=== PATIENT | female | born 1970 | race Hispanic/Latino ===

== ENCOUNTER 2019-05-11 11:48 | Outpatient (CLI) | payer MEDICAID, SELFPAY ==
--- NOTE | ~2019-05-11 | MMUS_ITS ---
EXAMINATION: MM diagnostic maria del carmen BI w shaheed, US breast LT limited HISTORY: Six-month follow-up for probably benign dilated subareolar ducts of the left breast TECHNIQUE: Craniocaudal, mediolateral, and mediolateral oblique 3-D tomosynthesis images of the breas ts were performed and synthetic 2-D images were generated. CAD analysis was submitted and interpreted . High resolution limited left breast ultrasound was performed. COMPARISON: 12/22/2018 BREAST PARENCHYMAL COMPOSITION: The breasts are heterogeneously dense, which may obscure small masses . FINDINGS: MAMMOGRAPHIC FINDINGS: There is no evidence of suspicious mass, calcification, or architectural distortion in either breast to suggest malignancy. There has been no suspicious interval change. ULTRASOUND: Again seen are multiple mildly dilated subareolar ducts of the left breast which contain a small amou nt of debris. No intraductal mass is identified. IMPRESSION: 1. Dilated subareolar ducts of the left breast without discrete mass identified. 2. Recommend 6 month follow-up left diagnostic mammogram and ultrasound. BI-RADS category 3, probably benign findings. Reviewed, dictated and finalized at location A. IMPRESSION: 1. Dilated subareolar ducts of the left breast without discrete mass identified . 2. Recommend 6 month follow-up left diagnostic mammogram and ultrasound. BI-RADS category 3, probably benign findings.
== END 2019-05-11 11:49 | disposition home or self-care (01) ==
LOC: ANHIMG 11:50
PROVIDERS: PCP Registered Nurse; Visit Provider Registered Nurse
DX: R92.8 Other abnormal and inconclusive findings on diagnostic imaging of breast (principal)
CPT/HCPCS: 76642; 77062; 77066; G0279

== ENCOUNTER 2020-07-27 17:32 | Emergency (ER) | payer OTHER, SELFPAY ==
[2020-07-27 17:41] VITALS: BP 128/81; PULSE 88; RESP 16; TEMP 36.7; O2SAT 99
--- NOTE | 2020-07-27 17:46 | ED.GENADULT ---
HPI - General Adult General Chief complaint: Urogenital-Female Stated complaint: side pain Source: patient Mode of arrival: ambulatory Limitations: no limitations History of Present Illness HPI narrative: 50 y/o female. PMH Includes: Seasonal allergies. Presents to [facility] today with acute complaints of RT flank pain, intermittently radiating to RLQ for the past 72 hours respectively. She also notes to have been experiencing dysuria and nausea, without emesis. No known fevers. No chest pain, dyspnea. No vaginal discharge, pelvic pain, hematuria. She reports no pre-existing history of renal compromise or nephrolithiasis. She is without additional acute complaints of illness upon exam. Related Data Allergies Allergy/AdvReac Type Severity Reaction Status Date / Time No Known Allergies Allergy Verified 02/05/20 08:30 Review of Systems Review of Systems: Narrative: CONSTITUTIONAL: Denies fever, chills, sweats. EYES: Denies visual changes, redness, discharge. ENT: Denies rhinorrhea, congestion, sore throat, otalgia. CARDIOVASCULAR: Denies chest pain, palpitations, edema. RESPIRATORY: Denies dyspnea, wheezing, cough GASTROINTESTINAL: RLQ abdominal pain & nausea. No vomiting, diarrhea. GENITOURINARY: Positive dysuria, hesitancy. SKIN: Denies rash or itching. MUSCULOSKELETAL: Denies acute back pain, joint pain, or myalgia. NEUROLOGIC: Denies numbness, or focal weakness. PSYCHIATRIC: Denies anxiety or depression. All systems reviewed & are unremarkable except as noted in HPI and below PMFSH Past Medical History Medical History Back pain Family History Family History Father Hypertension Mother Hypertension Family history of kidney disease Social History Social History Smoking status: Never smoker Alcohol intake: never Exam Narrative: Exam Narrative: GENERAL: This is a well-nourished, well-developed patient, in no apparent distress. HEAD: normocephalic, atraumatic. EYES: PERRL. EARS: External ears normal. NOSE: External nose normal. THROAT: Mucous membranes moist, posterior pharynx clear. NECK: Neck supple, non-tender without lymphadenopathy, masses or thyromegaly. CARDIOVASCULAR: Regular rate and rhythm without murmurs, gallops, or rubs. RESPIRATORY: Clear to auscultation. Breath sounds equal bilaterally. No wheezes, rales, or rhonchi. GASTROINTESTINAL: Abdomen soft, nondistended. There is tenderness and guarding to RLQ. Positive RT CVA tenderness. Bowel sounds are active. No palpable masses. SKIN: warm, intact. NEURO: There were no obvious focal neurologic abnormalities. Course Vital Signs Vital signs: Vital Signs Temperature 36.7 C 07/27/20 17:41 Pulse Rate 88 07/27/20 17:41 Respiratory Rate 16 07/27/20 17:41 Blood Pressure 128/81 07/27/20 17:41 Pulse Oximetry 99 07/27/20 17:41 Temperature 36.7 C 07/27/20 17:41 Pulse Rate 88 07/27/20 17:41 Respiratory Rate 16 07/27/20 17:41 Blood Pressure 128/81 07/27/20 17:41 Pulse Oximetry 99 07/27/20 17:41 Transfer Transfered to: [facility] (ER ) Transfer rationale: Flank pain, RLQ abdominal pain, Hematuria, Urinary hesitancy, Nausea. Accepting physician: Abhi. Transfer comments: I appreciate the above providers assistance in this case. Medical Decision Making MDM Narrative Medical decision making narrative: -Urine Dipstick concentrated and malodorous in [facility]. Positive 1+ Blood. -Reported urinary decrease & nausea, without emesis. -Physical exam sensitive for RT CVA tenderness and RLQ guarding. -Client has been re-directed to [facility] for higher level workup and resources, including but not limited to CBC, CHEM 12, & CT imaging. Medical Records Medical records reviewed: Yes I reviewed the external patient's medical
== END 2020-07-27 18:06 | disposition short-term general hospital (02) ==
PROVIDERS: Emergency Provider Nurse Practitioner Adult Health; PCP Registered Nurse
DX: R10.9 Unspecified abdominal pain (principal); R39.11 Hesitancy of micturition; R11.0 Nausea; R31.9 Hematuria, unspecified; R10.31 Right lower quadrant pain
CPT/HCPCS: 81003; 99212; G0463

== ENCOUNTER 2020-07-27 19:10 | Inpatient (IN) | payer OTHER, SELFPAY ==
[2020-07-27] VITALS (8 sets, daily range): BP systolic 118–137; BP diastolic 74–84; PULSE 75–88; RESP 18; TEMP 36.7; O2SAT 97–100; BMI 32.3
--- NOTE | ~2020-07-27 | XR_ITS ---
EXAMINATION: XR abdomen NG/feed tube insert DATE: 08/04/2020 03:09 INDICATION: Nasogastric tube placement TECHNIQUE: A supine view of the abdomen and lower chest was obtained for evaluation of feeding tube placement. COMPARISON: CT abdomen and pelvis dated 08/03/2020 FINDINGS: Nasogastric tube tip in proximal side port in the body of the stomach. Multiple gas-filled but not fr ankly dilated loops of small bowel throughout the abdomen. Opacities in the bilateral lower lung zone s with appearance on CT favoring atelectasis over pneumonia. Heart size is normal. IMPRESSION: 1. Is a gastric tube in the stomach. 2. Multiple gas-filled loops of small bowel and based on CT appearance favor postoperative ileus over obstruction. Reviewed, dictated and finalized at location A. IMPRESSION: 1. Is a gastric tube in the stomach. 2. Multiple gas-filled loops of small bowel and based on CT appearance favor po stoperative ileus over obstruction.
--- NOTE | ~2020-07-27 | CT_ITS ---
EXAMINATION: CT abdomen pelvis wo con DATE: 07/27/2020 19:57 INDICATION: Right flank pain for 3 days TECHNIQUE: Computed tomography (CT) of the abdomen and pelvis was performed without intravenous contr ast. The dose-length product was 267.15 mGy-cm. Automated exposure control and iterative reconstructi on technique were employed. COMPARISON: CT dated 04/28/2017. FINDINGS: Lung bases are unremarkable. Heart size normal. No significant pleural or pericardial effus ion. No significant vascular abnormality. No lymphadenopathy. The spleen, adrenal glands and kidneys are unremarkable. No renal/ureteral stones or hydronephrosis. IUD present. There is a dilated appendix measuring up to 3.1 cm with possible mass at the cecal junct ion. Small hypodensity of the left hepatic lobe, not well characterized without contrast. No free air or free fluid. No acute osseous abnormality. There is a fat-containing umbilical hernia. No lytic or blastic lesions are identified. IMPRESSION: 1. Possible cecal mass, suspicious for adenocarcinoma. 2: Severely dilated appendix measuring up to 3.1 cm transversely. Consider appendicitis and mucocele . Reviewed, dictated and finalized at location A. IMPRESSION: 1. Possible cecal mass, suspicious for adenocarcinoma. 2: Severely dilated appendix measuring up to 3.1 cm transversely. Consider jeffery endicitis and mucocele.
--- NOTE | ~2020-07-27 | XR_ITS ---
EXAMINATION: XR abdomen obstructive series DATE: 08/05/2020 08:46 INDICATION: Adynamic ileus. TECHNIQUE: Upright and supine views of the abdomen on 3 radiographs were obtained. COMPARISON: CT abdomen and pelvis 08/03/2020 FINDINGS: There are multiple dilated loops of small bowel. The colon is normal in caliber. The nasoga stric tube tip is in the stomach. No free intraperitoneal gas. There is an intrauterine device in exp ected position. There is mild atelectasis in the lower lung zones. IMPRESSION: 1. Dilated small bowel, consistent with adynamic ileus. Reviewed, dictated and finalized at location A.
--- NOTE | ~2020-07-27 | CT_ITS ---
EXAMINATION: CT abdomen pelvis w con DATE: 08/03/2020 11:05 INDICATION: Abdominal pain. TECHNIQUE: Computed tomography (CT) of the abdomen and pelvis was performed with 100 mL Omnipaque 350 intravenous contrast. Automated exposure control and iterative reconstruction technique were employe d. The dose-length product was 902.14 mGy-cm. COMPARISON: CT abdomen and pelvis 07/27/2020 FINDINGS: The visualized portions of the lung bases demonstrate small pleural effusions and mild atel ectasis. The heart size is normal. No pericardial effusion. There is a 1.6 cm cyst in the liver. The gallbladder is distended. The spleen, pancreas, adrenal glands, and kidneys are normal. There is an i ntrauterine device in expected position. There are changes of right hemicolectomy. There are multiple dilated loops of small bowel. There is wall thickening of some small bowel loops, consistent with in flammation. There is a small volume of ascites. There are no pathologically enlarged lymph nodes. The re is thrombus in superior mesenteric vein. Body wall edema is noted. The bones are unremarkable. IMPRESSION: 1. Multiple dilated loops of small bowel without focal transition point with wall thickening of some small bowel loops, consistent with inflammation and adynamic ileus. 2. 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 3. Small volume of ascites. 4. Small pleural effusions. 5. Gallbladder distention, which may secondary to fasting. Acute cholecystitis cannot be excluded. Reviewed, dictated and finalized at location A. IMPRESSION: 1. Multiple dilated loops of small bowel without focal transition point with wa ll thickening of some small bowel loops, consistent with inflammation and adyna radha ileus. 2. 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 3. Small volume of ascites. 4. Small pleural effusions. 5. Gallbladder distention, which may secondary to fasting. Acute cholecystitis cannot be excluded.
--- NOTE | 2020-07-27 19:31 | PC.NURSE ---
Addendum entered by Steff Renteria RN 07/27/20 19:33: urgent care and was told there was blood in her urine and signs of infection, so told to come to ER. pt also reports villavicencio and tiredness x 3 days. currently in gown, resting on stretcher c even, regular resps. no s/s of distress. Original Note: Pt here c daughter who is translating for her. 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 c/o right flank pain radiating to back x 3 days. denies burning with urination but c/o frequency and dribbling c urination. reports that she went urgejt
--- NOTE | 2020-07-27 19:45 | ED.ABDPAIN ---
HPI - Abdominal Pain General Chief Complaint: Urogenital-Female Stated Complaint: flank pain Time Seen by Provider: 07/27/20 19:35 Source: patient Mode of arrival: ambulatory Limitations: no limitations History of Present Illness HPI narrative: Patient is a 50-year-old female complaining of right flank pain and right lower quadrant pain, mild, aching, non radiating, that started 3 days ago. Patient denies any chest pain, shortness of breath, abdominal pain, nausea, vomiting, diarrhea, fever or chills. Related Data Allergies Allergy/AdvReac Type Severity Reaction Status Date / Time No Known Allergies Allergy Verified 02/05/20 08:30 Review of Systems Review of Systems: All systems reviewed & are unremarkable except as noted in HPI and below Constitutional: Constitutional: Denies body ache(s), Denies chills, Denies excessive sweating, Denies fatigue, Denies fever(s), Denies headache(s), Denies lethargy, Denies malaise, Denies weakness and Denies weight loss Eyes: Eyes: Denies blurry vision, Denies change in vision and Denies loss of vision ENT: Denies dizziness, Denies ear discharge, Denies headache(s), Denies lip swelling, Denies epistaxis, Denies nasal congestion, Denies neck pain, Denies throat swelling and Denies tongue swelling Cardiovascular: Cardiovascular: Denies chest pain, Denies chest pain at rest, Denies chest pain with activity, Denies diaphoresis, Denies rapid heart rate, Denies edema, Denies irregular heart rhythm, Denies lightheadedness, Denies palpitations, Denies dyspnea and Denies dyspnea on exertion Respiratory: Respiratory: Denies chest congestion, Denies cough, Denies hemoptysis, Denies dyspnea and Denies dyspnea on exertion Gastrointestinal: Gastrointestinal: Denies abdominal pain, Denies melena, Denies hematochezia, Denies diarrhea, Denies nausea, Denies vomiting and Denies hematemesis Musculoskeletal: Musculoskeletal: Denies abnormal gait, Denies deformity, Denies joint swelling, Denies limited range of motion, Denies neck pain and Denies numbness Neurologic: Denies Abnormal speech present, Denies abnormal gait, Denies confusion, Denies dizziness, Denies headache(s), Denies focal weakness, Denies loss of vision, Denies numbness, Denies Other visual disturbances, Denies Sensory deficit (Neuro) and Denies weakness Psychiatric: Psychiatric: Denies confusion, Denies depression, Denies auditory hallucinations, Denies homicidal ideation and Denies suicidal ideation Endocrine: Endocrine: Denies cold intolerance, Denies excessive sweating, Denies fatigue, Denies heat intolerance and Denies palpitations Hematologic/Lymphatic: Hematologic/Lymphatic: Denies easy bleeding and Denies easy bruising Allergic/Immunologic: Allergic/Immunologic: Denies lip swelling, Denies throat swelling and Denies tongue swelling PMFSH Past Medical History Medical History Back pain Family History Family History Father Hypertension Mother Hypertension Family history of kidney disease Social History Social History Smoking status: Never smoker Alcohol intake: never Comments Past medical history: None Exam Const: General: cooperative, healthy appearing, comfortable, no acute distress, well developed, alert and awake; No confusion Orientation/consciousness: oriented to person, oriented to place, oriented to time, patient oriented x3 and No confusion Limitations: no limitations HENMT: Head: normal to inspection, normocephalic and atraumatic Ears: hearing grossly normal bilaterally, TM normal on the right and TM normal on the left General nose exam: Normal external nose present, Normal nares present and No nasal discharge present Face and sinus: normal facial exam Mouth: Yes Normal oral and palatal mucosa present, Yes lip normal, Yes tongue normal and Yes
[2020-07-27 20:07] LABS: Add Urine Microscopic? YES; Appearance Urine Clear (Clear); Bacteria Urine Trace /hpf; Bilirubin Urine Negative (Negative); Blood Urine 1+ (Negative); Color Urine Yellow (Yellow); Glucose Urine UA Negative (Negative); Ketones Urine Negative (Negative); Leukocyte Esterase Ur Negative LEU/UL (Negative); Mucus Urine Rare /lpf; Nitrate Urine Negative (Negative); Protein Urine Negative (Negative); Squamous Epithelial Cell Urine Moderate /hpf (Few); Urobilinogen Urine Negative mg/dL (<2.0); WBC Urine 0-3 /hpf
[2020-07-27 20:20] LABS: Basophils Absolute Auto 0.1 K/mm3 (0.0-0.1); Basophils Percent Auto 0.6 % (0.2-1.2); Eosinophils Absolute Auto 0.3 K/mm3 (0-0.3); Eosinophils Percent Auto 2.8 % (0-4.4); Hematocrit 36.9 % (37.0-47.0); Hemoglobin 12.6 g/dL (12.0-15.0); Immature Granulocyte Absolute 0.03 K/mm3 (0.00-0.031); Immature Granulocyte Percent A 0.3 % (0-0.5); Lymphocytes Percent Auto 23.4 % (18.3-44.2); Mean Corpuscular HGB Conc 34.1 g/dl (32-36); Mean Corpuscular Hemoglobin 31.1 pg (26-34); Mean Corpuscular Volume 91.1 fl (80-100); Mean Platelet Volume 9.4 fl (7.4-10.4); Monocytes Absolute Auto 0.8 K/mm3 (0.1-0.6); Monocytes Percent Auto 9.3 % (2.6-8.5); Neutrophils Absolute Auto 5.7 K/mm3 (1.3-6.7); Neutrophils Percent Auto 63.6 % (45.5-73.1); Platelet Count Result 243 k/mm3 (150-375); Red Blood Count 4.05 M/mm3 (4.2-5.4); Red Cell Distribution Width 12.5 % (11.5-14.5)
[2020-07-27 21:19] LABS: Alanine Aminotransferase 17 U/L (4-35); Alkaline Phosphatase 47 U/L (38-126); Aspartate Amino Transferase 23 U/L (14-36); Bilirubin,Total 0.3 mg/dL (0.2-1.3); Lipase 83 U/L (23-300)
[2020-07-27 21:20] LABS: Anion Gap 6 mmol/L (8-16); Blood Urea Nitrogen 13 mg/dL (7-17); Calcium 8.9 mg/dL (8.4-10.2); Carbon Dioxide 26 mmol/L (22-30); Chloride 106 mmol/L (98-107); Estimated CRCL calculation 103 ml/min; Estimated Glomerular Filt Rate > 60; Glucose 113 mg/dL (65-105); Potassium 3.9 mmol/L (3.4-5.0); Sodium 138 mmol/L (137-145)
[2020-07-27] MEDS: LACTATED RINGERS 1,000 ML 125 ML IV CONT (22:30)
[2020-07-27] MEDS: ONDANSETRON INJ 4 MG/2 ML VIAL IV PUSH (22:31)
[2020-07-27] MEDS: HYDROmorphone HCL INJ (*CRX) 1 MG/ML SYR 0.5 MG IV PUSH (22:31)
--- NOTE | 2020-07-27 23:25 | PC.NURSE ---
This patient, Sylvia Pinto, was admitted to [facility] Surg Room 301-01. Patient/family oriented to hospital policies and general routines including ID bracelet, bed and alarms, visiting hours, pain management, procedures, bathroom and other care routines, personal items, smoking policy, room service/diet, and visiting hours. Information on how to activate the Rapid Response Team has been discussed. Patient/Family are encouraged to report perceived risks to care and to ask questions if they do not understand what they are told or what they should do.
[2020-07-28] VITALS (16 sets, daily range): BP systolic 94–127; BP diastolic 59–74; PULSE 69–105; RESP 10–19; TEMP 36.6–37.6; O2SAT 92–100
[2020-07-28] MEDS: LACTATED RINGERS 1,000 ML 125 ML IV CONT (04:52)
--- NOTE | 2020-07-28 09:57 | PM.IMHP ---
H&P: HPI History of Present Illness Date/Time: 07/28/20 09:57 Chief Complaint: Right flank and right lower quadrant abdominal pain Narrative: This is a 50-year-old Lao-speaking female who was referred to the emergency department from [facility]. For my entire conversation with the patient in obtaining history and discussing the plan, I used a virtual senior architect/design manager on the [employer] device with the patient's consent. She reports having mild, but constant pain for about 3 days. She states the pain is in her right flank and radiates to the right lower quadrant of her abdomen. Reports associated fatigue and nausea, but no vomiting. Denies any fever chills. There have been no alleviating or aggravating factors, therefore she presented to the [facility] for further evaluation. From there she was instructed to go to the [place] [facility] for further work-up. Labs were unremarkable. CT scan of the abdomen pelvis showed a dilated appendix up to 3.1 cm, possible mucocele, and possible cecal mass. No evidence of perforation or inflammatory stranding around the appendix. The patient was admitted to our service in the setting for surgical evaluation. She was made NPO. She has not had anything to eat or drink since yesterday around 6:00 p.m.. The patient is now seen on the medical floor. She reports having some pain medication, and since then has had no pain at all. Reports she is just tender with palpation. Denies nausea at this time. Denies any fever or chills. She has never had a colonoscopy. Denies any recent weight loss, significant fatigue, or other complaints. No family history of colorectal or appendiceal cancer. Review of Systems Review of Systems: All systems reviewed & are unremarkable except as noted in HPI and below Constitutional: Constitutional: Reports as per HPI, Denies anorexia, Denies body ache(s), Denies chills, Reports fatigue (x 3 days), Denies fever(s), Denies malaise, Denies poor appetite, Denies weight gain and Denies weight loss Eyes: Eyes: Reports no additional eye complaints and Denies change in vision ENT: Reports system reviewed and no additional complaints, except as documented, Reports Normal hearing present and Denies dizziness Cardiovascular: Cardiovascular: Reports no additional cardiovascular complaints, Denies chest pain and Denies leg edema Respiratory: Respiratory: Reports no additional respiratory complaints, Denies cough and Denies dyspnea Gastrointestinal: Gastrointestinal: Reports as per HPI, Reports no additional gastrointestinal complaints, Reports abdominal pain (right flank extending to RLQ), Denies melena, Denies bloating, Denies hematochezia, Denies change in bowel habits, Denies change in stool character, Denies constipation, Denies diarrhea, Denies loose stools, Reports nausea and Denies vomiting Genitourinary: Genitourinary: Denies hematuria and Denies dysuria Musculoskeletal: Musculoskeletal: Denies abnormal gait, Denies deformity, Denies joint swelling, Denies numbness and Denies tingling Integumentary/Breasts: Skin/Breast: Denies wounds and Denies jaundice Neurologic: Reports system reviewed and no additional complaints, except as documented, Reports Normal hearing present, Denies abnormal gait, Denies dizziness, Denies focal weakness, Denies numbness and Denies tingling Psychiatric: Psychiatric: Denies anxiety and Denies depression [facility] Past Medical History Medical History Back pain Cough variant asthma Surgical History Surgical History No history of previous surgery Family History Family History Father Hypertension Mother Hypertension Family history of kidney disease Social History Social History 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
--- NOTE | 2020-07-28 10:47 | PC.NURSE ---
To OR per bed, IV #18 RT FA. Report given to Tracey. Andrews (daughter) at bedside.
--- NOTE | 2020-07-28 10:51 | WPDHPUPDATE1 ---
History and Physical Update Update Date/Time: 07/28/20 10:51 History and Physical has been reviewed, including an updated exam of the patient. There are NO changes in the patient's condition. Risks, benefits, and alternatives have been discussed and questions answered. Patient agrees to proceed with procedure.
--- NOTE | 2020-07-28 10:55 | WPDANESEPPF ---
Anes - Initial Pre Proc Eval Procedure: Operation Date: 07/28/20 14:30 Proposed Procedures p Laparoscopic Appendectomy - Malcom Pryor MD Date/Time: 07/28/20 10:55 Surgeon: Malcom Pryor MD Pre Op Diagnosis: Acute Appendicitis Patient Data Age: 50 Gender: F Height: 1.65 m Weight: 88.1 kg Last Vital Signs Temp 36.7 C 07/28/20 05:57 Pulse 71 07/28/20 05:57 Resp 18 07/28/20 05:57 BP 114/68 07/28/20 05:57 Pulse Ox 99 07/28/20 05:57 Allergies Allergy/AdvReac Type Severity Reaction Status Date / Time No Known Allergies Allergy Verified 07/27/20 23:32 Home Medications Medication Instructions Recorded Confirmed Type albuterol sulfate 90 mcg/actuation 2 inhalation INHALATION Q6H PRN 01/27/19 07/27/20 Rx aerosol inhaler #8.5 gm fluticasone 250 mcg-salmeterol 50 1 inh INHALATION BID #60 each 02/05/20 07/27/20 Rx mcg/dose blistr powdr for inhalation Laboratory Tests 07/27/20 07/27/20 07/27/20 19:59 20:12 20:13 WBC 9.0 K/mm3 K/mm3 (4.5-10.0) RBC 4.05 M/mm3 L M/mm3 (4.2-5.4) Hgb 12.6 g/dL g/dL (12.0-15.0) Hct 36.9 % L % (37.0-47.0) MCV 91.1 fl fl (80-100) MCH 31.1 pg pg (26-34) MCHC 34.1 g/dl g/dl (32-36) RDW 12.5 % % (11.5-14.5) Plt Count 243 k/mm3 k/mm3 (150-375) MPV 9.4 fl fl (7.4-10.4) Immature Gran % (Auto) 0.3 % % (0-0.5) Neut % (Auto) 63.6 % % (45.5-73.1) Lymph % (Auto) 23.4 % % (18.3-44.2) [place] % (Auto) 9.3 % H % (2.6-8.5) Eos % (Auto) 2.8 % % (0-4.4) Baso % (Auto) 0.6 % % (0.2-1.2) Lymph # (Auto) 2.10 K/mm3 K/mm3 (0.9-3.2) [place] # (Auto) 0.8 K/mm3 H K/mm3 (0.1-0.6) Eos # (Auto) 0.3 K/mm3 K/mm3 (0-0.3) Baso # (Auto) 0.1 K/mm3 K/mm3 (0.0-0.1) Abs Immat Gran (auto) 0.03 K/mm3 K/mm3 (0.00-0.031) Absolute Neuts (auto) 5.7 K/mm3 K/mm3 (1.3-6.7) Absolute Nucleated RBC 0.0 K/mm3 K/mm3 (0.0-0.012) Nucleated RBC % 0.0 % % (0.0-0.2) Sodium Potassium Chloride Carbon Dioxide Anion Gap BUN Creatinine Estim Creat Clear Calc Estimated GFR Glucose Calcium Total Bilirubin 0.3 mg/dL mg/dL (0.2-1.3) Direct Bilirubin 0.0 mg/dL mg/dL (0-0.3) AST 23 U/L U/L (14-36) ALT 17 U/L U/L (4-35) Alkaline Phosphatase 47 U/L U/L (38-126) Total Protein 7.0 g/dL g/dL (6.3-8.2) Albumin 4.0 g/dL g/dL (3.5-5.1) Lipase 83 U/L U/L (23-300) Urine Color Yellow (Yellow) Urine Appearance Clear (Clear) Urine pH 6.0 (5.0-9.0) Ur Specific Stella 1.020 (1.001-1.035) Urine Protein Negative mg/dL mg/dL (Negative) Urine Glucose (UA) Negative mg/dL mg/dL (Negative) Urine Ketones Negative mg/dL mg/dL (Negative) Ur Blood (Man) 1+ H (Negative) Urine Nitrate Negative (Negative) Urine Bilirubin Negative (Negative) Urine Urobilinogen Negative mg/dL mg/dL (<2.0) Leukocyte Esterase Rfl Negative STEFFANIE/UL STEFFANIE/UL (Negative) Urine RBC 3-5 /hpf H /hpf (0-2) Urine WBC 0-3 /hpf /hpf Ur Squamous Epith Cells Moderate /hpf H /hpf (Few) Urine Bacteria Trace /hpf /hpf Urine Mucus Rare /lpf /lpf 07/27/20 20:13 WBC RBC Hgb Hct MCV MCH MCHC RDW Plt Count MPV Immature Gran % (Auto) Neut % (Auto) Lymph % (Auto) [place] % (Auto) Eos % (Auto) Baso % (Auto) Lymph # (Auto) [place] # (Auto) Eos # (Auto) B
[2020-07-28] MEDS: LACTATED RINGERS 1,000 ML 30 ML IV CONT ×2 (11:13→14:08)
--- NOTE | 2020-07-28 11:24 | SUR.PREOP ---
PT STATES SHE IS NOT POST MENOPAUSAL, SHE HAS NOT HAD A PERIOD SINCE 2011 DUE TO HAVING THE MIRENA. NOTIFIED DR RICKETTS. NO UPREG NEEDED.
[2020-07-28] MEDS: ceFAZolin 2 GM/D5W 50 ML 2 GM/50 ML BAG IVPB (12:01)
[2020-07-28] MEDS: BUPIVACAINE/EPINEPHRINE 0.5% 10 ML VIAL 50 ML INFILTRATE (13:16)
--- NOTE | 2020-07-28 13:46 | PM.PROC ---
Procedure Note - Detailed Date of procedure: 07/28/20 Pre-op diagnosis: Acute Appendicitis Post-op diagnosis: other ( appendiceal mass involving base of the appendix) Procedure performed: diagnostic laparoscopy, hand assisted laparoscopic ileocecectomy, mobilization of hepatic flexure Description of procedure: The patient was taken to the operating room placed in the supine position. After adequate induction of general anesthesia, the patient prepped and draped normal sterile fashion. A time-out was then done to verify the patient's identity, as well as the procedure being performed. I began by making a 5 mm incision in the infraumbilical region. I then placed a Veress needle into the peritoneal cavity and CO2 gas was insufflated. After adequate pneumoperitoneum was achieved, I placed a 5 mm Optiview trocar under direct visualization. The introducer was then removed and the endoscope was placed through this trocar. Under direct visualization, I placed a further 5 mm suprapubic port and an additional 12 mm port in the left lower abdomen. At this point the cecum was identified and was noted to be largely unremarkable. Upon identifying the appendix, it was noted to be very dilated and hard. The hardness and dilation was throughout the appendix including the base of the appendix with the cecum. Given the suspicious findings on CT scan as well as the involvement of the base, the decision was made to convert to ileo cecectomy. I enlarged the incision around the umbilicus to allow for hand port placement. Once done, I began by taking down the medial attachments of the ileocecal area. This was done by 1st identifying the ileocolic vessels which were ligated near the root of the mesentery. I then proceeded to continue this dissection towards the hepatic flexure identifying the duodenum posteriorly. I then took down the lateral attachments, including the ileocolic attachments, and the white line of Toldt laterally. I then went ahead and mobilized the hepatic flexure as well. Once the right colon was completely freely mobile, and extracorporealized the specimen through the hand port. At this point, I used a 55 LORENA stapler to transect the distal ileum approximately 10 cm from the ileocecal junction. I then transected the distal cecum, ascending colon with a reload on the 55 LORENA stapler. The specimen was then sent to pathology for further review. I then noted at this time that the distal ileum was somewhat compromised due to extensive mesenteric dissection. Given this, I went ahead and resected distal ileum back to healthy, viable ileum. I then performed a [id number] functional end-to-end ileocolic anastomosis using the 55 LORENA stapler followed by a TX 60 stapler. I then over sewed the staple line with interrupted 3 0 Vicryl sutures. The mesenteric defect was also closed with a running 3 0 Vicryl suture. I was very happy with our tension-free anastomosis that was noted to be widely patent as well. I then placed the anastomosis back into the abdominal cavity where it was noted to sit tension-free. I then copiously irrigated the abdomen, no other pathology was noted. I then removed all port sites. The fascia of the 12 mm port site was closed with an 0 Vicryl suture. Hand port site was closed with a 1 PDS. All incisions were closed with 4.0 Monocryl subcuticular suture. Dermabond was placed on all wounds. The patient tolerated the procedure well and was extubated in the operating room postoperatively. She will be transferred to the recovery room in stable condition. Anesthesia: GETA Surgeon: Lili Rivas MD Estimated blood loss (mL): 50 Drains: No Packing: No Pathology: yes Complications: No immediate complications Condition: stable Disposition: PACU Findings: Extremely dilated hard appendix involving the entirety of the appendix including the base
[2020-07-28] MEDS: KETOROLAC 30 MG/ML VIAL (*BKC) IV PUSH (13:50)
[2020-07-28] MEDS: fentaNYL CITRATE INJ (*CRX) 100 MCG/2 ML VIAL 25 MCG IV PUSH ×5 (14:33→15:18)
--- NOTE | 2020-07-28 16:16 | PC.NURSE ---
Patient return from OR per bed. Daughter at bedside.
[2020-07-28] MEDS: HYDROcodone/acetaminophen (*CRX) 5-325 MG TABLET 1 TAB PO (18:10)
[2020-07-28] MEDS: LACTATED RINGERS 1,000 ML 100 ML IV CONT (18:20)
[2020-07-28] MEDS: HYDROmorphone HCL INJ (*CRX) 1 MG/ML SYR 0.5 MG IV PUSH (21:17)
[2020-07-29] MEDS: HYDROmorphone HCL INJ (*CRX) 1 MG/ML SYR 0.5 MG IV PUSH ×5 (03:45→22:46)
[2020-07-29] MEDS: LACTATED RINGERS 1,000 ML 100 ML IV CONT ×2 (03:50→16:07)
[2020-07-29 03:57] VITALS: BP 120/69; PULSE 98; RESP 20; TEMP 37.6; O2SAT 95
[2020-07-29 05:57] LABS: Basophils Percent Auto 0.2 % (0.2-1.2); Hematocrit 33.4 % (37.0-47.0); Hemoglobin 11.4 g/dL (12.0-15.0); Immature Granulocyte Absolute 0.14 K/mm3 (0.00-0.031); Immature Granulocyte Percent A 0.7 % (0-0.5); Lymphocytes Percent Auto 7.9 % (18.3-44.2); Mean Corpuscular HGB Conc 34.1 g/dl (32-36); Mean Corpuscular Hemoglobin 30.9 pg (26-34); Mean Corpuscular Volume 90.5 fl (80-100); Mean Platelet Volume 9.7 fl (7.4-10.4); Monocytes Absolute Auto 1.9 K/mm3 (0.1-0.6); Monocytes Percent Auto 9.9 % (2.6-8.5); Neutrophils Absolute Auto 15.4 K/mm3 (1.3-6.7); Neutrophils Percent Auto 81.3 % (45.5-73.1); Platelet Count Result 226 k/mm3 (150-375); Red Blood Count 3.69 M/mm3 (4.2-5.4); Red Cell Distribution Width 12.5 % (11.5-14.5); White Blood Count 18.9 K/mm3 (4.5-10.0)
[2020-07-29 06:06] LABS: Anion Gap 7 mmol/L (8-16); Blood Urea Nitrogen 10 mg/dL (7-17); Calcium 8.4 mg/dL (8.4-10.2); Carbon Dioxide 23 mmol/L (22-30); Chloride 104 mmol/L (98-107); Estimated CRCL calculation 107 ml/min; Estimated Glomerular Filt Rate > 60; Glucose 144 mg/dL (65-105); Potassium 3.6 mmol/L (3.4-5.0); Sodium 134 mmol/L (137-145)
--- NOTE | 2020-07-29 07:24 | P.PNAN_ITS ---
Anes - Prog Note Post-Op Date/Time: 07/29/20 07:24 Cardiovascular status: normal Respiratory status: normal Airway patency: baseline Mental status: baseline Post-Op hydration status: normal Vital Signs: Last Vital Signs Temp 37.6 C 07/29/20 03:57 Pulse 98 07/29/20 03:57 Resp 20 07/29/20 03:57 BP 120/69 07/29/20 03:57 Pulse Ox 95 07/29/20 03:57 Pain Score (VAS): 2 I/O: Intake & Output 07/28/20 07/28/20 07/29/20 15:59 23:59 07:59 Intake Total 9709 868 5869 Output Total 900 400 Balance 1050 -540 700 Laboratory Tests 07/29/20 05:30 07/29/20 05:30 07/29/20 07/29/20 05:30 05:30 WBC 18.9 H RBC 3.69 L Hgb 11.4 L Hct 33.4 L MCV 90.5 MCH 30.9 MCHC 34.1 RDW 12.5 Plt Count 226 MPV 9.7 Immature Gran % (Auto) 0.7 H Neut % (Auto) 81.3 H Lymph % (Auto) 7.9 L [place] % (Auto) 9.9 H Eos % (Auto) 0.0 Baso % (Auto) 0.2 Lymph # (Auto) 1.50 [place] # (Auto) 1.9 H Eos # (Auto) 0.0 Baso # (Auto) 0.0 Abs Immat Gran (auto) 0.14 H Absolute Neuts (auto) 15.4 H Absolute Nucleated RBC 0.0 Nucleated RBC % 0.0 Sodium 134 L Potassium 3.6 Chloride 104 Carbon Dioxide 23 Anion Gap 7 L BUN 10 Creatinine 0.60 L Estim Creat Clear Calc 107 Estimated GFR > 60 Glucose 144 H Calcium 8.4 Post-procedural complaints: none Patient Feedback: Patient satisfied with anesthetic care.
[2020-07-29] MEDS: ENOXAPARIN 40 MG/0.4 ML SYRINGE SUB-Q (08:34)
[2020-07-29] MEDS: PANTOPRAZOLE 40 MG TABLET PO (08:34)
[2020-07-29 09:45] VITALS: O2SAT 95
--- NOTE | 2020-07-29 10:41 | PM.PNGS ---
Progress Note: A&P Assessment and Plan (1) Mass of appendix: Code(s): K38.8 - Other specified diseases of appendix Status: Acute Assessment and Plan: doing well, await bowel fxn, OOB/IS, cont clears, await path Subjective Subjective Date/Time Seen: 07/29/20 10:41 feels ok, some incisional soreness, herb clears, no bowel fxn Review of Systems Review of Systems: All systems reviewed & are unremarkable except as noted in HPI and below Exam Const: General: cooperative and no acute distress Resp: Effort & Inspection: normal respiratory effort Auscultation: clear to auscultation bilaterally Cardio: Rate: regular rate Rhythm: regular rhythm GI: Inspection: normal to inspection, distended and incision GI Palp: Yes Soft to palpation, Yes Tenderness to palpation present (GI), No Guarding due to palpation present (GI) and No Rigid due to palpation Other: soft, mod dist, jeffery TTP, incisions C/D/I Objective Data Vital Signs Vital Signs: Vital Signs - 24 hr 07/28/20 11:09 07/28/20 14:08 07/28/20 14:20 Temperature 37.3 C Pulse Rate 75 74 69 Respiratory Rate 16 12 14 Blood Pressure 122/74 97/59 L 94/70 L Pulse Oximetry 98 100 100 07/28/20 14:35 07/28/20 14:50 07/28/20 15:05 Temperature Pulse Rate 72 70 79 Respiratory Rate 17 19 16 Blood Pressure 103/66 109/67 110/69 Pulse Oximetry 100 100 95 07/28/20 15:20 07/28/20 15:35 07/28/20 15:50 Temperature Pulse Rate 82 84 83 Respiratory Rate 10 L 13 14 Blood Pressure 104/68 104/66 103/70 Pulse Oximetry 92 94 94 07/28/20 16:00 07/28/20 16:15 07/28/20 16:45 Temperature 37.4 C 36.6 C 37.0 C Pulse Rate 90 87 96 Respiratory Rate 14 14 16 Blood Pressure 125/66 115/66 118/69 Pulse Oximetry 96 96 97 07/28/20 17:45 07/28/20 19:45 07/28/20 23:40 Temperature 37.6 C H 36.8 C 36.8 C Pulse Rate 103 H 105 H 105 H Respiratory Rate 16 18 18 Blood Pressure 127/74 112/67 119/72 Pulse Oximetry 97 95 93 07/29/20 03:57 07/29/20 09:45 Temperature 37.6 C Pulse Rate 98 Respiratory Rate 20 Blood Pressure 120/69 Pulse Oximetry 95 95 Intake/Output Intake/Output: Intake & Output 07/26/20 07/27/20 07/28/20 07/29/20 23:59 23:59 23:59 23:59 Intake Total 2410 1300 Output Total 900 400 Balance 1510 900 Meds/Results Medications: Active Medications Generic Name Dose Route Start Last Admin Trade Name Freq PRN Reason Stop Dose Admin Acetaminophen 500 mg 07/28/20 13:42 Acetaminophen 500 Mg Tablet PO Q6H PRN Mild Pain (1-3) or Fever Hydrocodone Bitart/Acetaminophen 1 tab 07/28/20 13:42 07/28/20 18:10 Hydrocodone/Acetaminophen (*Crx) 5-325 Mg Tablet PO 1 tab Q4H PRN Administration Pain Rated 4-6 Alvimopan 12 mg 07/29/20 21:00 Alvimopan 12 Mg Capsule PO 08/05/20 21:01 Q12HR JADYN Enoxaparin Sodium 40 mg 07/29/20 09:00 07/29/20 08:34 Enoxaparin 40 Mg/0.4 Ml Syringe SUB-Q 40 mg DAILY JADYN Administration Hydromorphone HCl 0.5 mg 07/27/20 21:53 07/29/20 08:33 Hydromorphone Hcl Inj (*Crx) 1 Mg/Ml Syr IV PUSH 0.5 mg Q4H PRN Administration Pain Rated 7-10 Lactated Ringer's 1,000 mls @ 100 mls/hr 07/28/20 13:45 07/29/20 03:50 Lr - Lactated Ringers Iv IV CONT 100 mls/hr .Q10H JADYN Administration Ketorolac Tromethamine 30 mg 07/28/20 13:42 07/28/20 13:50 Ketorolac 30 Mg/Ml Vial (*Bkc) IV PUSH 08/02/20 13:43 30 mg Q6H PRN Administration Pain Rated 4-6 Morphine Sulfate 4 mg 07/28/20 13:37 Morphine Sulfate (*Crx) 4 Mg/Ml Inj IV PUSH Q2H PRN Pain Rated 7-10 Naloxone HCl 0.1 mg 07/28/20 13:42 Naloxone Hcl 0.4 Mg/Ml Vial IV PUSH Q2M PRN Opiate Reversal Ondansetron HCl 4 mg 07/28/20 13:42 Ondansetron Inj 4 Mg/2 Ml Vial IV PUSH Q4H PRN Nausea And Vomiting Pantoprazole Sodium 40 mg 07/29/20 09:00 07/29/20 08:34 Pantoprazole 40 Mg Tablet PO 40 mg QAM JADYN Administration Radiology Res
[2020-07-29] MEDS: MORPHINE SULFATE (*CRX) 4 MG/ML INJ IV PUSH ×2 (11:43→16:10)
[2020-07-29] MEDS: ONDANSETRON INJ 4 MG/2 ML VIAL IV PUSH (11:49)
[2020-07-29 14:00] VITALS: BP 135/77; PULSE 97; RESP 16; TEMP 37.8; O2SAT 94
[2020-07-29] MEDS: ALVIMOPAN 12 MG CAPSULE PO (20:52)
[2020-07-29] MEDS: HYDROcodone/acetaminophen (*CRX) 5-325 MG TABLET 1 TAB PO (20:58)
[2020-07-29 21:53] VITALS: BP 146/78; PULSE 114; RESP 20; TEMP 36.8; O2SAT 92
[2020-07-29] MEDS: KETOROLAC 30 MG/ML VIAL (*BKC) IV PUSH (22:46)
[2020-07-30] MEDS: LACTATED RINGERS 1,000 ML 100 ML IV CONT ×3 (01:36→20:07)
[2020-07-30] MEDS: HYDROcodone/acetaminophen (*CRX) 5-325 MG TABLET 1 TAB PO ×3 (02:34→20:08)
[2020-07-30 06:00] VITALS: BP 129/77; PULSE 99; RESP 20; TEMP 36.3; O2SAT 97
[2020-07-30 06:22] LABS: Hematocrit 35.2 % (37.0-47.0); Hemoglobin 11.9 g/dL (12.0-15.0); Mean Corpuscular HGB Conc 33.8 g/dl (32-36); Mean Corpuscular Hemoglobin 30.8 pg (26-34); Mean Corpuscular Volume 91.2 fl (80-100); Mean Platelet Volume 10.3 fl (7.4-10.4); Platelet Count Result 224 k/mm3 (150-375); Red Blood Count 3.86 M/mm3 (4.2-5.4); Red Cell Distribution Width 12.9 % (11.5-14.5); White Blood Count 5.4 K/mm3 (4.5-10.0)
[2020-07-30 06:24] LABS: Anion Gap 6 mmol/L (8-16); Blood Urea Nitrogen 12 mg/dL (7-17); Calcium 8.2 mg/dL (8.4-10.2); Carbon Dioxide 26 mmol/L (22-30); Chloride 103 mmol/L (98-107); Estimated CRCL calculation 107 ml/min; Estimated Glomerular Filt Rate > 60; Glucose 130 mg/dL (65-105); Potassium 3.6 mmol/L (3.4-5.0); Sodium 135 mmol/L (137-145)
[2020-07-30] MEDS: HYDROmorphone HCL INJ (*CRX) 1 MG/ML SYR 0.5 MG IV PUSH ×2 (09:09→19:40)
[2020-07-30] MEDS: ENOXAPARIN 40 MG/0.4 ML SYRINGE SUB-Q (09:12)
[2020-07-30] MEDS: ALVIMOPAN 12 MG CAPSULE PO ×2 (09:12→20:08)
[2020-07-30] MEDS: PANTOPRAZOLE 40 MG TABLET PO (09:12)
--- NOTE | 2020-07-30 12:08 | PM.PNGS ---
Progress Note: A&P Assessment and Plan (1) Mass of appendix: Code(s): K38.8 - Other specified diseases of appendix Status: Acute Assessment and Plan: better, ADAT, encourage OOB/IS, anticipate dc tomorrow Subjective Subjective Date/Time Seen: 07/30/20 12:08 feels better today, had small BM this am, pain better Review of Systems Review of Systems: All systems reviewed & are unremarkable except as noted in HPI and below Exam Const: General: cooperative and no acute distress Nutritional Appearance: overweight Orientation/consciousness: patient oriented x3 Resp: Auscultation: clear to auscultation bilaterally Cardio: Rate: regular rate Rhythm: regular rhythm GI: Inspection: normal to inspection, distended and incision GI Palp: Yes Soft to palpation and Yes Tenderness to palpation present (GI) Other: soft, sl dist, jeffery TTP, incisions C/D/I Objective Data Vital Signs Vital Signs: Vital Signs - 24 hr 07/29/20 14:00 07/29/20 21:53 07/30/20 06:00 Temperature 37.8 C H 36.8 C 36.3 C L Pulse Rate 97 114 H 99 Respiratory Rate 16 20 20 Blood Pressure 135/77 146/78 H 129/77 Pulse Oximetry 94 92 97 Intake/Output Intake/Output: Intake & Output 07/27/20 07/28/20 07/29/20 07/30/20 23:59 23:59 23:59 23:59 Intake Total 2410 2630 2440 Output Total 900 1950 700 Balance 9474 747 5226 Meds/Results Medications: Active Medications Generic Name Dose Route Start Last Admin Trade Name Nicoq PRN Reason Stop Dose Admin Acetaminophen 500 mg 07/28/20 13:42 Acetaminophen 500 Mg Tablet PO Q6H PRN Mild Pain (1-3) or Fever Hydrocodone Bitart/Acetaminophen 1 tab 07/28/20 13:42 07/30/20 11:03 Hydrocodone/Acetaminophen (*Crx) 5-325 Mg Tablet PO 1 tab Q4H PRN Administration Pain Rated 4-6 Alvimopan 12 mg 07/29/20 21:00 07/30/20 09:12 Alvimopan 12 Mg Capsule PO 08/05/20 21:01 12 mg Q12HR JADYN Administration Enoxaparin Sodium 40 mg 07/29/20 09:00 07/30/20 09:12 Enoxaparin 40 Mg/0.4 Ml Syringe SUB-Q 40 mg DAILY JADYN Administration Hydromorphone HCl 0.5 mg 07/27/20 21:53 07/30/20 09:09 Hydromorphone Hcl Inj (*Crx) 1 Mg/Ml Syr IV PUSH 0.5 mg Q4H PRN Administration Pain Rated 7-10 Lactated Ringer's 1,000 mls @ 100 mls/hr 07/28/20 13:45 07/30/20 10:59 Lr - Lactated Ringers Iv IV CONT 100 mls/hr .Q10H JADYN Administration Ketorolac Tromethamine 30 mg 07/28/20 13:42 07/29/20 22:46 Ketorolac 30 Mg/Ml Vial (*Bkc) IV PUSH 08/02/20 13:43 30 mg Q6H PRN Administration Pain Rated 4-6 Morphine Sulfate 4 mg 07/28/20 13:37 07/29/20 16:10 Morphine Sulfate (*Crx) 4 Mg/Ml Inj IV PUSH 4 mg Q2H PRN Administration Pain Rated 7-10 Naloxone HCl 0.1 mg 07/28/20 13:42 Naloxone Hcl 0.4 Mg/Ml Vial IV PUSH Q2M PRN Opiate Reversal Ondansetron HCl 4 mg 07/28/20 13:42 07/29/20 11:49 Ondansetron Inj 4 Mg/2 Ml Vial IV PUSH 4 mg Q4H PRN Administration Nausea And Vomiting Pantoprazole Sodium 40 mg 07/29/20 09:00 07/30/20 09:12 Pantoprazole 40 Mg Tablet PO 40 mg QAM JADYN Administration Radiology Results: ITS Impressions Abdomen/Pelvis CT 07/27/20 20:11 IMPRESSION: 1. Possible cecal mass, suspicious for adenocarcinoma. 2: Severely dilated appendix measuring up to 3.1 cm transversely. Consider appendicitis and mucocele. Labs Labs: Laboratory Results - last 24 hr 07/30/20 07/30/20 05:16 05:16 WBC 5.4 RBC 3.86 L Hgb 11.9 L Hct 35.2 L MCV 91.2 MCH 30.8 MCHC 33.8 RDW 12.9 Plt Count 224 MPV 10.3 Sodium 135 L Potassium 3.6 Chloride 103 Carbon Dioxide 26 Anion Gap 6 L BUN 12 Creatinine 0.60 L Estim Creat Clear Calc 107 Estimated GFR > 60 Glucose 130 H Calcium 8.2 L Quality VTE Prophylaxis VTE prophylaxis: mechanical ordered
[2020-07-30 12:26] VITALS: BMI 35.1
[2020-07-30] MEDS: KETOROLAC 30 MG/ML VIAL (*BKC) IV PUSH ×2 (12:59→19:39)
[2020-07-30 14:00] VITALS: BP 131/77; PULSE 54; RESP 20; TEMP 36.6; O2SAT 95
[2020-07-30] MEDS: MORPHINE SULFATE (*CRX) 4 MG/ML INJ IV PUSH ×2 (17:24→22:38)
[2020-07-30] MEDS: ONDANSETRON INJ 4 MG/2 ML VIAL IV PUSH ×2 (17:27→22:38)
[2020-07-30 22:00] VITALS: BP 124/68; PULSE 102; RESP 18; TEMP 36.2; O2SAT 96
[2020-07-31] MEDS: HYDROmorphone HCL INJ (*CRX) 1 MG/ML SYR 0.5 MG IV PUSH ×5 (00:33→19:45)
[2020-07-31] MEDS: KETOROLAC 30 MG/ML VIAL (*BKC) IV PUSH (01:09)
[2020-07-31] MEDS: HYDROcodone/acetaminophen (*CRX) 5-325 MG TABLET 1 TAB PO ×4 (01:22→21:52)
[2020-07-31] MEDS: ONDANSETRON INJ 4 MG/2 ML VIAL IV PUSH ×3 (02:48→17:07)
[2020-07-31] MEDS: MORPHINE SULFATE (*CRX) 4 MG/ML INJ IV PUSH ×2 (02:48→12:09)
[2020-07-31] MEDS: LACTATED RINGERS 1,000 ML 100 ML IV CONT (04:47)
[2020-07-31 06:00] VITALS: BP 139/76; PULSE 103; RESP 16; TEMP 36.2; O2SAT 95
--- NOTE | 2020-07-31 07:14 | PM.PNGS ---
Progress Note: A&P Assessment and Plan (1) Mass of appendix: Code(s): K38.8 - Other specified diseases of appendix Status: Acute Assessment and Plan: worsening pain, likely muscle spasms, will try Flexiril Subjective Subjective Date/Time Seen: 07/31/20 07:14 c/o muscle spasms in abd, crampy pain, herb diet, +bowel fxn Review of Systems Review of Systems: All systems reviewed & are unremarkable except as noted in HPI and below Exam Const: General: cooperative and acute distress moderate Nutritional Appearance: obese Orientation/consciousness: patient oriented x3 Resp: Effort & Inspection: normal respiratory effort Auscultation: clear to auscultation bilaterally Cardio: Rate: regular rate Rhythm: regular rhythm GI: Inspection: normal to inspection, distended and incision GI Palp: Yes Soft to palpation and Yes Tenderness to palpation present (GI) Other: soft, mod dist, diffuse TTP, no peritoneal signs Objective Data Vital Signs Vital Signs: Vital Signs - 24 hr 07/30/20 14:00 07/30/20 22:00 Temperature 36.6 C 36.2 C L Pulse Rate 54 L 102 H Respiratory Rate 20 18 Blood Pressure 131/77 124/68 Pulse Oximetry 95 96 Intake/Output Intake/Output: Intake & Output 07/28/20 07/29/20 07/30/20 07/31/20 23:59 23:59 23:59 23:59 Intake Total 2410 2630 4700 1250 Output Total 900 1950 1390 Balance 3927 248 5846 1250 Meds/Results Medications: Active Medications Generic Name Dose Route Start Last Admin Trade Name Freq PRN Reason Stop Dose Admin Acetaminophen 500 mg 07/28/20 13:42 Acetaminophen 500 Mg Tablet PO Q6H PRN Mild Pain (1-3) or Fever Hydrocodone Bitart/Acetaminophen 1 tab 07/28/20 13:42 07/31/20 01:22 Hydrocodone/Acetaminophen (*Crx) 5-325 Mg Tablet PO 1 tab Q4H PRN Administration Pain Rated 4-6 Alvimopan 12 mg 07/29/20 21:00 07/30/20 20:08 Alvimopan 12 Mg Capsule PO 08/05/20 21:01 12 mg Q12HR JADYN Administration Enoxaparin Sodium 40 mg 07/29/20 09:00 07/30/20 09:12 Enoxaparin 40 Mg/0.4 Ml Syringe SUB-Q 40 mg DAILY JADYN Administration Hydromorphone HCl 0.5 mg 07/27/20 21:53 07/31/20 04:46 Hydromorphone Hcl Inj (*Crx) 1 Mg/Ml Syr IV PUSH 0.5 mg Q4H PRN Administration Pain Rated 7-10 Lactated Ringer's 1,000 mls @ 100 mls/hr 07/28/20 13:45 07/31/20 04:47 Lr - Lactated Ringers Iv IV CONT 100 mls/hr .Q10H JADYN Administration Ketorolac Tromethamine 30 mg 07/28/20 13:42 07/31/20 01:09 Ketorolac 30 Mg/Ml Vial (*Bkc) IV PUSH 08/02/20 13:43 30 mg Q6H PRN Administration Pain Rated 4-6 Morphine Sulfate 4 mg 07/28/20 13:37 07/31/20 02:48 Morphine Sulfate (*Crx) 4 Mg/Ml Inj IV PUSH 4 mg Q2H PRN Administration Pain Rated 7-10 Naloxone HCl 0.1 mg 07/28/20 13:42 Naloxone Hcl 0.4 Mg/Ml Vial IV PUSH Q2M PRN Opiate Reversal Ondansetron HCl 4 mg 07/28/20 13:42 07/31/20 02:48 Ondansetron Inj 4 Mg/2 Ml Vial IV PUSH 4 mg Q4H PRN Administration Nausea And Vomiting Pantoprazole Sodium 40 mg 07/29/20 09:00 07/30/20 09:12 Pantoprazole 40 Mg Tablet PO 40 mg QAM JADYN Administration Radiology Results: ITS Impressions Abdomen/Pelvis CT 07/27/20 20:11 IMPRESSION: 1. Possible cecal mass, suspicious for adenocarcinoma. 2: Severely dilated appendix measuring up to 3.1 cm transversely. Consider appendicitis and mucocele. Quality VTE Prophylaxis VTE prophylaxis: mechanical ordered
[2020-07-31] MEDS: CYCLOBENZAPRINE HCL 5 MG TABLET PO ×2 (08:09→17:07)
[2020-07-31] MEDS: PANTOPRAZOLE 40 MG TABLET PO (08:10)
[2020-07-31] MEDS: ALVIMOPAN 12 MG CAPSULE PO ×2 (08:10→20:15)
[2020-07-31] MEDS: ENOXAPARIN 40 MG/0.4 ML SYRINGE SUB-Q (08:10)
[2020-07-31 14:00] VITALS: BP 145/78; PULSE 95; RESP 22; TEMP 36; O2SAT 95
[2020-07-31 21:31] VITALS: BP 140/82; PULSE 88; RESP 16; TEMP 36.2; O2SAT 97
[2020-08-01] MEDS: KETOROLAC 30 MG/ML VIAL (*BKC) IV PUSH (00:43)
[2020-08-01] MEDS: LACTATED RINGERS 1,000 ML 100 ML IV CONT (00:44)
[2020-08-01] MEDS: CYCLOBENZAPRINE HCL 5 MG TABLET PO ×3 (01:42→16:56)
[2020-08-01] MEDS: HYDROcodone/acetaminophen (*CRX) 5-325 MG TABLET 1 TAB PO ×5 (01:42→21:02)
[2020-08-01 06:00] VITALS: BP 125/78; PULSE 92; RESP 18; TEMP 36.3; O2SAT 95
[2020-08-01] MEDS: ENOXAPARIN 40 MG/0.4 ML SYRINGE SUB-Q (08:41)
[2020-08-01] MEDS: PANTOPRAZOLE 40 MG TABLET PO (08:41)
[2020-08-01] MEDS: ALVIMOPAN 12 MG CAPSULE PO ×2 (08:41→20:09)
--- NOTE | 2020-08-01 10:27 | PM.PNGS ---
Progress Note: A&P Assessment and Plan (1) Mass of appendix: Code(s): K38.8 - Other specified diseases of appendix Status: Acute Assessment and Plan: better, cont po analgesics, encourage OOB/IS, home soon Subjective Subjective Date/Time Seen: 08/01/20 10:27 feels ok, incisional pain and spasms improved, herb diet, +bowel fxn Review of Systems Review of Systems: All systems reviewed & are unremarkable except as noted in HPI and below Exam Const: General: cooperative and comfortable Orientation/consciousness: patient oriented x3 Resp: Effort & Inspection: normal respiratory effort Auscultation: clear to auscultation bilaterally Cardio: Rate: regular rate Rhythm: regular rhythm GI: Inspection: normal to inspection, distended and incision GI Palp: Yes Soft to palpation and Yes Tenderness to palpation present (GI) Other: soft, sl dist, jeffery TTP, incisions C/D/I Objective Data Vital Signs Vital Signs: Vital Signs - 24 hr 07/31/20 14:00 07/31/20 21:31 08/01/20 06:00 Temperature 36.0 C L 36.2 C L 36.3 C L Pulse Rate 95 88 92 Respiratory Rate 22 H 16 18 Blood Pressure 145/78 H 140/82 125/78 Pulse Oximetry 95 97 95 Intake/Output Intake/Output: Intake & Output 07/29/20 07/30/20 07/31/20 08/01/20 23:59 23:59 23:59 23:59 Intake Total 2630 4700 4470 760 Output Total 1950 1390 1250 Balance 680 3310 3220 760 Meds/Results Medications: Active Medications Generic Name Dose Route Start Last Admin Trade Name Freq PRN Reason Stop Dose Admin Acetaminophen 500 mg 07/28/20 13:42 Acetaminophen 500 Mg Tablet PO Q6H PRN Mild Pain (1-3) or Fever Hydrocodone Bitart/Acetaminophen 1 tab 07/28/20 13:42 08/01/20 06:38 Hydrocodone/Acetaminophen (*Crx) 5-325 Mg Tablet PO 1 tab Q4H PRN Administration Pain Rated 4-6 Alvimopan 12 mg 07/29/20 21:00 08/01/20 08:41 Alvimopan 12 Mg Capsule PO 08/05/20 21:01 12 mg Q12HR JADYN Administration Cyclobenzaprine HCl 5 mg 07/31/20 07:17 08/01/20 08:42 Cyclobenzaprine Hcl 5 Mg Tablet PO 5 mg Q8H PRN Administration Muscle Spasm Enoxaparin Sodium 40 mg 07/29/20 09:00 08/01/20 08:41 Enoxaparin 40 Mg/0.4 Ml Syringe SUB-Q 40 mg DAILY JADYN Administration Hydromorphone HCl 0.5 mg 07/27/20 21:53 07/31/20 19:45 Hydromorphone Hcl Inj (*Crx) 1 Mg/Ml Syr IV PUSH 0.5 mg Q4H PRN Administration Pain Rated 7-10 Lactated Ringer's 1,000 mls @ 100 mls/hr 07/28/20 13:45 08/01/20 08:38 Lr - Lactated Ringers Iv IV CONT Not Given .Q10H JADYN Ketorolac Tromethamine 30 mg 07/28/20 13:42 08/01/20 00:43 Ketorolac 30 Mg/Ml Vial (*Bkc) IV PUSH 08/02/20 13:43 30 mg Q6H PRN Administration Pain Rated 4-6 Morphine Sulfate 4 mg 07/28/20 13:37 07/31/20 12:09 Morphine Sulfate (*Crx) 4 Mg/Ml Inj IV PUSH 4 mg Q2H PRN Administration Pain Rated 7-10 Naloxone HCl 0.1 mg 07/28/20 13:42 Naloxone Hcl 0.4 Mg/Ml Vial IV PUSH Q2M PRN Opiate Reversal Ondansetron HCl 4 mg 07/28/20 13:42 07/31/20 17:07 Ondansetron Inj 4 Mg/2 Ml Vial IV PUSH 4 mg Q4H PRN Administration Nausea And Vomiting Pantoprazole Sodium 40 mg 07/29/20 09:00 08/01/20 08:41 Pantoprazole 40 Mg Tablet PO 40 mg QAM JADYN Administration Radiology Results: ITS Impressions Abdomen/Pelvis CT 07/27/20 20:11 IMPRESSION: 1. Possible cecal mass, suspicious for adenocarcinoma. 2: Severely dilated appendix measuring up to 3.1 cm transversely. Consider appendicitis and mucocele. Quality VTE Prophylaxis VTE prophylaxis: mechanical ordered
[2020-08-01] MEDS: MORPHINE SULFATE (*CRX) 4 MG/ML INJ IV PUSH ×2 (10:42→15:04)
[2020-08-01] MEDS: ONDANSETRON INJ 4 MG/2 ML VIAL IV PUSH ×2 (10:42→15:04)
[2020-08-01 14:00] VITALS: BP 132/77; PULSE 82; RESP 18; TEMP 36.6; O2SAT 97
[2020-08-01 21:49] VITALS: BP 146/79; PULSE 91; RESP 18; TEMP 36.4; O2SAT 97
[2020-08-02] MEDS: CYCLOBENZAPRINE HCL 5 MG TABLET PO ×2 (01:43→09:47)
[2020-08-02] MEDS: HYDROcodone/acetaminophen (*CRX) 5-325 MG TABLET 1 TAB PO ×6 (01:43→21:40)
[2020-08-02 05:45] VITALS: BP 119/73; PULSE 84; RESP 18; TEMP 36.7; O2SAT 97
[2020-08-02] MEDS: ALVIMOPAN 12 MG CAPSULE PO ×2 (09:15→20:49)
[2020-08-02] MEDS: ENOXAPARIN 40 MG/0.4 ML SYRINGE SUB-Q (09:15)
[2020-08-02] MEDS: PANTOPRAZOLE 40 MG TABLET PO (09:15)
--- NOTE | 2020-08-02 11:02 | PCNFU ---
Nutrition Follow-Up Complete: Inadequate oral intake related to appendicitis as evidenced by NPO/clear liquid diet x 3-4 days. Goal: Patient to meet estimated nutritional needs. Progressing towards goal. We will continue current goal. Pt current nutrition is Full liquids with Ensure Surgery. Last recorded weight is 97.1 kg,down from 95.7 kg on admit. Bowel Motility:+BM reported 08/02 Labs Reviewed: BUN 6,Glu 130,Hct 35.2,Hgb 11.9,Na 135 Meds Noted:Hydro,Lovenox,Dilaudid,Toradol, Morphine Sulfate,Zofran. Additional Notes: Patient seen today for nutrition follow up. Nursing states she is eating 5-40% of liquids. She is tolerating Ensure Surgery well. Agree with diet orders. Monitoring: Follow up in 3 days.
[2020-08-02 13:56] VITALS: BP 136/73; PULSE 90; RESP 20; TEMP 36.6; O2SAT 97
--- NOTE | 2020-08-02 14:08 | PC.NURSE ---
Patient is having pain in abdomen. Patient walks a little in the room and sits in the chair at times. Patient abdomen is distended. Patient is getting pain med every 4-5 hours.
[2020-08-02 22:00] VITALS: BP 132/81; PULSE 88; RESP 20; TEMP 36.4; O2SAT 99
[2020-08-03] MEDS: HYDROcodone/acetaminophen (*CRX) 5-325 MG TABLET 1 TAB PO ×2 (01:20→05:12)
[2020-08-03] MEDS: HYDROmorphone HCL INJ (*CRX) 1 MG/ML SYR 0.5 MG IV PUSH ×3 (02:46→13:56)
[2020-08-03 05:42] VITALS: BP 148/79; PULSE 104; RESP 20; TEMP 36.7; O2SAT 94
[2020-08-03] MEDS: MORPHINE SULFATE (*CRX) 4 MG/ML INJ IV PUSH ×3 (08:22→12:52)
[2020-08-03] MEDS: PANTOPRAZOLE 40 MG TABLET PO (08:23)
[2020-08-03] MEDS: ENOXAPARIN 40 MG/0.4 ML SYRINGE SUB-Q (08:23)
[2020-08-03] MEDS: ALVIMOPAN 12 MG CAPSULE PO ×2 (08:23→20:57)
[2020-08-03] MEDS: CYCLOBENZAPRINE HCL 5 MG TABLET PO ×3 (08:28→22:03)
--- NOTE | 2020-08-03 08:52 | PM.PNGS ---
Progress Note: A&P Assessment and Plan (1) Mass of appendix: Code(s): K38.8 - Other specified diseases of appendix Status: Acute Assessment and Plan: Slight improvement with adding Flexeril. Will advance to regular diet. Increase activity, walk the halls, OOB, encouraged IS use. Hopefully home tomorrow if she continues to improve. Pathology pending. Additional Plan I have discussed the patient's case and plan of care with Dr. Rivas. Subjective Subjective Date/Time Seen: 08/02/20 08:52 Backdated note for 08/02/20, when patient was seen. Post Op day: 5 ([facility] right colectomy) Patient reports: still having pain (improved some overnight), tolerating liquids well (full liquids), flatus, bowel movement (BM yesterday, liquid) and afebrile Interval history: Patient reports abdominal pain has improved just slightly since 08/01/20, but she still feels very bloated and tender. No nausea or vomiting. Has only had up to full liquids. No other complaints at this time. Review of Systems Constitutional: Constitutional: Reports no additional constitutional complaints, Denies chills and Denies fever(s) Cardiovascular: Cardiovascular: Reports no additional cardiovascular complaints, Denies chest pain, Denies rapid heart rate and Denies leg edema Respiratory: Respiratory: Reports no additional respiratory complaints, Denies cough, Denies dyspnea and Denies dyspnea on exertion Gastrointestinal: Gastrointestinal: Reports as per HPI and Reports no additional gastrointestinal complaints Genitourinary: Comments: Voiding well Exam Const: General: comfortable, no acute distress, alert and awake Orientation/consciousness: patient oriented x3 Resp: Effort & Inspection: normal respiratory effort Auscultation: clear to auscultation bilaterally Cardio: Rate: regular rate Rhythm: regular rhythm GI: Inspection: distended and incision (Abdominal incisions clean and dry, glue intact) GI Palp: Yes Soft to palpation, Yes Tenderness to palpation present (GI) (diffusely tender, worse near incisions), No Guarding due to palpation present (GI) and No Rebound tenderness present Auscultation: normal bowel sounds Skin: General skin exam: normal color Neuro: General: moves all extremities and no focal motor deficits Speech: No Abnormal speech present Extrem: General: no clubbing, cyanosis or edema and no calf tenderness Psych: Mental Status: mental status grossly normal Insight: Good insight present (Psych) Judgement: Good judgement present (Psych) Objective Data Vital Signs Vital Signs: Vital Signs - 24 hr 08/02/20 13:56 08/02/20 22:00 08/03/20 05:42 Temperature 97.9 F 97.6 F 98.0 F Pulse Rate 90 88 104 H Respiratory Rate 20 20 20 Blood Pressure 136/73 132/81 148/79 H Pulse Oximetry 97 99 94 Intake/Output Intake/Output: Intake & Output 07/31/20 08/01/20 08/02/20 08/03/20 23:59 23:59 23:59 23:59 Intake Total 4470 2910 1999 400 Output Total 1250 Balance 3220 2910 1999 400 Meds/Results Medications: Active Medications Generic Name Dose Route Start Last Admin Trade Name Freq PRN Reason Stop Dose Admin Acetaminophen 500 mg 07/28/20 13:42 Acetaminophen 500 Mg Tablet PO Q6H PRN Mild Pain (1-3) or Fever Hydrocodone Bitart/Acetaminophen 1 tab 07/28/20 13:42 08/03/20 05:12 Hydrocodone/Acetaminophen (*Crx) 5-325 Mg Tablet PO 1 tab Q4H PRN Administration Pain Rated 4-6 Alvimopan 12 mg 07/29/20 21:00 08/03/20 08:23 Alvimopan 12 Mg Capsule PO 08/05/20 21:01 12 mg Q12HR JADYN Administration Cyclobenzaprine HCl 5 mg 07/31/20 07:17 08/03/20 08:28 Cyclobenzaprine Hcl 5 Mg Tablet PO 5 mg Q8H PRN Administration Muscle Spasm Enoxaparin Sodium 40 mg 07/29/20 09:00 08/03/20 08:23 Enoxaparin 40 Mg/0.4 Ml Syringe SUB-Q 40 mg DAILY JADYN Administration Hydromorphone HCl 0.5 mg 07/27/20 21:53 08/03/20 02:46 Hydromorphone Hcl Inj (*Crx) 1 Mg/Ml Syr IV PUSH 0.
--- NOTE | 2020-08-03 09:01 | PM.PNGS ---
Progress Note: A&P Assessment and Plan (1) Mass of appendix: Code(s): K38.8 - Other specified diseases of appendix Status: Acute Assessment and Plan: Abdominal pain worse today. She is not progressing as expected and now slightly tachycardic this morning. I will get labs and a CT scan of the abd/pelvis today to further evaluate Additional Plan I have discussed the patient's case and plan of care with Dr. Rivas. Subjective Subjective Date/Time Seen: 08/03/20 09:01 Post Op day: 6 (K[facility]MA right colectomy) Patient reports: still having pain, voiding w/o difficulty, bowel movement (small liquid BM) and afebrile Interval history: Patient seen this morning and is having worsening abdominal pain. She has not been able to tolerate her diet due to the pain. Appears very uncomfortable when walking in the room this morning. No other complaints at this time. Per the nurse, the patient required both IV and oral pain medication overnight. She has received Morphine IV this morning for abd pain. I utilized the [employer] video foundation director for communication and discussion with the patient. Review of Systems Review of Systems: All systems reviewed & are unremarkable except as noted in HPI and below Cardiovascular: Cardiovascular: Reports no additional cardiovascular complaints, Denies chest pain and Denies leg edema Respiratory: Respiratory: Reports no additional respiratory complaints, Denies cough and Denies dyspnea Gastrointestinal: Gastrointestinal: Reports as per HPI and Reports no additional gastrointestinal complaints Exam Const: General: alert, acute distress mild (d/t pain) and uncomfortable Orientation/consciousness: patient oriented x3 Limitations: language barrier (Kiswahili speaking) Resp: Effort & Inspection: normal respiratory effort Auscultation: clear to auscultation bilaterally Cardio: Rate: tachycardic Rhythm: regular rhythm GI: Inspection: distended, incision (Abdominal incisions clean and dry, glue intact.) and no visible herniation GI Palp: Yes Soft to palpation, Yes Tenderness to palpation present (GI) (tender throughout entire abd) and Yes Guarding due to palpation present (GI) Auscultation: absent bowel sounds Skin: General skin exam: normal color Neuro: General: moves all extremities and no focal motor deficits Speech: No Abnormal speech present Extrem: General: no clubbing, cyanosis or edema and no calf tenderness Psych: Mental Status: mental status grossly normal Insight: Good insight present (Psych) Judgement: Good judgement present (Psych) Objective Data Vital Signs Vital Signs: Vital Signs - 24 hr 08/02/20 13:56 08/02/20 22:00 08/03/20 05:42 Temperature 97.9 F 97.6 F 98.0 F Pulse Rate 90 88 104 H Respiratory Rate 20 20 20 Blood Pressure 136/73 132/81 148/79 H Pulse Oximetry 97 99 94 Intake/Output Intake/Output: Intake & Output 07/31/20 08/01/20 08/02/20 08/03/20 23:59 23:59 23:59 23:59 Intake Total 4470 2910 1999 400 Output Total 1250 Balance 3220 2910 1999 400 Meds/Results Medications: Active Medications Generic Name Dose Route Start Last Admin Trade Name Freq PRN Reason Stop Dose Admin Acetaminophen 500 mg 07/28/20 13:42 Acetaminophen 500 Mg Tablet PO Q6H PRN Mild Pain (1-3) or Fever Hydrocodone Bitart/Acetaminophen 1 tab 07/28/20 13:42 08/03/20 05:12 Hydrocodone/Acetaminophen (*Crx) 5-325 Mg Tablet PO 1 tab Q4H PRN Administration Pain Rated 4-6 Alvimopan 12 mg 07/29/20 21:00 08/03/20 08:23 Alvimopan 12 Mg Capsule PO 08/05/20 21:01 12 mg Q12HR JADYN Administration Cyclobenzaprine HCl 5 mg 07/31/20 07:17 08/03/20 08:28 Cyclobenzaprine Hcl 5 Mg Tablet PO 5 mg Q8H PRN Administration Muscle Spasm Enoxaparin Sodium 40 mg 07/29/20 09:00 08/03/20 08:23 Enoxaparin 40 Mg/0.4 Ml Syringe SUB-Q 40 mg DAILY JADYN Administration Hydromorphone HCl 0.5 mg 07/27/20 21:53 08/03/20 02:46 Hydromorph
[2020-08-03 09:07] LABS: Hematocrit 34.9 % (37.0-47.0); Hemoglobin 12.1 g/dL (12.0-15.0); Mean Corpuscular HGB Conc 34.7 g/dl (32-36); Mean Corpuscular Hemoglobin 30.9 pg (26-34); Mean Corpuscular Volume 89.3 fl (80-100); Mean Platelet Volume 8.8 fl (7.4-10.4); Platelet Count Result 295 k/mm3 (150-375); Red Blood Count 3.91 M/mm3 (4.2-5.4); Red Cell Distribution Width 13.1 % (11.5-14.5); White Blood Count 14.6 K/mm3 (4.5-10.0)
[2020-08-03 10:31] LABS: Anion Gap 7 mmol/L (8-16); Blood Urea Nitrogen 4 mg/dL (7-17); Calcium 8.1 mg/dL (8.4-10.2); Carbon Dioxide 27 mmol/L (22-30); Chloride 97 mmol/L (98-107); Estimated CRCL calculation 127 ml/min; Estimated Glomerular Filt Rate > 60; Glucose 108 mg/dL (65-105); Potassium 2.7 mmol/L (3.4-5.0); Sodium 131 mmol/L (137-145)
[2020-08-03] MEDS: ONDANSETRON INJ 4 MG/2 ML VIAL IV PUSH (10:52)
[2020-08-03 11:29] LABS: Magnesium 1.8 mg/dL (1.6-2.3)
[2020-08-03 14:00] VITALS: BP 130/81; PULSE 112; RESP 20; TEMP 36.3; O2SAT 94
[2020-08-03] MEDS: HYDROmorphone HCL INJ (*CRX) 1 MG/ML SYR IV PUSH ×2 (16:07→20:56)
[2020-08-03] MEDS: HYDROcodone/acetaminophen (*CRX) 10-325 MG TABLET 1 TAB PO ×2 (17:32→22:02)
[2020-08-03 18:23] LABS: Anion Gap 8 mmol/L (8-16); Blood Urea Nitrogen 6 mg/dL (7-17); Calcium 8.4 mg/dL (8.4-10.2); Carbon Dioxide 28 mmol/L (22-30); Chloride 96 mmol/L (98-107); Estimated CRCL calculation 94 ml/min; Estimated Glomerular Filt Rate > 60; Glucose 142 mg/dL (65-105); Potassium 2.9 mmol/L (3.4-5.0); Sodium 132 mmol/L (137-145)
[2020-08-03 20:25] VITALS: PULSE 93; RESP 20; O2SAT 96
[2020-08-03 21:47] VITALS: BP 127/68; PULSE 93; RESP 20; TEMP 36.9; O2SAT 96
[2020-08-03] MEDS: POTASSIUM CHLORIDE 20 MEQ TABLET 40 MEQ PO (23:48)
[2020-08-04] MEDS: HYDROmorphone HCL INJ (*CRX) 1 MG/ML SYR IV PUSH ×5 (02:02→20:22)
[2020-08-04 05:40] VITALS: BP 122/70; PULSE 102; RESP 17; TEMP 37; O2SAT 94
[2020-08-04 06:00] LABS: Basophils Absolute Auto 0.1 K/mm3 (0.0-0.1); Basophils Percent Auto 0.4 % (0.2-1.2); Eosinophils Absolute Auto 0.1 K/mm3 (0-0.3); Eosinophils Percent Auto 0.6 % (0-4.4); Hematocrit 34.5 % (37.0-47.0); Hemoglobin 11.8 g/dL (12.0-15.0); Immature Granulocyte Absolute 0.53 K/mm3 (0.00-0.031); Immature Granulocyte Percent A 3.1 % (0-0.5); Lymphocytes Absolute Auto 1.41 K/mm3 (0.9-3.2); Lymphocytes Percent Auto 8.1 % (18.3-44.2); Mean Corpuscular HGB Conc 34.2 g/dl (32-36); Mean Corpuscular Hemoglobin 30.6 pg (26-34); Mean Corpuscular Volume 89.4 fl (80-100); Mean Platelet Volume 9.1 fl (7.4-10.4); Monocytes Percent Auto 11.5 % (2.6-8.5); Neutrophils Absolute Auto 13.2 K/mm3 (1.3-6.7); Neutrophils Percent Auto 76.3 % (45.5-73.1); Platelet Count Result 350 k/mm3 (150-375); Red Blood Count 3.86 M/mm3 (4.2-5.4); Red Cell Distribution Width 13.1 % (11.5-14.5); White Blood Count 17.3 K/mm3 (4.5-10.0)
[2020-08-04 06:18] LABS: Anion Gap 8 mmol/L (8-16); Blood Urea Nitrogen 9 mg/dL (7-17); Calcium 8.3 mg/dL (8.4-10.2); Carbon Dioxide 27 mmol/L (22-30); Chloride 98 mmol/L (98-107); Estimated CRCL calculation 107 ml/min; Estimated Glomerular Filt Rate > 60; Glucose 112 mg/dL (65-105); Sodium 133 mmol/L (137-145)
[2020-08-04] MEDS: POTASSIUM CHLORIDE 20 MEQ TABLET 40 MEQ PO (09:49)
[2020-08-04] MEDS: ENOXAPARIN 40 MG/0.4 ML SYRINGE SUB-Q (09:49)
[2020-08-04] MEDS: PANTOPRAZOLE 40 MG TABLET PO (09:49)
[2020-08-04] MEDS: ALVIMOPAN 12 MG CAPSULE PO ×2 (09:49→21:30)
[2020-08-04] MEDS: HYDROmorphone HCL INJ (*CRX) 1 MG/ML SYR 0.5 MG IV PUSH (10:04)
[2020-08-04] MEDS: SODIUM CHLORIDE 0.9% IV 1,000 ML 100 ML IV CONT ×2 (11:40→22:22)
[2020-08-04 14:00] VITALS: BP 124/76; PULSE 91; RESP 16; TEMP 36.4; O2SAT 98
--- NOTE | 2020-08-04 15:40 | PM.PNGS ---
Progress Note: A&P Assessment and Plan (1) Mass of appendix: Code(s): K38.8 - Other specified diseases of appendix Status: Acute Assessment and Plan: CT scan abd/pelvis reviewed by Dr. Rivas with the Radiologist yesterday, suggests ileus and post-operative changes. 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 Unclear why WBC increased today - she is afebrile and is showing clinical improvement. Will repeat labs again tomorrow. Continue NG tube decompression, bowel rest, started IV fluids. Encouraged increasing activity and walking the halls. Will give dulcolax supp. Additional Plan I have discussed the patient's case and plan of care with Dr. Rivas. All questions and discussions were done using the [employer] retail management trainee again today. Subjective Subjective Date/Time Seen: 08/04/20 09:40 Post Op day: 7 Patient reports: feels better, pain is less, voiding w/o difficulty, no flatus and no bowel movement Interval history: Patient seen this morning and feeling much better. Overnight, the on-call surgeon ordered an NG tube, which she has in place today. She has been NPO. Patient reports her abdominal pain has improved this morning. Denies nausea. Still feels bloated. No flatus or BM (last BM 2 days ago). No other complaints. Review of Systems Review of Systems: All systems reviewed & are unremarkable except as noted in HPI and below Constitutional: Constitutional: Reports as per HPI, Reports no additional constitutional complaints, Denies chills and Denies fever(s) Cardiovascular: Cardiovascular: Reports no additional cardiovascular complaints, Denies chest pain, Denies leg edema and Denies dyspnea Respiratory: Respiratory: Reports no additional respiratory complaints, Denies cough and Denies dyspnea Gastrointestinal: Gastrointestinal: Reports as per HPI and Reports no additional gastrointestinal complaints Neurologic: Reports system reviewed and no additional complaints, except as documented, Denies Abnormal speech present and Denies focal weakness Exam Const: General: comfortable, no acute distress, alert and awake Orientation/consciousness: patient oriented x3 Resp: Effort & Inspection: normal respiratory effort Auscultation: clear to auscultation bilaterally Cardio: Rate: regular rate Rhythm: regular rhythm GI: Inspection: distended and incision (Abdominal incisions clean and dry) GI Palp: Yes Soft to palpation, Yes Tenderness to palpation present (GI) (tender throughout), Yes Guarding due to palpation present (GI) and No Rebound tenderness present Auscultation: Hypoactive bowel sounds present (very) Other: NG tube with bilious appearing drainage Skin: General skin exam: normal color Neuro: General: moves all extremities and no focal motor deficits Extrem: General: no clubbing, cyanosis or edema and no calf tenderness Psych: Mental Status: mental status grossly normal Insight: Good insight present (Psych) Judgement: Good judgement present (Psych) Objective Data Vital Signs Vital Signs: Vital Signs - 24 hr 08/03/20 20:25 08/03/20 21:47 08/04/20 05:40 Temperature 98.4 F 98.6 F Pulse Rate 93 93 102 H Respiratory Rate 20 20 17 Blood Pressure 127/68 122/70 Pulse Oximetry 96 96 94 08/04/20 14:00 Temperature 97.5 F L Pulse Rate 91 Respiratory Rate 16 Blood Pressure 124/76 Pulse Oximetry 98 Intake/Output Intake/Output: Intake & Output 08/01/20 08/02/20 08/03/20 08/04/20 23:59 23:59 23:59 23:59 Intake Total 2910 1999 1060 700 Output Total 500 Balance 2910 1999 1060 200 Meds/Results Medications: Active Medications Generic Name Dose Route Start Last Admin Trade Name Freq PRN Reason Stop Dose Admin Hydrocodone Bitart/Acetaminophen 1 tab 07/28/20 13:42 08/03/20 05:12 Hydrocodone/Acetaminophen (*Crx) 5-325 Mg Tablet PO 1 tab Q4H PRN Administration Pain Rated 4-6 Hydrocodone Bitart/Acetaminophen 1 tab 08/03/20
[2020-08-04] MEDS: BISACODYL 10 MG SUPPOSITORY RECTAL (16:09)
[2020-08-04 20:15] VITALS: O2SAT 97
[2020-08-04 22:00] VITALS: BP 134/75; PULSE 97; RESP 18; TEMP 36.4; O2SAT 96
[2020-08-04 22:11] LABS: Glucose Point of Care 88 mg/dl (65-105)
[2020-08-05] MEDS: HYDROmorphone HCL INJ (*CRX) 1 MG/ML SYR IV PUSH ×8 (00:30→23:58)
[2020-08-05] MEDS: HYDROcodone/acetaminophen (*CRX) 10-325 MG TABLET 1 TAB PO (04:33)
--- NOTE | 2020-08-05 04:44 | PC.NURSE ---
Notified pharmacy of patient antibiotic not finishing until 0300. Pharmacy will change times so patient can receive her antibiotic at appropriate time.
[2020-08-05 06:00] VITALS: BP 142/76; PULSE 100; RESP 16; TEMP 36.4; O2SAT 97
[2020-08-05 06:33] LABS: Basophils Absolute Auto 0.1 K/mm3 (0.0-0.1); Basophils Percent Auto 0.5 % (0.2-1.2); Eosinophils Absolute Auto 0.2 K/mm3 (0-0.3); Eosinophils Percent Auto 1.5 % (0-4.4); Hematocrit 34.3 % (37.0-47.0); Hemoglobin 11.8 g/dL (12.0-15.0); Immature Granulocyte Absolute 0.51 K/mm3 (0.00-0.031); Immature Granulocyte Percent A 3.8 % (0-0.5); Lymphocytes Absolute Auto 1.31 K/mm3 (0.9-3.2); Lymphocytes Percent Auto 9.7 % (18.3-44.2); Mean Corpuscular HGB Conc 34.4 g/dl (32-36); Mean Corpuscular Hemoglobin 30.6 pg (26-34); Mean Corpuscular Volume 89.1 fl (80-100); Monocytes Absolute Auto 1.3 K/mm3 (0.1-0.6); Monocytes Percent Auto 9.3 % (2.6-8.5); Neutrophils Absolute Auto 10.2 K/mm3 (1.3-6.7); Neutrophils Percent Auto 75.2 % (45.5-73.1); Platelet Count Result 369 k/mm3 (150-375); Red Blood Count 3.85 M/mm3 (4.2-5.4); Red Cell Distribution Width 13.1 % (11.5-14.5); White Blood Count 13.6 K/mm3 (4.5-10.0)
[2020-08-05 06:46] LABS: Anion Gap 11 mmol/L (8-16); Blood Urea Nitrogen 8 mg/dL (7-17); Calcium 7.9 mg/dL (8.4-10.2); Carbon Dioxide 23 mmol/L (22-30); Chloride 100 mmol/L (98-107); Estimated CRCL calculation 126 ml/min; Estimated Glomerular Filt Rate > 60; Glucose 91 mg/dL (65-105); Potassium 3.1 mmol/L (3.4-5.0); Sodium 134 mmol/L (137-145)
[2020-08-05] MEDS: ENOXAPARIN 40 MG/0.4 ML SYRINGE SUB-Q (09:52)
[2020-08-05] MEDS: PANTOPRAZOLE SODIUM IV 40 MG VIAL IV PUSH (09:52)
[2020-08-05] MEDS: ALVIMOPAN 12 MG CAPSULE PO ×2 (09:52→19:45)
[2020-08-05] MEDS: SODIUM CHLORIDE 0.9% IV 1,000 ML 100 ML IV CONT (10:08)
--- NOTE | 2020-08-05 11:16 | PCNFU ---
Nutrition Follow-Up Complete: Inadequate oral intake related to appendicitis as evidenced by NPO/clear liquid diet x 3-4 days. Goal: Patient to meet estimated nutritional needs. Limited progress towards goal. We will continue current goal. Pt current nutrition is NPO. Last recorded weight is 93.7 kg,down from 95.7 kg. Bowel Motility:Last reported BM 08/02 Labs Reviewed:Cr 0.5,Na 134,K 3.1 Meds Noted:[place],Dilaudid,Zosyn,Protonix,NS,Zofran, Clinimix 4.25/5 at 80 ml/hr, 250 ml of 20% Lipid Emulsion. Additional Notes:Nutrition follow up. Patient currently has NGT. Abdominal X-ray today. Nursing spoke with MD, starting PPN today at 80 ml/hr providing 1153 kcals and 82 gms protein. Current PPN is providing 69% of caloric needs. Agree with diet orders at this time. Monitoring: Follow up in 3 days.
[2020-08-05] MEDS: AMINO ACIDS 4.25%/D5W/LYTES/CA 2,000 ML 80 ML IV CONT (11:20)
[2020-08-05] MEDS: FAT EMULSIONS IV 20% 250 ML 20.83 ML IVPB (11:26)
[2020-08-05] MEDS: PHENOL/SOD PHENO SPRAY CHERRY (*BKC) 1 SPRAY MUCOUS MEM (11:33)
[2020-08-05 11:52] LABS: Partial Thromboplastin Time 35.7 SECONDS (22.3-36.8)
[2020-08-05 12:00] LABS: Transferrin 147 mg/dL (206-381)
[2020-08-05 14:00] VITALS: BP 127/72; PULSE 90; RESP 16; TEMP 36.8; O2SAT 97
[2020-08-05 18:15] LABS: Glucose Point of Care 116 mg/dl (65-105)
[2020-08-05 20:00] VITALS: PULSE 91; RESP 16; O2SAT 97
[2020-08-05 21:16] VITALS: BP 129/70; PULSE 91; RESP 16; TEMP 36.4; O2SAT 97
--- NOTE | 2020-08-05 21:55 | PM.PNGS ---
Progress Note: A&P Assessment and Plan (1) Mass of appendix: Code(s): K38.8 - Other specified diseases of appendix Status: Acute Assessment and Plan: path reviewed, doing better, clamp NG and possibly dc later, clears in am if NG out, cont PPN for now (2) Ileus: Code(s): K56.7 - Ileus, unspecified Status: Acute Assessment and Plan: improving, +bowel fxn this evening, encourage OOB, hopefully NG out soon Subjective Subjective Date/Time Seen: 08/05/20 21:55 feels better, +bowel fxn, decreased abd pain Review of Systems Review of Systems: All systems reviewed & are unremarkable except as noted in HPI and below Exam Const: General: cooperative, comfortable and no acute distress Resp: Auscultation: clear to auscultation bilaterally Cardio: Rate: regular rate Rhythm: regular rhythm GI: Inspection: normal to inspection, distended and incision GI Palp: Yes Soft to palpation, No Tenderness to palpation present (GI) and No Guarding due to palpation present (GI) Other: soft, sl dist, jeffery TTP, incision C/D/I Objective Data Vital Signs Vital Signs: Vital Signs - 24 hr 08/04/20 22:00 08/05/20 06:00 08/05/20 14:00 Temperature 36.4 C 36.4 C 36.8 C Pulse Rate 97 100 90 Respiratory Rate 18 16 16 Blood Pressure 134/75 142/76 H 127/72 Pulse Oximetry 96 97 97 08/05/20 21:16 Temperature 36.4 C L Pulse Rate 91 Respiratory Rate 16 Blood Pressure 129/70 Pulse Oximetry 97 Intake/Output Intake/Output: Intake & Output 08/02/20 08/03/20 08/04/20 08/05/20 23:59 23:59 23:59 23:59 Intake Total 1999 1060 1750 1100 Output Total 700 150 Balance 1999 1060 1050 950 Meds/Results Medications: Active Medications Generic Name Dose Route Start Last Admin Trade Name Freq PRN Reason Stop Dose Admin Hydrocodone Bitart/Acetaminophen 1 tab 07/28/20 13:42 08/03/20 05:12 Hydrocodone/Acetaminophen (*Crx) 5-325 Mg Tablet PO 1 tab Q4H PRN Administration Pain Rated 4-6 Hydrocodone Bitart/Acetaminophen 1 tab 08/03/20 16:00 08/05/20 04:33 Hydrocodone/Acetaminophen (*Crx) 10-325 Mg Tablet PO 1 tab Q4H PRN Administration Pain Rated 7-10 Cyclobenzaprine HCl 5 mg 07/31/20 07:17 08/03/20 22:03 Cyclobenzaprine Hcl 5 Mg Tablet PO 5 mg Q8H PRN Administration Muscle Spasm Enoxaparin Sodium 40 mg 07/29/20 09:00 08/05/20 09:52 Enoxaparin 40 Mg/0.4 Ml Syringe SUB-Q 40 mg DAILY JADYN Administration Hydromorphone HCl 1 mg 08/03/20 16:00 08/05/20 19:44 Hydromorphone Hcl Inj (*Crx) 1 Mg/Ml Syr IV PUSH 1 mg Q2H PRN Administration Pain Rated 7-10 Hydromorphone HCl 0.5 mg 08/03/20 16:02 08/04/20 10:04 Hydromorphone Hcl Inj (*Crx) 1 Mg/Ml Syr IV PUSH 0.5 mg Q2H PRN Administration Pain Rated 4-6 Piperacillin/Tazobactam/Dextrose 3.375 gm in 50 mls @ 100 mls/hr 08/05/20 09:00 08/05/20 19:46 Zosyn 3.375 Gm/D5w 50ml Pm IVPB 100 mls/hr Q6H JADYN Administration Dextrose 1,000 mls @ 50 mls/hr 08/05/20 10:55 Dextrose 10% IV CONT .Q20H PRN if PN is interrupted Amino Acids/Electrolytes/Dextrose 2,000 mls @ 80 mls/hr 08/05/20 10:55 08/05/20 11:20 Clinimix E 4.25%/5% Solution IV CONT 80 mls/hr .Q24H JADYN Administration Protocol Fat Emulsion Intravenous 250 mls @ 20.833 mls/hr 08/05/20 12:00 08/05/20 11:26 Lipids 20% IVPB 20.83 mls/hr Q24H JADYN Administration Naloxone HCl 0.1 mg 07/28/20 13:42 Naloxone Hcl 0.4 Mg/Ml Vial IV PUSH Q2M PRN Opiate Reversal Ondansetron HCl 4 mg 07/28/20 13:42 08/03/20 10:52 Ondansetron Inj 4 Mg/2 Ml Vial IV PUSH 4 mg Q4H PRN Administration Nausea And Vomiting Pantoprazole Sodium 40 mg 08/05/20 09:00 08/05/20 09:52 Pantoprazole Sodium Iv 40 Mg Vial IV PUSH 40 mg QAM JADYN Administration Phenol 1 spray 08/05/20 11:19 08/05/20 11:33 Phenol/Sod Pheno [place] Childers (*Bkc) MUCOUS MEM 1 spray PRN PRN Administ
[2020-08-06] MEDS: HYDROmorphone HCL INJ (*CRX) 1 MG/ML SYR IV PUSH ×2 (02:55→07:53)
[2020-08-06 05:10] LABS: Glucose Point of Care 120 mg/dl (65-105)
[2020-08-06 06:00] VITALS: BP 142/81; PULSE 85; RESP 18; TEMP 36.4; O2SAT 98
[2020-08-06 06:50] LABS: Triglycerides 143 mg/dL (<150)
[2020-08-06 06:51] LABS: Anion Gap 8 mmol/L (8-16); Blood Urea Nitrogen 7 mg/dL (7-17); Carbon Dioxide 26 mmol/L (22-30); Chloride 102 mmol/L (98-107); Estimated CRCL calculation 126 ml/min; Estimated Glomerular Filt Rate > 60; Glucose 125 mg/dL (65-105); Potassium 2.9 mmol/L (3.4-5.0); Sodium 136 mmol/L (137-145)
[2020-08-06] MEDS: PANTOPRAZOLE SODIUM IV 40 MG VIAL IV PUSH (08:52)
[2020-08-06] MEDS: ENOXAPARIN 40 MG/0.4 ML SYRINGE SUB-Q (08:52)
--- NOTE | 2020-08-06 10:14 | PM.PNGS ---
Progress Note: A&P Assessment and Plan (1) Mass of appendix: Code(s): K38.8 - Other specified diseases of appendix Status: Acute Assessment and Plan: Ileus improving. Continue clear liquids today. Possibly advance diet tomorrow if continuing to improve. (2) Ileus: Code(s): K56.7 - Ileus, unspecified Status: Acute (3) BMI 32.0-32.9,adult: Code(s): Z68.32 - Body mass index [BMI] 32.0-32.9, adult Status: Acute (4) Hypokalemia: Code(s): E87.6 - Hypokalemia Status: Acute Assessment and Plan: Replace in IV until tolerating PO better. Subjective Subjective Date/Time Seen: 08/06/20 10:14 Interval history: Bowels moved this AM. Starting to feel better. No nausea or vomiting. Pain improving. Passing flatus. Exam GI: GI Palp: Yes abdominal tenderness (RUQ) and Yes Other GI palpation findings present (Distention improving) Auscultation: normal bowel sounds Objective Data Vital Signs Vital Signs: Vital Signs - 24 hr 08/05/20 14:00 08/05/20 20:00 08/05/20 21:16 Temperature 36.8 C 36.4 C L Pulse Rate 90 91 91 Respiratory Rate 16 16 16 Blood Pressure 127/72 129/70 Pulse Oximetry 97 97 97 08/06/20 06:00 Temperature 36.4 C L Pulse Rate 85 Respiratory Rate 18 Blood Pressure 142/81 H Pulse Oximetry 98 Intake/Output Intake/Output: Intake & Output 08/03/20 08/04/20 08/05/20 08/06/20 23:59 23:59 23:59 23:59 Intake Total 1060 1750 1400 50 Output Total 700 150 Balance 1060 1050 1250 50 Meds/Results Medications: Active Medications Generic Name Dose Route Start Last Admin Trade Name Freq PRN Reason Stop Dose Admin Hydrocodone Bitart/Acetaminophen 1 tab 07/28/20 13:42 08/03/20 05:12 Hydrocodone/Acetaminophen (*Crx) 5-325 Mg Tablet PO 1 tab Q4H PRN Administration Pain Rated 4-6 Hydrocodone Bitart/Acetaminophen 1 tab 08/03/20 16:00 08/05/20 04:33 Hydrocodone/Acetaminophen (*Crx) 10-325 Mg Tablet PO 1 tab Q4H PRN Administration Pain Rated 7-10 Cyclobenzaprine HCl 5 mg 07/31/20 07:17 08/03/20 22:03 Cyclobenzaprine Hcl 5 Mg Tablet PO 5 mg Q8H PRN Administration Muscle Spasm Enoxaparin Sodium 40 mg 07/29/20 09:00 08/06/20 08:52 Enoxaparin 40 Mg/0.4 Ml Syringe SUB-Q 40 mg DAILY JADYN Administration Hydromorphone HCl 1 mg 08/03/20 16:00 08/06/20 07:53 Hydromorphone Hcl Inj (*Crx) 1 Mg/Ml Syr IV PUSH 1 mg Q2H PRN Administration Pain Rated 7-10 Hydromorphone HCl 0.5 mg 08/03/20 16:02 08/04/20 10:04 Hydromorphone Hcl Inj (*Crx) 1 Mg/Ml Syr IV PUSH 0.5 mg Q2H PRN Administration Pain Rated 4-6 Piperacillin/Tazobactam/Dextrose 3.375 gm in 50 mls @ 100 mls/hr 08/05/20 09:00 08/06/20 08:52 Zosyn 3.375 Gm/D5w 50ml Pm IVPB 100 mls/hr Q6H JADYN Administration Dextrose 1,000 mls @ 50 mls/hr 08/05/20 10:55 Dextrose 10% IV CONT .Q20H PRN if PN is interrupted Amino Acids/Electrolytes/Dextrose 2,000 mls @ 80 mls/hr 08/05/20 10:55 08/05/20 11:20 Clinimix E 4.25%/5% Solution IV CONT 80 mls/hr .Q24H JADYN Administration Protocol Fat Emulsion Intravenous 250 mls @ 20.833 mls/hr 08/05/20 12:00 08/05/20 23:30 Lipids 20% IVPB Infused Q24H JADYN Infusion Potassium Chloride 500 mls @ 125 mls/hr 08/06/20 09:15 Kcl 40 Meq/D5w 500 Ml Peripheral IVPB 08/06/20 13:14 ONCE ONE Naloxone HCl 0.1 mg 07/28/20 13:42 Naloxone Hcl 0.4 Mg/Ml Vial IV PUSH Q2M PRN Opiate Reversal Ondansetron HCl 4 mg 07/28/20 13:42 08/03/20 10:52 Ondansetron Inj 4 Mg/2 Ml Vial IV PUSH 4 mg Q4H PRN Administration Nausea And Vomiting Pantoprazole Sodium 40 mg 08/05/20 09:00 08/06/20 08:52 Pantoprazole Sodium Iv 40 Mg Vial IV PUSH 40 mg QAM JADYN Administration Phenol 1 spray 08/05/20 11:19 08/05/20 11:33 Phenol/Sod Pheno [place] Childers (*Bkc) MUCOUS MEM 1 spray PRN PRN Administration Sore Th
[2020-08-06] MEDS: AMINO ACIDS 4.25%/D5W/LYTES/CA 2,000 ML 80 ML IV CONT (11:17)
[2020-08-06 12:12] LABS: Glucose Point of Care 146 mg/dl (65-105)
[2020-08-06] MEDS: HYDROcodone/acetaminophen (*CRX) 10-325 MG TABLET 1 TAB PO ×2 (12:52→20:40)
[2020-08-06 14:00] VITALS: BP 121/78; PULSE 81; RESP 16; TEMP 36.9; O2SAT 98
[2020-08-06] MEDS: CYCLOBENZAPRINE HCL 5 MG TABLET PO (15:38)
[2020-08-06] MEDS: FAT EMULSIONS IV 20% 250 ML 20.83 ML IVPB (16:27)
[2020-08-06 22:00] VITALS: BP 119/68; PULSE 87; RESP 18; TEMP 36.2; O2SAT 97
[2020-08-06 23:48] LABS: Glucose Point of Care 133 mg/dl (65-105)
[2020-08-07] MEDS: HYDROcodone/acetaminophen (*CRX) 5-325 MG TABLET 1 TAB PO ×3 (02:56→15:26)
[2020-08-07 05:56] LABS: Glucose Point of Care 115 mg/dl (65-105)
[2020-08-07 06:00] VITALS: BP 117/74; PULSE 75; RESP 16; TEMP 36.1; O2SAT 98
[2020-08-07 06:34] LABS: Anion Gap 9 mmol/L (8-16); Blood Urea Nitrogen 7 mg/dL (7-17); Calcium 8.4 mg/dL (8.4-10.2); Carbon Dioxide 23 mmol/L (22-30); Chloride 104 mmol/L (98-107); Estimated CRCL calculation 123 ml/min; Estimated Glomerular Filt Rate > 60; Glucose 117 mg/dL (65-105); Magnesium 2.2 mg/dL (1.6-2.3); Phosphorus 3.9 mg/dL (2.5-4.5); Potassium 3.1 mmol/L (3.4-5.0); Sodium 136 mmol/L (137-145)
[2020-08-07] MEDS: CYCLOBENZAPRINE HCL 5 MG TABLET PO ×2 (08:19→17:57)
[2020-08-07] MEDS: ENOXAPARIN 40 MG/0.4 ML SYRINGE SUB-Q (08:37)
[2020-08-07] MEDS: PANTOPRAZOLE SODIUM IV 40 MG VIAL IV PUSH (08:37)
[2020-08-07] MEDS: AMINO ACIDS 4.25%/D5W/LYTES/CA 2,000 ML 80 ML IV CONT (11:36)
[2020-08-07] MEDS: FAT EMULSIONS IV 20% 250 ML 20.83 ML IVPB (11:48)
[2020-08-07 12:47] LABS: Glucose Point of Care 131 mg/dl (65-105)
--- NOTE | 2020-08-07 13:26 | PM.PNGS ---
Progress Note: A&P Assessment and Plan (1) Mass of appendix: Code(s): K38.8 - Other specified diseases of appendix Status: Acute Assessment and Plan: Advanced to full liquids today Discontinue PPN after current bag Increase activity (2) Ileus: Code(s): K56.7 - Ileus, unspecified Status: Acute (3) BMI 32.0-32.9,adult: Code(s): Z68.32 - Body mass index [BMI] 32.0-32.9, adult Status: Acute (4) Hypokalemia: Code(s): E87.6 - Hypokalemia Status: Acute Assessment and Plan: Replace p.o. Subjective Subjective Date/Time Seen: 08/07/20 13:26 Interval history: Patient has had 3 bowel movements. Tolerating clear liquids without any bloating or nausea. Having some colicky pain, but otherwise pain control. Exam GI: Inspection: non-distended GI Palp: Yes abdominal tenderness (RUQ) Auscultation: normal bowel sounds Objective Data Vital Signs Vital Signs: Vital Signs - 24 hr 08/06/20 14:00 08/06/20 22:00 08/07/20 06:00 Temperature 36.9 C 36.2 C L 36.1 C L Pulse Rate 81 87 75 Respiratory Rate 16 18 16 Blood Pressure 121/78 119/68 117/74 Pulse Oximetry 98 97 98 Intake/Output Intake/Output: Intake & Output 08/04/20 08/05/20 08/06/20 08/07/20 23:59 23:59 23:59 23:59 Intake Total 1750 1400 4712 2370 Output Total 700 150 Balance 1050 1250 4712 2370 Meds/Results Medications: Active Medications Generic Name Dose Route Start Last Admin Trade Name Freq PRN Reason Stop Dose Admin Hydrocodone Bitart/Acetaminophen 1 tab 07/28/20 13:42 08/07/20 08:25 Hydrocodone/Acetaminophen (*Crx) 5-325 Mg Tablet PO 1 tab Q4H PRN Administration Pain Rated 4-6 Hydrocodone Bitart/Acetaminophen 1 tab 08/03/20 16:00 08/06/20 20:40 Hydrocodone/Acetaminophen (*Crx) 10-325 Mg Tablet PO 1 tab Q4H PRN Administration Pain Rated 7-10 Cyclobenzaprine HCl 5 mg 07/31/20 07:17 08/07/20 08:19 Cyclobenzaprine Hcl 5 Mg Tablet PO 5 mg Q8H PRN Administration Muscle Spasm Enoxaparin Sodium 40 mg 07/29/20 09:00 08/07/20 08:37 Enoxaparin 40 Mg/0.4 Ml Syringe SUB-Q 40 mg DAILY JADYN Administration Hydromorphone HCl 1 mg 08/03/20 16:00 08/06/20 07:53 Hydromorphone Hcl Inj (*Crx) 1 Mg/Ml Syr IV PUSH 1 mg Q2H PRN Administration Pain Rated 7-10 Hydromorphone HCl 0.5 mg 08/03/20 16:02 08/04/20 10:04 Hydromorphone Hcl Inj (*Crx) 1 Mg/Ml Syr IV PUSH 0.5 mg Q2H PRN Administration Pain Rated 4-6 Piperacillin/Tazobactam/Dextrose 3.375 gm in 50 mls @ 100 mls/hr 08/05/20 09:00 08/07/20 09:06 Zosyn 3.375 Gm/D5w 50ml Pm IVPB Infused Q6H JADYN Infusion Dextrose 1,000 mls @ 50 mls/hr 08/05/20 10:55 Dextrose 10% IV CONT .Q20H PRN if PN is interrupted Amino Acids/Electrolytes/Dextrose 2,000 mls @ 80 mls/hr 08/05/20 10:55 08/07/20 11:36 Clinimix E 4.25%/5% Solution IV CONT 80 mls/hr .Q24H JADYN Administration Protocol Fat Emulsion Intravenous 250 mls @ 20.833 mls/hr 08/05/20 12:00 08/07/20 11:48 Lipids 20% IVPB 20.83 mls/hr Q24H JADYN Administration Naloxone HCl 0.1 mg 07/28/20 13:42 Naloxone Hcl 0.4 Mg/Ml Vial IV PUSH Q2M PRN Opiate Reversal Ondansetron HCl 4 mg 07/28/20 13:42 08/03/20 10:52 Ondansetron Inj 4 Mg/2 Ml Vial IV PUSH 4 mg Q4H PRN Administration Nausea And Vomiting Pantoprazole Sodium 40 mg 08/05/20 09:00 08/07/20 08:37 Pantoprazole Sodium Iv 40 Mg Vial IV PUSH 40 mg QAM JADYN Administration Phenol 1 spray 08/05/20 11:19 08/05/20 11:33 Phenol/Sod Pheno [place] Childers (*Bkc) MUCOUS MEM 1 spray PRN PRN Administration Sore Throat Potassium Chloride 40 meq 08/07/20 13:25 Potassium Chloride 20 Meq Tablet PO 08/07/20 13:26 ONCE ONE Radiology Results: ITS Impressions Abdomen/Pelvis CT 08/03/20 11:05 IMPRESSION: 1. Multiple dilated loops of small bowel without focal transition poi
[2020-08-07 14:00] VITALS: BP 136/72; PULSE 82; RESP 18; TEMP 36.5; O2SAT 98
[2020-08-07] MEDS: POTASSIUM CHLORIDE 20 MEQ TABLET 40 MEQ PO (14:14)
[2020-08-07 21:02] LABS: Glucose Point of Care 114 mg/dl (65-105)
[2020-08-07] MEDS: HYDROcodone/acetaminophen (*CRX) 10-325 MG TABLET 1 TAB PO (21:24)
[2020-08-07 22:00] VITALS: BP 131/78; PULSE 83; RESP 20; TEMP 36.5; O2SAT 97
[2020-08-08 00:50] LABS: Glucose Point of Care 117 mg/dl (65-105)
[2020-08-08] MEDS: HYDROcodone/acetaminophen (*CRX) 5-325 MG TABLET 1 TAB PO ×3 (02:30→22:23)
[2020-08-08 05:30] VITALS: BP 125/74; PULSE 80; RESP 20; TEMP 36.2; O2SAT 97
[2020-08-08 06:06] LABS: Basophils Absolute Auto 0.1 K/mm3 (0.0-0.1); Basophils Percent Auto 0.4 % (0.2-1.2); Eosinophils Absolute Auto 0.3 K/mm3 (0-0.3); Eosinophils Percent Auto 2.1 % (0-4.4); Hematocrit 33.4 % (37.0-47.0); Immature Granulocyte Absolute 0.23 K/mm3 (0.00-0.031); Immature Granulocyte Percent A 1.8 % (0-0.5); Lymphocytes Absolute Auto 1.67 K/mm3 (0.9-3.2); Mean Corpuscular HGB Conc 32.9 g/dl (32-36); Mean Corpuscular Hemoglobin 30.6 pg (26-34); Mean Platelet Volume 8.7 fl (7.4-10.4); Monocytes Absolute Auto 0.8 K/mm3 (0.1-0.6); Monocytes Percent Auto 6.3 % (2.6-8.5); Neutrophils Absolute Auto 9.8 K/mm3 (1.3-6.7); Neutrophils Percent Auto 76.4 % (45.5-73.1); Platelet Count Result 364 k/mm3 (150-375); Red Blood Count 3.59 M/mm3 (4.2-5.4); Red Cell Distribution Width 13.3 % (11.5-14.5); White Blood Count 12.9 K/mm3 (4.5-10.0)
[2020-08-08 06:15] LABS: Prothrombin Time 13.7 Seconds (11.1-14.7)
[2020-08-08 06:16] LABS: Partial Thromboplastin Time 26.5 SECONDS (22.3-36.8)
[2020-08-08 06:17] LABS: Alanine Aminotransferase 28 U/L (4-35); Albumin Level 3.3 g/dL (3.5-5.1); Alkaline Phosphatase 92 U/L (38-126); Anion Gap 8 mmol/L (8-16); Aspartate Amino Transferase 36 U/L (14-36); Bilirubin,Total 0.2 mg/dL (0.2-1.3); Blood Urea Nitrogen 8 mg/dL (7-17); Calcium 8.4 mg/dL (8.4-10.2); Carbon Dioxide 24 mmol/L (22-30); Chloride 103 mmol/L (98-107); Estimated CRCL calculation 122 ml/min; Estimated Glomerular Filt Rate > 60; Glucose 109 mg/dL (65-105); Magnesium 2.2 mg/dL (1.6-2.3); Phosphorus 4.3 mg/dL (2.5-4.5); Potassium 3.8 mmol/L (3.4-5.0); Sodium 135 mmol/L (137-145)
[2020-08-08 06:26] LABS: Triglycerides 199 mg/dL (<150)
[2020-08-08 06:47] LABS: Transferrin 211 mg/dL (206-381)
[2020-08-08] MEDS: PANTOPRAZOLE SODIUM IV 40 MG VIAL IV PUSH (08:58)
[2020-08-08] MEDS: ENOXAPARIN 40 MG/0.4 ML SYRINGE SUB-Q (08:58)
--- NOTE | 2020-08-08 11:19 | PCNFU ---
Nutrition Follow-Up Complete: Inadequate oral intake related to appendicitis as evidenced by NPO/clear liquid diet x 3-4 days. Goal: Patient to meet estimated nutritional needs. Progressing towards goal. We will continue current goal. Pt current nutrition is full liquids. Last recorded weight is 89.2 kg, down from 95.7 kg on admit. Bowel Motility:+BM reported 08/07 Labs Reviewed: Hgb 11.0,Hct 33.4,Na 135,Cr 0.5, TG 199 Meds Noted:Zosyn, Zofran, Dilaudid, [place], Lovenox,Protonix. Additional Notes: Nutrition follow up. PPN has been discontinued from the weekend. Patient is having BM and tolerating full liquids. Less Pain. Agree with diet orders at this time. Monitoring: Follow up in 3 days.
[2020-08-08 11:48] LABS: Glucose Point of Care 107 mg/dl (65-105)
[2020-08-08 13:23] VITALS: BP 124/80; PULSE 85; RESP 16; TEMP 36.4; O2SAT 99
--- NOTE | 2020-08-08 13:55 | PM.PNGS ---
Progress Note: A&P Assessment and Plan (1) Mass of appendix: Code(s): K38.8 - Other specified diseases of appendix Status: Acute Assessment and Plan: Advance to regular diet today. PPN/lipids have been stopped. Pain is improving and now being controlled with oral analgesics. Continue to increase activity. Hopefully discharge home tomorrow if she continues to improve. (2) Ileus: Code(s): K56.7 - Ileus, unspecified Status: Acute Assessment and Plan: Resolved (3) BMI 32.0-32.9,adult: Code(s): Z68.32 - Body mass index [BMI] 32.0-32.9, adult Status: Acute (4) Hypokalemia: Code(s): E87.6 - Hypokalemia Status: Acute Assessment and Plan: K3.8 today. Will repeat labs again tomorrow. Additional Plan I have discussed the patient's case and plan of care with Dr. Rivas. Subjective Subjective Date/Time Seen: 08/08/20 13:55 Post Op day: 11 (KARMA right colectomy) Patient reports: feels better, pain is less, tolerating liquids well, voiding w/o difficulty, flatus, bowel movement and afebrile Interval history: Patient seen today and reports feeling well. She states overall she is feeling better than the past few days. She reports her RLQ abd pain is improving. No nausea, vomiting, or bloating. Tolerating full liquids. Reports flatus and has had 2 BMs this morning. I used the [employer] video certified court interpreter for my questions and entire discussion with the patient. Review of Systems Review of Systems: All systems reviewed & are unremarkable except as noted in HPI and below Cardiovascular: Cardiovascular: Reports no additional cardiovascular complaints, Denies chest pain and Denies leg edema Respiratory: Respiratory: Denies cough and Denies dyspnea Exam Const: General: comfortable, no acute distress, alert and awake Orientation/consciousness: patient oriented x3 Limitations: language barrier (Kenyan speaking) Resp: Effort & Inspection: normal respiratory effort Auscultation: clear to auscultation bilaterally Cardio: Rate: regular rate Rhythm: regular rhythm GI: Inspection: non-distended and incision (Abdominal incisions clean and dry) GI Palp: Yes Soft to palpation, Yes Tenderness to palpation present (GI) (mostly RLQ, mild/improved), No Guarding due to palpation present (GI) and No Rebound tenderness present Auscultation: normal bowel sounds Skin: General skin exam: normal color Neuro: General: moves all extremities and no focal motor deficits Extrem: General: no clubbing, cyanosis or edema and no calf tenderness Psych: Mental Status: mental status grossly normal Insight: Good insight present (Psych) Judgement: Good judgement present (Psych) Objective Data Vital Signs Vital Signs: Vital Signs - 24 hr 08/07/20 14:00 08/07/20 22:00 08/08/20 05:30 Temperature 97.7 F 97.7 F 97.2 F L Pulse Rate 82 83 80 Respiratory Rate 18 20 20 Blood Pressure 136/72 131/78 125/74 Pulse Oximetry 98 97 97 08/08/20 13:23 Temperature 97.6 F Pulse Rate 85 Respiratory Rate 16 Blood Pressure 124/80 Pulse Oximetry 99 Intake/Output Intake/Output: Intake & Output 08/05/20 08/06/20 08/07/20 08/08/20 23:59 23:59 23:59 23:59 Intake Total 1400 4712 4000 1310 Output Total 150 Balance 1250 4712 4000 1310 Meds/Results Medications: Active Medications Generic Name Dose Route Start Last Admin Trade Name Freq PRN Reason Stop Dose Admin Hydrocodone Bitart/Acetaminophen 1 tab 07/28/20 13:42 08/08/20 02:30 Hydrocodone/Acetaminophen (*Crx) 5-325 Mg Tablet PO 1 tab Q4H PRN Administration Pain Rated 4-6 Hydrocodone Bitart/Acetaminophen 1 tab 08/03/20 16:00 08/07/20 21:24 Hydrocodone/Acetaminophen (*Crx) 10-325 Mg Tablet PO 1 tab Q4H PRN Administration Pain Rated 7-10 Cyclobenzaprine HCl 5 mg 07/31/20 07:17 08/07/20 17:57 Cyclobenzaprine Hcl 5 Mg Tablet PO 5 mg Q8H PRN Administration Muscle Spasm Enoxaparin
[2020-08-08] MEDS: CIPROFLOXACIN 500 MG TAB PO (20:56)
[2020-08-08 21:35] VITALS: BP 124/71; PULSE 86; RESP 18; TEMP 36.9; O2SAT 99
[2020-08-09] MEDS: HYDROcodone/acetaminophen (*CRX) 10-325 MG TABLET 1 TAB PO (05:23)
[2020-08-09 05:33] VITALS: BP 121/74; PULSE 83; RESP 20; TEMP 37.3; O2SAT 100
[2020-08-09 06:20] LABS: Hemoglobin 11.6 g/dL (12.0-15.0); Mean Corpuscular HGB Conc 33.1 g/dl (32-36); Mean Corpuscular Hemoglobin 30.4 pg (26-34); Mean Corpuscular Volume 91.6 fl (80-100); Mean Platelet Volume 8.9 fl (7.4-10.4); Platelet Count Result 408 k/mm3 (150-375); Red Blood Count 3.82 M/mm3 (4.2-5.4); Red Cell Distribution Width 13.2 % (11.5-14.5)
[2020-08-09 06:32] LABS: Anion Gap 9 mmol/L (8-16); Blood Urea Nitrogen 9 mg/dL (7-17); Calcium 8.8 mg/dL (8.4-10.2); Carbon Dioxide 25 mmol/L (22-30); Chloride 102 mmol/L (98-107); Estimated CRCL calculation 104 ml/min; Estimated Glomerular Filt Rate > 60; Glucose 94 mg/dL (65-105); Potassium 4.3 mmol/L (3.4-5.0); Sodium 136 mmol/L (137-145)
[2020-08-09] MEDS: PANTOPRAZOLE 40 MG TABLET PO (08:59)
[2020-08-09] MEDS: CIPROFLOXACIN 500 MG TAB PO (08:59)
[2020-08-09] MEDS: ENOXAPARIN 40 MG/0.4 ML SYRINGE SUB-Q (08:59)
--- NOTE | 2020-08-09 11:53 | PM.DS ---
DS: Admitting Diagnosis Admitting Diagnosis Admitting Diagnosis: Mass of appendix Obesity BMI 32 Cough variant asthma DS: Discharge Diagnosis Discharge Diagnosis (1) Low grade mucinous neoplasm of appendix: Code(s): D37.3 - Neoplasm of uncertain behavior of appendix Status: Acute Assessment and Plan: SURGICAL PATHOLOGY: APPENDIX, TERMINAL ILEUM, RIGHT COLON, AND SEPARATE SEGMENT OF DISTAL ILEUM; ILEOCECECTOMY AND SEGMENTAL RESECTION: - LOW-GRADE APPENDICEAL MUCINOUS NEOPLASM, 10.5 CM IN LENGTH x 3.2 CM IN DIAMETER, INVOLVING MIDPORTION AND PROXIMAL APPENDIX, WITH FOCAL EXTENSION OF ACELLULAR NEOPLASTIC MUCIN INTO MUSCULARIS PROPRIA OF APPENDIX, NOT INVOLVING MESOAPPENDIX, CECUM, ILEUM, OR RESECTION MARGINS. - NINE BENIGN PERICOLONIC LYMPH NODES (0/9) (SEE COMMENT). - FIBROUS OBLITERATION OF LUMEN OF DISTAL TIP. (2) Ileus: Code(s): K56.7 - Ileus, unspecified Status: Acute (3) BMI 32.0-32.9,adult: Code(s): Z68.32 - Body mass index [BMI] 32.0-32.9, adult Status: Acute (4) Cough variant asthma: Code(s): J45.991 - Cough variant asthma Status: Acute DS: Summary Hospital Course Reason for hospitalization: This is a 50-year-old Danish-speaking female who was referred to the emergency department from [facility] for evaluation of abdominal pain x 3 days. She complained of right flank pain that radiates to her RLQ of the abdomen. In the ER, her labs were unremarkable. CT scan of the abdomen pelvis showed a dilated appendix up to 3.1 cm, possible mucocele, and possible cecal mass. No evidence of perforation or inflammatory stranding around the appendix. The patient was admitted to our service in the setting for surgical evaluation. She has never had a colonoscopy. Denies any recent weight loss, significant fatigue, or other complaints. No family history of colorectal or appendiceal cancer. Hospital Course: Patient was admitted to the hospital, started on broad-spectrum IV antibiotics, made NPO, started on IV fluids and analgesics. She was taken urgently to the OR and underwent a hand-assisted laparoscopic ileocecectomy by Dr. Rivas on 07/28/20. Following surgery, antibiotics were stopped and we initially attempted to slowly advance her diet. Her hospitalization was complicated by a post-operative ileus and difficulty with controlling her post-operative abdominal pain. Her ileus was treated with bowel rest, NG tube decompression, and analgesics. She also dealt with prolonged post-op leukocytosis. Repeat CT scan of the abdomen and pelvis was performed, which showed multiple dilated loops of small bowel without focal transition point and wall thickening of some small bowel loops, nonocclusive thrombus in SMV, small volume of ascites, small pleural effusions, and gallbladder distention. Dr. Rivas felt the SMV nonocclusive thrombus was an incidental finding and no further treatment was needed. With the leukocytosis, she was put on broad-spectrum IV antibiotics, which were eventually discontinued as she improved. She eventually started to improve and the NG tube was ultimately removed when showing signs of bowel function, and her diet was slowly advanced. Her abdominal pain improved and became well controlled. Her white blood cell count trended down to normal. She also dealt with hypokalemia, which was treated with potassium supplementation, and mild hyponatremia, which resolved prior to discharge. She was able to walk the halls and tolerate activity. She was not having any issues with voiding. Pathology from surgery came back showing low-grade appendiceal mucinous neoplasm, 0/9 benign pericolonic lymph nodes, and fibrous obliteration of lumen of distal tip. The pathology was discussed with the patient in detail with the ediphone operator. Bowel function returned and she continued to be moving her bowel until discharge. She was eventually stable for discharge on post-op day [address] Riley
== END 2020-08-09 13:13 | disposition home or self-care (01) | DRG 231 ==
LOC: ANHED 21:53 → ANH3MEDSUR 07-28 08:54
PROVIDERS: Nurse Practitioner Family; Physician Assistant; Admitting Provider Surgery; Emergency Provider Emergency Medicine; PCP Registered Nurse; Visit Provider Surgery
PROC: 0DTJ4ZZ Resection of Appendix, Percutaneous Endoscopic Approach (ICD-10-PCS; CPT 44970; principal; 2020-07-28 14:30)
DX: D37.3 Neoplasm of uncertain behavior of appendix (principal); K56.7 Ileus, unspecified; E87.6 Hypokalemia; E87.1 Hypo-osmolality and hyponatremia; J45.991 Cough variant asthma; E66.9 Obesity, unspecified; Z68.32 Body mass index [BMI] 32.0-32.9, adult; Z79.899 Other long term (current) drug therapy
CPT/HCPCS: 36415; 74019; 74176; 74177; 80048; 80053; 80076; 81001; 82948; 83690; 83735; 84100; 84466; 84478; 85025; 85027; 85610; 85730; 88304; 88309; 96361; 96374; 96375; 99285; A9270; C9113; J0131; J0690; J1170; J1650; J1885; J2250; J2270; J2405; J2543; J3010; J3480; J7030; J7120; Q9967

== ENCOUNTER 2020-10-19 15:04 | Outpatient (CLI) | payer OTHER, SELFPAY ==
--- NOTE | ~2020-10-19 | MR_ITS ---
EXAMINATION: MR lumbar spine wo/w con DATE: 10/19/2020 17:19 INDICATION: Hemangioma of vertebral column. Low back pain radiating to the right thigh. TECHNIQUE: Magnetic resonance imaging (MRI) of the lumbar spine was performed without and with 15 mL MultiHance intravenous contrast. Sequences included sagittal T2-weighted FSE, sagittal T2-weighted FS FSE, sagittal T1-weighted FSE, and axial T2-weighted FSE. COMPARISON: CT abdomen and pelvis 08/03/2020 FINDINGS: There is 8 degrees levocurvature of thoracolumbar spine. There is mild kyphosis of lumbar s pine. Vertebral body heights are normal. There is a 1.8 cm hemangioma in L1 vertebral body. Intervert ebral disc heights are normal. The distal spinal cord signal intensity is normal. The conus medullari s is at L1. The following disc levels are specifically discussed: L1-L2: The disc does not extend beyond the endplate margin. There is mild bilateral facet joint osteo arthritis. There is no neural foraminal stenosis. There is no central canal stenosis. L2-L3: The disc does not extend beyond the endplate margin. There is mild bilateral facet joint osteo arthritis. There is no neural foraminal stenosis. There is no central canal stenosis. L3-L4: The disc does not extend beyond the endplate margin. There is mild bilateral facet joint osteo arthritis. There is no neural foraminal stenosis. There is no central canal stenosis. L4-L5: The disc is bulging and has an annular fissure. There is mild bilateral facet joint osteoarthr itis. There is mild bilateral neural foraminal stenosis. There is mild central canal stenosis. L5-S1: There is a central protrusion. There is moderate right and mild left facet joint osteoarthriti s. There is mild bilateral neural foraminal stenosis. There is mild central canal stenosis. IMPRESSION: 1. Hemangioma in L1 vertebral body, likely not clinically significant. 2. Mild lumbar spondylosis. Reviewed, dictated and finalized at location B.
[2020-10-19 17:32] LABS: Estimated Glomerular Filt Rate > 60
== END 2020-10-19 15:05 | disposition home or self-care (01) ==
LOC: ANHIMG 15:32
PROVIDERS: PCP Registered Nurse; Visit Provider Registered Nurse
DX: D18.09 Hemangioma of other sites (principal); M47.816 Spondylosis without myelopathy or radiculopathy, lumbar region
CPT/HCPCS: 72158; A9577

== ENCOUNTER 2021-01-28 10:45 | Outpatient (CLI) | payer OTHER, SELFPAY ==
--- NOTE | ~2021-01-28 | XR_ITS ---
XR thoracic spine 3V 01/28/2021 11:26 Indication: Back pain Procedure: 4 views thoracic spine Comparison: 12/22/2013 Findings: Vertebral body heights are maintained. There is normal thoracic alignment. Mild dextrocurva ture of the midthoracic spine. No paraspinal soft tissue abnormality. Pedicles intact. Surrounding os seous structures within normal limits. Impression: 1: No significant abnormality of the thoracic spine. Reviewed, dictated and finalized at location A. RONMENTAL SOLUTIONS ENGINEER Impression: 1: No significant abnormality of the thoracic spine.
--- NOTE | ~2021-01-28 | XR_ITS ---
XR_[id number]_CR INDICATION: Radiculopathy TECHNIQUE: 4 view cervical spine views of the cervical spine. FINDINGS: No prior studies for comparison. The cervical spine is visualized to the cervicothoracic junction. There is no prevertebral soft tiss ue swelling, listhesis, or loss of vertebral body height. Intervertebral disc spaces are normal. Th e osseous central canal is patent. No displaced cervical spine fractures are identified. IMPRESSION: 1. No significant osseous abnormality of the cervical spine. Reviewed, dictated and finalized at location A. LATORY COMPLIANCE COORDINATOR
== END 2021-01-28 10:46 | disposition home or self-care (01) ==
LOC: ANHIMG 10:51
PROVIDERS: PCP Registered Nurse; Visit Provider Registered Nurse
DX: M54.13 Radiculopathy, cervicothoracic region (principal)
CPT/HCPCS: 72040; 72072

== ENCOUNTER 2021-02-03 11:10 | Outpatient (CLI) | payer OTHER, SELFPAY ==
[2021-02-03 11:37] LABS: Basophils Absolute Auto 0.1 K/mm3 (0.0-0.1); Eosinophils Absolute Auto 0.2 K/mm3 (0-0.3); Eosinophils Percent Auto 1.9 % (0-4.4); Hematocrit 39.4 % (37.0-47.0); Hemoglobin 13.6 g/dL (12.0-15.0); Immature Granulocyte Absolute 0.02 K/mm3 (0.00-0.031); Immature Granulocyte Percent A 0.2 % (0-0.5); Lymphocytes Percent Auto 22.8 % (18.3-44.2); Mean Corpuscular HGB Conc 34.5 g/dl (32-36); Mean Corpuscular Hemoglobin 31.1 pg (26-34); Mean Corpuscular Volume 90.2 fl (80-100); Mean Platelet Volume 9.4 fl (7.4-10.4); Monocytes Absolute Auto 0.7 K/mm3 (0.1-0.6); Monocytes Percent Auto 7.4 % (2.6-8.5); Neutrophils Absolute Auto 5.9 K/mm3 (1.3-6.7); Neutrophils Percent Auto 66.7 % (45.5-73.1); Platelet Count Result 289 k/mm3 (150-375); Red Blood Count 4.37 M/mm3 (4.2-5.4); Red Cell Distribution Width 12.7 % (11.5-14.5); White Blood Count 8.8 K/mm3 (4.5-10.0)
[2021-02-03 14:04] LABS: Alanine Aminotransferase 20 U/L (4-35); Albumin Level 4.3 g/dL (3.5-5.1); Alkaline Phosphatase 54 U/L (38-126); Anion Gap 7 mmol/L (8-16); Aspartate Amino Transferase 22 U/L (14-36); Bilirubin,Total 0.5 mg/dL (0.2-1.3); Blood Urea Nitrogen 13 mg/dL (7-17); Calcium 8.8 mg/dL (8.4-10.2); Carbon Dioxide 25 mmol/L (22-30); Chloride 100 mmol/L (98-107); Estimated Glomerular Filt Rate > 60; Glucose 91 mg/dL (65-110); Potassium 4.2 mmol/L (3.4-5.0); Sodium 132 mmol/L (137-145)
== END 2021-02-03 11:11 | disposition home or self-care (01) ==
PROVIDERS: PCP Registered Nurse; Visit Provider Internal Medicine Hematology & Oncology
DX: D12.1 Benign neoplasm of appendix (principal)
CPT/HCPCS: 36415; 80053; 85025

== ENCOUNTER 2021-04-09 10:18 | Emergency (ER) | payer OTHER, SELFPAY ==
[2021-04-09 10:30] VITALS: BP 111/74; PULSE 87; RESP 16; TEMP 36.3; O2SAT 100
--- NOTE | 2021-04-09 10:32 | ED.ABDPAIN ---
HPI - Abdominal Pain General Chief Complaint: Abdominal Pain Stated Complaint: Abdominal Pain,diaherra Time Seen by Provider: 04/09/21 10:32 Source: patient, RN notes reviewed and old records reviewed Mode of arrival: ambulatory Limitations: language barrier (Advertising Director offered, wants to use daughter) History of Present Illness HPI narrative: 50-year-old female presents to the [facility] with abdominal pain since Saturday, 4 days with 10 episodes of diarrhea daily. History of abdominal surgery in July/ August timeframe, ileocecectomy. Patient patient tried some Pepto-Bismol with no relief. MD elicited complaint: abdominal pain Related Data Home Medications Medication Instructions Recorded Confirmed No Home Medications 04/09/21 04/09/21 Allergies Allergy/AdvReac Type Severity Reaction Status Date / Time No Known Allergies Allergy Verified 04/09/21 10:27 Review of Systems Review of Systems: All systems reviewed & are unremarkable except as noted in HPI and below Constitutional: Constitutional: Reports as per HPI, Denies body ache(s), Denies chills and Reports fever(s) (100 last night) Eyes: Eyes: Reports no additional eye complaints ENT: Reports system reviewed and no additional complaints, except as documented Cardiovascular: Cardiovascular: Reports no additional cardiovascular complaints, Denies chest pain and Denies dyspnea Respiratory: Respiratory: Reports no additional respiratory complaints, Denies cough and Denies dyspnea Gastrointestinal: Gastrointestinal: Reports as per HPI, Reports abdominal pain, Reports diarrhea (10 times per day, for 4 days), Reports nausea and Denies vomiting Genitourinary: Genitourinary: Reports no additional female genitourinary complaints, Denies nocturia, Denies dysuria and Denies flank pain Musculoskeletal: Musculoskeletal: Reports no additional musculoskeletal complaints Integumentary/Breasts: Skin/Breast: Reports system reviewed and no additional complaints, except as docu Neurologic: Reports system reviewed and no additional complaints, except as documented Psychiatric: Psychiatric: Reports no additional psychiatric complaints Allergic/Immunologic: Allergic/Immunologic: Reports no additional allergic/immunologic complaints PMFSH Past Medical History Medical History (Updated 04/09/21 @ 10:51 by Dodie Romero) Back pain Cough variant asthma Ileus Low grade mucinous neoplasm of appendix Surgical History Surgical History No history of previous surgery Family History Family History Father Hypertension Mother Hypertension Family history of kidney disease Social History Social History Social History: 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 Gender identity (if verbalized by the patient): Female Spiritual care concerns: No Comments At the time of my signature, I reviewed and agree with the nursing past medical, surgical, social, and family history. There is no relevant family history pertinent to the patient complaint. Exam Const: General: cooperative, no acute distress, well developed, alert, acute distress mild (pain) and ill appearing acutely (pain) Nutritional Appearance: well nourished Orientation/consciousness: patient oriented x3 Limitations: language barrier (offered to use translater, Patient wanted to use daughter. ) HENMT: Head: normal to inspection Ears: external ears normal Eyes: Pupils: Equal, round and reactive pupils present Neck: Neck: normal visual inspection, no lymphadenopathy and no meningeal signs Chest: Chest palpation & inspection: normal inspection of the chest Resp: Effort & Inspection: normal respiratory effort, ab
== END 2021-04-09 10:40 | disposition short-term general hospital (02) ==
PROVIDERS: Emergency Provider Nurse Practitioner; PCP Registered Nurse
DX: R10.84 Generalized abdominal pain (principal); R19.7 Diarrhea, unspecified
CPT/HCPCS: 99212; G0463

== ENCOUNTER 2021-04-09 11:10 | Emergency (ER) | payer OTHER, SELFPAY ==
[2021-04-09] VITALS (27 sets, daily range): BP systolic 110–135; BP diastolic 70–101; PULSE 78–87; RESP 14–18; TEMP 36.2; O2SAT 97–100
--- NOTE | ~2021-04-09 | CT_ITS ---
EXAMINATION: CT abdomen pelvis w con DATE: 04/09/2021 13:03 INDICATION: Generalized abdominal pain TECHNIQUE: Computed tomography (CT) of the abdomen and pelvis was performed with 100 cc Omnipaque 350 intravenous contrast. The dose-length product was 560.27 mGy-cm. Automated exposure control and iter ative reconstruction technique were employed. COMPARISON: CT dated 08/03/2020 FINDINGS: Lung bases unremarkable. Heart size normal. Heart size is normal. Fatty infiltration of the liver. Gallbladder is present. There are changes of right hemicolectomy. There is an IUD in the endo metrium. Nonobstructive bowel gas pattern. There is a small cyst of the left hepatic lobe. The spleen, pancreas, adrenal glands and kidneys are unremarkable. There is a fat-containing umbilical hernia. Gallbladder is present. No free air or free fluid. There is a fat-containing right inguinal hernia. No acute osseous abnormality. IMPRESSION: 1. No acute abdominal abnormality. No findings to account for patient's symptoms. Reviewed, dictated and finalized at location A. UER IMPRESSION: 1. No acute abdominal abnormality. No findings to account for patient's symptom s.
[2021-04-09 12:02] LABS: Basophils Percent Auto 0.5 % (0.2-1.2); Eosinophils Absolute Auto 0.1 K/mm3 (0-0.3); Eosinophils Percent Auto 1.5 % (0-4.4); Hematocrit 40.3 % (37.0-47.0); Hemoglobin 13.4 g/dL (12.0-15.0); Immature Granulocyte Absolute 0.02 K/mm3 (0.00-0.031); Immature Granulocyte Percent A 0.3 % (0-0.5); Lymphocytes Percent Auto 18.2 % (18.3-44.2); Mean Corpuscular HGB Conc 33.3 g/dl (32-36); Mean Corpuscular Hemoglobin 31.8 pg (26-34); Mean Corpuscular Volume 95.5 fl (80-100); Mean Platelet Volume 9.7 fl (7.4-10.4); Monocytes Absolute Auto 0.9 K/mm3 (0.1-0.6); Monocytes Percent Auto 14.1 % (2.6-8.5); Neutrophils Absolute Auto 4.3 K/mm3 (1.3-6.7); Neutrophils Percent Auto 65.4 % (45.5-73.1); Platelet Count Result 222 k/mm3 (150-375); Red Blood Count 4.22 M/mm3 (4.2-5.4); Red Cell Distribution Width 12.8 % (11.5-14.5); White Blood Count 6.6 K/mm3 (4.5-10.0)
[2021-04-09 12:05] LABS: Add Urine Microscopic? NO; Appearance Urine Clear (Clear); Bilirubin Urine Negative (Negative); Blood Urine Negative (Negative); Color Urine Yellow (Yellow); Glucose Urine UA Negative (Negative); Ketones Urine Negative (Negative); Leukocyte Esterase Ur Negative LEU/UL (Negative); Nitrate Urine Negative (Negative); Protein Urine Negative (Negative); Specific Grav Ur 1.027 (1.001-1.035); Urobilinogen Urine Negative mg/dL (<2.0)
[2021-04-09 12:20] LABS: Lactic Acid Reflex 0.8 mmol/L (0.7-2.1)
[2021-04-09 12:21] LABS: Alanine Aminotransferase 48 U/L (4-35); Albumin Level 4.3 g/dL (3.5-5.1); Alkaline Phosphatase 69 U/L (38-126); Anion Gap 5 mmol/L (8-16); Aspartate Amino Transferase 47 U/L (14-36); Bilirubin,Total 0.3 mg/dL (0.2-1.3); Blood Urea Nitrogen 13 mg/dL (7-17); Calcium 8.6 mg/dL (8.4-10.2); Carbon Dioxide 22 mmol/L (22-30); Chloride 110 mmol/L (98-107); Estimated Glomerular Filt Rate > 60; Glucose 97 mg/dL (65-110); Lipase 65 U/L (23-300); Potassium 3.9 mmol/L (3.4-5.0); Sodium 137 mmol/L (137-145)
[2021-04-09 13:10] LABS: CRP 1.9 mg/dL (<1.0)
--- NOTE | 2021-04-09 13:14 | ED.NAVMDI ---
HPI - Nausea/Vomiting/Diarrhea General Chief complaint: Nausea/Vomiting/Diarrhea Stated complaint: N/V/D ABD PAIN Time Seen by Provider: 04/09/21 11:44 Source: patient Mode of arrival: ambulatory Limitations: language barrier (Daughter is interpreting, which she prefers) History of Present Illness HPI Narrative: Patient presents to the emergency department for abdominal pain present over the last couple of days. Associated with nausea and diarrhea. Also reports a mild headache and chills. Denies fever, vomiting, dysuria, or hematochezia. Related Data Allergies Allergy/AdvReac Type Severity Reaction Status Date / Time No Known Allergies Allergy Verified 04/09/21 10:27 Review of Systems Review of Systems: CONSTITUTIONAL: Denies fever GASTROINTESTINAL: Reports abdominal pain, nausea, and diarrhea. Denies vomiting GENITOURINARY: Denies dysuria or hematuria. 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 Gender identity (if verbalized by the patient): Female Spiritual care concerns: No Exam Narrative: GENERAL: Well-appearing, well-nourished, and in no acute distress. HEAD: Normocephalic, atraumatic. EYES: EOMI. CHEST: Clear to auscultation. No respiratory distress. No wheezes rales or rhonchi HEART: Regular rate and rhythm. No murmur heard. Normal peripheral pulses. ABDOMEN: Soft, nondistended, normal active bowel sounds. Tender to palpation in the left abdomen, without guarding EXTREMITIES: Normal range of motion. No edema. SKIN: Warm, dry, no rash. NEURO: No focal deficits. Alert and oriented x3. PSYCH: Normal mood and affect Course Vital Signs Vital signs: Vital Signs Temperature 97.1 F L 04/09/21 11:14 Pulse Rate 81 04/09/21 11:14 Respiratory Rate 18 04/09/21 11:14 Blood Pressure 125/78 04/09/21 11:14 Pulse Oximetry 100 04/09/21 11:14 Temperature 97.1 F L 04/09/21 11:14 Pulse Rate 81 04/09/21 11:14 Respiratory Rate 18 04/09/21 11:14 Blood Pressure 125/78 04/09/21 11:14 Pulse Oximetry 100 04/09/21 11:14 MDM - Nausea/Vomiting/Diarrhea MDM Narrative Medical decision making narrative: Patient presents to the emergency department for headache, diarrhea, and chills ongoing over the last couple of days. She is afebrile and nontoxic-appearing. Vitals are stable. CBC without concerning findings. Metabolic panel with mild transaminitis. Lipase is not elevated. UA without evidence of infection. Influenza and COVID screens negative. CT scan of the abdomen and pelvis without acute findings. Patient and family updated on case findings. Patient is stable and felt appropriate for further outpatient evaluation. She was given warnings to return to the ER Lab Data Attestation: I reviewed the patient's lab results. Result diagrams: 04/09/21 11:49 04/09/21 11:49 Labs: Lab Results 04/09/21 04/09/21 04/09/21 Range/Units 11:49 11:49 11:49 WBC 6.6 (4.5-10.0) K/mm3 RBC 4.22 (4.2-5.4) M/mm3 Hgb 13.4 (12.0-15.0) g/dL Hct 40.3 (37.0-47.0) % MCV 95.5 (80-100) fl MCH 31.8 (26-34) pg MCHC 33.3 (32-36) g/dl RDW 12.8 (11.5-14.5) % Plt Count 222 (1
[2021-04-09] MEDS: ONDANSETRON INJ 4 MG/2 ML VIAL IV PUSH (13:33)
[2021-04-09] MEDS: SODIUM CHLORIDE 0.9% IV 500 ML 999 ML IV CONT (13:56)
[2021-04-09 16:49] LABS: SARS-CoV-2 RNA PCR Negative
== END 2021-04-09 17:44 | disposition home or self-care (01) ==
PROVIDERS: Physician Assistant; Emergency Provider Emergency Medicine; PCP Registered Nurse
DX: B34.9 Viral infection, unspecified (principal); R19.7 Diarrhea, unspecified; Z20.822 Contact with and (suspected) exposure to COVID-19
CPT/HCPCS: 36415; 74177; 80053; 81003; 83605; 83690; 85025; 86140; 87804; 96365; 96366; 96375; 99212; 99284; C9803; G0463; J0131; J2405; J7040; Q9967; U0003; U0005

== ENCOUNTER 2022-02-08 17:23 | Emergency (ER) | payer OTHER, SELFPAY ==
[2022-02-08 17:32] VITALS: BP 144/85; PULSE 97; RESP 18; TEMP 38; O2SAT 100
--- NOTE | 2022-02-08 17:33 | ED.FEMALEGU ---
HPI - Female Genitourinary General Chief complaint: Urogenital-Female Stated complaint: uti Time Seen by Provider: 02/08/22 17:36 Source: patient, family (Daughter), RN notes reviewed and old records reviewed Mode of arrival: ambulatory Limitations: no limitations History of Present Illness HPI Narrative: 51-year-old female presents to the [facility] with burning, frequency with urination. Reports lower back pain along with nausea. Has felt feverish. Has not taken her temperature. No treatment prior to arrive. Symptoms for 3 days Using daughter for fuel dock attendant. Offered phone fuel dock attendant which patient declined MD elicited complaint: UTI Related Data Home Medications Medication Instructions Recorded Confirmed albuterol sulfate 90 mcg/actuation 90 mcg inhalation DIRECTED 02/08/22 02/08/22 aerosol inhaler Allergies Allergy/AdvReac Type Severity Reaction Status Date / Time No Known Allergies Allergy Verified 04/09/21 10:27 Review of Systems Review of Systems: All systems reviewed & are unremarkable except as noted in HPI and below Constitutional: Constitutional: Reports no additional constitutional complaints Eyes: Eyes: Reports no additional eye complaints ENT: Reports system reviewed and no additional complaints, except as documented Cardiovascular: Cardiovascular: Reports no additional cardiovascular complaints, Denies chest pain and Denies dyspnea Respiratory: Respiratory: Reports no additional respiratory complaints, Denies chest congestion, Denies cough and Denies dyspnea Gastrointestinal: Gastrointestinal: Reports no additional gastrointestinal complaints, Denies abdominal pain, Denies nausea and Denies vomiting Genitourinary: Genitourinary: Reports as per HPI and Reports dysuria Musculoskeletal: Musculoskeletal: Reports no additional musculoskeletal complaints Integumentary/Breasts: Skin/Breast: Reports system reviewed and no additional complaints, except as docu Neurologic: Reports system reviewed and no additional complaints, except as documented Psychiatric: Psychiatric: Reports no additional psychiatric complaints Allergic/Immunologic: Allergic/Immunologic: Reports no additional allergic/immunologic complaints PMF Past Medical History Medical History (Updated 02/08/22 @ 17:46 by Dodie Romero APRN) Back pain Cough variant asthma Ileus Low grade mucinous neoplasm of appendix Surgical History Surgical History (Updated 02/08/22 @ 17:44 by Dodie Romero APRN) History of appendectomy No history of previous surgery Family History Family History Father Hypertension Mother Hypertension Family history of kidney disease Social History Social History Social History: PCP in [place]. 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 Gender identity (if verbalized by the patient): Female Spiritual care concerns: No Comments At the time of my signature, I reviewed and agree with the nursing past medical, surgical, social, and family history. There is no relevant family history pertinent to the patient complaint. Exam Const: General: cooperative, healthy appearing, comfortable, no acute distress, well developed, alert, average body habitus and well nourished Nutritional Appearance: well nourished and obese Orientation/consciousness: patient oriented x3 Limitations: no limitations HENMT: Head: normal to inspection Ears: hearing grossly normal bilaterally and external ears normal Face/Nose/Sinus: Normal external nose present, Normal nares present, Normal nasal mucous membranes and turbinates present and normal facial exam Face and sinus: normal facial exam Mouth: Yes Normal oral and palatal mucosa present, Yes lip normal and Yes m
== END 2022-02-08 17:51 | disposition home or self-care (01) ==
PROVIDERS: Emergency Provider Nurse Practitioner; PCP Registered Nurse
DX: N39.0 Urinary tract infection, site not specified (principal); Z85.038 Personal history of other malignant neoplasm of large intestine
CPT/HCPCS: 81003; 87077; 87086; 87186; 99213; G0463

== ENCOUNTER 2022-02-10 08:37 | Emergency (ER) | payer OTHER, SELFPAY ==
--- NOTE | ~2022-02-10 | CT_ITS ---
EXAMINATION: CT abdomen pelvis wo con DATE: 02/10/2022 09:44 INDICATION: Right flank pain TECHNIQUE: Computed tomography (CT) of the abdomen and pelvis was performed without intravenous contr ast. Automated exposure control and iterative reconstruction technique were employed. The dose-length product was 511.84 mGy-cm. COMPARISON: 04/09/2021 FINDINGS: Mild atelectasis at the lingula and right middle lobe. Heart size is normal. No pericardial or pleura l effusion. Diffuse hepatic steatosis with focal sparing along the gallbladder fossa. Unchanged 1.5 s imilar hepatic cyst. Small calcified gallstones at the dependent aspect of the otherwise normal-appea ring gallbladder with no wall thickening or pericholecystic inflammatory stranding to suggest acute c holecystitis. Spleen, pancreas, bilateral adrenal glands and kidneys are normal. No urolithiasis or h ydronephrosis. Appendix is not visualized and there are postoperative change at the tip the cecum con sistent with prior appendectomy. A couple diverticula at the proximal sigmoid colon without adjacent inflammatory stranding to suggest acute diverticulitis. The loop of nonobstructed small bowel extends into a small wide mouthed umbilical hernia. No bowel obstruction. Bladder is normal. T-shaped IUD in expected position within the anteverted uterus. Bilateral adnexa are unremarkable. No free intraperi toneal gas or fluid. No pathologically enlarged abdominal or pelvic lymphadenopathy. Very small fat-c ontaining right inguinal hernia. Mild bilateral hip osteoarthritis. IMPRESSION: 1. No urolithiasis or acute intra-abdominal/pelvic process. 2. Diffuse hepatic steatosis. Reviewed, dictated and finalized at location A. PLANER SET UP OPERATOR
--- NOTE | ~2022-02-10 | XR_ITS ---
EXAMINATION: XR chest 2V DATE: 02/10/2022 09:30 INDICATION: Fever TECHNIQUE: PA and lateral views of the chest were obtained. COMPARISON: Chest CT dated 03/01/2017 FINDINGS: Unchanged small pericardial fat pad along the left heart border tracking along the caudal aspect of t he left major fissure. Nipple shadows project over the lateral aspect of the left and right lung base s. No other airspace opacities, pulmonary edema, pleural effusion or pneumothorax. The cardiomediasti nal silhouette is normal. Mild thoracic dextrocurvature. IMPRESSION: 1. No acute cardiopulmonary disease. Reviewed, dictated and finalized at location A. STORAGE ATTENDANT
[2022-02-10 08:58] VITALS: BP 116/70; PULSE 103; RESP 17; TEMP 38.8; O2SAT 100
--- NOTE | 2022-02-10 09:20 | ED.FEMALEGU ---
HPI - Female Genitourinary General Chief complaint: Urogenital-Female Stated complaint: UTI Time Seen by Provider: 02/10/22 08:50 Source: patient, family, RN notes reviewed and old records reviewed Mode of arrival: ambulatory Limitations: language barrier History of Present Illness HPI Narrative: THis is a 51 year old female who presents for evaluation of UTI and fever. Patient developed symptoms of UTI and fever on Saturday. She was evaluated at [facility] 2 days ago and she was diagnosed with UTI. She was prescribed Bactrim. She has come to ER because her symptoms have not improved and she is still running fevers. She reports dysuria, back pain and lower abdominal pain. She is also reporting headache and body aches. She denies sore throat, runny nose, cough or sob. She has not taken any medication this morning. Related Data Home Medications Medication Instructions Recorded Confirmed albuterol sulfate 90 mcg/actuation 90 mcg inhalation DIRECTED 02/08/22 02/08/22 aerosol inhaler Allergies Allergy/AdvReac Type Severity Reaction Status Date / Time No Known Allergies Allergy Verified 02/10/22 09:07 Review of Systems Review of Systems: All systems reviewed & are unremarkable except as noted in HPI and below Constitutional: Constitutional: Reports chills and Reports fatigue ENT: Denies nasal congestion and Denies sore throat Cardiovascular: Cardiovascular: Denies chest pain and Denies rapid heart rate Respiratory: Respiratory: Denies chest congestion, Denies cough and Denies dyspnea Gastrointestinal: Gastrointestinal: Reports abdominal pain, Denies diarrhea, Denies nausea and Denies vomiting Genitourinary: Genitourinary: Reports dysuria and Reports flank pain Musculoskeletal: Musculoskeletal: Reports back pain PMFSH Past Medical History Medical History Back pain Cough variant asthma Ileus Low grade mucinous neoplasm of appendix Surgical History Surgical History History of appendectomy No history of previous surgery Family History Family History Father Hypertension Mother Hypertension Family history of kidney disease Social History Social History Social History: PCP in [place]. 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 Gender identity (if verbalized by the patient): Female Spiritual care concerns: No Exam Const: General: no acute distress and alert Nutritional Appearance: well nourished Orientation/consciousness: patient oriented x3 HENMT: Head: normal to inspection Eyes: EOM: EOMs intact bilaterally Chest: Chest palpation & inspection: normal inspection of the chest Resp: Effort & Inspection: normal respiratory effort Auscultation: clear to auscultation bilaterally Cardio: Rate: tachycardic Rhythm: regular rhythm Heart sounds: no murmurs GI: GI Palp: Yes Soft to palpation, Yes Tenderness to palpation present (GI) (RUQ, RLQ, most pain is RLQ), No Guarding due to palpation present (GI), No Rigid due to palpation and No Hernia present Auscultation: normal bowel sounds Back/Spine/Pelvis: Back: CVA tenderness Skin: General skin exam: normal color Rashes: no rashes Wounds: no wounds Neuro: General: patient oriented x3, moves all extremities and CN's II-XI intact bilaterally Cranial nerves: Yes Nystagmus not present Speech: normal speech Gait exam (Neuro): Normal gait present Extrem: General: normal to inspection Psych: Appearance: grossly normal Mental Status: mental status grossly normal Affect: normal affect Attitude: cooperative Course Reevaluation(s) Reevaluation #1: Patient states she feel
[2022-02-10] MEDS: SODIUM CHLORIDE 0.9% IV 1,000 ML 999 ML IV CONT (09:21)
[2022-02-10 09:50] LABS: Basophils Percent Auto 0.3 % (0.2-1.2); Eosinophils Percent Auto 0.2 % (0-4.4); Hematocrit 41.3 % (37.0-47.0); Hemoglobin 13.6 g/dL (12.0-15.0); Immature Granulocyte Absolute 0.06 K/mm3 (0.00-0.031); Immature Granulocyte Percent A 0.5 % (0-0.5); Lymphocytes Absolute Auto 1.43 K/mm3 (0.9-3.2); Lymphocytes Percent Auto 11.9 % (18.3-44.2); Mean Corpuscular HGB Conc 32.9 g/dl (32-36); Mean Corpuscular Hemoglobin 31.3 pg (26-34); Mean Corpuscular Volume 94.9 fl (80-100); Mean Platelet Volume 9.8 fl (7.4-10.4); Monocytes Absolute Auto 1.5 K/mm3 (0.1-0.6); Monocytes Percent Auto 12.6 % (2.6-8.5); Neutrophils Absolute Auto 8.9 K/mm3 (1.3-6.7); Neutrophils Percent Auto 74.5 % (45.5-73.1); Platelet Count Result 254 k/mm3 (150-375); Red Blood Count 4.35 M/mm3 (4.2-5.4); Red Cell Distribution Width 12.7 % (11.5-14.5)
[2022-02-10 09:54] LABS: Appearance Urine Clear (Clear); Bilirubin Urine Negative (Negative); Blood Urine 2+ (Negative); Color Urine Yellow (Yellow); Glucose Urine UA Negative (Negative); Ketones Urine Negative (Negative); Leukocyte Esterase Ur 1+ LEU/UL (Negative); Nitrate Urine Negative (Negative); Protein Urine 1+ mg/dL (Negative); Urobilinogen Urine 0.2 mg/dL (<2.0); pH Urine 7.5 (5.0-9.0)
[2022-02-10 09:58] VITALS: BP 112/72; PULSE 94; RESP 17; O2SAT 98
[2022-02-10 10:03] LABS: Bacteria Urine Trace /hpf; INR 1.1; Mucus Urine Rare /lpf; Prothrombin Time 13.6 Seconds (11.1-14.7); Squamous Epithelial Cell Urine Many /hpf (Few); WBC Urine 31-50 /hpf
[2022-02-10 10:05] LABS: Add Urine Microscopic? YES; Partial Thromboplastin Time 28.5 SECONDS (22.3-36.8)
[2022-02-10 10:10] LABS: Lactic Acid Reflex 0.9 mmol/L (0.7-2.0)
[2022-02-10 10:14] LABS: Alanine Aminotransferase 28 U/L (6-35); Albumin Level 4.6 g/dL (3.5-5.1); Alkaline Phosphatase 71 U/L (38-126); Anion Gap 7 mmol/L (8-16); Aspartate Amino Transferase 28 U/L (14-36); Bilirubin,Total 0.6 mg/dL (0.2-1.3); Blood Urea Nitrogen 9 mg/dL (7-17); CRP 8.7 mg/dL (<1.0); Calcium 8.8 mg/dL (8.4-10.2); Carbon Dioxide 28 mmol/L (22-30); Chloride 102 mmol/L (98-107); Estimated CRCL calculation 69 ml/min; Estimated Glomerular Filt Rate > 60; Glucose 106 mg/dL (65-110); Sodium 137 mmol/L (137-145)
[2022-02-10 10:31] LABS: Influenza A QL RT-PCR Negative (Negative); Influenza B QL RT-PCR Negative (Negative); SARS-CoV-2 RNA PCR Negative
[2022-02-10 11:07] VITALS: BP 101/70; PULSE 92; RESP 18; O2SAT 98
[2022-02-10 11:16] VITALS: BP 103/65; PULSE 93; RESP 19; O2SAT 97
== END 2022-02-10 11:38 | disposition home or self-care (01) ==
PROVIDERS: Emergency Provider General Practice; PCP Registered Nurse
DX: N12 Tubulo-interstitial nephritis, not specified as acute or chronic (principal); Z20.822 Contact with and (suspected) exposure to COVID-19
CPT/HCPCS: 36415; 71046; 74176; 80053; 81001; 83605; 85025; 85610; 85730; 86140; 87077; 87086; 87088; 87186; 87636; 96365; 96367; 99284; J0131; J0696; J7030

== ENCOUNTER 2022-05-09 08:37 | Outpatient (CLI) | payer OTHER, SELFPAY ==
--- NOTE | ~2022-05-09 | US_ITS ---
US abdomen limited DATE: 05/09/2022 09:04 INDICATION: Cholelithiasis TECHNIQUE: Real-time imaging of liver, pancreas, gallbladder COMPARISON: 02/10/2022 CT abdomen pelvis FINDINGS: Hepatic steatosis with some pericholecystic sparing. No hepatic space-occupying mass lesion is evident. Normal hepatopedal portal venous flow direction The common bile duct measures 4.5 mm. Gallstones are noted in the gallbladder fundus. No gallbladde r wall thickening. Negative sonographic Chacon's sign. The pancreas is not well demonstrated. IMPRESSION: Cholelithiasis Hepatic steatosis Reviewed, dictated and finalized at Location A. Reviewed, dictated and finalized at location B. ITALITY HOUSE SUPERVISOR
== END 2022-05-09 08:38 | disposition home or self-care (01) ==
PROVIDERS: PCP Registered Nurse; Visit Provider Registered Nurse
DX: K80.20 Calculus of gallbladder without cholecystitis without obstruction (principal); K76.0 Fatty (change of) liver, not elsewhere classified
CPT/HCPCS: 76705

== ENCOUNTER 2022-07-16 14:41 | Emergency (ER) | payer OTHER, SELFPAY ==
--- NOTE | ~2022-07-16 | CT_ITS ---
EXAMINATION: CT abdomen pelvis w con DATE: 07/16/2022 18:22 INDICATION: Right upper quadrant abdominal pain and epigastric pain. TECHNIQUE: Computed tomography (CT) of the abdomen and pelvis was performed with 100 mL Omnipaque-350 intravenous contrast. Automated exposure control and iterative reconstruction technique were employe d. The dose-length product was 651.81 mGy-cm. COMPARISON: 02/10/2022 FINDINGS: Mild atelectasis in bilateral lower lung zones. Heart size is normal. No pericardial or pleural effus ion. Small amount of fluid in the distal esophagus. 1.6 cm cyst in the left hepatic lobe. Small band of transient hepatic attenuation difference at the posterior right hepatic lobe. Small calcified gall stones in the dependent aspect of the gallbladder which is dilated to 5.0 x 4.7 cm. There is however no evident gallbladder wall thickening or pericholecystic inflammatory stranding to more specifically suggest acute cholecystitis. No intra-axial hepatic biliary ductal dilation. Spleen, pancreas, bilat eral adrenal glands and kidneys are normal. There are few scattered colonic diverticula without adjac ent inflammatory stranding to suggest diverticulitis. Postoperative change of prior partial colectomy with ileocolic anastomosis in the right abdomen. No bowel obstruction. Small fat-containing umbilica l and supraumbilical hernias. Partially decompressed bladder, uterus and bilateral adnexa are unremar kable. Trace amount of likely physiologic free fluid in the pelvis. No abscess or free intraperitonea l gas. Mild bilateral hip and sacroiliac osteoarthritis. IMPRESSION: 1. Cholelithiasis within the dilated gallbladder but without evident wall thickening or pericholecyst ic inflammatory stranding to suggest acute cholecystitis. If there is clinical concern for acute chol ecystitis could consider HIDA scan for further evaluation.. Reviewed, dictated and finalized at location A. IMPRESSION: 1. Cholelithiasis within the dilated gallbladder but without evident wall thick ening or pericholecystic inflammatory stranding to suggest acute cholecystitis. If there is clinical concern for acute cholecystitis could consider HIDA scan for further evaluation..
[2022-07-16 14:44] VITALS: BP 142/77; PULSE 84; RESP 16; TEMP 36.2; O2SAT 100
[2022-07-16 14:57] LABS: Basophils Absolute Auto 0.1 K/mm3 (0.0-0.1); Basophils Percent Auto 0.7 % (0.2-1.2); Eosinophils Absolute Auto 0.1 K/mm3 (0-0.3); Eosinophils Percent Auto 1.3 % (0-4.4); Hematocrit 38.7 % (37.0-47.0); Immature Granulocyte Absolute 0.03 K/mm3 (0.00-0.031); Immature Granulocyte Percent A 0.3 % (0-0.5); Lymphocytes Absolute Auto 1.15 K/mm3 (0.9-3.2); Lymphocytes Percent Auto 12.9 % (18.3-44.2); Mean Corpuscular HGB Conc 33.6 g/dl (32-36); Mean Corpuscular Hemoglobin 31.1 pg (26-34); Mean Corpuscular Volume 92.6 fl (80-100); Mean Platelet Volume 9.7 fl (7.4-10.4); Monocytes Absolute Auto 0.6 K/mm3 (0.1-0.6); Monocytes Percent Auto 6.3 % (2.6-8.5); Neutrophils Percent Auto 78.5 % (45.5-73.1); Platelet Count Result 257 k/mm3 (150-375); Red Blood Count 4.18 M/mm3 (4.2-5.4); Red Cell Distribution Width 12.9 % (11.5-14.5); White Blood Count 8.9 K/mm3 (4.5-10.0)
[2022-07-16 15:07] LABS: Alanine Aminotransferase 33 U/L (6-35); Albumin Level 4.6 g/dL (3.5-5.1); Alkaline Phosphatase 69 U/L (38-126); Anion Gap 10 mmol/L (8-16); Aspartate Amino Transferase 29 U/L (14-36); Bilirubin,Total 0.5 mg/dL (0.2-1.3); Blood Urea Nitrogen 16 mg/dL (7-17); Calcium 8.8 mg/dL (8.4-10.2); Carbon Dioxide 26 mmol/L (22-30); Chloride 102 mmol/L (98-107); Estimated CRCL calculation 97 ml/min; Estimated Glomerular Filt Rate > 60; Glucose 133 mg/dL (65-110); Lipase 105 U/L (23-300); Sodium 138 mmol/L (137-145)
--- NOTE | 2022-07-16 17:13 | ECG_ITS ---
Measurements Intervals [place] Rate: 71 P: 59 WV: 125 QRS: 76 QRSD: 90 T: 41 QT: 392 QTc: 428 Interpretive Statements SINUS RHYTHM NORMAL ECG NO PREVIOUS ECG AVAILABLE FOR COMPARISON Electronically Signed On 07-16-2022 20:27:06 CDT by Martin Sanders D.O.
--- NOTE | 2022-07-16 17:15 | ED.ABDPAIN ---
HPI - Abdominal Pain General Chief Complaint: Abdominal Pain <SAWYER Andino Last Filed: 07/16/22 23:26> Stated Complaint: right sided abd pain <SAWYER Andino Last Filed: 07/16/22 23:26> Time Seen by Provider: 07/16/22 16:56 <SAWYER Andino Last Filed: 07/16/22 23:26> Source: patient and family <SAWYER Andino Last Filed: 07/16/22 23:26> Mode of arrival: ambulatory <SAWYER Andino Last Filed: 07/16/22 23:26> Limitations: no limitations and language barrier <SAWYER Andino Last Filed: 07/16/22 23:26> History of Present Illness HPI narrative: Patient is a 52-year-old female who presents to the ED with report of epigastric and RUQ abdominal pain. Patient is primarily British-speaking. Daughter at bedside assisted in providing information. She felt comfortable with translation and did not want Stratus casing puller. Patient reports having pain in her epigastric region, radiating to her right upper abdomen and around to her right mid back intermittently for the last 4 days. She states pain has progressively worsened. Pain has been constant since 11 AM today after eating a sandwich for lunch. She reports nausea, but denies vomiting. Denies fever, diarrhea, constipation, shortness of breath, chest pain. <SAWYER Andino Last Filed: 07/16/22 23:26> Related Data Home Medications: Home Medications Medication Instructions Recorded Confirmed albuterol sulfate 90 mcg/actuation 90 mcg inhalation DIRECTED 02/08/22 02/08/22 aerosol inhaler <SAWYER Andino Last Filed: 07/16/22 23:26> Allergies/Adverse Reactions: Allergies Allergy/AdvReac Type Severity Reaction Status Date / Time No Known Allergies Allergy Verified 07/18/22 10:35 <SAWYER Andino Last Filed: 07/16/22 23:26> Review of Systems Review of Systems: CONSTITUTIONAL: Denies fever, chills, or sweats. CARDIOVASCULAR: Denies chest pain. RESPIRATORY: Denies dyspnea. GASTROINTESTINAL: See HPI. GENITOURINARY: Denies dysuria or hematuria. SKIN: Denies rash or itching. MUSCULOSKELETAL: See HPI. <SAWYER Andino Last Filed: 07/16/22 23:26> All systems reviewed & are unremarkable except as noted in HPI and below <SAWYER Andino Last Filed: 07/16/22 23:26> [facility] Past Medical History Medical History: Medical History Back pain Cough variant asthma Ileus Low grade mucinous neoplasm of appendix <SAWYER Andino Last Filed: 07/16/22 23:26> Surgical History Surgical History: Surgical History History of appendectomy No history of previous surgery <Breanne Jorge PA-C - Last Filed: 07/16/22 23:26> Family History Family History: Family History Father Hypertension Mother Hypertension Family history of kidney disease <SAWYER Andino Last Filed: 07/16/22 23:26> Social History Social History: Social History Social History: PCP in [place]. 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 Gender identity (if verbalized by the patient): Female Spiritual care concerns: No <SAWYER Andino Last Filed: 07/16/22 23:26> Exam Narrative: GENERAL: Uncomfortable appearing, obese with BMI of 32.2, non-toxic, in mild acute distress due to pain. HEAD: Normocephalic, atraumatic. NECK: Supple. No adenopathy, no masses. RESPIRATORY: Airway patent, respirations nonlabored. Clear to aus
[2022-07-16] MEDS: SODIUM CHLORIDE 0.9% IV 1,000 ML 999 ML IV CONT (17:44)
[2022-07-16] MEDS: ONDANSETRON INJ 4 MG/2 ML VIAL IV PUSH (17:45)
[2022-07-16] MEDS: PANTOPRAZOLE SODIUM IV 40 MG VIAL IV PUSH (17:47)
[2022-07-16] MEDS: MORPHINE SULFATE (*CRX) 4 MG/ML INJ IV PUSH (17:47)
[2022-07-16 18:19] LABS: Appearance Urine Cloudy (Clear); Bacteria Urine 1+ /hpf; Bilirubin Urine Negative (Negative); Color Urine Dark Yellow (Yellow); Glucose Urine UA Negative (Negative); Ketones Urine Negative (Negative); Leukocyte Esterase Ur 3+ LEU/UL (Negative); Nitrate Urine Negative (Negative); Protein Urine Negative (Negative); Specific Grav Ur 1.026 (1.001-1.035); Squamous Epithelial Cell Urine Occasional /hpf (Few); WBC Urine 51-100 /hpf; pH Urine 6.5 (5.0-9.0)
[2022-07-16 18:31] LABS: Troponin I < 0.012 ng/mL (0.000-0.034)
[2022-07-16 18:42] LABS: Add Urine Microscopic? YES
[2022-07-16 19:27] VITALS: BP 133/84; PULSE 80; RESP 14; TEMP 36.4; O2SAT 100
[2022-07-16] MEDS: HYDROcodone/acetaminophen (*CRX) 5-325 MG TABLET 1 TAB PO (20:03)
[2022-07-16 20:08] VITALS: BP 164/102; PULSE 77; RESP 15; TEMP 36.6; O2SAT 100
== END 2022-07-16 20:09 | disposition home or self-care (01) ==
PROVIDERS: Emergency Medicine; Emergency Provider Physician Assistant; PCP Registered Nurse
DX: K80.20 Calculus of gallbladder without cholecystitis without obstruction (principal); N30.01 Acute cystitis with hematuria
CPT/HCPCS: 36415; 74177; 80053; 81001; 83690; 84484; 85025; 87086; 93005; 96361; 96374; 96375; 99284; A9270; C9113; J2270; J2405; J7030; Q9967

== ENCOUNTER 2022-07-27 13:27 | Outpatient (CLI) | payer OTHER, SELFPAY ==
[2022-07-27 14:37] LABS: Amylase 95 U/L (30-110)
== END 2022-07-27 13:28 | disposition home or self-care (01) ==
LOC: ANHSURGERY 13:30
PROVIDERS: PCP Registered Nurse; Visit Provider Surgery
DX: K80.10 Calculus of gallbladder with chronic cholecystitis without obstruction (principal)
CPT/HCPCS: 36415; 82150; 86850; 86900; 86901

== ENCOUNTER 2022-08-01 01:01 | Day surgery (SDC) | payer OTHER, SELFPAY ==
[2022-07-25 10:41] VITALS: BMI 31.1
--- NOTE | 2022-07-25 10:45 | PC.NURSE ---
Report to the Outpatient Waiting Room, entrance under the green pavilion located off [facility], at time 11:30 on date 08/01/22. Planned Procedure Time: 1:30. Time changes happen often and if your time is changed the preop area will call you the afternoon before. - You and your visitor will be asked to self-screen and do not enter if you have any COVID symptoms. - A mask is optional within the hospital at this time. Patients may have clear liquids (water, carbonated beverages, clear teas, apple juice) until 3 hours prior to surgery (10:30) with a maximum of 20 ounces. - No food from midnight until time of surgery Take the following medications with a SIP of water the morning of surgery: INHALER/PAIN PILL IF NEEDED, ANTIBIOTIC IF STILL TAKING DO NOT STOP ANY OF YOUR OTHER PRESCRIPTION MEDICATIONS PRIOR TO SURGERY ?EXCEPT THE FOLLOWING Medications to discontinue per physician: N/A Date to take last dose: N/A Please no make-up, nail uzbek, hairspray, perfume, deodorant, or body powder the day of surgery. No jewelry (including any body piercings) or valuables the day of surgery, leave them at home. Please take a shower or bath the night before, or the morning of, surgery with an antibacterial soap (HIBICLENS). Wear comfortable, loose fitting clothing. - Jewelry must be removed prior to entering the operating room. Rings and piercings that are not removed may be cut off. - The hospital will not accept responsibility for valuables. - Please leave all valuables, including medications, at home the day of surgery. If you are going home after surgery, a licensed skip load driver must drive you home. - NO public transportation without another adult if you receive anesthesia. - We recommend that an adult stay with you for 24 hours following discharge. - We also recommend that you do not drive, make important decision, drink alcoholic beverages, or take any drugs that were not prescribed by your health care provider for at least 24 hours after your discharge time. Follow any additional instructions given to you from your surgeon. If you or anyone in your household have experienced Covid symptoms in the past week, please notify your surgeon or the nurse liaison at the phone number below for possible testing. Telephone instructions given to AMANDA Renee REDDY and asked if any additional questions and then verbalized understanding. Patient advised to call surgeon office or pre surgery nurse liaison [phone] if any additional questions.
--- NOTE | 2022-07-27 14:59 | PC.NURSE ---
PATIENT AND DAUGHTER HERE TO SIGN CONSENT WITH ASSISTANCE OF THE PARAFFIN PLANT OPERATOR, DONNA #[id number]. PT WAS ABLE TO READ THE SURGERY CONSENT AND BLOOD CONSENT IN [place], THEN ASK QUESTIONS THROUGH THE PARAFFIN PLANT OPERATOR. ALL QUESTIONS ANSWERED. ALL PRE-OP INSTRUCTIONS REVIEWED WITH PATIENT AND DAUGHTER. THEY BOTH RELAY UNDERSTANDING. WILL HAVE PRE-OP TESTING DONE PRIOR TO LEAVING TODAY. HAO GUTIERREZ RN
[2022-08-01] VITALS (10 sets, daily range): BP systolic 109–140; BP diastolic 72–88; PULSE 66–85; RESP 10–16; TEMP 36.3–36.4; O2SAT 95–100; BMI 31.0
[2022-08-01] MEDS: LACTATED RINGERS 1,000 ML 30 ML IV CONT ×2 (10:35→13:02)
[2022-08-01] MEDS: KETOROLAC 15 MG/ML VIAL (*BKC) IV PUSH (10:46)
[2022-08-01] MEDS: ACETAMINOPHEN 500 MG TABLET 1000 MG PO (10:46)
--- NOTE | 2022-08-01 11:11 | WPDANESEPPF ---
Anes - Initial Pre Proc Eval Procedure: Operation Date: 08/01/22 13:30 Proposed Procedures p Laparoscopic Cholecystectomy - Lili Rivas MD Date/Time: 08/01/22 11:11 Surgeon: Lili Rivas MD Pre Op Diagnosis: chronic calculous cholecystitis Patient Data Age: 52 Gender: F Height: 1.65 m Weight: 84.55 kg Last Vital Signs Temp 36.3 C L 08/01/22 11:01 Pulse 79 08/01/22 11:01 Resp 14 08/01/22 11:01 BP 122/80 08/01/22 11:01 Pulse Ox 99 08/01/22 11:01 O2 Del Method Room Air 08/01/22 11:01 Allergies Allergy/AdvReac Type Severity Reaction Status Date / Time No Known Allergies Allergy Verified 08/01/22 10:59 Home Medications Medication Instructions Recorded Confirmed Type albuterol sulfate 90 mcg/actuation 90 mcg inhalation DIRECTED 02/08/22 07/26/22 History aerosol inhaler cephalexin 500 mg capsule 500 mg PO Q6H 7 days #28 caps 07/16/22 07/26/22 Rx hydrocodone 5 mg-acetaminophen 325 1 tablet PO Q6H PRN pain #20 tabs 07/16/22 07/26/22 Rx mg tablet ondansetron 4 mg disintegrating 4 mg PO Q8H PRN nausea and 07/16/22 07/26/22 Rx tablet vomiting #15 tabs Patient hx anesthesia problems: none Family hx anesthesia problems: none Results Review: All pre-operative results and documents have been reviewed as part of the pre-operative evaluation. [facility] Past Medical History Medical History Asthma Back pain Cough variant asthma Ileus Low grade mucinous neoplasm of appendix Surgical History Surgical History (Updated 08/01/22 @ 11:12 by Luis Dunham MD) History of appendectomy Family History Family History Father Hypertension Mother Hypertension Family history of kidney disease Social History Social History Social History: PCP in [place]. 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 Gender identity (if verbalized by the patient): Female Spiritual care concerns: No Anes - Eval Final PreProcedure Day of Procedure 08/01/22 11:11 Patient weight: obese Heart: regular rate and rhythm Lungs: clear to auscultation Airway: Mallampati scale class II Neurological: alert and oriented Last oral intake: >/= 8 hours ASA classification: II Emergent: no Anesthesia type and monitoring: general ETT and standard monitoring Results Review: All pre-operative results and documents have been reviewed as part of the pre-operative evaluation. Informed Consent: The patient's anesthetic plan and its attendant risks and benefits were discussed with the patient/family/POA. Questions were solicited and answers provided to the satisfaction of the patient/family/POA.
--- NOTE | 2022-08-01 11:59 | WPDHPUPDATE1 ---
History and Physical Update Update Date/Time: 08/01/22 11:59 History and Physical has been reviewed, including an updated exam of the patient. There are NO changes in the patient's condition. Risks, benefits, and alternatives have been discussed and questions answered. Patient agrees to proceed with procedure.
[2022-08-01] MEDS: ceFAZolin 2 GM/D5W 50 ML 2 GM/50 ML BAG IVPB (12:05)
[2022-08-01] MEDS: BUPIVACAINE/EPINEPHRINE 0.5% 50 ML VIAL 30 ML INFILTRATE (12:32)
[2022-08-01] MEDS: ONDANSETRON INJ 4 MG/2 ML VIAL IV PUSH (13:19)
--- NOTE | 2022-08-01 13:31 | P.OP_ITS ---
Procedure Note - Detailed Date of Procedure 08/01/22 Pre-op Diagnosis chronic calculous cholecystitis Post-op Diagnosis Same Procedure Performed Laparoscopic cholecystectomy Surgeon Lili Rivas MD Anesthesia General Indications 52-year-old female presented to the office complaining of postprandial right upper quadrant abdominal pain associated with nausea and vomiting. Workup including imaging significant for cholecystitis, cholelithiasis. Findings Cholecystitis with cholelithiasis Description of Procedure The patient was taken to the operating room placed in the supine position. After adequate induction of general anesthesia, the patient was prepped and draped in normal sterile fashion. A time-out was then performed to verify the patient's identity as well as the procedure being performed. I then made a 5 mm incision in the infraumbilical region. Through this, a Veress needle was placed into the peritoneal cavity and CO2 gas was then insufflated. After adequate pneumoperitoneum was achieved, the Veress needle was removed and a 5 mm optiview trocar was placed through this incision under direct visualization. I then placed the laparoscope through this trocar site and under direct visualization placed a further 12 mm subxiphoid port as well as 2 additional 5 mm ports in the right upper abdomen. The gallbladder was then identified and was noted to be moderately inflamed and distended. I was able to place a grasper at the dome of the gallbladder and this was retracted anterior and cephalad up over the liver. A 2nd retractor was then placed at the infundibulum and retracted la terally, this allowed visualization of the triangle of Calot. I then was able to visualize the cystic duct in its entirety from its proximal insertion into the gallbladder, to its distal junction with the common hepatic/common bile duct junction. At this point, I carefully skeletonized the proximal cystic duct with the [place] dissector. I then clipped and transected the proximal cystic duct. Next I visualized the cystic artery. Again the artery was skeletonized, clipped, and transected. I then used the Bovie cautery to take down the peritoneal attachments of the gallbladder off the liver bed. Once the gallbladder specimen was completely detached, an endo-pouch was placed through the 12 mm port site. I then placed the gallbladder specimen into the Endo pouch and removed the endo-pouch from the 12 mm port site. The specimen will now be sent to pathology for further review. I then copiously irrigated the right upper quadrant. Some mild oozing was noted in the liver bed and this was controlled with the bovie cautery. Hemostasis was noted in the liver bed, the clips were noted to be in good position on both the cystic duct stump and the cystic artery stump. No other pathology was noted in the right upper quadrant. I then moved the laparoscope to the subxiphoid port. No iatrogenic injury or other pathology was noted in the lower abdomen. I then closed the 12 mm trocar site under direct visualization using the Jacoby cone and 0 Vicryl suture. At this point, the abdomen was desufflated and all ports removed. All port sites were then closed with 4.O Monocryl subcuticular sutures. Dermabond was placed on each incision. The patient tolerated the procedure well, was extubated in the operating room postoperative and will be transferred to the recovery room in stable condition Estimated Blood Loss 10 Drains No Packing No Pathology Yes Complications No immediate complications Condition Stable Disposition PACU [facility] Billing Surgery - Charge Forward: Surgery Billing
[2022-08-01] MEDS: oxyCODONE HCL (*CRX) 5 MG TAB IR PO (15:19)
== END 2022-08-01 16:04 | disposition home or self-care (01) ==
PROVIDERS: PCP Registered Nurse; Visit Provider Surgery
PROC: 0FT44ZZ Resection of Gallbladder, Percutaneous Endoscopic Approach (ICD-10-PCS; CPT 47562; principal; 2022-08-01 13:30)
DX: K80.10 Calculus of gallbladder with chronic cholecystitis without obstruction (principal); J45.909 Unspecified asthma, uncomplicated; Z85.09 Personal history of malignant neoplasm of other digestive organs; Z79.51 Long term (current) use of inhaled steroids; E66.9 Obesity, unspecified; Z68.31 Body mass index [BMI] 31.0-31.9, adult
CPT/HCPCS: 47562; 88304; A9270; J0690; J1100; J1170; J1885; J2250; J2405; J2704; J2710; J3010; J7030; J7120

== ENCOUNTER 2023-10-02 14:20 | Emergency (ER) | payer MEDICAID, SELFPAY ==
[2023-10-02 14:32] VITALS: BP 134/86; PULSE 84; RESP 16; TEMP 37.3; O2SAT 100
--- NOTE | 2023-10-02 15:10 | ED.GENADULT ---
HPI - General Adult General Chief complaint: Nausea/Vomiting/Diarrhea Stated complaint: middle back pain,chills,HARTMAN,both legs hurt,weak Source: patient Mode of arrival: ambulatory Limitations: no limitations History of Present Illness HPI narrative: Patient presents for evaluation of abdominal pain low back pain. Symptom onset two days ago. Back pain occurs approximately every 20 minutes and lasts about 10 seconds in duration. She cannot identify any aggravating or alleviating factors. She describes the pain as stabbing and rates it 8/10 in severity. She also has some suprapubic pain that has been occurring for approximately same duration of time. Pain is less severe in her suprapubic region but lasts longer in duration. She has urinary frequency without dysuria, hematuria, incomplete emptying, or hesitancy. She has experienced general body aches, hot flashes, fever, chills and nausea. Today she developed diarrhea. No recent sick contacts to her knowledge. Daughter, who was assisting with translation, indicates that patient has a history of pyelonephritis. Patient states that her pain is similar in nature but her current pain is much more severe than pain experienced in the past with pyelonephritis. Related Data Home Medications Medication Instructions Recorded Confirmed albuterol sulfate 90 mcg/actuation 2 puff inhalation Q4-5H PRN asthma 10/02/23 10/02/23 aerosol inhaler Allergies Allergy/AdvReac Type Severity Reaction Status Date / Time No Known Allergies Allergy Verified 10/02/23 14:30 Review of Systems Review of Systems: CONSTITUTIONAL: Reports hot flashes, chills, fever EYES: Denies visual changes, redness, or discharge. ENT: Denies rhinorrhea, congestion, sore throat, or otalgia. CARDIOVASCULAR: Denies chest pain, palpitations, or edema. RESPIRATORY: Denies cough or dyspnea. GASTROINTESTINAL: Reports suprapubic pain, nausea and diarrhea. Denies vomiting GENITOURINARY: Reports urinary frequency. Denies dysuria, hematuria, incomplete emptying or hesitancy SKIN: Denies rash or itching. MUSCULOSKELETAL: Reports bilateral low back pain and generalized body aches NEUROLOGIC: Reports headache. Denies numbness, dizziness, or weakness. PSYCHIATRIC: Denies anxiety or depression. [facility] Past Medical History Medical History (Updated 10/02/23 @ 15:25 by Moustapha Sam, [facility], ) Asthma Back pain Cough variant asthma Ileus Low grade mucinous neoplasm of appendix Surgical History Surgical History History of appendectomy Hx laparoscopic cholecystectomy on 08/01/[address] Rivas. 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 Gender identity (if verbalized by the patient): Female Spiritual care concerns: No Exam Narrative: GENERAL: Well-appearing, well-nourished, and in no acute distress. HEAD: Normocephalic, atraumatic. EYES: PERRLA and EOMI. ENT: Nares clear, no rhinorrhea or epistaxis. Mucous membranes moist. Oropharynx without tonsillar hypertrophy exudate or other lesions. Bilateral TMs pearly geller nonbulging NECK: Supple. No adenopathy or masses. No carotid bruits or JVD CHEST: Clear to auscultation. No respiratory distress. No wheezes rales or rhonchi HEART: Regular rate and rhythm. No murmur heard. Normal periph
[2023-10-02 15:12] LABS: EDINFLUASCREEN Negative; EDINFLUBSCREEN Negative
[2023-10-02 15:19] LABS: EDUAAPPEAR Clear; EDUABILI Negative; EDUABLOOD 1+; EDUACOLOR1 Yellow; EDUAGLUCOSE Negative; EDUAKETONE Negative; EDUALEUKO Negative; EDUANITRATE Negative; EDUAPH 5.5; EDUAPROTEIN Negative; EDUAUROBILI 0.2
== END 2023-10-02 15:20 | disposition short-term general hospital (02) ==
PROVIDERS: Emergency Provider Nurse Practitioner; PCP Registered Nurse
DX: R10.9 Unspecified abdominal pain (principal); Z20.822 Contact with and (suspected) exposure to COVID-19; J45.909 Unspecified asthma, uncomplicated
CPT/HCPCS: 81003; 87426; 87804; 99213; G0463

== ENCOUNTER 2023-10-02 15:38 | Emergency (ER) | payer MEDICAID, SELFPAY ==
--- NOTE | ~2023-10-02 | CT_ITS ---
CT abdomen pelvis wo con Ordering provider: Breanne Jorge PA-C History: 53 years Female with . kim flank pain, lower abd pain . Comparison: None. Technique: CT abdomen and pelvis with IV and without oral contrast. Automated exposure control and it erative reconstruction technique were employed. The dose-length product was 513.82 mGy-cm. Findings: VISUALIZED LOWER CHEST: Normal. UPPER ABDOMINAL ORGANS: Liver: Fat infiltration of the liver. Hepatomegaly. Gallbladder: Status post cholecystectomy. Spleen: Normal. Stomach/duodenum: Normal. Pancreas: Normal. Adrenals: Normal. Kidneys: Normal. PELVIC ORGANS: The bladder is normal. Uterus: Normal. BOWEL AND MESENTERY: Colon: No evidence of diverticulitis. Appendix is not visualized. Postoperative changes seen in the r ight side:. Small Bowel: Normal. No obstruction. Peritoneum/mesentery: No free air or free fluid. No mesenteric lymphadenopathy. RETROPERITONEUM: Normal aorta. No retroperitoneal lymphadenopathy. MUSCULOSKELETAL: Superficial soft tissues: A fat-containing umbilical hernia is noted. The superficial soft tissues ar e normal. Bones: Age appropriate degenerative changes of the spine. IMPRESSION: 1. No acute abdominal process with no evidence of appendicitis, diverticulitis or intestinal obstruc tion. 2. No definite stones in both kidneys and ureters. 3. Hepatomegaly with fat infiltration. 4. Fat-containing umbilical hernia.1 Reviewed, dictated and finalized at location A. IMPRESSION: 1. No acute abdominal process with no evidence of appendicitis, diverticulitis or intestinal obstruction. 2. No definite stones in both kidneys and ureters. 3. Hepatomegaly with fat infiltration. 4. Fat-containing umbilical hernia.1
[2023-10-02 15:57] VITALS: BP 114/97; PULSE 88; RESP 16; TEMP 36.8; O2SAT 99
--- NOTE | 2023-10-02 17:10 | ED.ABDPAIN ---
HPI - Abdominal Pain General Chief Complaint: Abdominal Pain <SAWYER Andino Last Filed: 10/02/23 17:18> Stated Complaint: abd pain <SAWYER Andino Last Filed: 10/02/23 17:18> Time Seen by Provider: 10/02/23 17:10 <SAWYER Andino Last Filed: 10/02/23 17:18> Focused HPI: Patient is a 53 y/o female who presents to the ED with multiple complaints. Patient is primarily Amharic speaking. Family member at bedside assisted with translation. Reports having bilateral flank pain since Saturday. States pain is worse throughout L flank region. Pain became worse this morning which prompted her to come to the ED. Took ibuprofen this morning with some relief. Patient also reports having pain throughout lower abdomen, nausea, diarrhea, headaches, myalgias -hillary in her BLE, as well as subjective fevers last night. Denies vomiting, cough, cold sx's, CP, SOB. Denies sick contacts. GENERAL: Well-appearing, obese with BMI 30.8, and in no acute distress. HEAD: Normocephalic, atraumatic. CHEST: Clear to auscultation. ?No respiratory distress. HEART: Regular rate and rhythm.? ABD: Mild tenderness throughout lower abd, suprapubic region. +CVA tenderness bilaterally, L > R. NEURO: ?Alert and oriented x3. Patient screened in triage and initial orders placed.? ?Additional care and disposition to be based upon?diagnostic testing and treatment. <Breanne Jorge PA-C - Last Filed: 10/02/23 17:18> Source: patient and family <SAWYER Andino Last Filed: 10/02/23 17:18> Mode of arrival: ambulatory <SAWYER Andino Last Filed: 10/02/23 17:18> Limitations: no limitations <SAWYER Andino Last Filed: 10/02/23 17:18> Related Data Home Medications: Home Medications Medication Instructions Recorded Confirmed albuterol sulfate 90 mcg/actuation 2 puff inhalation Q4-5H PRN asthma 10/02/23 10/02/23 aerosol inhaler <Breanne Jorge PA-C - Last Filed: 10/02/23 17:18> Allergies/Adverse Reactions: Allergies Allergy/AdvReac Type Severity Reaction Status Date / Time No Known Allergies Allergy Verified 10/02/23 14:30 <Breanne Jorge PA-C - Last Filed: 10/02/23 17:18> [facility] Past Medical History Medical History: Medical History (Updated 10/02/23 @ 19:37 by Albaro Hill PA-C) Asthma Back pain Cough variant asthma Ileus Low grade mucinous neoplasm of appendix <Breanne Jorge PA-C - Last Filed: 10/02/23 17:18> Surgical History Surgical History: Surgical History History of appendectomy Hx laparoscopic cholecystectomy on 08/01/[address] Rivas. 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 Gender identity (if verbalized by the patient): Female Spiritual care concerns: No <Breanne Jorge PA-C - Last Filed: 10/02/23 17:18> Exam Narrative: GENERAL: Well-appearing, well-nourished, and in no acute distress. HEAD: Normocephalic, atraumatic. EYES: PERRLA and EOMI. ENT: Nares clear, no rhinorrhea or epistaxis. Mucous membranes moist. Oropharynx without tonsillar h
[2023-10-02 17:26] LABS: Basophils Percent Auto 0.6 % (0.2-1.2); Eosinophils Percent Auto 0.6 % (0-4.4); Hematocrit 40.6 % (37.0-47.0); Hemoglobin 13.7 g/dL (12.0-15.0); Immature Granulocyte Absolute 0.01 K/mm3 (0.00-0.031); Immature Granulocyte Percent A 0.2 % (0-0.5); Lymphocytes Absolute Auto 1.49 K/mm3 (0.9-3.2); Lymphocytes Percent Auto 30.9 % (18.3-44.2); Mean Corpuscular HGB Conc 33.7 g/dl (32-36); Mean Corpuscular Hemoglobin 31.3 pg (26-34); Mean Corpuscular Volume 92.7 fl (80-100); Mean Platelet Volume 9.8 fl (7.4-10.4); Monocytes Absolute Auto 0.7 K/mm3 (0.1-0.6); Monocytes Percent Auto 13.7 % (2.6-8.5); Neutrophils Absolute Auto 2.6 K/mm3 (1.3-6.7); Platelet Count Result 203 k/mm3 (150-375); Red Blood Count 4.38 M/mm3 (4.2-5.4); Red Cell Distribution Width 13.5 % (11.5-14.5); White Blood Count 4.8 K/mm3 (4.5-10.0)
[2023-10-02 17:37] LABS: Add Urine Microscopic? YES; Alanine Aminotransferase 24 U/L (6-35); Albumin Level 4.4 g/dL (3.5-5.1); Alkaline Phosphatase 68 U/L (38-126); Anion Gap 12 mmol/L (4-12); Appearance Urine Clear (Clear); Aspartate Amino Transferase 27 U/L (14-36); Bacteria Urine None Seen /hpf; Bilirubin Urine Negative (Negative); Bilirubin,Total 0.3 mg/dL (0.2-1.3); Blood Urea Nitrogen 13 mg/dL (7-17); Blood Urine Negative (Negative); Calcium 8.7 mg/dL (8.4-10.2); Carbon Dioxide 25 mmol/L (22-30); Chloride 102 mmol/L (98-107); Color Urine Yellow (Yellow); Estimated CRCL calculation 85 ml/min; Estimated Glomerular Filt Rate > 60; Glucose 96 mg/dL (65-110); Glucose Urine UA Negative (Negative); Ketones Urine Negative (Negative); Leukocyte Esterase Ur Trace LEU/UL (Negative); Lipase 95 U/L (23-300); Nitrate Urine Negative (Negative); Non Pathogenic Casts 0-2; Potassium 3.9 mmol/L (3.4-5.0); Protein Urine Negative (Negative); RBC Urine 0-2 /hpf (0-2); Sodium 139 mmol/L (137-145); Specific Grav Ur 1.019 (1.001-1.035); Squamous Epithelial Cell Urine Occasional /hpf (Few); Urobilinogen Urine 0.2 mg/dL (<2.0); pH Urine 5.5 (5.0-9.0)
[2023-10-02 18:02] LABS: Influenza A QL RT-PCR Negative (Negative); Influenza B QL RT-PCR Negative (Negative); RSV RNA, RT-PCR Negative (Negative); SARS-CoV-2 RNA PCR Negative (Negative)
[2023-10-02] MEDS: ACETAMINOPHEN 500 MG TABLET 1000 MG PO (19:06)
[2023-10-02 19:44] VITALS: TEMP 36.8
[2023-10-02] MEDS: CEPHALEXIN 500 MG CAPSULE PO (20:17)
== END 2023-10-02 20:48 | disposition home or self-care (01) ==
PROVIDERS: Physician Assistant; Emergency Provider Physician Assistant; PCP Registered Nurse
DX: R10.30 Lower abdominal pain, unspecified (principal); M79.605 Pain in left leg; M79.604 Pain in right leg; R51.9 Headache, unspecified; R82.998 Other abnormal findings in urine; Z20.822 Contact with and (suspected) exposure to COVID-19; J45.909 Unspecified asthma, uncomplicated; Z90.49 Acquired absence of other specified parts of digestive tract; K76.0 Fatty (change of) liver, not elsewhere classified; K42.9 Umbilical hernia without obstruction or gangrene
CPT/HCPCS: 36415; 74176; 80053; 81001; 81003; 83690; 85025; 87086; 87426; 87637; 87804; 99284; A9270

== ENCOUNTER 2023-11-29 11:30 | Outpatient (CLI) | payer OTHER, SELFPAY ==
[2023-11-29 11:50] LABS: Hematocrit 41.2 % (37.0-47.0); Hemoglobin 14.1 g/dL (12.0-15.0); Mean Corpuscular HGB Conc 34.2 g/dl (32-36); Mean Corpuscular Hemoglobin 31.3 pg (26-34); Mean Corpuscular Volume 91.6 fl (80-100); Mean Platelet Volume 9.2 fl (7.4-10.4); Platelet Count Result 266 k/mm3 (150-375); Red Cell Distribution Width 13.3 % (11.5-14.5); White Blood Count 6.4 K/mm3 (4.5-10.0)
[2023-11-29 12:06] LABS: Alanine Aminotransferase 22 U/L (6-35); Albumin Level 4.5 g/dL (3.5-5.1); Alkaline Phosphatase 64 U/L (38-126); Anion Gap 8 mmol/L (4-12); Aspartate Amino Transferase 24 U/L (14-36); Bilirubin,Total 0.6 mg/dL (0.2-1.3); Blood Urea Nitrogen 12 mg/dL (7-17); Calcium 9.2 mg/dL (8.4-10.2); Carbon Dioxide 27 mmol/L (22-30); Chloride 102 mmol/L (98-107); Estimated Glomerular Filt Rate > 60; Glucose 92 mg/dL (65-110); Sodium 137 mmol/L (137-145)
[2023-11-29 12:35] LABS: Hepatitis B Surface Antigen Negative (Negative)
[2023-11-29 12:41] LABS: HAV RESULT Negative (Negative); Hepatitis B Core IgM Result Negative (Negative)
[2023-11-29 12:52] LABS: Hepatitis C Virus Antibody Negative (Negative)
[2023-11-30 10:28] LABS: Hepatitis A Antibody Total REACTIVE (NON-REACTIVE); Hepatitis B Core Ab Total NON-REACTIVE (NON-REACTIVE)
[2023-12-02 10:09] LABS: Alpha Fetoprotein Tumor Marker 3.8 ng/mL
[2023-12-03 21:49] LABS: Actin Antibody (IgG) <20 U (<20)
[2023-12-04 15:12] LABS: ALT 17 U/L (6-29); Alpha-2-Macroglobulin 155 mg/dL (106-279); Apolipoprotein A1 195 mg/dL (101-198); Fibrosis Score 0.06; Fibrosis Stage F0; GGT 14 U/L (3-70); Haptoglobin 131 mg/dL (43-212); Necroinflammat Act Grade A0; Reference ID 5132724; Total Bilirubin 0.5 mg/dL (0.2-1.2)
[2023-12-04 17:04] LABS: Alpha-1-Antitrypsin, QN 119 mg/dL (83-199)
[2023-12-10 23:19] LABS: Mitochondrial (M2) Ab (IgG) <20.0 U
== END 2023-11-29 11:31 | disposition home or self-care (01) ==
LOC: ANHLAB 11:32
PROVIDERS: PCP Registered Nurse; Visit Provider Nurse Practitioner
DX: K74.60 Unspecified cirrhosis of liver (principal); K76.0 Fatty (change of) liver, not elsewhere classified; R16.0 Hepatomegaly, not elsewhere classified
CPT/HCPCS: 36415; 80053; 80074; 81596; 82103; 82105; 82728; 83520; 85027; 86038; 86039; 86364; 86704; 86708

== ENCOUNTER 2023-12-16 09:09 | Outpatient (CLI) | payer OTHER, SELFPAY ==
--- NOTE | ~2023-12-16 | US_ITS ---
Limited Abdominal Sonogram: Real-time sonographic imaging of the right upper quadrant was performed. Clinical History: Fatty liver Findings: The liver appears echogenic, with no evidence of mass lesion or bile duct dilatation. Main portal vein demonstrates normal direction of flow. The gallbladder is absent, compatible prior gayla cystectomy. The common bile duct measures 6 mm. The visualized pancreas, aorta, and IVC are unremark able. Impression: Diffuse fatty infiltration of the liver. Status post cholecystectomy. Reviewed, dictated and finalized at location . Impression: Diffuse fatty infiltration of the liver. Status post cholecystectomy.
== END 2023-12-16 09:10 | disposition home or self-care (01) ==
LOC: ANHIMG 09:10
PROVIDERS: PCP Registered Nurse; Visit Provider Nurse Practitioner
DX: K76.0 Fatty (change of) liver, not elsewhere classified (principal); R16.0 Hepatomegaly, not elsewhere classified; Z90.49 Acquired absence of other specified parts of digestive tract
CPT/HCPCS: 76705

== ENCOUNTER 2024-04-25 09:44 | Outpatient (CLI) | payer OTHER, SELFPAY ==
--- NOTE | ~2024-04-25 | US_ITS ---
EXAMINATION: US thyroid DATE: 04/25/2024 10:41 INDICATION: Hypothyroidism TECHNIQUE: Multiple ultrasound images of the thyroid were obtained. COMPARISON: None. FINDINGS: The right thyroid lobe measures 4.9 x 2.4 x 1.4 cm. The left thyroid lobe measures 3.9 x 1.5 x 1.4 c m. There are 2 isthmus measures 5 mm in thickness. There is heterogeneous decreased activity with coa rsened echotexture and increased vascular flow on color Doppler throughout the thyroid suggestive of thyroiditis. No discrete thyroid nodules. IMPRESSION: 1. Mildly enlarged heterogeneous thyroid with coarsened echotexture and increased vascular flow consi stent with thyroiditis. Reviewed, dictated and finalized at location [facility]. [facility] IMPRESSION: 1. Mildly enlarged heterogeneous thyroid with coarsened echotexture and increas ed vascular flow consistent with thyroiditis.
--- OUTSIDE RECORDS SUMMARY | 2024-04-25 09:49 | XMS_ITS | Data Portability ---
[facility] [address] [place] [address] Care Team Providers Care Hide Mill Worker Name Role Phone JONATHAN KHAN Primary Care Provider JERZY CONNORS Cap Coverer DONNA SARAVIA General Surgeon LALO ANTHONY General Surgeon [phone] ELSA EUBANKS Supervisor Coremaker SERA GOLDEN General Surgeon Assessment No assessment recorded. 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 [employer] Not available Not available Not available Lab TSH + free T4, serum 2023 024 elsi [facility], [address], [address], [place], [address], 02/25/2024 15:32:52 urinal ysis, dipsti ck 2023 024 elsi In-Office Order, Internal Use Only DO Not Attach Compendium DO Not Attach Compendium, Do Not Delete/merge, [id number] 02/14/2024 17:24:50 cultur e, urine 2023 024 MIKE [facility], [address], [address], [place], [address], 02/18/2024 16:12:29 pap, IG + reflex HPV (16+18 +45) 2023 [facility], [address], [address], [place], [address], 02/14/2024 10:41:03 HbA1c (hemog lobin A1c), blood 2023 MIKE In-Office Order, Internal Use Only DO Not Attach Compendium DO Not Attach Compendium, Do Not Delete/merge, [id number] 01/16/2024 17:17:56 glucos e, finger stick, blood 2023 MIKE In-Office Order, Internal Use Only DO Not Attach Compendium DO Not Attach Compendium, Do Not Delete/merge, [id number] 01/16/2024 17:19:41 TSH + free T4, serum 2023 [facility], [address], [address], [place], [address], 02/24/2024 16:13:35 TSH + free T4, serum 2023 024 [facility], [address] [place] [address], [address], [place], [address], 12/30/2023 11:27:59 thyrop eroxid ase Ab, serum 2023 024 [facility], [address] [place] [address], [address], [place], [address], 12/30/2023 11:27:59 Referral None record ed. Procedures pulse oximet ry (PROC) 2023 elsi In-Office Order, Internal Use Only DO Not Attach Compendium DO Not Attach Compendium, Do Not Delete/merge, [id number] 01/16/2024 17:06:46 Surgeries None record ed. Imaging MAMMO, screen ing, bilate ral 2023 [email or web address] [facility], [address] [facility], [place], [address], 02/21/2024 11:49:03 Medication Orders Macrob id 100 mg capsul e 2023 [facility], [address] [place] [address], [id number], 02/14/2024 17:24:49 Pyridi um 200 mg tablet 2023 [facility], [address] [place] [address], [id number], 02/14/2024 17:24:49 Neospo rin (cristy-b ac-ryan ym) 3.5 mg-400 unit-5 ,000 unit/g rigo top ointme nt 2023 [facility], [address] [place] [address], [id number], 02/14/2024 17:25:55 ondans etron 8 mg disint egrati ng tablet 2023 [facility], [address] [place] [address], [id number], 02/14/2024 17:24:50 clonid ine HCl 0.1 mg tablet 2023 [facility], [address] [place] [address], [id number], 01/16/2024 17:06:46 mecliz ine 25 mg tablet 2023 [facility], [address] [place] [address], [id number], 01/16/2024 17:06:55 ondans etron HCl 8 mg tablet 2023 [facility], [address] [place] [address], [id number], 01/16/2024 17:06:59 flutic asone propio deshawn 50 mcg/ac tuatio n nasal spray, suspen ind[place] 2023 [facility], [address] [place] [address], [id number], 01/16/2024 17:07:00 lorata dine 10 mg tablet 2023 [facility], [address] [place] [address], [id number], 01/16/2024 17:06:56 ibupro fen 800 mg tablet 2023 [facility], [address] [place] [address], [id number], 01/16/2024 17:06:56 levoth yroxin e 50 mcg tablet 2023 024 [facility], [address] [place] [address], [id number], 02/28/2024 16:26:43 albute rol sulfat e HFA 90 mcg/ac tuatio n aeroso l inhale r 2023 024 [facility], [address] [place] [address], [id number], 01/16/2024 17:06:57 Dulera 100 mcg-5 mcg/ac tuatio n HFA aeroso l inhale r 2023 024 [facility], [address] [place] [address], [id number], 01/16/2024 17:06:53 colest ipol 1 gram tablet 2023 024 [facility], [address] [place] [address], [id number], 01/16/2024 17:06:46 Patient TargetsNo targets recorded. Patient Instructions Encounter Date Encounter Id Patient Instructions Last Modified By Organization Details Last Modified Time 01/16/2024 [id number] vacuna contra la influenza (gripe): instrucciones de cuidado - [influenza (flu) vaccine: care instructions] yarauz Not available 01/16/2024 17:07:22 Sofocos brandie la menopausia: Instrucciones de cuidado - [Hot Flashes During Menopause: Care Instructions] yarauz Not available 01/16/2024 17:06:47 V rtigo posicional parox stico marsha: Instrucciones de cuidado - [Benign Paroxysmal Positional Vertigo (BPPV): Care Instructions] yarauz Not available 01/16/2024 17:06:47 alergias estacionales: instrucciones de cuidado - [seasonal allergies: care instructions] yarauz Not available 01/16/2024 17:06:47 artritis de philly ra: instrucciones de cuidado - [hip arthritis: care instructions] yarauz Not available 01/16/2024 17:06:47 osteoartritis: instrucciones de cuidado - [osteoarthritis: care instructions] yarauz Not available 01/16/2024 17:06:47 A healthy lifestyle: care instructions yarauz Not available 01/16/2024 17:06:46 tiroiditis de chris: instrucciones de cuidado - [chris's thyroiditis: care instructions] yarauz Not available 01/16/2024 17:06:46 aprenda acerca d el peso saludable - [learning about healthy weight] yarauz Not available 01/16/2024 17:06:46 ndice de masa corporal: instrucciones de cuidado - [body mass index: care instructions] yarauz Not available 01/16/2024 17:06:47 shingles vaccine at [facility] yarauz Not available 01/16/2024 16:46:26 You have hypothyroidism, which means that your body is not making enough thyroid hormone. This hormone helps your body use energy. If your thyroid level is low, you may feel tired, be constipated, have an increase in your blood pressure, or have dry skin or memory problems. You may also get cold easily, even when it is warm. Women with low thyroid levels may have heavy menstrual periods. A blood test to find your thyroid-stimulating hormone (TSH) level is used to check for hypothyroidism. A high TSH level may mean that you have low thyroid. When your body is not making enough thyroid hormone, TSH levels rise in an effort to make the body produce more. The treatment for hypothyroidism is to take thyroid hormone pills. You should start to feel better in 1 to 2 weeks. But it can take several months to see changes in the TSH level. You will need regular visits with your doctor to make sure you have the right dose of medicine. Most people need treatment for the rest of their lives. You will need to see your doctor regularly to have blood tests and to make sure you are doing well. Follow-up care is a duvall part of your treatment and safety. Be sure to make and go to all appointments, and call your doctor if you are having problems. It's also a good idea to know your test results and keep a list of the medicines you take. Lose weight stretching exercises avoid heavy lifting or activities that increase pain level ice/heat as necessary no alcohol, no tylenol, return to GI for HEPATOMEGALY Choose a heart-healthy diet that is low in saturated fat. It should include plenty of fish, fruits, vegetables, beans, and high-fiber grains and breads. Be sure you get enough calcium and vitamin D to help your bones stay strong. Low-fat or nonfat dairy products are a great source of calcium. Get regular exercise. Exercise can help you manage your weight, keep your heart and bones strong, and lift your mood. Limit caffeine, alcohol, and stress. These things can make symptoms worse. Limiting them may help you sleep better. If you smoke, stop. Quitting smoking can reduce hot flashes and long-term health risks. yarauz Not available 01/17/2024 16:11:00 01/28/2024 [id number] vaginitis atr fica: instrucciones de cuidado - [atrophic vaginitis: care instructions] yarauz Not available 01/28/2024 14:40:27 Sofocos brandie la menopausia: Instrucciones de cuidado - [Hot Flashes During Menopause: Care Instructions] yarauz Not available 01/28/2024 14:40:27 A healthy lifestyle: care instructions yarauz Not available 01/28/2024 14:40:27 aprenda acerca d el peso saludable - [learning about healthy weight] yarauz Not available 01/28/2024 14:40:27 ndice de masa corporal: instrucciones de cuidado - [body mass index: care instructions] yarauz Not available 01/28/2024 14:40:27 SBE teaching/handout Calcium in diet plus vitamin D daily exercise monitor diet see dentist every 6 months see reporting consultant every 1-2 years HIV testing recommendation condoms prn contraceptive options-pt has IUD new guidelines--pap with Hpv in 3-5 years--pelvic exam every year Mammogram yearly after 40 Check B/P once yearly yarauz Not available 01/28/2024 14:21:15 02/14/2024 [id number] dolor al orinar (disuria): instrucciones de cuidado - [painful urination (dysuria): care instructions] yarauz Not available 02/14/2024 17:24:49 N useas y v megan: instrucciones de cuidado - [nausea and vomiting: care instructions] yarauz Not available 02/14/2024 17:24:49 aprenda acerca d el peso saludable - [learning about healthy weight] yarauz Not available 02/14/2024 17:33:10 ndice de masa corporal: instrucciones de cuidado - [body mass index: care instructions] yarauz Not available 02/14/2024 17:33:10 soak left foot a s directed lift edge of nail away from bed as directed increase water intake general hygiene measures take all your medicines as directed if symptoms do not improve or resolve make a follow up appointment yarauz Not available 02/14/2024 17:32:40 Reason for Referral None Reported. Results Created Date Observation Date Name Description Value Unit Range Abnormal Flag Note LastModifiedBy Organization Detail LastModifiedTime 12/12/19 24 12/16/2023 NUSWA B VAGIN ITIS PLUS (VG+) atopobium vaginae LOW - 0 score Not Available [facility] ([facility]) [address] [facility], [place], [address], 12/18/2023 03:36:57 12/12/1912/16/2023 NUSWA B VAGIN ITIS PLUS (VG+) bvab 2 LOW - 0 score Not Available [facility] ([facility]) [address] [facility], [place], [address], 12/18/2023 03:36:57 12/12/1912/16/2023 NUSWA B VAGIN ITIS PLUS (VG+) megasphaera 1 LOW - 0 score Calcu late total score by addin g the 3 indiv idual bacte rial vagin osis (BV) marke r score s toget her. Total score is inter prete d as follo ws: Total score 0-1: Indic ates the absen ce of BV. Total score 2: Indet ermin ate for BV. Addit ional clini omaira data shoul d be evalu ated to estab perlita a diagn osis. Total score 3-6: Indic ates the prese nce of BV. Not Available [facility] ([facility]) [address] [facility], [place], [address], 12/18/2023 03:36:57 12/12/1912/16/2023 NUSWA B VAGIN ITIS PLUS (VG+) jaime albicans, TANMAY NEGATI VE negati ve Not Available [facility] ([facility]) [address] [facility], [place], [address], 12/18/2023 03:36:57 12/12/1912/16/2023 NUSWA B VAGIN ITIS PLUS (VG+) jaime glabrata, TANMAY NEGATI VE negati ve Not Available [facility] ([facility]) [address] [facility], [place], [address], 12/18/2023 03:36:57 12/12/1912/18/2023 NUSWA B VAGIN ITIS PLUS (VG+) trich vag by TANMAY NEGATI VE negati ve Not Available [facility] ([facility]) [address] [facility], [place], [address], 12/18/2023 03:36:57 12/12/1912/18/2023 NUSWA B VAGIN ITIS PLUS (VG+) chlamydia trachomatis, TANMAY NEGATI VE negati ve Not Available [facility] ([facility]) [address] [facility], [place], [address], 12/18/2023 03:36:57 12/12/1912/18/2023 NUSWA B VAGIN ITIS PLUS (VG+) neisseria gonorrhoeae, TANMAY NEGATI VE negati ve Not Available [facility] ([facility]) [address] [facility], [place], [address], 12/18/2023 03:36:57 12/12/1912/12/2023 pregn eleanor test, urine HCG negati ve Not Available In-Office Order Internal Use Only DO Not Attach Compendium DO Not Attach Compendium, Do Not Delete/merge, [id number] 12/12/2023 17:00:21 12/12/1912/12/2023 HbA1c (hemo globi n A1c), blood HbA1c Not Available In-Office Order Internal Use Only DO Not Attach Compendium DO Not Attach Compendium, Do Not Delete/merge, [id number] 12/12/2023 16:47:52 12/13/1912/14/2023 TSH TSH 9.460 uIU/m L 0.450- 4.500 above high normal Not Available [facility] ([facility]) [address] [facility], [place], [address], 12/17/2023 11:19:24 12/13/19 24 12/14/2023 ESTRA DIOL estradiol 16.0 pg/mL Adult Femal e Range Folli cular phase 12.5 - 166.0 Ovula tion phase 85.8 - 498.0 Lutea l phase 43.8 - 211.0 Postm enopa usal <6.0 - 54.7 Pregn eleanor 1st trime ster 215.0 - >4300 .0 Adal ECLIA metho dolog y Not Available [facility] ([facility]) [address] [place], [address], 12/17/2023 11:19:25 12/13/19 24 12/14/2023 FSH AND LH LH 55.1 mIU/m L Adult Femal e Range Folli cular phase 2.4 - 12.6 Ovula tion phase 14.0 - 95.6 Lutea l phase 1.0 - 11.4 Postm enopa usal 7.7 - 58.5 Not Available [facility] ([facility]) [address] [place], [address], 12/17/2023 11:19:27 12/13/19 24 12/14/2023 FSH AND LH FSH 89.1 mIU/m L Adult Femal e Range Folli cular phase 3.5 - 12.5 Ovula tion phase 4.7 - 21.5 Lutea l phase 1.7 - 7.7 Postm enopa usal 25.8 - 134.8 Not Available [facility] ([facility]) [address] [place], [address], 12/17/2023 11:19:27 12/24/1912/25/2023 TSH+F REE T4 TSH 11.800 uIU/m L 0.450- 4.500 above high normal Not Available [facility] ([facility]) [address] [place], [address], 12/25/2023 16:14:35 12/24/1912/25/2023 TSH+F REE T4 T4,free(dire ct) 0.79 NG/dL 0.82-1 .77 below low normal Not Available [facility] ([facility]) [address] [place], [address], 12/25/2023 16:14:35 12/24/19 24 12/25/2023 THYRO ID ANTIB ODIES thyroid peroxidase (tpo) Ab 546 IU/mL 0-34 above high normal Not Available [facility] ([facility]) [address] [facility], [place], [address], 12/25/2023 16:14:37 12/24/19 24 12/25/2023 THYRO ID ANTIB ODIES thyroglobuli n antibody 3.1 IU/mL 0.0-0. 9 above high normal Thyro globu ilene Antib tiny measu red by [facility] It shoul d be noted that the prese nce of thyro globu ilene antib odies may not be patho genic nor diagn ostic , espec ially at very low level s. The assay leonid actur er has found that four perce nt of indiv idual s witho ut evide nce of thyro id disea se or autoi mmuni ty will have posit evelin TgAb level s up to 4 IU/mL . Not Available [facility] ([facility]) [address] [facility], [place], [address], 12/25/2023 16:14:37 01/16/20 24 01/16/2024 gluco se, finge rstic k, blood Blood Glucose: mg/dl 90 Not Available In-Off ice Order Internal Use Only DO Not Attach Compendium DO Not Attach Compendium, Do Not Delete/merge, [id number] 01/16/2024 16:46:25 01/16/20 24 01/16/2024 HbA1c (hemo globi n A1c), blood HbA1c 5.7 Not Available In-Office Order Internal Use Only DO Not Attach Compendium DO Not Attach Compendium, Do Not Delete/merge, [id number] 01/16/2024 16:46:25 01/16/20 24 01/16/2024 pulse oxime try (PROC ) Resting Pulse Ox 98 Not Available In-Off ice Order Internal Use Only DO Not Attach Compendium DO Not Attach Compendium, Do Not Delete/merge, [id number] 01/16/2024 16:17:06 01/28/20 24 01/31/2024 IGP, APTIM A HPV, RFX 16/18 ,45 HPV aptima NEGATI VE negati ve This nucle ic acid ampli ficat ion test detec ts fourt een high- risk HPV types (16,1 8,31, 33,35 ,39,4 5,51, 52,56 ,58,5 9,66, 68) witho ut diffe renti ation . Not Available [facility] ([facility]) [address] [facility], [place], [address], 02/06/2024 11:48:18 01/28/20 24 02/06/2024 IGP, APTIM A HPV, RFX 16/18 ,45 diagnosis: COMMEN T NEGAT EVELIN FOR INTRA EPITH ELIAL LESIO N OR JOSIE MCCALLUM . CELLU MELITON FLEMING ES ASSOC IATED WITH INFLA MMATI ON ARE PRESE NT. THIS SPECI MEN WAS RESCR EENED PART OF OUR QUALI TY CONTR OL PROGR AM. Not Available [facility] ([facility]) [address] [facility], [place], [address], 02/06/2024 11:48:18 01/28/20 24 02/06/2024 IGP, APTIM A HPV, RFX 16/18 ,45 specimen adequacy: COMMEN T Satis facto ry for evalu ation . Endoc ervic al and/o r squam ous metap lasti c cells (endo cervi omaira compo nent) are prese nt. Not Available [facility] ([facility]) [address] [place], [address], 02/06/2024 11:48:18 01/28/20 24 02/06/2024 IGP, APTIM A HPV, RFX 16/18 ,45 clinician provided ICD10: AMBER Street Z01.4 11 Not Available [facility] ([facility]) [address] [place], [address], 02/06/2024 11:48:18 01/28/20 24 02/06/2024 IGP, APTIM A HPV, RFX 16/18 ,45 performed by: AMBER Daniel in Chadw ick, Cytot echno logis t (ASCP ) Not Available [facility] ([facility]) [address] [place], [address], 02/06/2024 11:48:18 01/28/20 24 02/06/2024 IGP, APTIM A HPV, RFX 16/18 ,45 QC reviewed by: AMBER cobos, Cytot echno logis t (ASCP ) Not Available [facility] ([facility]) [address] [place], [address], 02/06/2024 11:48:18 01/28/20 24 02/06/2024 IGP, APTIM A HPV, RFX 16/18 ,45 . . Not Available [facility] ([facility]) [address] [place], [address], 02/06/2024 11:48:18 01/28/20 24 02/06/2024 IGP, APTIM A HPV, RFX 16/18 ,45 note: AMBER Street The Pap smear is a scree enzo test desig clarissa to aid in the detec tion of fei ligna nt and malig nant condi tions of the uteri ne cervi x. It is not a diagn ostic proce dure and shoul d not be used as the sole means of detec ting cervi omaira cance r. Both false -posi tive and false -nega tive repor ts do occur . Not Available [facility] ([facility]) [address] [place], [address], 02/06/2024 11:48:18 01/28/20 24 02/06/2024 IGP, APTIM A HPV, RFX 16/18 ,45 test methodology: AMBER Street This liqui d based ThinP rep(R ) pap test was scree clarissa with the use of an image guide dominga ramsey. Not Available [facility] ([facility]) [address] [place], [address], 02/06/2024 11:48:18 01/28/20 24 02/06/2024 IGP, APTIM A HPV, RFX 16/18 ,45 HPV genotype reflex COMMEN T Crite sima not met, HPV Genot ype not perfo rmed. Not Available [facility] ([facility]) [address] [facility], [place], [address], 02/06/2024 11:48:18 02/14/20 24 02/18/2024 URINE CULTU RE, ROUTI NE urine culture, routine FINAL REPORT Not Available [facility] ([facility]) [address] [facility], [place], [address], 02/18/2024 16:12:29 02/14/20 24 02/18/2024 URINE CULTU RE, ROUTI NE result 1 LACTOB ACILLU S SPECIE S 50,00 0-100 ,000 colon y formi ng units per mL Susce ptibi lity not rachele lly perfo rmed on this organ ism. Not Available [facility] ([facility]) [address] [facility], [place], [address], 02/18/2024 16:12:29 02/14/20 24 02/14/2024 urina lysis , dipst ick Leukocytes Negati ve Not Available In-Office Order Internal Use Only DO Not Attach Compendium DO Not Attach Compendium, Do Not Delete/merge, [id number] 02/14/2024 16:43:17 02/14/20 24 02/14/2024 urina lysis , dipst ick Nitrite negati ve Not Available In-Office Order Internal Use Only DO Not Attach Compendium DO Not Attach Compendium, Do Not Delete/merge, [id number] 02/14/2024 16:43:17 02/14/20 24 02/14/2024 urina lysis , dipst ick Urobilinogen .2 Not Available In-Of fice Order Internal Use Only DO Not Attach Compendium DO Not Attach Compendium, Do Not Delete/merge, [id number] 02/14/2024 16:43:17 02/14/20 24 02/14/2024 urina lysis , dipst ick Protein Negati ve Not Available In-Office Order Internal Use Only DO Not Attach Compendium DO Not Attach Compendium, Do Not Delete/merge, [id number] 02/14/2024 16:43:17 02/14/20 24 02/14/2024 urina lysis , dipst ick pH 6.0 Not Available In-Office Order Internal Use Only DO Not Attach Compendium DO Not Attach Compendium, Do Not Delete/merge, [id number] 02/14/2024 16:43:17 02/14/20 24 02/14/2024 urina lysis , dipst ick Blood Non-He molyze d: Trace Not Available In-Office Order Internal Use Only DO Not Attach Compendium DO Not Attach Compendium, Do Not Delete/merge, [id number] 02/14/2024 16:43:17 02/14/20 24 02/14/2024 urina lysis , dipst ick Specific Tiff 1.030 Not Available In-Off ice Order Internal Use Only DO Not Attach Compendium DO Not Attach Compendium, Do Not Delete/merge, [id number] 02/14/2024 16:43:17 02/14/20 24 02/14/2024 urina lysis , dipst ick Ketone Negati ve Not Available In-Office Order Internal Use Only DO Not Attach Compendium DO Not Attach Compendium, Do Not Delete/merge, [id number] 02/14/2024 16:43:17 02/14/20 24 02/14/2024 urina lysis , dipst ick Bilirubin Negati ve Not Available In-Office Order Internal Use Only DO Not Attach Compendium DO Not Attach Compendium, Do Not Delete/merge, [id number] 02/14/2024 16:43:17 02/14/20 24 02/14/2024 urina lysis , dipst ick Glucose Negati ve Not Available In-Office Order Internal Use Only DO Not Attach Compendium DO Not Attach Compendium, Do Not Delete/merge, [id number] 02/14/2024 16:43:17 02/14/20 24 02/14/2024 urina lysis , dipst ick Appearance Clear Not Available In-Offi ce Order Internal Use Only DO Not Attach Compendium DO Not Attach Compendium, Do Not Delete/merge, [id number] 02/14/2024 16:43:17 02/14/20 24 02/14/2024 urina lysis , dipst ick Color Pale Yellow Not Available In-Office Order Internal Use Only DO Not Attach Compendium DO Not Attach Compendium, Do Not Delete/merge, [id number] 02/14/2024 16:43:17 02/24/20 24 02/25/2024 TSH+F REE T4 TSH 3.880 uIU/m L 0.450- 4.500 Not Available [facility] ([facility]) [address] [facility], [place], [address], 02/25/2024 09:11:49 02/24/20 24 02/25/2024 TSH+F REE T4 T4,free(dire ct) 1.24 NG/dL 0.82-1 .77 Not Available [facility] ([facility]) [address] [facility], [place], [address], 02/25/2024 09:11:49 12/16/1912/16/2023 abdom inal aorto gram (PROC ) No observ ation record ed. [facility] [address], [place], [address], 12/19/2023 16:20:42 Result Notes None recorded. Problems Name Problem SNOMED Code Status Onset Date Resolution Date Notes Provider Name and Address Organization Details Recorded Time Biliary sludge 85692111 Completed 201707/02/2019 Tavia Alexander RN null, [place] - [facility] 0 15:56:41 Right upper quadrant pain 185864274 Completed 201704/15/2018 JENNI Crespo, [place] - [facility] 9 15:00:34 Lesion of liver 109120433 Active 2017 ALFREDO Kowalski Attn: Jenniffer finn,[address] [facility], [place], [address] [facility] - [facility] 4 15:59:32 Mild persiste nt asthma 368781667 Active 2017 Tavia Alexander RN null, [place] - [facility] 2 15:53:48 Osteoart hritis of knee 512102112 Active 2017 T[place] [facility] 2 15:48:58 Body mass index 30+ - obesity 093245065 Active 2017 Tavia [place] [facility] 2 15:54:38 Lumbar spondylo sis 891612274 Completed 201807/02/2019 T[place] [facility] 0 15:57:31 Osteoart hritis of hip 438493103 Active 2018 Tavia [place] [facility] 2 15:48:58 Low grade squamous intraepi thelial lesion on cervical Papanico laou smear 44538727664 105 Completed 201807/02/2019 Tavia [place] [facility] 2 15:56:49 Umbilica l hernia 794692200 Active 2019 ALFREDO Kowalski Attn: Jenniffer g,[address] [place], [address], [place] - [facility] 4 15:59:32 Seasonal allergic rhinitis 278279686 Active 2019 Tavia [place] RN [place] [facility] 2 16:01:57 Autoimmu ne disease 01724871 Active 2018 Seen by Rheumato logist 06/2018 has not returned Tavia [place] RN [place] [facility] 2 15:54:26 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, [place], [address], [place] [facility] 4 15:59:32 Venous varices 525702081 Active 2020 Tavia [place] [facility] 2 16:01:36 Vitamin D deficien cy 09723050 Active 2020 Tavia [place] [facility] 2 15:50:20 Right inguinal hernia 242745123 Active 2021 Jonathan Khan [facility] Attn: Accountin g,[address] [facility], [place], [address], [place] [facility] 4 15:59:32 Liver cyst 07464440 Active 2021 Jonathan Khan [facility] Attn: Accountin g,[address] [facility], [place], [address], [place] [facility] 4 15:59:32 Chronic cervicit is 02806722 Active 2022 Jonathan Khan [facility] Attn: Accountin g,[address] [facility], [place], [address], [place] [facility] 4 15:59:32 Menopaus al flushing 167779351 Active 2022 Jonathan Khan [facility] Attn: Accountin g,[address] [place], [address], [place] [facility] 4 15:59:32 Screenin g for malignan t neoplasm of colon Active 2022 Jonathan Khan [facility] Attn: Accountin g,[address] [place], [address], [place] [facility] 4 15:59:32 Benign paroxysm al position al vertigo 674424157 Active 2023 Jonathan Khan [facility] Attn: Accountin g,[address] [facility], [place], [place], [address] [place] [address] 2, [facility] 4 16:47:16 Flank pain 515366037 Active 2023 Jonathan Khan [facility] Attn: Accountin g,[address] 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, [place], [address] [place] [address] 2, [facility] 4 16:47:16 Obesity 015187502 Active 2023 Jonathan Khan [facility] Attn: Accountin g,[address] 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, [place], [address] [place] [address] 2, [facility] 4 16:47:16 Menopaus e present 287351209 Active 2023 Jonathan Khan [facility] Attn: Accountin g,[address] 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, [place], [address] [place] [address] 2, [facility] 4 16:47:16 Autoimmu ne thyroidi tis 63016999 Active 2023 Jonathan Khan [facility] Attn: Accountin g,[address] 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, [place], [address], [place] [facility] 4 16:08:01 Atrophic vaginiti s 91588153 Active 2023 Jonathan Khan [facility] Attn: Jenniffer finn,[address] [facility], [place], [address], [place] [facility] 4 18:02:07 Hemangio ma of vertebra l column 963452876 Completed 07/02/2019 Jonathan Khan [facility] Attn: Jenniffer finn,[address] [facility], [place], [address], [place] [facility] 4 15:59:32 Abdomina l pain 53961250 Completed 12/27/2014 Tavia [place] [facility] 6 11:29:12 Acute constipa tion 446308619 Completed 07/12/2015 T[place] [facility] 6 11:29:12 Intracta ble breast pain 638280332 Completed 07/12/2015 JENNI [place]resp[place] [facility] 6 11:29:12 Fibrocys tic disease of breast 67826327 Active Tavia [place] [facility] 2 15:55:30 Low back pain 008093151 Completed 07/12/2015 JEN[place] [facility] 6 11:29:12 Acute cervicit is 28836207 Completed 07/12/2015 T[place] [facility] 6 11:29:12 Vaginal discharg e 102758032 Completed 07/12/2015 Tavia [place] [facility] 6 11:29:12 Headache 56482984 Completed 07/02/2019 Tavia Alexander RN null, [facility] 0 15:56:58 Chronic back pain 754730469 Active Tavia Alexander RN null, [facility] 2 15:53:00 Spasm of back muscles 081615171 Completed 12/27/2014 JENNI Crespo, [facility] 6 11:29:12 Fatigue 64601618 Completed 12/27/2014 JENNI Crespo, [facility] 6 11:29:12 Problem Notes None recorded. Procedures Surgical History Date Name Laterality Status Provider Name and Address Organization Details Recorded Time 01/31/20 23 Cerumen Removal completed ALFREDO Kowalski Attn: Accounting, [address] [place], [address], [facility] 01/30/2023 17:25:29 01/03/20 23 Date of Last Mammogram completed Tavia Alexander RN [facility] 01/16/2024 16:15:48 08/02/19 23 Laparoscopic cholecystectomy completed Tavia Alexander RN [place] [facility] 08/01/2022 15:13:37 06/30/19 23 IUD Removal completed ALFREDO Kowalski Attn: Accounting, [address] [place], [address], [facility] 06/29/2022 15:27:07 06/30/19 23 Date of Last Pap Smear completed Tavia Alexander RN [facility] 01/16/2024 16:16:17 02/04/20 21 Cerumen Removal completed ALFREDO Kowalski Attn: Accounting, [address] [place], [address], [facility] 02/03/2021 16:19:38 07/29/19 21 Appendectomy completed Tavia Alexander RN [place] [facility] 07/28/2020 17:31:57 10/23/19 19 Cryotherapy - STEM ROLLER OPERATOR completed Ilene Peralta [facility] 10/23/2018 12:13:18 09/16/19 19 Colposcopy completed Ilene Peralta [place] [facility] 09/22/2018 11:27:52 05/23/19 18 Colposcopy completed Ilene Peralta [place] [facility] 05/22/2017 16:28:34 12/30/19 16 IUD Removal completed ALFREDO Kowalski Attn: Accounting, [address] [facility], [place], [address], [facility] 12/30/2015 12:02:35 12/30/19 16 IUD Insertion completed ALFREDO Kowalski Attn: Accounting, [address] [facility], [place], [address], [facility] - [facility] 12/30/2015 12:02:43 Imaging Results Imaging Date Name Status [facility]Modified by [facility] Details LastModified Time 12/16/2023 abdominal aortogram (PROC) completed [facility] [address], [place], [address], 12/19/2023 16:20:42 Procedure Notes None recorded. Medical Equipment None Reported. Allergies No known drug allergies Medications Name Sig Start Date Stop Date Status Note LastModified by Organization Details LastModified Time cyclobenz aprine 10 mg tablet Take 1 tablet twice a day by oral route. 02/11 completed Not Available Not Available Not Available amoxicill in 500 mg capsule TOME TWO CAPSULAS BY MOUTH THU BLAKELY ONE CAPSULE THREE TIMES DAILY HASTA TERMINAR FOR INFECTIO N 04/19 completed Not Available Not Available Not Available Mirena 21 mcg/24 hr (up to 8 years) 52 mg intrauter ine device inserted in office as directed 06/29 completed Not Available Not Available Not Available fluticaso ne 250 mcg-salme terol 50 mcg/dose blistr powdr for inhalatio n INHALE 1 DOSE BY MOUTH TWICE DAILY 05/05 completed Not Available Not Available Not Available clonidine HCl 0.1 mg tablet 2023 active Not Available Not Available Not Avai lable doxycycli ne hyclate 100 mg capsule TAKE ONE CAPSULE BY MOUTH TWICE DAILY FOR 7 DAYS active Not Available Not Available No t Available azithromy joe 250 mg tablet TAKE 2 TABLETS BY MOUTH ON DAY 1, AND THEN TAKE 1 TABLET BY MOUTH ONCE A DAY ON DAY 2 THROUGH DAY 5 10/14 completed Not Available Not Available Not Available ibuprofen 800 mg tablet Take 1 tablet 3 times a day by oral route with meal(s), for osteoart hritis with food. active Not Available Not Available No t Available simethico ne 180 mg capsule Take 1 capsule twice a day by oral route. 2014 active Not Available Not Available Not Avai lable fluconazo le 150 mg tablet Take by oral route. 05/15 completed Not Available Not Available Not Available hydrocodo ne 5 mg-acetam inophen 325 mg tablet TAKE 1 TABLET BY MOUTH EVERY 6 HOURS NEEDED FOR PAIN 07/25 completed Not Available Not Available Not Available ondansetr on HCl 8 mg tablet Take 1 tablet twice a day by oral route. active Not Available Not Available No t Available phenazopy ridine 200 mg tablet Take 1 tablet 3 times a day by oral route for 2 days, for bladder discomfo rt. active Not Available Not Available No t Available metronida zole 0.75 % (37.5 mg/5 gram) vaginal gel Insert 1 applicat orful every day by vaginal route at bedtime for 5 days. 05/15 completed Not Available Not Available Not Available sumatript an 50 mg tablet TAKE 1 TABLET BY MOUTH NEEDED 10/05 completed Not Available Not Available Not Available clotrimaz ole 1 % vaginal cream Insert 1 applicat orful every day by vaginal route at bedtime for 7 days. 07/23 completed Not Available Not Available Not Available metronida zole 500 mg tablet 04/15 completed Not Available Not Available Not Available acetamino phen 300 mg-codein e 30 mg tablet TAKE ONE TABLET BY MOUTH EVERY 4 TO 6 HOURS NEEDED FOR PAIN 04/19 completed Not Available Not Available Not Available ciproflox acin 500 mg tablet Take 1 tablet every 12 hours by oral route as directed . 02/11 completed Not Available Not Available Not Available sulfameth oxazole 800 mg-trimet hoprim 160 mg tablet TAKE 1 TABLET BY MOUTH EVERY 12 HOURS 04/19 completed Not Available Not Available Not Available tramadol 50 mg tablet Take 1 tablet every 6 hours by oral route. 02/05 completed Not Available Not Available Not Available ketorolac 30 mg/mL (1 mL) injection solution Inject 1 mL every 6 hours by intramus cular route. 01/30 completed Not Available Not Available Not Available ondansetr on 8 mg disintegr ating tablet Place 1 tablet twice a day by translin gual route, for nausea. active Not Available Not Available No t Available Depo-Medr ol 80 mg/mL suspensio n for injection as directed 07/10 completed Not Available Not Available Not Available levothyro xine 75 mcg tablet Take 1 tablet every day by oral route, for hypothyr oidism. active Not Available Not Available No t Available cefadroxi l 500 mg capsule TAKE 2 CAPSULES BY MOUTH TWICE DAILY WITH FOOD FOR 10 DAYS 04/19 completed Not Available Not Available Not Available amoxicill in 875 mg tablet Take 1 tablet every 12 hours by oral route for 10 days. 11/25 completed Not Available Not Available Not Available hydrocort isone-sree tic acid 1 %-2 % ear drops Instill by otic route for 30 days. 02/27 completed Not Available Not Available Not Available meclizine 25 mg tablet Take 1 tablet 3 times a day by oral route, for vertigo. 2023 active has refills at home Not Available Not Available Not Available baclofen 10 mg tablet TAKE 1 TABLET BY MOUTH THREE TIMES DAILY active Not Available Not Available No t Available benzonata te 100 mg capsule TAKE 1 CAPSULE BY MOUTH THREE TIMES DAILY 10/14 completed Not Available Not Available Not Available levothyro xine 50 mcg tablet Take 1 tablet by mouth once daily active Not Available Not Available No t Available hydrocodo ne 7.5 mg-acetam inophen 325 mg tablet TAKE 1 TABLET BY MOUTH EVERY 6 HOURS NEEDED FOR PAIN 11/26 completed Not Available Not Available Not Available cephalexi n 500 mg capsule TAKE 1 CAPSULE BY MOUTH EVERY 6 HOURS FOR 7 DAYS 10/14 completed Not Available Not Available Not Available nitrofura ntoin macrocrys leana 100 mg capsule Take 1 capsule every 6 hours by oral route for 7 days. 02/05 completed Not Available Not Available Not Available Gentle Laxative (bisacody l) 5 mg tablet,de layed release AT THE 2 PM BEFORE THE COLONOSC OPY, TAKE ALL 4 TABS BY MOUTH AT ONE TIME WITH 8 OZ OF WATER 04/19 completed Not Available Not Available Not Available ibuprofen 400 mg tablet TAKE 1 TABLET BY MOUTH EVERY 4 TO 6 HOURS 02/27 completed Not Available Not Available Not Available gabapenti n 100 mg capsule TAKE 1 CAPSULE BY MOUTH THREE TIMES DAILY 07/25 completed Not Available Not Available Not Available ergocalci ferol (vitamin D2) 1,250 mcg (50,000 unit) capsule Take 1 capsule every week by oral route. 04/19 completed Not Available Not Available Not Available polyethyl mary glycol 3350 17 gram/dose oral powder IN A PITCHER, MIX ENTIRE BOTTLE OF MIRALAX IN ONE 64 OUNCE BOTTLE OF YELLOW OR GREEN GATORADE BEGINNIN G AT 5PM THE EVENING BEFORE THE COLONOSC OPY. DRINK 1-8 OUNCE GLASS EVERY 15 MINUTES UNTIL COMPLETE D. DRINK 4 GLASSES OF WATER AFTER FINISHIN G THIS MIXTURE 04/19 completed Not Available Not Available Not Available estradiol 0.01% (0.1 mg/gram) vaginal cream INSERT 2 GRAMS VAGINALL Y ONCE DAILY AT BEDTIME active Not Available Not Available No t Available methylpre dnisolone 4 mg tablets in a dose pack TAKE BY MOUTH DIRECTED ON INSIDE OF PACKAGE 10/14 completed Not Available Not Available Not Available albuterol sulfate HFA 90 mcg/actua tion aerosol inhaler INHALE 2 PUFFS BY MOUTH EVERY 4 TO 6 HOURS NEEDED active Not Available Not Available No t Available ketorolac 60 mg/2 mL intramusc ular solution Inject 2 mL every day by intramus cular route. 05/29 completed Not Available Not Available Not Available ondansetr on 4 mg disintegr ating tablet DISSOLVE 1 TABLET IN MOUTH EVERY 8 HOURS NEEDED FOR NAUSEA AND FOR VOMITING 11/26 completed Not Available Not Available Not Available fluticaso ne propionat e 50 mcg/actua tion nasal spray,eduin pension [place] 1 spray every day by intranas al route, for nasal congesti on. active Not Available Not Available No t Available colestipo l 1 gram tablet Take 2 tablets twice a day by oral route, for diarrhea . 2023 active Not Available Not Available Not Avai lable loratadin e 10 mg tablet TAKE 1 TABLET BY MOUTH ONCE DAILY active Not Available Not Available No t Available naproxen 500 mg tablet TAKE 1 TABLET BY MOUTH TWICE DAILY NEEDED FOR PAIN 04/19 completed Not Available Not Available Not Available amoxicill in 875 mg-potass ium clavulana te 125 mg tablet TAKE 1 TABLET BY MOUTH EVERY 12 HOURS FOR 10 DAYS 05/29 completed Not Available Not Available Not Available Neosporin (cristy-cindy- polym) 3.5 mg-400 unit-5,00 0 unit/gram top ointment Apply 1 applicat ion 3 times a day by topical route, for toe infectio n. 2023 active Not Available Not Available Not Avai lable nitrofura ntoin monohydra te/macroc rystals 100 mg capsule Take 1 capsule every 12 hours by oral route for 7 days, for dysuria. active Not Available Not Available No t Available Toston Oil 1,000 mg capsule Take 1 capsule twice a day by oral route as directed . 07/11 completed Not Available Not Available Not Available omeprazol e 20 mg tablet,de layed release TAKE ONE TABLET BY MOUTH TWICE DAILY NEEDED 30 MINUTES BEFORE MEALS active Not Available Not Available No t Available Voltaren 1 % topical gel APPLY 2 GRAMS TO THE AFFECTED AREA(S) BY TOPICAL ROUTE 4 TIMES PER DAY 11/25 completed Not Available Not Available Not Available Dulera 100 mcg-5 mcg/actua tion HFA aerosol inhaler INHALE 2 PUFFS BY MOUTH TWICE DAILY active Not Available Not Available No t Available Centrum Silver 0.4 mg-300 mcg-250 mcg tablet Take 1 tablet every day by oral route. 2014 active Not Available Not Available Not Avai lable Centrum Chewables 10/05 completed Not Available Not Available Not Available Veozah 45 mg tablet active Not Available Not Available No t Available Vitals Date Recorded Body height Provider Name an d Address Organization Details Last Updated DateTime 12/24/2023 164.47 cm More beltre [place] [facility] 12/24/2023 15:56:59 Date Recorded Body height Provider Name an d Address Organization Details Last Updated DateTime 01/16/2024 164.47 cm Tavia Alexander RN [facility] 2023 16:14:37 Date Recorded Oxygen saturation Oxygen saturation in Arterial blood by Pulse oximetry Heart rate Body temperature Body mass index (BMI) Body weight Systolic blood pressure Diastolic blood pressure Provider Name and Address Organization Details Last Updated DateTime 4 98 % 98 % 76 /min 98.2 [degF] 31.9 kg/m2 32450.3 5 g 128 mm[Hg] 86 mm[Hg] [address] [place] [facility] 4 16:29:50 Date Recorded Body height Body mass index (BMI) Body weight Oxygen saturation Oxygen saturation in Arterial blood by Pulse oximetry Heart rate Body temperature Systolic blood pressure Diastolic blood pressure Provider Name and Address Organization Details Last Updated DateTime 164.47 cm 32.4 kg/m2 11542.3 3 g 97 % 97 % 82 /min 97.7 [degF] 110 mm[Hg] 70 mm[Hg] Tavia Alexander RN [facility] 14:11:07 Date Recorded Body height Body mass index (BMI) Body weight Oxygen saturation Oxygen saturation in Arterial blood by Pulse oximetry Heart rate Body temperature Systolic blood pressure Diastolic blood pressure Provider Name and Address Organization Details Last Updated DateTime 164.47 cm 32.2 kg/m2 88520.1 4 g 98 % 98 % 80 /min 98.7 [degF] 120 mm[Hg] 78 mm[Hg] [address] [place] [facility] 4 16:43:03 Date Recorded Body height Provider Name an d Address Organization Details Last Updated DateTime 02/24/2024 164.47 cm More beltre [place] [facility] 02/24/2024 16:12:43 Social History Question Answer Notes LastModified by Organizat ion Details LastModified Time Tobacco Smoking Status Never Smoker Leatha ron [facility] 03/05/2014 14:31:34 Do You Have An Advance Directive? No Information not available 07/24/2018 What Is Your Level Of Alcohol Consumption? None Information not available 10/27/2014 Are You Blind Or Do You Have Difficulty Seeing? No Information not available 05/25/2020 What Is Your Level Of Caffeine Consumption? None Information not available 10/05/2020 How Much Tobacco Do You Chew? None [email or web address] Information not available 12/03/2014 In The 14 Days Before Symptom Onset, Have You Had Close Contact With A Laboratory-confir med COVID-19 While That Case Was Ill? No Information not available 12/28/2019 In The 14 Days Before Symptom Onset, Have You Had Close Contact With A Person Who Is Under Investigation For COVID-19 While That Person Was Ill? No Information not available 12/28/2019 Have You Been To An Area Known To Be High Risk For COVID-19? No Information not available 12/28/2019 Are You Currently Employed? Yes Information not available 05/25/2020 Are You Deaf Or Do You Have Serious Difficulty Hearing? No Information not available 05/25/2020 What Type Of Diet Are You Following? REGULAR Information not available 10/27/2014 Which Illicit Or Recreational Drugs Have You Used? PT Denies Information not available 07/24/2018 Do You Or Have You Ever Used E-cigarettes Or Vape? 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 No Information not available 10/27/2014 Hard Of Hearing Or Deaf In One Or Both Ears? No Information not available 10/27/2014 Legally Blind In One Or Both Eyes? No Information no t available 10/27/2014 Marital Status Single Informatio n not available 10/27/2014 Do You Have A Medical Power Of Enrollment Manager? No [email or web address] Information not available 10/23/2021 What Was The Date Of Your Most Recent Tobacco Screening? 02/14/2024 Information not available 02/14/2024 How Many Children Do You Have? 4 Information not available 10/05/2020 Performs Monthly Self-breast Exam? Yes Information no t available 10/27/2014 Do You Use Protection During Sex? No Information not available 04/19/2022 What Is Your Relationship Status? Information not available 10/05/2020 Do You Use Your Seat Belt Or Car Seat Routinely? Yes Information not available 05/25/2020 Seat Belts Used Routinely Yes Information not available 10/27/2014 Are You Sexually Active? Yes Information not available 04/19/2022 Smoke Alarm In Home Yes Information not available 10/27/2014 Do You Have Smoke And Carbon Monoxide Detectors In Your Home? Yes Information not available 05/25/2020 Are You Passively Exposed To Smoke? No Information no t available 05/25/2020 Do You Or Have You Ever Used Smokeless Tobacco? Never Used Smokeless Tobacco Information not available 02/03/2019 How Much Tobacco Do You Smoke? No [email or web address] Information not available 12/03/2014 General Stress Level Low Information not available 10/27/2014 Do You Feel Stressed (tense, Restless, Nervous, Or Anxious, Or Unable To Sleep At Night)? [id number] Information not available 04/19/2022 Do You Use Any Illicit Or Recreational Drugs? No Information not available 10/05/2020 Do You Use Sunscreen Routinely? No Information not available 07/24/2018 Has Tobacco Cessation Counseling Been Provided? No Information not available 07/25/2022 On What Date Was Tobacco Cessation Counseling Provided? 02/14/2024 Information not available 02/14/2024 Do You Or Have You Ever Used Any Other Forms Of Tobacco Or Nicotine? No Information not available 04/19/2022 Sex: Female Functional Status Question Answer Note LastModified by Organizat ion Details LastModified Time Are you able to care for yourself? Yes Information not available 05/25/2020 What is your exercise level? Occasional Information not available 10/27/2014 Mental Status None recorded. Family History Relationship Description Onset Age of this Age Resolved Age Notes LastModified by Organization Details LastModified Time Father Hypertensive disorder [email or web address] Not available 12/2015 10:56:37 Mother Hypertensive disorder [email or web address] Not available 12/2015 10:56:37 Mother Kidney disease 50 62 [email or web address] Not available 2015 12:36:02 Sister Migraine [email or web address] Not available 1 04/14/2016 17:05:19 Sister Hypertensive disorder 47 [email or web address] Not available 2019 16:13:15 Medical History Condition Response Muscle, Joint, or Bone Problems Y Headaches Y GI Problems Y Gynecological History Statement/Question Response Abnormal Pap Yes Date of Last Mammogram 01/02/2023 Flow Date of LMP 06/29/2022 On BCP's at Conception? N STIs/STDs N HPV Vaccine N Age at Menarche 13 Current Control Method None Age at First Child 15 Sexually Active? Y Date of Last Pap Smear 06/29/2022 Sexual Problems? N LMP Unknown Obstetrics History GPAL:G 4 P 4 0 0 4 Type Value Full Term 4 Living 4 Total 4 Immunizations Vaccine Type Date Status Note Provider Name and Address Organization Details Recorded Time Influenza, split virus, quadrivalent, preservative 02/06/20 16 completed Not Available [facility] 03/21/2019 02:32:58 Influenza, split virus, quadrivalent, PF 02/12/20 17 completed Not Available [facility] 03/21/2019 02:34:50 Influenza, split virus, quadrivalent, preservative 12/16/19 14 completed Leatha Tejada null, [facility] 03/05/2014 14:28:53 Influenza, split virus, quadrivalent, PF 02/27/20 18 cancelled patient objection Not Available [facility] 03/21/2019 02:46:10 Influenza, split virus, quadrivalent, preservative 02/04/20 19 completed Not Available [facility] 03/21/2019 02:38:49 Influenza, split virus, quadrivalent, preservative 12/30/19 20 completed Tavia Alexander RN [facility], [facility] 12/30/2019 16:42:58 Influenza, split virus, quadrivalent, preservative 11/26/19 21 completed More Sequeira MA null, [facility] 11/25/2020 16:56:13 Influenza, split virus, trivalent, preservative 12/04/19 15 completed Not Available [facility] 03/21/2019 02:32:12 Pneumococcal conjugate PCV 13 07/26/19 23 completed ALFREDO Kowalski Attn: Accounting,[address] [facility], [place], [address], [facility] 07/25/2022 17:49:24 Influenza, split virus, quadrivalent, PF 11/27/19 23 completed ALFREDO Kowalski Attn: Accounting,[address] [facility], [place], [address], [facility] 11/29/2022 13:49:30 Tdap 12/28/19 15 completed Not Available [facility] 03/21/2019 02:40:26 Influenza, split virus, trivalent, preservative 01/16/20 24 [facility] 01/16/2024 17:22:56 Past Encounters Encounter ID Performer Location Encounter Start Date Encounter Closed Date Diagnosis/Indication Diagnosis SNOMED-CT Code Diagnosis ICD10 Code Diagnosis Note [id number] Tavia Alexander RN [facility] [address] [place] [address] 03/05/2014 14:06:18 03/08/2014 18:06:58 Chronic back pain 799216382 will reorder MRI TS Continue Naprosyn 500mg bid prn pain Give the patient back exercises/ healthy Spasm of back muscles 014189824 Allergic rhinitis 14267121 to start Lorataine 10mg once daily Flonase NS 1 spray twice daily Fatigue 94645494 [id number] Tavia Alexander RN [facility] [address] [place] [address] 06/03/2014 11:36:30 06/14/2014 16:20:42 Spasm of back muscles 599328326 Allergic rhinitis 23463900 to start Lorataine 10mg once daily Flonase NS 1 spray twice daily Chronic back pain 759050222 MRI T-spine : Multiple lesions in the vertebra likely due to Hemangioma s of questionab le significan ce. Perimenopa usal disorder 198493920 Hemangioma of vertebral column 559217232 patient is to see neurology as instructed give informatio n on Spinal hemangioma in [place] Abdominal pain 82072896 Acute constipation 891684854 increase fluid and fiber every day [id number] [facility] [address] [place], [place] [address] 10/27/2014 12:28:25 10/29/2014 13:37:28 Intractable breast pain 826633457 04/2013 Renny screening mammo=dens e breast with stable nodulariti es Fibrocysti c disease of breast 20441486 stop PEPSI/caff eine products take Toston oil as directed [id number] [facility] [address] [address] 12/03/2014 11:57:51 12/09/2014 16:04:27 Abdominal pain 38861793 R10.9 Low back pain 888517737 M54.5 Fibrocysti c disease of breast 68005675 N60.19 stop PEPSI/caff eine products take Toston oil as directed discussed test results Administra tion of viral vaccine 32435164 Z23 [id number] Jonathan Khan [facility] [address] [place] [address] 12/27/2014 11:35:28 12/29/2014 17:32:31 Gynecologic examination 30571449 Z01.419 Calcium Rich foods handout Vitamin D daily SBE teaching/ handout Fibrocysti c disease of breast 48283829 N60.19 stop PEPSI/caff eine products take Toston oil as directed discussed test results--h ad Mammogram 11/2014 Acute cervicitis 9067388 0 N72 Vaginal discharge 168980 006 N89.8 [id number] Jonathan Khan [facility] [address] [place] [address] 07/12/2015 10:48:13 07/20/2015 17:45:30 Headache 08202719 R51 Contraception care 65832 5005 Z30.40 will order Mirena--priscila thomson due for replacemen t 01/12/2016 [id number] Jonathan Khan [facility] [address] [place] [address] 12/30/2015 10:56:03 01/03/2016 18:24:04 Removal of intrauterine device 19191909 Z30.432 Insertion of intrauterine contraceptive device 93741529 Z30.430 Urinary tr act infectious disease 20942809 N39.0 Migraine 21276901 G43.90 9 refilled Naproxen 500mg Lower abdominal pain 545 39494 R10.30 [id number] [facility] [address] [address] 02/06/2016 11:41:07 02/10/2016 10:50:56 Gynecologic examination 69547418 Z01.411 Patient had a normal pap 12/2014 with Negative HPV will be due after 12/2017- 20 Calcium Rich foods handout Vitamin D daily SBE teaching/ handout Screening for malignant neoplasm of breast 495322489 Z12.31 IUD check 458566321 Z30. 431 Obesity 545744403 E66.9 Fibrocysti c disease of breast 56002891 N60.19 stop PEPSI/caff eine products take Toston oil as directed discussed test results--h ad Mammogram 11/2014 Persistent mastalgia 315 583249 N64.4 [id number] [facility] [address] [place] [address] 03/26/2016 11:20:10 04/05/2016 17:16:47 Vaginitis and vulvovaginitis 309712752 N77.1 Multiple joint pain 3567 8005 M25.50 tylenol arthritis Hypertriglyceridemia 302 273565 E78.1 triglyceri kam informatio n [id number] [facility] [address] [address] 07/23/2016 11:16:33 07/25/2016 17:12:18 Degenerative joint disease involving multiple joints 091109856 M15.9 Chronic back pain 075158 002 M54.13 MRI T-spine : Multiple lesions in the vertebra likely due to Hemangioma s of questionab le significan ce. Strain of muscle of left shoulder 1801893489 2495527 S46.912D ice heat prn Range of motion exercises Thoracic back sprain 274 666226 S23.3XXS Persistent cough 2138418 02 R05 take daily antihistam ine prn [id number] [facility] [address] [place] [address] 10/31/2016 11:32:58 11/06/2016 12:30:54 Chronic back pain 384781774 M54.13 may use nsaids, ice heat as necessary Persistent cough 8760232 02 R05 take daily antihistam ine prn Computed t omography result abnormal 696849170 R93.8 CT Chest shows renny densities/ opacities- -more nodularity on the right side Urinary tr act infectious disease 82144312 N39.0 Patient continues to have mild burning will retreat and get urine culture [id number] [facility] [address] [address] 02/11/2017 15:52:42 02/20/2017 10:47:14 Persistent cough 649777310 R05 take daily antihistam ine prn continue to see Pulmonolog ist Right uppe r quadrant pain 062499293 R10.11 may need Hepatobili lis scan with CCK Lesion of liver 48065248 0 K76.9 will send for GI consult once all her pulmonolog ist work studies have been completed Pain in right knee 32438 48970 25172 M25.561 Headache 89956695 R51 Naproxen 550mg (2) not helping Headaches worsening no relief + Nausea + Photophobi a + Phonophobi a will try Rx Imitrex Biliary sludge 54233312 K83.8 2010 u/s of GB shows biliary sludge jacques consider Hepatobili lis scan with CCK and /or GI consultati on [id number] [facility] [address] [address] 03/13/2017 15:13:04 03/20/2017 09:35:38 Gynecologic examination 83591347 Z01.411 Calcium Rich foods handout Vitamin D daily SBE teaching/ handout Screening for malignant neoplasm of breast 932850421 Z12.31 Suprapubic pain 86941726 6 R10.33 Vaginitis and vulvovaginitis 962279104 N77.1 [id number] Jonathan Khan, [facility] [address] [place] [address] 04/01/2017 16:44:27 04/03/2017 16:43:55 Atypical squamous cells of undetermined significance on cervical Papanicolaou smear 965708997 R87.610 Previous paps all normal 11/2009, 11/2011, 12/2014 will send for Colposcopy with WASHROOM ATTENDANT HPV - Andreea n papillomavirus test positive 353412671 R87.619 will send for Colposcopy with WASHROOM ATTENDANT Bacterial vaginosis 4197 66195 N76.0 treated on day of visit Candidal vulvovaginitis 35681148 B37.3 The patient was treated on day of visit, however still has some itching so will retreat [id number] [facility] ([employer]) [address] [place] [address] 05/13/2017 09:46:23 05/13/2017 10:14:52 Atypical squamous cells of undetermined significance on cervical Papanicolaou smear 888915050 R87.610 Reviewed PAP as screen for cervical cancer. Reviewed HPV and associatio ns. RTC for colposcopy . Patient instructed to take motrin/ibu profen or tylenol 1 hour prior to procedure. [id number] [facility] ([employer]PERATOR) [address] [place] [address] 05/22/2017 15:45:32 05/22/2017 16:32:39 Atypical squamous cells of undetermined significance on cervical Papanicolaou smear 682028683 R87.610 Adequate colposcopy . Biopsies taken at 3 and 9 o'clock. RTC in 2 weeks. [id number] [facility] ([employer] RO[employer] OPERATOR) [address] [place] [address] 06/05/2017 17:10:26 06/05/2017 17:32:34 Abnormal cervical Papanicolaou smear 829823832 R87.619 Reviewed colpo results. No dysplasia or cancer present. Paps yearly until normal. If worsening, re-colpo. [id number] [facility] [address] [address] 07/10/2017 15:55:17 07/15/2017 08:16:32 Right upper quadrant pain 294186182 R10.11 wax and wane GB u/S normal Lesion of liver 63387745 0 K76.9 will send for GI consult Pain in right knee 44250 97227 04672 M25.561 arthritis Headache 70370436 R51 Naproxen 550mg (2) not helping Headaches worsening no relief + Nausea + Photophobi a + Phonophobi a will continue Rx Imitrex Biliary sludge 03400926 K83.8 2010 u/s of shows biliary sludge jacques send GI consultati on 02/20/2017 u/S normal Mild persi stent asthma 863523085 J45.30 continue inhalers per Pulmonolog ist Vaginitis 42308709 N76.0 Osteoarthr itis of knee 191216119 M17.0 [id number] [facility] [address] [address] 02/26/2018 15:24:49 02/28/2018 12:45:48 Headache 61090200 R51 Naproxen 550mg (2) not helping Headaches worsening no relief + Nausea + Photophobi a + Phonophobi a patient voices not given Imitrex which was ordered at last visit--pha rmacy says pt picked up once and did not go for more refills Migraine without aura 56 168801 G43.009 Biliary sludge 01169642 K83.8 2010 u/s of shows biliary sludge jacques send GI consultati on 02/20/2017 GB u/S normal Right uppe r quadrant pain 004890632 R10.11 wax and wane GB u/S normal Lesion of liver 21238974 0 K76.9 was send for GI consult but did not make it advised she needs to reschedule Pain in right knee 22610 27296 47327 M25.561 arthritis Mild persi stent asthma 790624540 J45.30 continue inhalers per Pulmonolog ist Osteoarthr itis of knee 752653117 M17.0 Administra tion of influenza vaccine 43459854 Z23 Body mass index 30+ - obesity 494564336 Z68.39 [id number] Jelani Karynsugey [facility] [address] [address] 04/15/2018 14:50:00 04/16/2018 12:36:36 Gynecologic examination 98103845 Z01.411 Calcium Rich foods handout Vitamin D daily SBE teaching/ handout Screening for malignant neoplasm of breast 463425705 Z12.31 Patient has appointmen t at [facility] for mammogram Vaginitis and vulvovaginitis 368642474 N77.1 Pain in elbow 18380565 M 25.529 Atypical s quamous cells of undetermined significance on cervical Papanicolaou smear 325949091 R87.610 Previous paps all normal 11/2009, 11/2011, 12/2014 Had abnormal pap ASCUS +HPV 03/13/2017 Had Colposcopy with WASHROOM ATTENDANT 05/22/2017- --no dysplasia or cancer-- yearly pap until normal HPV - Andreea n papillomavirus test positive 471571170 R87.619 Had Colposcopy with WASHROOM ATTENDANT--no dysplasia yearly pap until normal Multiple joint pain 3567 8005 M25.50 Try tylenol arthritis Body mass index 30+ - obesity 572293112 Z68.39 BMI -30.9 Fibrocysti c disease of breast 51554534 N60.19 stop PEPSI/caff eine products take Toston oil as directed Depression screening 171 608468 Z13.31 negative [id number] Eleonora Bello [facility] [address] [address] 04/21/2018 16:31:02 04/21/2018 17:54:32 Gynecologic examination 03549751 Z01.411 Multiple joint pain 3567 8005 M25.50 Try tylenol arthritis [id number] Jonathan Khan [facility] [address] [address] 05/15/2018 16:17:19 05/16/2018 17:28:42 Multiple joint pain 84755676 M25.50 Try tylenol arthritis Anti-nucle ar factor detected 739021915 R76.8 Pain in elbow 12559901 M 25.529 Pain in right knee 96011 04172 87992 M25.561 arthritis Lesion of liver 12494407 0 K76.9 was send for GI consult check on progress note [id number] [facility] [address] [address] 06/17/2018 15:38:07 06/20/2018 18:11:33 Family planning surveillance 918364961 Z30.09 The patient had colposcopy for Abnormal pap LSIL in 2018-follo w up 6 month pap ECA LSIL on 04/22/2018 Will have the patient see WASHROOM ATTENDANT for repeat colposcopy Current IUD in place since 12/30/2015 Patient considerin g IUD removal 04/05 possible link to autoimmune disease Atypical s quamous cells of undetermined significance on cervical Papanicolaou smear 390088278 R87.610 Previous paps all normal 11/2009, 11/2011, 12/2014 Had abnormal pap ASCUS +HPV 03/13/2017 Had Colposcopy with WASHROOM ATTENDANT 05/22/2017- --no dysplasia or cancer-- Had ECA LSIL pap on 04/22/2018 Will have the patient see WASHROOM ATTENDANT for repeat colposcopy [id number] Jonathan Khan [facility] [address] [address] 06/24/2018 15:53:52 06/25/2018 18:27:40 Migraine without aura 64382812 G43.009 Pain in right knee 10324 51821 83588 M25.561 arthritis Mild persi stent asthma 939830238 J45.30 continue inhalers per Pulmonolog ist Low grade squamous intraepithelial lesion on cervical Papanicolaou smear 1329492795 9105 R87.612 Previous paps all normal 11/2009, 11/2011, 12/2014 Had abnormal pap ASCUS +HPV 03/13/2017 Had Colposcopy with WASHROOM ATTENDANT for ASCUS +HPV on 05/22/2017- --no dysplasia or cancer-- to get paps every 6 months until changes Had ECA LSIL pap on 04/22/2018 with -HPV Will have the patient see WASHROOM ATTENDANT for repeat colposcopy [id number] Ilene Peralta [address] [address] 07/24/2018 15:15:49 08/01/2018 15:05:42 Cervicovaginal cytology: Low grade squamous intraepithelial lesion 747952935 R87.612 PAP worsening, will need repeat colposcopy . [id number] [address] [address] 09/15/2018 15:01:16 09/22/2018 11:28:29 Abnormal cervical Papanicolaou smear 923799419 R87.[id number] [address] 10/06/2018 15:48:34 10/07/2018 09:56:02 Cervical intraepithelial neoplasia grade 1 487591641 N87.0 Discussed pathology results. CIN1. Discussed options to follow with paps, cryo and LEEP. Patient opts for Cryo. [id number] [address] [address] 10/22/2018 15:18:04 10/23/2018 12:14:45 Cervical intraepithelial neoplasia grade 1 384422975 N87.0 Cryo therapy to the cervis done and tolerated. RTC in 4 weeks. Reviewed signs of infection. Repeat PAP in [id number] [address] 12/10/2018 16:15:19 12/14/2018 22:27:30 History of abnormal cervical Papanicolaou smear 087536492 Z87.42 S/P cryo to cervix. PAP at 6 months with Alexa. [id number] Jonathan Khan [facility] [address] [place] [address] 02/03/2019 14:57:55 02/03/2019 16:15:31 Focal asymmetric breast tissue 247401766 R92.8 Probable benign subareolar debri filled ducts on LRecommend ed f/u 6 months Administra tion of influenza vaccine 77887335 Z23 Chronic cervicitis 19692 002 N[address] Peralta 09/15/2018 had cryosurger Sonja need repeat pap every 6 months till normal Seasonal a llergic rhinitis 591668127 J30.2 Migraine without aura 56 451540 G43.009 Pain in right knee 59932 48351 05830 M25.561 arthritis [id number] Jelani Greer [facility] [address] [place] [address] 04/15/2019 15:20:39 04/16/2019 11:57:48 Gynecologic examination 48453108 Z01.411 Calcium Rich foods handout Vitamin D daily SBE teaching/ handout Screening for malignant neoplasm of breast 357252720 Z12.31 Patient has to see surgeon for subareolar debri filled ducts on L Atypical s quamous cells of undetermined significance on cervical Papanicolaou smear 523769401 R87.610 Previous paps all normal 11/2009, 11/2011, 12/2014 Had abnormal pap ASCUS +HPV 03/13/2017 Had Colposcopy with WASHROOM ATTENDANT 05/22/2017- --no dysplasia or cancer-- yearly pap until normal Had abnormal pap 04/15/2018 LSIL -HPV Had repeat colposcopy 09/15/2018 for worsening pap Had cryo therapy-re peat pap in 6 months (today) HPV - Andreea n papillomavirus test positive 388769037 R87.619 Had Colposcopy with WASHROOM ATTENDANT--no dysplasia yearly pap until normal Body mass index 30+ - obesity 506999604 Z68.39 BMI 31.4Health y weight range 110-155 Fibrocysti c disease of breast 09049351 N60.19 stop PEPSI/caff eine products take Toston oil as directed Focal asym metric breast tissue 658620614 R92.8 12/22/2018 u/s Breast Probable benign subareolar debri filled ducts on Lrecommend Diagnostic mammo/u/s 06/2019 f/u 6 months (06/22/2019 ) Chronic cervicitis 41199 002 N72 Had Colposcopy #[address] Peralta 09/15/2018 had cryosurger Joseirineo need repeat pap every 6 months till normal Umbilical hernia 8197655 07 Q79.2 [id number] CADENCE KowalskiP-BC [facility] [address] [place] [address] 07/02/2019 15:51:28 07/02/2019 17:11:18 Mild persistent asthma 402366803 J45.30 continue inhalers per Pulmonolog istcontinu e Dulera bid and rescue inhaler Seasonal a llergic rhinitis 837112910 J30.2 Serous shirley tis media of right ear 4473985434 881406 H65.91 [id number] [facility] [address] [place] [address] 09/01/2019 15:49:07 09/02/2019 06:30:31 Seasonal allergic rhinitis 189482886 J30.2 continue loratadine and spray Osteoarthr itis of knee 504035426 M17.0 Bilateral chronic serous otitis 051394949 H65.23 buy SUDAFED 60mg 1 p.o. bid Mild persi stent asthma 832786550 J45.30 continue inhalers per Pulmonolog istcontinu e Dulera bid and rescue inhaler [id number] [facility] [address] [place] [address] 11/26/2019 16:06:09 11/27/2019 08:01:34 Low grade squamous intraepithelial lesion on cervical Papanicolaou smear 3992570292 9105 R87.612 Previous paps all normal 11/2009, 11/2011, 12/2014 Had abnormal pap ASCUS +HPV 03/13/2017 Had Colposcopy with WASHROOM ATTENDANT for ASCUS +HPV on 05/22/2017- --no dysplasia or cancer-- to get paps every 6 months until changesHad abnormal pap 04/15/2018 LSIL - HPVHad repeat colposcopy 09/15/2018 chronic cervicitis LSIL-CINIH ad ECA LSIL pap on 04/15/2019 +HPV Repeating pap today 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 However, procedure not done as surgeon could not find mass. Dr. GOLDEN at [facility] has already scheduled the patient for repeat mammogram/ us for 01/2020-no need for ordersPati ent advised [id number] Jonathan Khan [facility] [address] [address] 12/28/2019 15:33:19 12/29/2019 06:24:09 Migraine without aura 88942350 G43.009 Pain in right knee 24613 98452 20881 M25.561 arthritisv oltaren gel samples at front desk coordinator for patient to meat pickler Mild persi stent asthma 802313400 J45.30 continue inhalers per Pulmonolog istDuleraA lbuterol mdi prn Seasonal a llergic rhinitis 499328946 J30.2 continue loratadine and spray Atypical s quamous cells of undetermined significance on cervical Papanicolaou smear 717301059 R87.610 Previous paps all normal 11/2009, 11/2011, 12/2014 Had abnormal pap ASCUS +HPV 03/13/2017 Had Colposcopy with WASHROOM ATTENDANT 05/22/2017- --no dysplasia or cancer-- yearly pap until normal Had abnormal pap 04/15/2018 LSIL -HPV Had repeat colposcopy 09/15/2018 for worsening pap Had cryo therapy-re peat pap in 6 months till normal Had abnormal pap 04/15/20192 0 ECA LSIL +HPV Had abnormal pap 11/26/2019 ECA LSIL +HPV Administra tion of influenza vaccine 90407317 Z23 [id number] Tavia Alexander RN [facility] [address] [address] 12/30/2019 16:29:52 12/31/2019 07:21:39 Administration of influenza vaccine 87523975 Z23 [id number] [facility] [address] [address] 05/25/2020 15:34:00 05/26/2020 15:02:13 Gynecologic examination 24160131 Z01.411 Calcium Rich foods handout Vitamin D daily SBE teaching/ handout Screening for malignant neoplasm of breast 607955116 Z12.31 Patient is seeing surgeon Dr. Golden for subareolar debri filled ducts on L Has appointmen t for repeat Dx mammo/ultr asound August 2020 Atypical s quamous cells of undetermined significance on cervical Papanicolaou smear 965083246 R87.610 Previous paps all normal 11/2009, 11/2011, 12/2014 Had abnormal pap ASCUS +HPV 03/13/2017 Had Colposcopy with WASHROOM ATTENDANT 05/22/2017- --no dysplasia or cancer-- yearly pap until normal Had abnormal pap 04/15/2018 LSIL -HPV Had repeat colposcopy 09/15/2018 for worsening pap Had cryo therapy-re peat pap in 6 months (today) Had abnormal pap 04/15/2019 ECA +HPV Had abnormal pap on 11/26/2019 ECA +HPV Will need repeat paps every 6 months till normal HPV - Andreea n papillomavirus test positive 224696062 R87.619 Had Colposcopy with WASHROOM ATTENDANT--no dysplasia yearly pap until normal Body mass index 30+ - obesity 838402363 Z68.39 BMI 32 Healthy weight range 110-155 Fibrocysti c disease of breast 45056095 N60.19 stop PEPSI/caff eine products take Toston oil as directed Chronic cervicitis 97805 002 N72 Had Colposcopy #[address] Peralta 09/15/2018 had cryosurger y Will need repeat pap every 6 months till normal Umbilical hernia 6550676 07 Q79.2 saw surgical team was given option to repair or to wait till she has symptoms patient will wait Depression screening 171 638017 Z13.31 negative [id number] SONAM Kowalski[facility] [address] [place] [address] 10/05/2020 14:21:36 10/07/2020 09:29:32 Cramp in lower limb 358082206 R25.2 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 of ABD PELVIS showed possible cecal mass suspicious for adeno carcinoma. The patient underwent surgical interventi on on 07/28/2020. The. 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 Mild persi stent asthma 873744405 J45.30 continue inhalers per Pulmonolog ist [employer] Kun street seen 01/2019-ne eds follow upPatient was put on DuleraAlbu terol i prn103/2016 PFT show mild air trappingPa tient to make follow up appointmen t with pulmonolog ist Bone pain 08408831 M89.8 X9 Venous varices 900698147 I86.8 use support hose Multiple joint pain 3567 8005 M25.50 Try tylenol arthritis Chronic back pain 539806 002 M54.13 may use nsaids, ice heat as necessary Osteoarthr itis of knee 198186991 M17.0 Osteoarthritis of hip 23 7388263 M16.9 renny hip OA on XR 04-28-2017 Lesion of liver 48026337 [address] of chestwas send for GI consult 02/2018 check on progress note-patie nt did not make it to appointmen t Hemangioma of vertebral column 340857085 D18.09 patient is to see neurology as instructed has been give informatio n on Spinal hemangioma in [place] 8532703 Flex Zhou MD [facility] [address] [place] [address] 11/08/2020 16:25:12 11/09/2020 12:31:56 Cramp in lower limb 208447936 R25.2 Lumbar spine MRI shows DJD/Lumbar spondylosi sPatient voices discomfort worse at night but Gabapentin 100mg tid is helpingPat ient wishes to wait on PT/Pain management referral Chronic back pain 170418 002 M54.13 may use nsaids, ice heat as necessary Osteoarthr itis of knee 382110292 M17.0 renny OA of kneesTylen ol arthritis Osteoarthritis of hip 23 7981310 M16.9 renny hip OA on XR 04-28-2017 Hemangioma of vertebral column 482180053 D18.09 she was referred in the past but she never went to appointmen tpatient is to see neurology as instructed has been give informatio n on Spinal hemangioma in [place] Vitamin D deficiency 347 43670 E55.9 Vitamin D 23.7Start Rx Vitamin D2 05069 IU once weekly for 12 weeksonce you complete RX buy otc vitamin D3 1000 IU once daily [id number] [facility] [address] [address] 11/25/2020 15:51:27 11/30/2020 16:29:05 Atypical squamous cells of undetermined significance on cervical Papanicolaou smear 494531907 R87.610 Previous paps all normal 11/2009, 11/2011, 12/2014 Had abnormal pap ASCUS +HPV 03/13/2017 Had Colposcopy with WASHROOM ATTENDANT 05/22/2017- --no dysplasia or cancer-- yearly pap until normal Had abnormal pap 04/15/2018 LSIL -HPV Had repeat colposcopy 09/15/2018 for worsening pap Had cryo therapy-re peat pap in 6 months (today) Had abnormal pap 04/15/2019 ECA +HPV Had abnormal pap on 11/26/2019 ECA +HPVHad normal pap on 05/25/2020 -since patient here will go ahead and repeat pap today but she can now go on a 1 year recall. Administra tion of influenza vaccine [id number] Z23 [id number] Jonathan Khan [facility] [address] [address] 02/03/2021 15:18:20 02/08/2021 07:39:29 Vitamin D deficiency 34858414 E55.9 Vitamin D 23.7 continue otc vitamin D3 1000 IU once daily Osteoarthritis of hip 23 6691482 M16.9 renny hip OA on XR 04-28-2017 Mild persi stent asthma 651667884 J45.30 continue inhalers per Pulmonolog ist J2EE DEVELOPER Kun street seen 01/2019-ne eds follow upPatient was put on DuleraAlbu terol mdi prn103/2016 PFT show mild air trappingPa tient to make follow up appointmen t with pulmonolog ist Cramp in lower limb 4499 59290 R25.2 Lumbar spine MRI shows DJD/Lumbar spondylosi sPatient voices discomfort worse at night but Gabapentin 100mg tid is helpingPat ient wishes to wait on PT/Pain management referral Seasonal a llergic rhinitis 354864603 J30.2 continue loratadine and spray Pain of le ft knee joint 0577681532 04039 M25.562 worse on Left Pain of bi lateral knee joints 4835283099 62151 M25.561 M25.562 05/30/2018 xray R shows OA Impacted c erumen of bilateral ears 9467002147 566932 H61.23 renny ear irrig Hemangioma of vertebral column 445662775 D18.09 she was referred in the past but she never went to appointmen tpatient is to see neurology/ orthopedic as instructed has been give informatio n on Spinal hemangioma in [place] [id number] Flex Zhou MD [facility] [address] [place] [address] 05/05/2021 16:09:05 05/10/2021 06:40:43 Mild persistent asthma 070430766 J45.30 continue inhalers per Pulmonolog ist J2EE DEVELOPER Kun street seen 01/2019-ne eds follow upPatient was put on DuleraAlbu terol mdi prn103/2016 PFT show mild air trappingPa tient to make follow up appointmen t with pulmonolog ist Vitamin D deficiency 347 97883 E55.9 Vitamin D 22.7contin ue otc vitamin D3 1000 IU once daily Seasonal a llergic rhinitis 748053792 J30.2 continue loratadine and spray Osteoarthr itis of knee 444893600 M17.0 renny OA of kneesTylen ol arthritis Osteoarthritis of hip 23 2694447 M16.9 renny hip OA on XR 04-28-2017 Cramp in lower limb 4499 19062 R25.2 Lumbar spine MRI shows DJD/Lumbar spondylosi sPatient voices discomfort worse at night but Gabapentin 100mg tid is helpingPat ient wishes to wait on PT/Pain management referral Pain of le ft knee joint 9734922215 42718 M25.562 worse on Left Umbilical hernia 5529629 07 Q79.2 saw surgical team was given option to repair or to wait till she has symptoms patient wants to see surgeon will wait for now Right inguinal hernia 23 7295208 K40.90 saw surgical team was given option to repair or to wait till she has symptoms patient will waitR inguinal hernia seen on CT abd/pelvis 04/09/2021 Liver cyst 29478565 K76. [address] abd/pelvis 04/09/2021 has been sent to GI for liver lesion in the past-did not follow thru Lesion of liver 36141791 [address] of chestwas send for GI consult 02/2018 check on progress note-simón nt did not make it to appointmen t Screening for malignant neoplasm of colon 553754118 Z12.11 doesnt want to have colonoscop ywill do colorguard [id number] SONAM Kowalski[facility] [address] [place] [address] 09/08/2021 15:21:58 09/11/2021 13:30:48 Mild persistent asthma 374876384 J45.30 continue inhalers per Pulmonolog ist J2EE DEVELOPER Kun street seen 01/2019-ne eds follow upPatient was put on DuleraAlbu terol mdi prn103/2016 PFT show mild air trappingPa tient to make follow up appointmen t with pulmonolog ist Vitamin D deficiency 347 73227 E55.9 Vitamin D 22.7contin ue otc vitamin D3 1000 IU once daily Seasonal a llergic rhinitis 050697675 J30.2 continue loratadine and spray Osteoarthr itis of knee 632405711 M17.0 renny OA of kneesTylen ol arthritis Osteoarthritis of hip 23 7845936 M16.9 renny hip OA on XR 04-28-2017 Cramp in lower limb 4499 90106 R25.2 Lumbar spine MRI shows DJD/Lumbar spondylosi sPatient voices discomfort worse at night but Gabapentin 100mg tid is helpingPat ient wishes to wait on PT/Pain management referral Umbilical hernia 6811763 07 Q79.2 saw surgical team was given option to repair or to wait till she has symptoms patient wants to see surgeon will wait for now Right inguinal hernia 23 0598633 K40.90 saw surgical team was given option to repair or to wait till she has symptoms patient will waitR inguinal hernia seen on CT abd/pelvis 04/09/2021 Liver cyst 88808210 K76. [address] abd/pelvis 04/09/2021 has been sent to GI for liver lesion in the past-did not follow thruShe has now seen GI Lesion of liver 63415977 [address] of chestwas send for GI consult 02/2018 check on progress note-patie nt did not make [facility] who advised liver cyst simple may be present there for the rest of her life Screening for malignant neoplasm of colon 307454949 Z12.11 agrees [facility]op y [facility] recommends patient set up thru PCP Body mass index 30+ - obesity 508562354 Z68.39 BMI 30 Healthy weight range 110-155 Biliary colic 43671718 K 80.50 to ER if worsening symptomssa mples of tylenol [id number] ROGER FRANCOIS [facility] [address] [place] [address] 10/23/2021 15:55:14 11/08/2021 14:54:06 Screening for malignant neoplasm of colon 445732028 Z12.11 [id number] Jonathan Khan, [facility] [address] [place] [address] 04/19/2022 14:35:54 04/20/2022 14:18:02 Mild persistent asthma 042177688 J45.30 continue inhalers per Pulmonolog ist J2EE DEVELOPER Kun stre[address] seen 01/2019-ne eds follow upPatient was put on DuleraAlbu terol mdi prn103/2016 PFT show mild air trappingPa tient to make follow up appointmen t with pulmonolog ist Obesity 028257118 E66.9 Osteoarthr itis of knee 208341335 M17.0 renny OA of kneesTylen ol arthritis Osteoarthritis of hip 23 6809412 M16.9 renny hip OA on XR 04-28-2017 Cramp in lower limb 4499 28471 R25.2 Lumbar spine MRI shows DJD/Lumbar spondylosi sPatient voices discomfort worse at night but Gabapentin 100mg tid is helpingPat ient wishes to wait on PT/Pain management referral Right inguinal hernia 23 0090382 K40.90 saw surgical team was given option to repair or to wait till she has symptoms patient will waitR inguinal hernia seen on CT abd/pelvis 04/09/2021 Liver cyst 17420290 K76. [address] abd/pelvis 04/09/2021 has been sent to GI for liver lesion in the past-did not follow thruShe has now seen GI-had normal colonoscop y repeat in 10 2031 Lesion of liver 52933567 [address] of chestwas send for GI consult 02/2018 check on progress note-simón nt did not make it to appointmen Edithw [facility] who advised liver cyst simple may be present there for the rest of her life Screening for malignant neoplasm of colon 136164262 Z12.11 agrees to colonoscop y [facility] recommends patient set up thru PCPseen by PRISCILA Dupree/Sisi I had normal colonoscop y repeat in 10 2031 Body mass index 30+ - obesity 223548224 Z68.39 BMI 30.9 Healthy weight range 110-155 Biliary colic 93125649 K 80.50 to ER if worsening symptomssa mples of tylenolct abd/pelvis from 02/2022 shows cholecysti tis Depression screening 171 409526 Z13.31 negative Mental hea lth screening 382715799 Z13.39 negative Cholecystitis 67607577 K 81.9 small calcified gallstones seen on CT abd/Pelvis from ER Juan on 02/10/2022 [id number] Jonathan Khan [facility] [address] [place] [address] 06/29/2022 14:38:06 07/02/2022 14:07:44 Obesity 816181000 E66.9 BMI 31.7Ht 5' 4.75 Healthy weight range 110-155 Gynecologi c examination 39564197 Z01.411 Counseled regarding contracept evelin options, and need for contracept ion until no menses for 1 year. BSE reviewed and recommende d . Reviewed calcium needs, exercise, and prevention of osteoporos is . Reviewed normal perimenopa usal transition . Mammogram recommende d yearly . Screening for malignant neoplasm of breast 733473550 Z12.31 Patient wants screen done at [facility] as all her mammograms have been done there Atypical s quamous cells of undetermined significance on cervical Papanicolaou smear 353494954 R87.610 Previous paps all normal 11/2009, 11/2011, 12/2014 Had abnormal pap ASCUS +HPV 03/13/2017 Had Colposcopy with WASHROOM ATTENDANT 05/22/2017- --no dysplasia or cancer-- yearly pap until normal Had abnormal pap 04/15/2018 LSIL -HPV Had repeat colposcopy 09/15/2018 for worsening pap Had cryo therapy-re peat pap in 6 months (today) Had abnormal pap 04/15/2019 ECA +HPV Had abnormal pap on 11/26/2019 ECA +HPV Will need repeat paps every 6 months till normalLast pap normal in 2021 will repeat today Body mass index 30+ - obesity 435157797 Z68.39 BMI 31.7 Healthy weight range 110-155 Fibrocysti c disease of breast 07533512 N60.19 stop PEPSI/caff eine products take Toston oil as directed Depression screening 171 993483 Z13.31 negative Mental hea lt screening 693137928 Z13.39 negative Umbilical hernia 2741618 07 Q79.2 saw surgical team was given option to repair or to wait till she has symptoms patient wants to see surgeon is thinking about getting repair now while having cholecyste ctomy Removal of intrauterine device 96067109 Z30.432 Menopausal flushing 1984 13521 N95.1 no alcoholno caffeinela yered dressing n [id number] Jonathan Khan [facility] [address] [place] [address] 07/25/2022 16:25:03 07/26/2022 11:28:00 Body mass index 30+ - obesity 817832317 Z68.39 BMI 31.7 Healthy weight range 110-155 Mild persi stent asthma 818545204 J45.30 continue inhalers per Pulmonolog ist J2EE DEVELOPER Kun street seen 01/2019-ne eds follow upPatient was put on DuleraAlbu terol i prn103/2016 PFT show mild air trappingPa tient to make follow up jaya t with pulmonolog ist Osteoarthritis of hip 23 7868902 M16.9 renny hip OA on XR 04-28-2017 Obesity 065606127 E66.9 BMI 31.7Ht 5' 4.75 Healthy weight range 110-155 Vitamin D deficiency 347 79452 E55.9 Vitamin D 22.7contin ue otc vitamin D3 1000 IU once daily Osteoarthr itis of knee 452410830 M17.0 renny OA of kneesTylen ol arthritis Biliary colic 04964583 K 80.50 to ER if worsening symptomssa mples of tylenolct abd/pelvis from 02/2022 shows cholecysti tisseen again on 07/06/14 3 in the ER for biliary colicSHe is now having surgery on 08/02/2022 Cramp in lower limb 4499 65165 R25.2 Lumbar spine MRI shows DJD/Lumbar spondylosi sPatient voices discomfort worse at night but Gabapentin 100mg tid is helpingPat ient wishes to wait on PT/Pain management referralPa tient voices she is no longer taking Gabapentin Right inguinal hernia 23 9835884 K40.90 saw surgical team was given option to repair or to wait till she has symptoms patient will waitR inguinal hernia seen on CT abd/pelvis 04/09/2021 Liver cyst 10055785 K76. [address] abd/pelvis 04/09/2021 has been sent to GI for liver lesion in the past-did not follow thruShe has now seen GI-had normal colonoscop y repeat in 10 2031 Lesion of liver 46359413 [address] of chestwas send for GI consult 02/2018 check on progress note-patie nt did not make it [facility] who advised liver cyst simple may be present there for the rest of her life Screening for malignant neoplasm of colon 763730965 Z12.11 agrees to colonoscop y [facility] recommends patient set up thru PCPseen by PRISCILA Dupree/Sisi I had normal colonoscop y repeat in 10 2031 Cholecystitis 76029977 K 81.9 small calcified gallstones seen on CT abd/Pelvis from ER Juan on 02/10/2022 07/16/2022 GB u/s +Has surgery scheduled for 08/02/2022 Depression screening 171 338240 Z13.31 negative Mental hea lth screening 974384879 Z13.39 negative Umbilical hernia 7038209 07 Q79.2 saw surgical team was given option to repair or to wait till she has symptoms patient wants to see surgeon is thinking about getting repair now while having cholecyste ctomy Administra tion of pneumococcal vaccine 08091338 Z23 Hyperglycemia 31903617 R 73.9 Allergic rhinitis 117686 04 J30.9 to start Lorataine 10mg once daily Flonase NS 1 spray twice daily Seasonal a llergic rhinitis 354844271 J30.2 continue loratadine and spray Itching of ear 331941609 L29.8 [id number] [facility] [address] [place] [address] 11/26/2022 15:51:56 11/30/2022 11:31:24 Mild persistent asthma 603374923 J45.30 continue inhalers per Pulmonolog ist J2EE DEVELOPER Kun street seen 01/2019-ne eds follow upPatient was put on DuleraAlbu terol mdi prn103/2016 PFT show mild air trappingPa tient to make follow up appointdiana t with pulmonolog ist Seasonal a llergic rhinitis 851229911 J30.2 continue loratadine and spray Body mass index 30+ - obesity 148708765 Z68.39 BMI 30.7 Healthy weight range 110-155 Obesity 961118166 E66.9 BMI 30.7Ht 5' 4.75 Healthy weight range 110-155 Osteoarthritis of hip 23 9719419 M16.9 renny hip OA on XR 04-28-2017 Vitamin D deficiency 347 61104 E55.9 Vitamin D 22.7contin ue otc vitamin D3 1000 IU once daily Osteoarthr itis of knee 241740580 M17.0 renny OA of kneesTylen ol arthritis Right inguinal hernia 23 7128514 K40.90 saw surgical team was given option to repair or to wait till she has symptoms patient will waitR inguinal hernia seen on CT abd/pelvis 04/09/2021 Umbilical hernia 6177160 07 Q79.2 saw surgical team was given option to repair or to wait till she has symptoms patient wants to see surgeon is thinking about getting repair now while having cholecyste ctomy Depression screening 171 377448 Z13.31 negative Mental hea lth screening 579569838 Z13.39 negative Benign par oxysmal positional vertigo 306375868 H81.13 Diagnosed in [place] in 1994Lately worsening symptomsna usea/vomit ing Prediabetes 685726126 R7 3.03 HA1C 5.9 Administra tion of influenza vaccine 07563872 Z23 [id number] [facility] [address] [place] [address] 01/30/2023 16:42:04 01/31/2023 14:22:59 Acute serous otitis media of left ear 6983212349 929080 H65.02 Impacted c erumen in right ear 4048232790 460281 H61.21 R ear irrig Depression screening 171 669456 Z13.31 negative Mental hea lt screening 704507129 Z13.39 negative [id number] [facility] [address] [place] [address] 02/27/2023 15:53:59 03/01/2023 14:43:54 Body mass index 30+ - obesity 484960100 Z68.39 BMI 31.2 Healthy weight range 110-155 Vitamin D deficiency 347 46792 E55.9 Vitamin D 22.7contin ue otc vitamin D3 1000 IU once daily Mild persi stent asthma 774297994 J45.30 continue inhalers per Pulmonolog ist J2EE DEVELOPER Kun street seen 01/2019-ak eds follow upPatient was put on DuleraAlbu terol mdi prn103/2016 PFT show mild air trappingPa tient to make follow up jaya t with pulmonolog ist Seasonal a llergic rhinitis 792016614 J30.2 continue loratadine and spray Obesity 427792566 E66.9 BMI 31.2Ht 5' 4.75 Healthy weight range 110-155 Osteoarthritis of hip 23 6516465 M16.9 rneny hip OA on XR 04-28-2017 Osteoarthr itis of knee 907087725 M17.0 renny OA of kneesTylen ol arthritis Right inguinal hernia 23 9033483 K40.90 saw surgical team was given option to repair or to wait till she has symptoms patient will waitR inguinal hernia seen on CT abd/pelvis 04/09/2021 Prediabetes 924872961 R7 3.03 HA1C 5.9 Umbilical hernia 3408853 07 Q79.2 saw surgical team was given option to repair or to wait till she has symptoms patient will see surgeon at later time for surgery as she will have to stop working for recovery Benign par oxysmal positional vertigo 127865282 H81.13 Diagnosed in [place] in 1994Lately worsening symptomsna usea/vomit ing Depression screening 171 693958 Z13.31 negative Mental hea lth screening 315451484 Z13.39 negative Urinary symptoms 1265233 08 R39.9 Strain of thoracic region 91502186 S29.012A Acute sero us otitis media of left ear 1531358878 585483 H65.02 Impacted c erumen in right ear 8231396283 260659 H61.21 R ear irrig [id number] Jonathan Khan [facility] [address] [place] [address] 05/30/2023 15:52:52 06/04/2023 10:54:51 Mild persistent asthma 831650116 J45.30 continue inhalers per Pulmonolog ist J2EE DEVELOPER Kun street seen 01/2019-ak eds follow upPatient was put on DuleraAlbu terol mdi prn103/2016 PFT show mild air trappingPa tient to make follow up appointdiana t with pulmonolog ist Vitamin D deficiency 347 73680 E55.9 11/26/2022 Vitamin D 31.2contin ue otc vitamin D3 1000 IU once daily Seasonal a llergic rhinitis 066283768 J30.2 continue loratadine and spray Body mass index 30+ - obesity 783234092 Z68.39 BMI 31.3 Healthy weight range 110-155 Obesity 513322132 E66.9 BMI 31.3Ht 5' 4.75 Healthy weight range 110-155 Osteoarthritis of hip 23 0265536 M16.9 renny hip OA on XR 04-28-2017 Osteoarthr itis of knee 030120840 M17.0 renny OA of kneesTylen ol arthritis Right inguinal hernia 23 4104390 K40.90 saw surgical team was given option to repair or to wait till she has symptoms patient will waitR inguinal hernia seen on CT abd/pelvis 04/09/2021 Prediabetes 138425235 R7 3.03 HA1C 5.9 Umbilical hernia 0680180 07 Q79.2 saw surgical team was given option to repair or to wait till she has symptoms patient wants to see surgeon is thinking about getting repair now while having cholecyste ctomy Benign par oxysmal positional vertigo 883650114 H81.13 Diagnosed in [place] in 1994Lately worsening symptomsna usea/vomit ing Depression screening 171 834899 Z13.31 negative Mental hea lth screening 482941126 Z13.39 negative Exacerbati on of intermittent asthma 640693183 J45.21 [id number] Jonathan Khan, [employer] [address] [place] [address] 10/15/2023 15:23:04 10/28/2023 14:05:19 Mild persistent asthma 011255582 J45.30 continue inhalers per Pulmonolog ist J2EE DEVELOPER Kun street seen 01/2019-ne eds follow upPatient was put on DuleraAlbu terol mdi prn103/2016 PFT show mild air trappingPa tient to make follow up appointmen t with pulmonolog ist Vitamin D deficiency 347 00723 E55.9 11/26/2022 Vitamin D 31.2contin ue otc vitamin D3 1000 IU once daily Seasonal a llergic rhinitis 262119977 J30.2 continue loratadine and spray Body mass index 30+ - obesity 275071963 Z68.39 BMI 31.7 Healthy weight range 110-155 Obesity 022739254 E66.9 BMI 31.7Ht 5' 4.75 Healthy weight range 110-155 Osteoarthritis of hip 23 7422367 M16.9 renny hip OA on XR 04-28-2017 Osteoarthr itis of knee 184840568 M17.0 renny OA of kneesTylen ol arthritis Right inguinal hernia 23 2936477 K40.90 saw surgical team was given option to repair or to wait till she has symptoms patient will waitR inguinal hernia seen on CT abd/pelvis 04/09/2021 Prediabetes 185914372 R7 3.03 HA1C 5.9 Umbilical hernia 2410485 07 Q79.2 saw surgical team was given option to repair or to wait till she has symptoms patient wants to see surgeon is thinking about getting repair now while having cholecyste ctomy Benign par oxysmal positional vertigo 886358695 H81.13 Diagnosed in [place] in 1994Lately worsening symptomsna usea/vomit ing Urinary symptoms 4095959 08 R39.9 Hepatomegaly 34090832 R1 6.0 02/10/2022 CT ABD/pelvis shows fatty liverWeigh t loss leads to improvemen t in liver biochemica l tests, liver histology, serum insulin levels and quality of life.Maint ain a healthy weight. Lose weight if you are overweight or obeseEat a healthy diet. Try to limit salt and sugar. You can eat fruits, vegetables and whole grains. The Mediterran nuha Diet is a good choice.Exe rcise regularly. This can help you lose weight and reduce fat in the liverLower your cholestero l and triglyceri desAvoid alcoholOnl y take medicines that you need and follow dosing recommenda tions. 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 Flank pain 485176372 R10 .9 [id number] [facility] [address] [address] 12/12/2023 15:51:26 12/17/2023 10:43:13 Vaginitis 45001749 N76.0 Atrophic vaginitis 44323 000 N95.2 Menopausal flushing 1983 22949 N95.1 no alcoholno caffeinela yered dressingfa n Secondary amenorrhea 156 456076 N91.1 [id number] [facility] [address] [place] [address] 4 12/13/2023 15:19:56 12/17/2023 11:20:24 Menopausal flushing 281197514 N95.1 no alcoholno caffeinela yered dressingfa n Secondary amenorrhea 156 989911 N91.1 [id number] [facility] [address] [address] 4 12/18/2023 15:42:38 12/20/2023 15:52:27 Laboratory test result abnormal 965857926 R89.9 12/13/2023 TSH 9.460 Hypothyroidism 98566185 E03.9 12/13/2023 TSH 9.460 Menopause present 610405 006 N95.1 12/13/2023 LH 55.1FSH 89.1 Menopausal flushing 1983 71719 N95.1 no alcoholno caffeinela yered ekta nVeozah 45 mg tab not covered by her insurance [id number] More Sequeira, LLUVIA [facility] [address] [place] [address] 12/24/2023 15:52:58 12/27/2023 16:15:49 Hypothyroidism 70728428 E03.9 12/13/2023 TSH 9.267 [id number] Jonathan Khan [facility] [address] [place] [address] 01/16/2024 15:48:39 01/22/2024 11:11:19 Mild persistent asthma 533210430 J45.30 continue inhalers per Pulmonolog ist J2EE DEVELOPER Kun street seen 01/2019-ne eds follow upPatient was put on DuleraAlbu terol mdi prn103/2016 PFT show mild air trappingPa tient to make follow up appointmen t with pulmonolog ist Seasonal a llergic rhinitis 389688982 J30.2 continue loratadine and spray Body mass index 30+ - obesity 129576716 Z68.39 BMI 31.9 Healthy weight range 110-155 Vitamin D deficiency 347 60256 E55.9 11/26/2022 Vitamin D 31.2contin ue otc vitamin D3 1000 IU once daily Obesity 840737631 E66.9 BMI 31.9Ht 5' 4.75 Healthy weight range 110-155 Osteoarthritis of hip 23 0218502 M16.9 renny hip OA on XR 04-28-2017 Osteoarthr itis of knee 627242601 M17.0 renny OA of kneesTylen ol arthritis helps Right inguinal hernia 23 2645846 K40.90 saw surgical team was given option to repair or to wait till she has symptoms patient will waitR inguinal hernia seen on CT abd/pelvis 04/09/2021 Prediabetes 662418737 R7 3.03 07/25/2022 HA1C 5.911/14/2 024 HA1C 5.7 Umbilical hernia 0957144 07 Q79.2 saw surgical team was given option to repair or to wait till she has symptoms patient wants to see surgeon is thinking about getting repair now while having cholecyste ctomy Benign par oxysmal positional vertigo 512596564 H81.13 Diagnosed in [place] in 1994Lately worsening symptomsna usea/vomit ing Postcholec ystectomy syndrome 20214409 K91.5 feels betterwill not refill for now Autoimmune thyroiditis 63704683 E06.3 12/24/2023 + thyroid antibodies thyroid peroxidase 546thyrogl obulin 3.1TSH 11.80T4 0.7945TSH 9.46 Menopausal flushing 1984 45199 N95.1 no alcoholno caffeinela yered dressingfa nVeozah 45 mg has now been approved by her insurancen ot recommende d to use with estradiol- pt will try clonidine prn Administra tion of influenza vaccine 27754622 Z23 [id number] [facility] [address] [place] [address] 01/28/2024 14:03:19 01/31/2024 13:26:57 Gynecologic examination 58937823 Z01.411 Counseled regarding contracept evelin options, and need for contracept ion until no menses for 1 year. BSE reviewed and recommende d . Reviewed calcium needs, exercise, and prevention of osteoporos is . Reviewed normal perimenopa usal transition . Mammogram recommende d yearly . Obesity 361171333 E66.9 BMI 32.4Ht 5' 4.75 Healthy weight range 110-155 Screening for malignant neoplasm of breast 775740697 Z12.31 Patient wants screen done at [facility] as all her mammograms have been done there2022 Mammo BIRADS 1 Atypical s quamous cells of undetermined significance on cervical Papanicolaou smear 219119852 R87.610 Previous paps all normal 11/2009, 11/2011, 12/2014 Had abnormal pap ASCUS +HPV 03/13/2017 Had Colposcopy with WASHROOM ATTENDANT 05/22/2017- --no dysplasia or cancer-- yearly pap until normal Had abnormal pap 04/15/2018 LSIL -HPV Had repeat colposcopy 09/15/2018 for worsening pap Had cryo therapy-re peat pap in 6 months (today) Had abnormal pap 04/15/2019 ECA +HPV Had abnormal pap on 11/26/2019 ECA +HPV Will need repeat paps every 6 months till sbhwou46/0 06/[address] pap normal 0n 06/29/2022 will repeat today Body mass index 30+ - obesity 859940249 Z68.39 BMI 32.4 Healthy weight range 110-155 Fibrocysti c disease of breast 01161018 N60.19 stop PEPSI/caff eine products take Toston oil as directed Umbilical hernia [id number] 07 Q79.2 saw surgical team was given option to repair or to wait till she has symptoms Menopausal flushing 1983 14890 N95.1 no alcoholno caffeinela yered dressingfa nusing clonidine 0.1mg qd Atrophic vaginitis 19779 000 N95.2 using estradiol cream [id number] [facility] [address] [place] [address] 02/14/2024 16:24:13 02/17/2024 13:58:32 Dysuria 25197697 R30.0 Nausea [id number] R11.0 Ingrowing toenail 216048 009 L60.0 soak foot in hot waterlift edge of nail away from skin Body mass index 30+ - obesity 408599892 Z68.39 BMI 32.2 Healthy weight range 110-529 [id number] More Sequeira [facility] [address] [place] [address] 02/24/2024 15:30:57 02/25/2024 13:37:56 Autoimmune thyroiditis 48907293 E06.3 12/24/2023 + thyroid antibodies thyroid peroxidase 546thyrogl obulin 3.1TSH 11.80T4 0.7910/14742EKS 9.46 Health Concerns Section Related Observation LastModified by Organization Detai ls LastModified Time None Recorded Concern Status LastModified by Organization Details LastModified Time None Recorded Advance Directives Directive N: Payers Encounter Date Sequence Insurance Name Policy Number Policy Clark Covered Member ID Clark Member ID Guarantor Name 12/24/2023 1 [facility] - DOS ON OR AFTER 20 (MEDICAID REPLACEMENT - HMO) Sylvia Pinto [id number] Sylvia Pinto 01/16/2024 1 [facility] ON OR AFTER 09/01/20 (MEDICAID REPLACEMENT - HMO) Sylvia Beckgado [id number] Sylvia Beckgado 01/28/2024 1 [facility] ON OR AFTER 09/01/20 (MEDICAID REPLACEMENT - HMO) Sylvia Beckgado [id number] Sylvia Pinto 02/14/2024 1 [facility] ON OR AFTER 09/01/20 (MEDICAID REPLACEMENT - HMO) Sylvia Beckgado [id number] Sylvia Beckgado 02/24/2024 1 [facility] ON OR AFTER 09/01/20 (MEDICAID REPLACEMENT - HMO) Sylvia Pinto [id number] Sylviaprabhjot Pinto Notes Date Note Type Note Provider Name and Address Organization Details Recorded Time text/html Abdominal PainReported bypatient.Location:[facility] Quality:pain;bloating;ac veena;burning Severity:moderate Duration:intermittent Onset/Timing:gone now; wax/wane Context:food Modifying Factors:eating Associated Symptoms:no fever; no chills; no blood in the urine; no shortness of breath;heartburn Other:denies possible ; sexually active; [id number]; does not use controlKneeReported bypatient.Location:[facility] Quality:aching Severity:moderate; pain level 7/10 Duration:3-4 years Timing:chronic; recurrent Context:bending; twisting; overuse Alleviating Factors:NSAIDs Aggravating Factors:standing; walking; bending/squatting; getting out of bed; going from sit to stand; upstairs; downstairs; cold weather; damp weather Associated Symptoms:tinglingLower LegReported bypatient.Associated Symptoms:no weakness; no numbness; no tingling; no swelling; no redness; no warmth; no ecchymosis; no catching/locking; no popping/clicking; no buckling; no grinding; no instability; no radiation down leg; no drainage; no fever; no chills; no weight loss; no change in bowel/bladder habits 53 y/o HF presents for refill chronic meds. She is not currently taking Gabapentin 100mg tid and she denies leg pain for now. She denies any swelling or redness of joint areas or on back.She is taking levothyroxine she feels more energized. SHe is aware needs repeat testing in 4-6 weeks. She has a pending thyroid u/s as well.She saw general surgeon in the past for inguinal/abdominal hernia repair. However, she opted to wait to have surgery done at a later time. Reports she has not had hernia repair. She continues to have vague renny flank pain and abdominal pain. She reports went to ER once again for this pain on 10/02/2023. Had multiple normal tests. Her CT abd/pelvis still shows fatty liver, hepatomegaly, umbilical hernia degenerative changes of spine SHe had some nausea, diarrhea and vomiting no fever. SHe was treated for a UTI.The patient had cholecystectomy last year and since then has been having episodes of diarrhea. Reports these are not daily but these are unpredictable.She has seen GI for liver mass/cyst which again was seen on CT ABD/pelvis. Reports she was told that liver cyst the same and to have colonoscopy which she did. 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 Reports asthma symptoms for the last month. Has congestion and cough.Reports estrogen cream helps atrophic vaginitis and wants to continue it. She did not start clonipine for her hot flashes. She has been advised to go ahead and try clonidine since Veohza has been approved for her but is not to be used while using estrogen.SHe wants to get influenza vaccine. SHe has no contraindications. ALFREDO Kowalski Attn: Accounting,[address] [facility], [place], [address], [place] 01/17/2024 16:11:44 4 text/html Annual GYNReported bypatient.History:no gynecologic complaints; no change in interval history Menstrual cycle:no menses since 2010 as she has iud in place Urinary symptoms:No hematuria Vulva:No genital lesion Vagina:Normal vaginal discharge Breast:No breast lump; No nipple discharge;Breast pain; L Current Contraception:Satisfied with current contraception; Monogamous relationship; Intrauterine device (iud); Requests testing for sexually transmitted infections Sexual complaints:No sexual complaints; No pain during intercourse; Normal libido Menopausal Symptoms:No menopausal symptoms; Normal vaginal lubrication Psychological symptoms:No depression; No anxiety; No PMDD Preventive measures:Encourage self breast examination; Encourage regular exercise; Encourage no tobacco use; Encourage regular mammograms starting age 40; Followed with yearly pap smears; History of abnormal pap smear/cervical dysplasia; Mammogram performed within the past year; Needs to schedule mammogram; Up to date on colonoscopy screening (11/28/2021 normal repeat in 10 years) 53 y/o L4 here for annual exam. Last pap in 06/29/2022 cytology normal no HPV done. Has history of abnormal paps. Had colposcopy with Dr. Peralta STEM ROLLER OPERATOR negative dysplasia in the past. Denies any urinary burning. She has been having hot flashes no menses since 06/29/2022. SONAM Kowalski-AALIYAH Attn: Accounting,[address] [place], [address], [facility] 01/28/2024 18:02:52 4 text/html DysuriaReported bypatient.Quality:pressu re;pain Severity:worsening Duration:intermittent Timing:sudden Context:no prior history of STDs; no known exposure to STD;sexually active Modifying Factors:nothing gives relief Associated Symptoms:no fever; no blisters on genitals; no rash on genitals; no blood in the urine; normal urine stream;hesitancy;flank pain; chillsIngrown NailReported bypatient.Location:left hallux medial border Quality:aching; sharp; deep Severity:moderate Duration:date of onset:; 2 days; continuous since onset Timing:acute; abrupt Context:pressure; shoes Alleviating Factors:nothing helps; removal of pressure; removal of shoes Aggravating Factors:pressure Associated Symptoms:swelling;rednes s;aching;chills Prior Imaging:none Previous Injections:none 53 y/o HF Tajik speaking presents for c/o urinary discomfort and cvt tenderness with nausea for a couple of days. SHe is having chills. The patient voices her l great toenail is hurting medially the area is red and tender touch no drainage for a couple of days. Jonathan Khan, [employer]INTER AND [employer] Attn: Accounting,[address] [facility], [place], [address], [facility] 02/14/2024 17:33:19 OBGyn Episode Ob Episode Information Episode Created Date Number of Fetuses Patient Bloodtype Patient rh Status Prepregnancy Weight lbs Domestic Partner Domestic Partner Phone Father Name Dress Fitter Status 02/06/20 16 1 CLOSED Fetus Data First Name Last Name Admitted to NICU Weight (g) Sex Living Outcome Pediatric Complications Fetus ID Race Codes Race Delivery Type Full Term 24264 Vaginal Venkata Calculation Initial Venkata Date Initial Exam Date Initial Exam Provider Initial Ultrasound Date Last Menstrual Period Date Ultra Sound Weeks Gestation 0 Eighteen To Twenty Week Venkata Update Ultra Sound Date Fundal Height At Umbil Quickening Date Ultra Sound Latest Weeks Gestation Final Venkata Confirmed By Final Venkata Confirmed Date Final Venkata Date Ultra Sound Latest Days Gestation 0 0 Menstrual History Last Menstrual Date Menses Monthly On Bcp Conception Prior Menses Frequency Hcg Plus Date Menarche Onset Age Delivery Information Delivery Date Delivery Type Labor Anesthesia Weeks Gestation Incision Type Labor Labor Length Hrs Delivered By Post Complications Tubal Sterilization Discharge Date Comments 6 40 Discharge Information Feeding Method Contraceptive Method Maternal HG B and HCT Levels Ob Episode Information Episode Created Date Number of Fetuses Patient Bloodtype Patient rh Status Prepregnancy Weight lbs Domestic Partner Domestic Partner Phone Father Name Dress Fitter Status 02/06/20 16 1 CLOSED Fetus Data First Name Last Name Admitted to NICU Weight (g) Sex Living Outcome Pediatric Complications Fetus ID Race Codes Race Delivery Type Full Term 14342 Vaginal Venkata Calculation Initial Venkata Date Initial Exam Date Initial Exam Provider Initial Ultrasound Date Last Menstrual Period Date Ultra Sound Weeks Gestation 0 Eighteen To Twenty Week Venkata Update Ultra Sound Date Fundal Height At Umbil Quickening Date Ultra Sound Latest Weeks Gestation Final Venkata Confirmed By Final Venkata Confirmed Date Final Venkata Date Ultra Sound Latest Days Gestation 0 0 Menstrual History Last Menstrual Date Menses Monthly On Bcp Conception Prior Menses Frequency Hcg Plus Date Menarche Onset Age Delivery Information Delivery Date Delivery Type Labor Anesthesia Weeks Gestation Incision Type Labor Labor Length Hrs Delivered By Post Complications Tubal Sterilization Discharge Date Comments 7 40 Discharge Information Feeding Method Contraceptive Method Maternal HG B and HCT Levels Ob Episode Information Episode Created Date Number of Fetuses Patient Bloodtype Patient rh Status Prepregnancy Weight lbs Domestic Partner Domestic Partner Phone Father Name Dress Fitter Status 02/06/20 16 1 CLOSED Fetus Data First Name Last Name Admitted to NICU Weight (g) Sex Living Outcome Pediatric Complications Fetus ID Race Codes Race Delivery Type Full Term 04231 Vaginal Venkata Calculation Initial Venkata Date Initial Exam Date Initial Exam Provider Initial Ultrasound Date Last Menstrual Period Date Ultra Sound Weeks Gestation 0 Eighteen To Twenty Week Venkata Update Ultra Sound Date Fundal Height At Umbil Quickening Date Ultra Sound Latest Weeks Gestation Final Venkata Confirmed By Final Venkata Confirmed Date Final Venkata Date Ultra Sound Latest Days Gestation 0 0 Menstrual History Last Menstrual Date Menses Monthly On Bcp Conception Prior Menses Frequency Hcg Plus Date Menarche Onset Age Delivery Information Delivery Date Delivery Type Labor Anesthesia Weeks Gestation Incision Type Labor Labor Length Hrs Delivered By Post Complications Tubal Sterilization Discharge Date Comments 6 40 false Discharge Information Feeding Method Contraceptive Method Maternal HG B and HCT Levels Ob Episode Information Episode Created Date Number of Fetuses Patient Bloodtype Patient rh Status Prepregnancy Weight lbs Domestic Partner Domestic Partner Phone Father Name Dress Fitter Status 02/06/20 16 1 CLOSED Fetus Data First Name Last Name Admitted to NICU Weight (g) Sex Living Outcome Pediatric Complications Fetus ID Race Codes Race Delivery Type Full Term 43025 Vaginal Venkata Calculation Initial Venkata Date Initial Exam Date Initial Exam Provider Initial Ultrasound Date Last Menstrual Period Date Ultra Sound Weeks Gestation 0 Eighteen To Twenty Week Venkata Update Ultra Sound Date Fundal Height At Umbil Quickening Date Ultra Sound Latest Weeks Gestation Final Venkata Confirmed By Final Venkata Confirmed Date Final Venkata Date Ultra Sound Latest Days Gestation 0 0 Menstrual History Last Menstrual Date Menses Monthly On Bcp Conception Prior Menses Frequency Hcg Plus Date Menarche Onset Age Delivery Information Delivery Date Delivery Type Labor Anesthesia Weeks Gestation Incision Type Labor Labor Length Hrs Delivered By Post Complications Tubal Sterilization Discharge Date Comments 5 false Discharge Information Feeding Method Contraceptive Method Maternal HG B and HCT Levels
--- OUTSIDE RECORDS SUMMARY | 2024-04-25 09:49 | XMS_ITS | Clinical Summary ---
Author Organization [facility] Address [address] [place] [id number] Care Team Providers Care Any Commodity Sales Deliverer Name Role Phone Jonathan Khan CNP Primary Care Provider [phone] Social History Tobacco Use Types Packs/Day Years Used Date Smoking Tobacco: Never Assessed Comments No Sex and Gender Information Value Date Recorded Sex Assigned at Not on file Legal Sex Female 5:20 PM CDT Gender Identity Female 03/30/2021 12:26 PM PORCELAIN FINISHER Sexual Orientation Straight 03/30/2021 12 :26 PM PORCELAIN FINISHER Plan of Treatment Upcoming Encounters Date Type Department Care Team (Late st Contact Info) Description 05/15/2024 2:00 PM CDT Appointment [facility] Mammography [address] [place] [address] Jonathan Khan CNP [address] [place] [address] Health Maintenance Due Date Last Done Comments Cervical Cancer Screening Pap Smear (Age 30 to 64) Every 3 Years 1969 Colorectal Cancer Screening Colonoscopy (10 Years) 1969 Annual Physical 1972 Hepatitis C 1987 Hepatitis B Vaccines (1 of 3 - 19+ 3-dose series) 1988 Cervical Cancer Screening Pap with HPV Testing (Age 30 to 64) Every 5 Years 1999 Cervical Cancer Screening with HPV 1999 Zoster Vaccines (1 of 2) 2019 COVID-19 Vaccine ( season) 2023 Influenza Adult (#1) 2023 11/25/2020, 12/30/2019, 02/03/2019, Additional history exists DTaP, Tdap and Td Vaccines (2 - Td or Tdap) 12/27/2024 12/27/2014 Mammogram Screening 01/02/2025 01/02/2023, 03/31/2021, 08/26/2020, Additional history exists Meningococcal B Vaccine Aged Out No l onger eligible based on patient's age to complete this topic Meningococcal Vaccine Aged Out No karissa castro eligible based on patient's age to complete this topic Pneumococcal Vaccine: Pediatrics (0 to 5 Years) and At-Risk Patients (6 to 64 Years) Aged Out No longer eligible based on patient's age to complete this topic RSV Immunizations Under 20 Months Aged Out No longer eligible based on patient's age to complete this topic Procedures Procedure Name Priority Date/Time Associated Diagnosis Comments MG SCREENING W EMMA ELIE DIGI Routine 01/02/2023 3:02 PM CDT Encounter for screening mammogram for malignant neoplasm of breast from Last 3 Months or Most Recently Relevant to Health Maintenance Results * MG SCREENING W EMMA ELIE DIGI (01/02/2023 3:02 PM CDT) Anatomical Region Laterality Modality Breast Bilateral Mammography 01/02/2023 5:54 PM CDT Narrative 01/02/2023 5:56 PM CDT Examination: Screening bilateral mammogram Exam Date: 01/02/2023 2:45 PM Clinical history: Routine screening. Comparison: 03/31/2021, 08/26/2020, 02/24/2020 Technique: Digital screening mammography of both breasts was performed. Breast tomosynthesis acquisitions were obtained and reviewed. This study was read with the assistance of a computer-aided detection system. Tissue density: The breast tissue is heterogeneously dense, which may obscure small masses. Findings: No suspicious masses, malignant appearing calcifications, skin thickening or other abnormalities are present. No significant change from the prior exam. IMPRESSION: No suspicious mammographic findings. Recommendation: 1. Routine Screening, Bilateral Assessment: ACR BI-RADS 1 - NEGATIVE Ordered By: JONATHAN KHAN Interpreted By: Ras Fierro MD, 01/02/2023 5:54 PM Jonathan Khan FIBRE TECHNOLOGIST MAMMO Final Resul t from Last 3 Months or Most Recently Relevant to Health Maintenance [place] [address] [place] [address] Care Teams Any Commodity Sales Deliverer Relationship Specialty Start Date End Date Jonathan Khan CNP [facility] [address] PCP - General 09/21/16
--- OUTSIDE RECORDS SUMMARY | 2024-04-25 09:49 | XMS_ITS | Patient Health Summary ---
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 This disclosure is being madepursuant to the Care Everywhere program and may not contain all information available regarding this patient. Last updated 17.[facility] Allergies No known active allergies Medications * Be aware that medications may not be up to date on this document. Alwaysverify current medications with the patient. * ibuprofen (MOTRIN) 800 MG tablet(Started 02/26/2018) * albuterol HFA (PROVENTIL; VENTOLIN; PROAIR) 108 (90 Base) MCG/ACT inhaler Inhale 2 puffs by mouth every 6 hours as needed * mometasone-formoterol (DULERA) 100-5 MCG/ACT inhaler Inhale 2 puffs by mouth 2 times daily * ergocalciferol (DRISDOL) 1.25 MG (85004 UT) capsule Take 50,000 Units by mouth every 7 days * fluticasone propionate (FLONASE) 50 MCG/ACT nasal spray [place] 2 sprays into each nostril once daily * loratadine (CLARITIN) 10 MG tablet Take 10 mg by mouth once daily * levonorgestrel (MIRENA, 52 MG,) 20 MCG/24HR IUD by Intrauterine route as directed Active Problems Problem Noted Date Diagnosed Date Polyarthralgia 06/05/2018 Positive ROBSON (antinuclear antibody) 06/05/2018 Myalgia 06/05/2018 Other fatigue 06/05/2018 Social History Tobacco Use Types Packs/Day Years Used Date Smoking Tobacco: Never Smokeless Tobacco: Never Alcohol Use Standard Drinks/Week Comments No 0 (1 standard drink = 0.6 oz pur e alcohol) Sex and Gender Information Value Date Recorded Sex Assigned at Not on file Gender Identity Not on file Sexual Orientation Not on file Last Filed Vital Signs Vital Sign Reading Time Taken Comments Blood Pressure 123/82 06/19/2021 9:15 AM CDT Pulse 82 06/19/2021 9:15 AM CDT Temperature 36.8 C (98.2 F) 06/19/2021 9:15 AM CDT Respiratory Rate 18 06/19/2021 9:15 AM CDT Oxygen Saturation 100% 06/19/2021 9:15 AM CDT Inhaled Oxygen Concentration - - Weight 86.1 kg (189 lb 12.8 oz) 06/19/2021 9:15 AM CDT Height 166.4 cm (5' 5.5 ) 06/19/2021 9:15 AM CDT Body Mass Index 31.1 06/19/2021 9:15 AM CDT Procedures * XR KNEE RIGHT 2VW OR LESS(Performed 06/05/2018) Performed for Polyarthralgia, Positive ROBSON (antinuclear antibody), Myalgia, Other fatigue, Chronic neck pain * XR KNEE LEFT 2VW OR LESS(Performed 06/05/2018) Performed for Polyarthralgia, Positive ROBSON (antinuclear antibody), Myalgia, Other fatigue, Chronic neck pain * XR HAND RIGHT 2VW(Performed 06/05/2018) Performed for Polyarthralgia, Positive ROBSON (antinuclear antibody), Myalgia, Other fatigue, Chronic neck pain * XR HAND LEFT 2VW(Performed 06/05/2018) Performed for Polyarthralgia, Positive ROBSON (antinuclear antibody), Myalgia, Other fatigue, Chronic neck pain * XR ELBOW RIGHT 2VW(Performed 06/05/2018) Performed for Polyarthralgia, Positive ROBSON (antinuclear antibody), Myalgia, Other fatigue, Chronic neck pain * XR ELBOW LEFT 2VW(Performed 06/05/2018) Performed for Polyarthralgia, Positive ROBSON (antinuclear antibody), Myalgia, Other fatigue, Chronic neck pain * URINALYSIS W/MICROSCOPIC NO CULTURE(Performed 06/05/2018) Performed for Polyarthralgia, Positive ROBSON (antinuclear antibody), Myalgia, Other fatigue * HEPATITIS B SURFACE ANTIGEN W RFLX CONFIRMATION(Performed 06/05/2018) Performed for Polyarthralgia, Positive ROBSON (antinuclear antibody), Myalgia, Other fatigue * THYROGLOBULIN ANTIBODY(Performed 06/05/2018) Performed for Polyarthralgia, Positive ROBSON (antinuclear antibody), Myalgia, Other fatigue * THYROID PEROXIDASE ANTIBODY(Performed 06/05/2018) Performed for Polyarthralgia, Positive ROBSON (antinuclear antibody), Myalgia, Other fatigue * DNA ANTIBODY DS CRITHIDIA TITER(Performed 06/05/2018) Performed for Polyarthralgia, Positive ROBSON (antinuclear antibody), Myalgia, Other fatigue * COMPLEMENT C4(Performed 06/05/2018) Performed for Polyarthralgia, Positive ROBSON (antinuclear antibody), Myalgia, Other fatigue * COMPLEMENT C3(Performed 06/05/2018) Performed for Polyarthralgia, Positive ROBSON (antinuclear antibody), Myalgia, Other fatigue * CHROMATIN ANTIBODY(Performed 06/05/2018) Performed for Polyarthralgia, Positive ROBSON (antinuclear antibody), Myalgia, Other fatigue * ROBSON BLOOD SCREEN W/REFLEX TITER(Performed 06/05/2018) Performed for Polyarthralgia, Positive ROBSON (antinuclear antibody), Myalgia, Other fatigue * CK BLOOD(Performed 06/05/2018) Performed for Polyarthralgia, Positive ROBSON (antinuclear antibody), Myalgia, Other fatigue * T4 FREE(Performed 06/05/2018) Performed for Polyarthralgia, Positive ROBSON (antinuclear antibody), Myalgia, Other fatigue * TSH(Performed 06/05/2018) Performed for Polyarthralgia, Positive ROBSON (antinuclear antibody), Myalgia, Other fatigue * HEPATITIS C ANTIBODY(Performed 06/05/2018) Performed for Polyarthralgia, Positive ROBSON (antinuclear antibody), Myalgia, Other fatigue * COMPLEMENT TOTAL(Performed 06/05/2018) Performed for Polyarthralgia, Positive ROBSON (antinuclear antibody), Myalgia, Other fatigue * HISTONE ANTIBODY(Performed 06/05/2018) Performed for Polyarthralgia, Positive ROBSON (antinuclear antibody), Myalgia, Other fatigue * SCLERODERMA 70 (SCL) ANTIBODY(Performed 06/05/2018) Performed for Polyarthralgia, Positive ROBSON (antinuclear antibody), Myalgia, Other fatigue * SS-B (SJOGREN'S) ANTIBODY(Performed 06/05/2018) Performed for Polyarthralgia, Positive ROBSON (antinuclear antibody), Myalgia, Other fatigue * SS-A (SJOGREN'S) ANTIBODY(Performed 06/05/2018) Performed for Polyarthralgia, Positive ROBSON (antinuclear antibody), Myalgia, Other fatigue * MANAGER BEAUTY ANTIBODY(Performed 06/05/2018) Performed for Polyarthralgia, Positive ROBSON (antinuclear antibody), Myalgia, Other fatigue * DIANA (SM) ANTIBODY KIRAN(Performed 06/05/2018) Performed for Polyarthralgia, Positive ROBSON (antinuclear antibody), Myalgia, Other fatigue * DNA ANTIBODY DOUBLE STRANDED(Performed 06/05/2018) Performed for Polyarthralgia, Positive ROBSON (antinuclear antibody), Myalgia, Other fatigue * CYCLIC CITRUL PEPTIDE ANTIBODY IGG/IGA (CCP)(Performed 06/05/2018) Performed for Polyarthralgia, Positive ROBSON (antinuclear antibody), Myalgia, Other fatigue * RHEUMATOID FACTOR BLOOD QUANTITATIVE(Performed 06/05/2018) Performed for Polyarthralgia, Positive ROBSON (antinuclear antibody), Myalgia, Other fatigue * C-REACTIVE PROTEIN(Performed 06/05/2018) Performed for Polyarthralgia, Positive ROBSON (antinuclear antibody), Myalgia, Other fatigue * ERYTHROCYTE SEDIMENTATION RATE(Performed 06/05/2018) Performed for Polyarthralgia, Positive ROBSON (antinuclear antibody), Myalgia, Other fatigue * COMPREHENSIVE METABOLIC PANEL(Performed 06/05/2018) Performed for Polyarthralgia, Positive ROBSON (antinuclear antibody), Myalgia, Other fatigue * CBC W AUTO DIFFERENTIAL(Performed 06/05/2018) Performed for Polyarthralgia, Positive ROBSON (antinuclear antibody), Myalgia, Other fatigue Results * XR KNEE RIGHT 2VW OR LESS (06/05/2018 11:26 AM CDT) Anatomical Region Laterality Modality Lower Extremity Radiographic [place] 06/05/2018 11:3 2 AM CDT Impressions 06/05/2018 11:48 AM CDT IMPRESSION: 1. Right elbow: No arthritis. 2. Left elbow: No arthritis. 3. Right hand: No arthritis. 4. Left hand: No arthritis. 5. Right knee: No arthritis. 6. Left knee: No arthritis. Indeterminate 3.8 cm sclerotic bone lesion in the distal femoral shaft. Recommend follow-up such as left femur radiographs in 3 months. Alternatively MRI of the left femur with and without contrast could be performed if further characterization is desired now. Report dictated by Jona Pereira MD (radiology interventional physician). I, Dr. MARCIAL SAUCEDO MD have personally reviewed and interpreted this examination/study. This report was electronically signed by MARCIAL SAUCEDO MD on 06/05/2018 11:48 AM . Narrative 06/05/2018 11:48 AM CDT EXAMINATION: 1. Right elbow, 2 views 2. Left elbow, 2 views 3. Right hand, 2 views 4. Left hand, 2 views 5. Right knee, 2 views 6. Left knee, 2 views HISTORY: M 25.50: Polyarthralgia R 76.8: Positive Robson (Antinuclear Antibody) M 79.10: Myalgia R 53.83: Other Fatigue M 54.2: Chronic Neck Pain G 89.29: Chronic Neck Pain COMPARISON: No prior study is available for comparison at the time of this dictation. FINDINGS: Right elbow: No acute fracture or dislocation is identified. The joint spaces are preserved. No erosions are seen. No joint effusion is seen. Bone density and texture are normal. No soft tissue swelling is present. Left elbow: No acute fracture or dislocation is identified. The joint spaces are preserved. No erosions are seen. No joint effusion is seen. Bone density and texture are normal. No soft tissue swelling is present. Right hand: No acute fracture or dislocation is identified. The joint spaces are preserved. No erosions are seen. Bone density and texture are normal. No soft tissue swelling is present. Left hand: No acute fracture or dislocation is identified. The joint spaces are preserved. No erosions are seen. Bone density and texture are normal. No soft tissue swelling is present. Right knee: No acute fracture or dislocation is identified. The joint spaces are preserved. No erosions are seen. No joint effusion is seen. Bone density and texture are normal. No soft tissue swelling is present. Left knee: No acute fracture or dislocation is identified. The joint spaces are preserved. No erosions are seen. No joint effusion is seen. There is an irregular, somewhat ill-defined sclerotic bone lesion in the posterior aspect of the distal femoral diaphysis measuring 3.8 x 1.0 cm. There is no associated cortical thinning, breakthrough, or overlying periosteal reaction. No soft tissue swelling is present. Procedure Note Marcial Saucedo MD - 06/05/2018 EXAMINATION: 1. Right elbow, 2 views 2. Left elbow, 2 views 3. Right hand, 2 views 4. Left hand, 2 views 5. Right knee, 2 views 6. Left knee, 2 views HISTORY: M 25.50: Polyarthralgia R 76.8: Positive Robson (Antinuclear Antibody) M 79.10: Myalgia R 53.83: Other Fatigue M 54.2: Chronic Neck Pain G 89.29: Chronic Neck Pain COMPARISON: No prior study is available for comparison at the time of this dictation. FINDINGS: Right elbow: No acute fracture or dislocation is identified. The joint spaces are preserved. No erosions are seen. No joint effusion is seen. Bone density and texture are normal. No soft tissue swelling is present. Left elbow: No acute fracture or dislocation is identified. The joint spaces are preserved. No erosions are seen. No joint effusion is seen. Bone density and texture are normal. No soft tissue swelling is present. Right hand: No acute fracture or dislocation is identified. The joint spaces are preserved. No erosions are seen. Bone density and texture are normal. No soft tissue swelling is present. Left hand: No acute fracture or dislocation is identified. The joint spaces are preserved. No erosions are seen. Bone density and texture are normal. No soft tissue swelling is present. Right knee: No acute fracture or dislocation is identified. The joint spaces are preserved. No erosions are seen. No joint effusion is seen. Bone density and texture are normal. No soft tissue swelling is present. Left knee: No acute fracture or dislocation is identified. The joint spaces are preserved. No erosions are seen. No joint effusion is seen. There is an irregular, somewhat ill-defined sclerotic bone lesion in the posterior aspect of the distal femoral diaphysis measuring 3.8 x 1.0 cm. There isno associated cortical thinning, breakthrough, or overlying periosteal reaction. No soft tissue swelling is present. IMPRESSION: 1. Right elbow: No arthritis. 2. Left elbow: No arthritis. 3. Right hand: No arthritis. 4. Left hand: No arthritis. 5. Right knee: No arthritis. 6. Left knee: No arthritis. Indeterminate 3.8 cm sclerotic bone lesionin the distal femoral shaft. Recommend follow-up such as left femur radiographs in 3 months. Alternatively MRI of the left femur with and without contrast could be performed if further characterization isdesired now. Report dictated by Jona Pereira MD (radiology interventional physician). Dr. MARCIAL Williamson MD have personally reviewed and interpreted this examination/study. This report was electronically signed by MARCIAL SAUCEDO MD on06/05/2018 11:48 AM . Lisset Hernandez MD DIAGNOSTIC [place] ORDERABLES * XR KNEE LEFT 2VW OR LESS (06/05/2018 11:26 AM CDT) Anatomical Region Laterality Modality Lower Extremity Radiographic [place] 06/05/2018 11:3 2 AM CDT Impressions 06/05/2018 11:48 AM CDT IMPRESSION: 1. Right elbow: No arthritis. 2. Left elbow: No arthritis. 3. Right hand: No arthritis. 4. Left hand: No arthritis. 5. Right knee: No arthritis. 6. Left knee: No arthritis. Indeterminate 3.8 cm sclerotic bone lesion in the distal femoral shaft. Recommend follow-up such as left femur radiographs in 3 months. Alternatively MRI of the left femur with and without contrast could be performed if further characterization is desired now. Report dictated by Jona Pereira MD (radiology interventional physician). Dr. MARCIAL Williamson MD have personally reviewed and interpreted this examination/study. This report was electronically signed by MARCIAL SAUCEDO MD on 06/05/2018 11:48 AM . Narrative 06/05/2018 11:48 AM CDT EXAMINATION: 1. Right elbow, 2 views 2. Left elbow, 2 views 3. Right hand, 2 views 4. Left hand, 2 views 5. Right knee, 2 views 6. Left knee, 2 views HISTORY: M 25.50: Polyarthralgia R 76.8: Positive Robson (Antinuclear Antibody) M 79.10: Myalgia R 53.83: Other Fatigue M 54.2: Chronic Neck Pain G 89.29: Chronic Neck Pain COMPARISON: No prior study is available for comparison at the time of this dictation. FINDINGS: Right elbow: No acute fracture or dislocation is identified. The joint spaces are preserved. No erosions are seen. No joint effusion is seen. Bone density and texture are normal. No soft tissue swelling is present. Left elbow: No acute fracture or dislocation is identified. The joint spaces are preserved. No erosions are seen. No joint effusion is seen. Bone density and texture are normal. No soft tissue swelling is present. Right hand: No acute fracture or dislocation is identified. The joint spaces are preserved. No erosions are seen. Bone density and texture are normal. No soft tissue swelling is present. Left hand: No acute fracture or dislocation is identified. The joint spaces are preserved. No erosions are seen. Bone density and texture are normal. No soft tissue swelling is present. Right knee: No acute fracture or dislocation is identified. The joint spaces are preserved. No erosions are seen. No joint effusion is seen. Bone density and texture are normal. No soft tissue swelling is present. Left knee: No acute fracture or dislocation is identified. The joint spaces are preserved. No erosions are seen. No joint effusion is seen. There is an irregular, somewhat ill-defined sclerotic bone lesion in the posterior aspect of the distal femoral diaphysis measuring 3.8 x 1.0 cm. There is no associated cortical thinning, breakthrough, or overlying periosteal reaction. No soft tissue swelling is present. Procedure Note Marcial Saucedo MD - 06/05/2018 EXAMINATION: 1. Right elbow, 2 views 2. Left elbow, 2 views 3. Right hand, 2 views 4. Left hand, 2 views 5. Right knee, 2 views 6. Left knee, 2 views HISTORY: M 25.50: Polyarthralgia R 76.8: Positive Robson (Antinuclear Antibody) M 79.10: Myalgia R 53.83: Other Fatigue M 54.2: Chronic Neck Pain G 89.29: Chronic Neck Pain COMPARISON: No prior study is available for comparison at the time of this dictation. FINDINGS: Right elbow: No acute fracture or dislocation is identified. The joint spaces are preserved. No erosions are seen. No joint effusion is seen. Bone density and texture are normal. No soft tissue swelling is present. Left elbow: No acute fracture or dislocation is identified. The joint spaces are preserved. No erosions are seen. No joint effusion is seen. Bone density and texture are normal. No soft tissue swelling is present. Right hand: No acute fracture or dislocation is identified. The joint spaces are preserved. No erosions are seen. Bone density and texture are normal. No soft tissue swelling is present. Left hand: No acute fracture or dislocation is identified. The joint spaces are preserved. No erosions are seen. Bone density and texture are normal. No soft tissue swelling is present. Right knee: No acute fracture or dislocation is identified. The joint spaces are preserved. No erosions are seen. No joint effusion is seen. Bone density and texture are normal. No soft tissue swelling is present. Left knee: No acute fracture or dislocation is identified. The joint spaces are preserved. No erosions are seen. No joint effusion is seen. There is an irregular, somewhat ill-defined sclerotic bone lesion in the posterior aspect of the distal femoral diaphysis measuring 3.8 x 1.0 cm. There isno associated cortical thinning, breakthrough, or overlying periosteal reaction. No soft tissue swelling is present. IMPRESSION: 1. Right elbow: No arthritis. 2. Left elbow: No arthritis. 3. Right hand: No arthritis. 4. Left hand: No arthritis. 5. Right knee: No arthritis. 6. Left knee: No arthritis. Indeterminate 3.8 cm sclerotic bone lesionin the distal femoral shaft. Recommend follow-up such as left femur radiographs in 3 months. Alternatively MRI of the left femur with and without contrast could be performed if further characterization isdesired now. Report dictated by Jona Pereira MD (radiology interventional physician). I, Dr. MARCIAL SAUCEDO MD have personally reviewed and interpreted this examination/study. This report was electronically signed by MARCIAL SAUCEDO MD on06/05/2018 11:48 AM . Lisset Hernandez MD DIAGNOSTIC [place] ORDERABLES * XR HAND RIGHT 2VW (06/05/2018 11:26 AM CDT) Anatomical Region Laterality Modality Wrist / Hand Radiographic [place] 06/05/2018 11:3 2 AM CDT Impressions 06/05/2018 11:48 AM CDT IMPRESSION: 1. Right elbow: No arthritis. 2. Left elbow: No arthritis. 3. Right hand: No arthritis. 4. Left hand: No arthritis. 5. Right knee: No arthritis. 6. Left knee: No arthritis. Indeterminate 3.8 cm sclerotic bone lesion in the distal femoral shaft. Recommend follow-up such as left femur radiographs in 3 months. Alternatively MRI of the left femur with and without contrast could be performed if further characterization is desired now. Report dictated by Jona Pereira MD (radiology interventional physician). I, Dr. MARCIAL SAUCEDO MD have personally reviewed and interpreted this examination/study. This report was electronically signed by MARCIAL SAUCEDO MD on 06/05/2018 11:48 AM . Narrative 06/05/2018 11:48 AM CDT EXAMINATION: 1. Right elbow, 2 views 2. Left elbow, 2 views 3. Right hand, 2 views 4. Left hand, 2 views 5. Right knee, 2 views 6. Left knee, 2 views HISTORY: M 25.50: Polyarthralgia R 76.8: Positive Robson (Antinuclear Antibody) M 79.10: Myalgia R 53.83: Other Fatigue M 54.2: Chronic Neck Pain G 89.29: Chronic Neck Pain COMPARISON: No prior study is available for comparison at the time of this dictation. FINDINGS: Right elbow: No acute fracture or dislocation is identified. The joint spaces are preserved. No erosions are seen. No joint effusion is seen. Bone density and texture are normal. No soft tissue swelling is present. Left elbow: No acute fracture or dislocation is identified. The joint spaces are preserved. No erosions are seen. No joint effusion is seen. Bone density and texture are normal. No soft tissue swelling is present. Right hand: No acute fracture or dislocation is identified. The joint spaces are preserved. No erosions are seen. Bone density and texture are normal. No soft tissue swelling is present. Left hand: No acute fracture or dislocation is identified. The joint spaces are preserved. No erosions are seen. Bone density and texture are normal. No soft tissue swelling is present. Right knee: No acute fracture or dislocation is identified. The joint spaces are preserved. No erosions are seen. No joint effusion is seen. Bone density and texture are normal. No soft tissue swelling is present. Left knee: No acute fracture or dislocation is identified. The joint spaces are preserved. No erosions are seen. No joint effusion is seen. There is an irregular, somewhat ill-defined sclerotic bone lesion in the posterior aspect of the distal femoral diaphysis measuring 3.8 x 1.0 cm. There is no associated cortical thinning, breakthrough, or overlying periosteal reaction. No soft tissue swelling is present. Procedure Note Marcial Saucedo MD - 06/05/2018 EXAMINATION: 1. Right elbow, 2 views 2. Left elbow, 2 views 3. Right hand, 2 views 4. Left hand, 2 views 5. Right knee, 2 views 6. Left knee, 2 views HISTORY: M 25.50: Polyarthralgia R 76.8: Positive Robson (Antinuclear Antibody) M 79.10: Myalgia R 53.83: Other Fatigue M 54.2: Chronic Neck Pain G 89.29: Chronic Neck Pain COMPARISON: No prior study is available for comparison at the time of this dictation. FINDINGS: Right elbow: No acute fracture or dislocation is identified. The joint spaces are preserved. No erosions are seen. No joint effusion is seen. Bone density and texture are normal. No soft tissue swelling is present. Left elbow: No acute fracture or dislocation is identified. The joint spaces are preserved. No erosions are seen. No joint effusion is seen. Bone density and texture are normal. No soft tissue swelling is present. Right hand: No acute fracture or dislocation is identified. The joint spaces are preserved. No erosions are seen. Bone density and texture are normal. No soft tissue swelling is present. Left hand: No acute fracture or dislocation is identified. The joint spaces are preserved. No erosions are seen. Bone density and texture are normal. No soft tissue swelling is present. Right knee: No acute fracture or dislocation is identified. The joint spaces are preserved. No erosions are seen. No joint effusion is seen. Bone density and texture are normal. No soft tissue swelling is present. Left knee: No acute fracture or dislocation is identified. The joint spaces are preserved. No erosions are seen. No joint effusion is seen. There is an irregular, somewhat ill-defined sclerotic bone lesion in the posterior aspect of the distal femoral diaphysis measuring 3.8 x 1.0 cm. There isno associated cortical thinning, breakthrough, or overlying periosteal reaction. No soft tissue swelling is present. IMPRESSION: 1. Right elbow: No arthritis. 2. Left elbow: No arthritis. 3. Right hand: No arthritis. 4. Left hand: No arthritis. 5. Right knee: No arthritis. 6. Left knee: No arthritis. Indeterminate 3.8 cm sclerotic bone lesionin the distal femoral shaft. Recommend follow-up such as left femur radiographs in 3 months. Alternatively MRI of the left femur with and without contrast could be performed if further characterization isdesired now. Report dictated by Jona Pereira MD (radiology interventional physician). Dr. MARCIAL Williamson MD have personally reviewed and interpreted this examination/study. This report was electronically signed by MARCIAL SAUCEDO MD on06/05/2018 11:48 AM . Lisset Hernandez MD DIAGNOSTIC [place] ORDERABLES * XR HAND LEFT 2VW (06/05/2018 11:26 AM CDT) Anatomical Region Laterality Modality Wrist / Hand Radiographic [place] 06/05/2018 11:3 2 AM CDT Impressions 06/05/2018 11:48 AM CDT IMPRESSION: 1. Right elbow: No arthritis. 2. Left elbow: No arthritis. 3. Right hand: No arthritis. 4. Left hand: No arthritis. 5. Right knee: No arthritis. 6. Left knee: No arthritis. Indeterminate 3.8 cm sclerotic bone lesion in the distal femoral shaft. Recommend follow-up such as left femur radiographs in 3 months. Alternatively MRI of the left femur with and without contrast could be performed if further characterization is desired now. Report dictated by Jona Pereira MD (radiology interventional physician). Dr. MARCIAL Williamson MD have personally reviewed and interpreted this examination/study. This report was electronically signed by MARCIAL SAUCEDO MD on 06/05/2018 11:48 AM . Narrative 06/05/2018 11:48 AM CDT EXAMINATION: 1. Right elbow, 2 views 2. Left elbow, 2 views 3. Right hand, 2 views 4. Left hand, 2 views 5. Right knee, 2 views 6. Left knee, 2 views HISTORY: M 25.50: Polyarthralgia R 76.8: Positive Robson (Antinuclear Antibody) M 79.10: Myalgia R 53.83: Other Fatigue M 54.2: Chronic Neck Pain G 89.29: Chronic Neck Pain COMPARISON: No prior study is available for comparison at the time of this dictation. FINDINGS: Right elbow: No acute fracture or dislocation is identified. The joint spaces are preserved. No erosions are seen. No joint effusion is seen. Bone density and texture are normal. No soft tissue swelling is present. Left elbow: No acute fracture or dislocation is identified. The joint spaces are preserved. No erosions are seen. No joint effusion is seen. Bone density and texture are normal. No soft tissue swelling is present. Right hand: No acute fracture or dislocation is identified. The joint spaces are preserved. No erosions are seen. Bone density and texture are normal. No soft tissue swelling is present. Left hand: No acute fracture or dislocation is identified. The joint spaces are preserved. No erosions are seen. Bone density and texture are normal. No soft tissue swelling is present. Right knee: No acute fracture or dislocation is identified. The joint spaces are preserved. No erosions are seen. No joint effusion is seen. Bone density and texture are normal. No soft tissue swelling is present. Left knee: No acute fracture or dislocation is identified. The joint spaces are preserved. No erosions are seen. No joint effusion is seen. There is an irregular, somewhat ill-defined sclerotic bone lesion in the posterior aspect of the distal femoral diaphysis measuring 3.8 x 1.0 cm. There is no associated cortical thinning, breakthrough, or overlying periosteal reaction. No soft tissue swelling is present. Procedure Note Marcial Saucedo MD - 06/05/2018 EXAMINATION: 1. Right elbow, 2 views 2. Left elbow, 2 views 3. Right hand, 2 views 4. Left hand, 2 views 5. Right knee, 2 views 6. Left knee, 2 views HISTORY: M 25.50: Polyarthralgia R 76.8: Positive Robson (Antinuclear Antibody) M 79.10: Myalgia R 53.83: Other Fatigue M 54.2: Chronic Neck Pain G 89.29: Chronic Neck Pain COMPARISON: No prior study is available for comparison at the time of this dictation. FINDINGS: Right elbow: No acute fracture or dislocation is identified. The joint spaces are preserved. No erosions are seen. No joint effusion is seen. Bone density and texture are normal. No soft tissue swelling is present. Left elbow: No acute fracture or dislocation is identified. The joint spaces are preserved. No erosions are seen. No joint effusion is seen. Bone density and texture are normal. No soft tissue swelling is present. Right hand: No acute fracture or dislocation is identified. The joint spaces are preserved. No erosions are seen. Bone density and texture are normal. No soft tissue swelling is present. Left hand: No acute fracture or dislocation is identified. The joint spaces are preserved. No erosions are seen. Bone density and texture are normal. No soft tissue swelling is present. Right knee: No acute fracture or dislocation is identified. The joint spaces are preserved. No erosions are seen. No joint effusion is seen. Bone density and texture are normal. No soft tissue swelling is present. Left knee: No acute fracture or dislocation is identified. The joint spaces are preserved. No erosions are seen. No joint effusion is seen. There is an irregular, somewhat ill-defined sclerotic bone lesion in the posterior aspect of the distal femoral diaphysis measuring 3.8 x 1.0 cm. There isno associated cortical thinning, breakthrough, or overlying periosteal reaction. No soft tissue swelling is present. IMPRESSION: 1. Right elbow: No arthritis. 2. Left elbow: No arthritis. 3. Right hand: No arthritis. 4. Left hand: No arthritis. 5. Right knee: No arthritis. 6. Left knee: No arthritis. Indeterminate 3.8 cm sclerotic bone lesionin the distal femoral shaft. Recommend follow-up such as left femur radiographs in 3 months. Alternatively MRI of the left femur with and without contrast could be performed if further characterization isdesired now. Report dictated by Jona Pereira MD (radiology interventional physician). I, Dr. MARCIAL SAUCEDO MD have personally reviewed and interpreted this examination/study. This report was electronically signed by MARCIAL SAUCEDO MD on06/05/2018 11:48 AM . Lisset Hernandez MD DIAGNOSTIC PALMA GING ORDERABLES * XR ELBOW RIGHT 2VW (06/05/2018 11:26 AM CDT) Anatomical Region Laterality Modality Upper Extremity Radiographic Palma ging 06/05/2018 11:3 2 AM CDT Impressions 06/05/2018 11:48 AM CDT IMPRESSION: 1. Right elbow: No arthritis. 2. Left elbow: No arthritis. 3. Right hand: No arthritis. 4. Left hand: No arthritis. 5. Right knee: No arthritis. 6. Left knee: No arthritis. Indeterminate 3.8 cm sclerotic bone lesion in the distal femoral shaft. Recommend follow-up such as left femur radiographs in 3 months. Alternatively MRI of the left femur with and without contrast could be performed if further characterization is desired now. Report dictated by Jona Pereira MD (radiology interventional physician). I, Dr. MARCIAL SAUCEDO MD have personally reviewed and interpreted this examination/study. This report was electronically signed by MARCIAL SAUCEDO MD on 06/05/2018 11:48 AM . Narrative 06/05/2018 11:48 AM CDT EXAMINATION: 1. Right elbow, 2 views 2. Left elbow, 2 views 3. Right hand, 2 views 4. Left hand, 2 views 5. Right knee, 2 views 6. Left knee, 2 views HISTORY: M 25.50: Polyarthralgia R 76.8: Positive Robson (Antinuclear Antibody) M 79.10: Myalgia R 53.83: Other Fatigue M 54.2: Chronic Neck Pain G 89.29: Chronic Neck Pain COMPARISON: No prior study is available for comparison at the time of this dictation. FINDINGS: Right elbow: No acute fracture or dislocation is identified. The joint spaces are preserved. No erosions are seen. No joint effusion is seen. Bone density and texture are normal. No soft tissue swelling is present. Left elbow: No acute fracture or dislocation is identified. The joint spaces are preserved. No erosions are seen. No joint effusion is seen. Bone density and texture are normal. No soft tissue swelling is present. Right hand: No acute fracture or dislocation is identified. The joint spaces are preserved. No erosions are seen. Bone density and texture are normal. No soft tissue swelling is present. Left hand: No acute fracture or dislocation is identified. The joint spaces are preserved. No erosions are seen. Bone density and texture are normal. No soft tissue swelling is present. Right knee: No acute fracture or dislocation is identified. The joint spaces are preserved. No erosions are seen. No joint effusion is seen. Bone density and texture are normal. No soft tissue swelling is present. Left knee: No acute fracture or dislocation is identified. The joint spaces are preserved. No erosions are seen. No joint effusion is seen. There is an irregular, somewhat ill-defined sclerotic bone lesion in the posterior aspect of the distal femoral diaphysis measuring 3.8 x 1.0 cm. There is no associated cortical thinning, breakthrough, or overlying periosteal reaction. No soft tissue swelling is present. Procedure Note Marcial Saucedo MD - 06/05/2018 EXAMINATION: 1. Right elbow, 2 views 2. Left elbow, 2 views 3. Right hand, 2 views 4. Left hand, 2 views 5. Right knee, 2 views 6. Left knee, 2 views HISTORY: M 25.50: Polyarthralgia R 76.8: Positive Robson (Antinuclear Antibody) M 79.10: Myalgia R 53.83: Other Fatigue M 54.2: Chronic Neck Pain G 89.29: Chronic Neck Pain COMPARISON: No prior study is available for comparison at the time of this dictation. FINDINGS: Right elbow: No acute fracture or dislocation is identified. The joint spaces are preserved. No erosions are seen. No joint effusion is seen. Bone density and texture are normal. No soft tissue swelling is present. Left elbow: No acute fracture or dislocation is identified. The joint spaces are preserved. No erosions are seen. No joint effusion is seen. Bone density and texture are normal. No soft tissue swelling is present. Right hand: No acute fracture or dislocation is identified. The joint spaces are preserved. No erosions are seen. Bone density and texture are normal. No soft tissue swelling is present. Left hand: No acute fracture or dislocation is identified. The joint spaces are preserved. No erosions are seen. Bone density and texture are normal. No soft tissue swelling is present. Right knee: No acute fracture or dislocation is identified. The joint spaces are preserved. No erosions are seen. No joint effusion is seen. Bone density and texture are normal. No soft tissue swelling is present. Left knee: No acute fracture or dislocation is identified. The joint spaces are preserved. No erosions are seen. No joint effusion is seen. There is an irregular, somewhat ill-defined sclerotic bone lesion in the posterior aspect of the distal femoral diaphysis measuring 3.8 x 1.0 cm. There isno associated cortical thinning, breakthrough, or overlying periosteal reaction. No soft tissue swelling is present. IMPRESSION: 1. Right elbow: No arthritis. 2. Left elbow: No arthritis. 3. Right hand: No arthritis. 4. Left hand: No arthritis. 5. Right knee: No arthritis. 6. Left knee: No arthritis. Indeterminate 3.8 cm sclerotic bone lesionin the distal femoral shaft. Recommend follow-up such as left femur radiographs in 3 months. Alternatively MRI of the left femur with and without contrast could be performed if further characterization isdesired now. Report dictated by Jona Pereira MD (radiology interventional physician). Dr. MARCIAL Williamson MD have personally reviewed and interpreted this examination/study. This report was electronically signed by MARCIAL SAUCEDO MD on06/05/2018 11:48 AM . Lisset Hernandez MD DIAGNOSTIC PALMA GING ORDERABLES * XR ELBOW LEFT 2VW (06/05/2018 11:26 AM CDT) Anatomical Region Laterality Modality Upper Extremity Radiographic Palma ging 06/05/2018 11:3 2 AM CDT Impressions 06/05/2018 11:48 AM CDT IMPRESSION: 1. Right elbow: No arthritis. 2. Left elbow: No arthritis. 3. Right hand: No arthritis. 4. Left hand: No arthritis. 5. Right knee: No arthritis. 6. Left knee: No arthritis. Indeterminate 3.8 cm sclerotic bone lesion in the distal femoral shaft. Recommend follow-up such as left femur radiographs in 3 months. Alternatively MRI of the left femur with and without contrast could be performed if further characterization is desired now. Report dictated by Jona Pereira MD (radiology interventional physician). Dr. MARCIAL Williamson MD have personally reviewed and interpreted this examination/study. This report was electronically signed by MARCIAL SAUCEDO MD on 06/05/2018 11:48 AM . Narrative 06/05/2018 11:48 AM CDT EXAMINATION: 1. Right elbow, 2 views 2. Left elbow, 2 views 3. Right hand, 2 views 4. Left hand, 2 views 5. Right knee, 2 views 6. Left knee, 2 views HISTORY: M 25.50: Polyarthralgia R 76.8: Positive Robson (Antinuclear Antibody) M 79.10: Myalgia R 53.83: Other Fatigue M 54.2: Chronic Neck Pain G 89.29: Chronic Neck Pain COMPARISON: No prior study is available for comparison at the time of this dictation. FINDINGS: Right elbow: No acute fracture or dislocation is identified. The joint spaces are preserved. No erosions are seen. No joint effusion is seen. Bone density and texture are normal. No soft tissue swelling is present. Left elbow: No acute fracture or dislocation is identified. The joint spaces are preserved. No erosions are seen. No joint effusion is seen. Bone density and texture are normal. No soft tissue swelling is present. Right hand: No acute fracture or dislocation is identified. The joint spaces are preserved. No erosions are seen. Bone density and texture are normal. No soft tissue swelling is present. Left hand: No acute fracture or dislocation is identified. The joint spaces are preserved. No erosions are seen. Bone density and texture are normal. No soft tissue swelling is present. Right knee: No acute fracture or dislocation is identified. The joint spaces are preserved. No erosions are seen. No joint effusion is seen. Bone density and texture are normal. No soft tissue swelling is present. Left knee: No acute fracture or dislocation is identified. The joint spaces are preserved. No erosions are seen. No joint effusion is seen. There is an irregular, somewhat ill-defined sclerotic bone lesion in the posterior aspect of the distal femoral diaphysis measuring 3.8 x 1.0 cm. There is no associated cortical thinning, breakthrough, or overlying periosteal reaction. No soft tissue swelling is present. Procedure Note Marcial Saucedo MD - 06/05/2018 EXAMINATION: 1. Right elbow, 2 views 2. Left elbow, 2 views 3. Right hand, 2 views 4. Left hand, 2 views 5. Right knee, 2 views 6. Left knee, 2 views HISTORY: M 25.50: Polyarthralgia R 76.8: Positive Robson (Antinuclear Antibody) M 79.10: Myalgia R 53.83: Other Fatigue M 54.2: Chronic Neck Pain G 89.29: Chronic Neck Pain COMPARISON: No prior study is available for comparison at the time of this dictation. FINDINGS: Right elbow: No acute fracture or dislocation is identified. The joint spaces are preserved. No erosions are seen. No joint effusion is seen. Bone density and texture are normal. No soft tissue swelling is present. Left elbow: No acute fracture or dislocation is identified. The joint spaces are preserved. No erosions are seen. No joint effusion is seen. Bone density and texture are normal. No soft tissue swelling is present. Right hand: No acute fracture or dislocation is identified. The joint spaces are preserved. No erosions are seen. Bone density and texture are normal. No soft tissue swelling is present. Left hand: No acute fracture or dislocation is identified. The joint spaces are preserved. No erosions are seen. Bone density and texture are normal. No soft tissue swelling is present. Right knee: No acute fracture or dislocation is identified. The joint spaces are preserved. No erosions are seen. No joint effusion is seen. Bone density and texture are normal. No soft tissue swelling is present. Left knee: No acute fracture or dislocation is identified. The joint spaces are preserved. No erosions are seen. No joint effusion is seen. There is an irregular, somewhat ill-defined sclerotic bone lesion in the posterior aspect of the distal femoral diaphysis measuring 3.8 x 1.0 cm. There isno associated cortical thinning, breakthrough, or overlying periosteal reaction. No soft tissue swelling is present. IMPRESSION: 1. Right elbow: No arthritis. 2. Left elbow: No arthritis. 3. Right hand: No arthritis. 4. Left hand: No arthritis. 5. Right knee: No arthritis. 6. Left knee: No arthritis. Indeterminate 3.8 cm sclerotic bone lesionin the distal femoral shaft. Recommend follow-up such as left femur radiographs in 3 months. Alternatively MRI of the left femur with and without contrast could be performed if further characterization isdesired now. Report dictated by Jona Pereira MD (radiology interventional physician). I, Dr. MARCIAL SAUCEDO MD have personally reviewed and interpreted this examination/study. This report was electronically signed by MARCIAL SAUCEDO MD on06/05/2018 11:48 AM . Lisset Hernandez MD DIAGNOSTIC [place] GING ORDERABLES * (ABNORMAL) URINALYSIS W/MICROSCOPIC NO CULTURE (06/05/2018 10:51 AM [facility]) Color UA Yellow Straw, Yellow, Colorless 06/05/2018 11:[address] [facility] Clarity UA Slt Cloudy Clear, t Cloudy 06/05/2018 11:[address] [facility] Specific [place] UA 1.016 1.005 - 1.030 06/05/2018 11:[address] [facility] pH UA 8.0 5.0 - 8.0 pH 06/05/2018 11:[address] [facility] Protein UA Negative Negative mg/dL 06/05/2018 11:[address] [facility] Glucose UA Negative Negative mg/dL 06/05/2018 11:[address] [facility] Ketone UA Negative Negative mg/dL 06/05/2018 11:[address] [facility] Bilirubin UA Negative Negative mg/dL 06/05/2018 11:[address] [facility] Blood UA Negative Negative 06/05/2018 11:[address] [facility] Nitrite UA Negative Negative 06/05/2018 11:[address] [facility] Leukocyte Esterase Trace(A) Negative 06/05/2018 11:[address] [facility] Urobilinogen UA Negative Negative mg/dL 06/05/2018 11:[address] [facility] RBC UA 0-2 None Seen, 0-2, 3-5 /HPF 06/05/2018 11:[address] [facility] WBC UA 0-5 None Seen, 0-5 /HPF 06/05/2018 11:[address] [facility] Bacteria UA 3+(A) None, Trace /HPF 06/05/2018 11:[address] [facility] Squamous Epithelial Cells UA 11-20(A) None Seen, 0-2 /HPF 06/05/2018 11:[address] [facility] Renal Epithelial Cells UA 0-2 None Seen, 0-2 /HPF 06/05/2018 11:20 AM CDT [facility] Mucus UA 1+ None, 1+ /LPF 06/05/2018 11:20 AM CDT [facility] Urine URINE SPECIMEN OBTAINED BY CLEAN CATCH PROCEDURE / Unknown Collection / Unknown 06/05/2018 10:51 AM CDT 06/05/2018 10:59 AM CDT Lisset Hernandez MD LAB - URINALYS IS ORDERABLES [address] [phone] * CHROMATIN ANTIBODY (06/05/2018 10:47 AM CDT) Antichromatin Antibodies <0.2 0.0 - 0.9 AI 06/06/2018 3:10 PM CDT [facility] ([facility]) Blood BLOOD SPECIMEN / Unknown Lab Venipuncture / Unknown 06/05/2018 10:47 AM CDT 06/05/2018 11:00 AM CDT Narrative [facility] ([facility]) - 06/06/2018 3:10 PM CDT Performed at: [facility] - [facility] [address] [place], [place] [id number] Assistant Professor Of Nursing: Golden Seo PhD, Phone: [phone] Lisest Hernandez MD LAB - SEROLOGY ORDERABLES Performing Organization Address City/[facility]/ZIP Co de Phone Number [facility] ([facility]) [address] [place] [address] * CYCLIC CITRUL PEPTIDE ANTIBODY IGG/IGA (CCP) (06/05/2018 10:47 AM CDT) CCP Antibodies IgG/IgA 8 0 - 19 units 06/06/2018 9:06 PM CDT [facility] ([facility]) Comment: Negative <20 Weak positive 20 - 39 Moderate positive 40 - 59 Strong positive >59 Blood BLOOD SPECIMEN / Unknown Lab Venipuncture / Unknown 06/05/2018 10:47 AM CDT 06/05/2018 11:00 AM CDT Narrative [facility] ([facility]) - 06/06/2018 9:06 PM CDT Performed at: [address] [id number] Assistant Professor Of Nursing: Verónica Chew MD, Phone: [phone] Lisset Hernandez MD LAB - SEROLOGY ORDERABLES [facility]) [address] [place] [address] * DNA ANTIBODY DS CRITHIDIA TITER (06/05/2018 10:47 AM CDT) [facility] dsDNA Antibody IgG <1:10 <1:10 2018 2:56 PM CDT [facility] ([facility]) Comment: INTERPRETIVE INFORMATION: Double-Stranded DNA (dsDNA) Antibody, IgG by IFA (using Crithidia luciliae) Positivity for anti-double stranded DNA (anti-dsDNA) IgG antibody is a diagnostic criterion of systemic lupus erythematosus (SLE). The presence of the anti-dsDNA IgG antibody is identified by IFA titer (Crithidia luciliae indirect fluorescent test [NANI]). NANI is highly specific for SLE with a sensitivity of 50-60 percent. Some patients with early or inactive SLE may be positive for anti-dsDNA IgG by ANALIA but negative by NANI. If the NANI result is negative but the patient has a positive ANALIA and clinical suspicion remains, consider antinuclear antibody (ROBSON) testing by IFA. Additional information and recommendations for testing may be found at http://[email or web address]/Topics/AutoimmuneDz/[email or web address]/i ndex.html. Performed by [facility], [address] [place] [address] [email or web address], Dennis Pinto MD, Lab. Director Blood BLOOD SPECIMEN / Unknown Lab Venipuncture / Unknown 06/05/2018 10:47 AM CDT 06/05/2018 11:01 AM CDT Lisset Hernandez MD LAB - SEROLOGY ORDERABLES [facility]) [address] [place] [address] * DIANA (SM) ANTIBODY KIRAN (06/05/2018 10:47 AM CDT) Diana Antibody 3.4 0.0 - 19.9 Units 06/06/2018 10:39 AM CDT [facility] Comment: KIRAN Antibody Numeric Result Interpretation: <20.0 Units: Negative 20.0 - 39.0 Units: Weakly Positive >39.0 Units: Positive Blood BLOOD SPECIMEN / Unknown Lab Venipuncture / Unknown 06/05/2018 10:47 AM CDT 06/05/2018 11:01 AM CDT Lisset Hernandez MD LAB - CHEMISTR Y ORDERABLES Performing Organization Address City/[facility]/ZIP Co de Phone Number [address] [phone] * MANAGER BEAUTY ANTIBODY (06/05/2018 10:47 AM CDT) SM/MANAGER BEAUTY Antibody 3.1 0.0 - 19.9 Units 06/06/2018 10:39 AM CDT [facility] Comment: KIRAN Antibody Numeric Result Interpretation: <20.0 Units: Negative 20.0 - 39.0 Units: Weakly Positive >39.0 Units: Positive Blood BLOOD SPECIMEN / Unknown Lab Venipuncture / Unknown 06/05/2018 10:47 AM CDT 06/05/2018 11:01 AM CDT Lisset Hernandez MD LAB - CHEMISTR Y ORDERABLES Performing Organization Address City/[facility]/ZIP Co de Phone Number [address] [phone] * RHEUMATOID FACTOR BLOOD QUANTITATIVE (06/05/2018 10:47 AM CDT) Rheumatoid Factor <15 <30 IU/mL 06/05/2018 2:55 PM CDT [facility] Blood BLOOD SPECIMEN / Unknown Lab Venipuncture / Unknown 06/05/2018 10:47 AM CDT 06/05/2018 11:01 AM CDT Lisset Hernandez MD LAB - CHEMISTR Y ORDERABLES [address] [phone] * C-REACTIVE PROTEIN (06/05/2018 10:47 AM CDT) C-Reactive Protein <0.5 <=0.5 mg/dL 06/05/2018 11:51 AM CDT [facility] Blood BLOOD SPECIMEN / Unknown Lab Venipuncture / Unknown 06/05/2018 10:47 AM CDT 06/05/2018 11:01 AM CDT Lisset Hernandez MD LAB - CHEMISTR Y ORDERABLES Performing Organization Address [facility] Co de Phone Number [address] [phone] * ROBSON BLOOD SCREEN W/REFLEX TITER (06/05/2018 10:47 AM CDT) Pathologist [facility] ROBSON Negative 06/06/2018 5:08 PM CDT [facility] ([facility]) Comment: Negative <1:80 Borderline 1:80 Positive >1:80 Blood BLOOD SPECIMEN / Unknown Lab Venipuncture / Unknown 06/05/2018 10:47 AM CDT 06/05/2018 11:01 AM CDT Narrative [facility] ([facility]) - 06/06/2018 5:08 PM CDT Performed at: 01 - [facility] [address] [place], [place] [id number] Assistant Professor Of Nursing: Golden Seo PhD, Phone: [phone] Lisset Hernandez MD LAB - CHEMISTR Y ORDERABLES Performing Organization Address City/[facility]/ZIP Co de Phone Number [facility] ([facility]) [address] [place] [address], [facility] * (ABNORMAL) THYROID PEROXIDASE ANTIBODY (06/05/2018 10:47 AM CDT) Thyroid Peroxidase TPO Antibody 385(H) 0 - 34 IU/mL 06/06/2018 5:10 AM CDT [facility] Blood BLOOD SPECIMEN / Unknown Lab Venipuncture / Unknown 06/05/2018 10:47 AM CDT 06/05/2018 11:00 AM CDT Narrative [facility] ([facility]) - 06/06/2018 5:10 AM CDT Performed at: [address] [place] [id number] Assistant Professor Of Nursing: Golden Seo PhD, Phone: [phone] Lisset Hernandez MD LAB - CHEMISTR Y ORDERABLES Performing Organization Address [facility] de Phone Number [facility]) [address] [place] [address] * (ABNORMAL) THYROGLOBULIN ANTIBODY (06/05/2018 10:47 AM CDT) Thyroglobulin Antibody 28.4(H) 0.0 - 0.9 IU/mL 06/06/2018 2:13 PM CDT [facility] Comment:Thyroglobulin Antibo dy measured by Rajan Chiqui Methodology Blood BLOOD SPECIMEN / Unknown Lab Venipuncture / Unknown 06/05/2018 10:47 AM CDT 06/05/2018 11:00 AM CDT Narrative [facility]) - 06/06/2018 2:13 PM CDT Performed at: [address] [place] [address] [id number] Assistant Professor Of Nursing: Golden Seo PhD, Phone: [phone] Lisset Hernandez MD LAB - CHEMISTR Y ORDERABLES Performing Organization Address [facility] Co de Phone Number [facility]) [address] [place] [address] * HISTONE ANTIBODY (06/05/2018 10:47 AM CDT) Anti-Histone Antibody 0.5 0.0 - 0.9 Units 06/10/2018 11:18 AM CDT [facility] Comment: Negative <1.0 Weak Positive 1.0 - 1.5 Moderate Positive 1.6 - 2.5 Strong Positive >2.5 Blood BLOOD SPECIMEN / Unknown Lab Venipuncture / Unknown 06/05/2018 10:47 AM CDT 06/05/2018 11:01 AM CDT [facility] - 06/10/2018 11:18 AM CDT Performed at: [address] [place] [id number] Assistant Professor Of Nursing: Verónica Chew MD, Phone: [phone] Lisset Hernandez MD LAB - CHEMISTR Y ORDERABLES Performing Organization Address [facility] Co de Phone Number [facility]) [address] * COMPLEMENT TOTAL (06/05/2018 10:47 AM CDT) [facility] Complement Total CH50 >60 >41 U/mL 06/06/2018 1:12 PM CDT [facility] Blood BLOOD SPECIMEN / Unknown Lab Venipuncture / Unknown 06/05/2018 10:47 AM CDT 06/05/2018 11:00 AM CDT [facility]) - 06/06/2018 1:12 PM CDT Performed at: [address] [place] [address] [address] [place], [place] [id number] Assistant Professor Of Nursing: Golden Seo PhD, Phone: [phone] Lisset Hernandez MD LAB - CHEMISTR Y ORDERABLES Performing Organization Address [facility] Co de Phone Number [facility]) [address] * SS-B (SJOGRENS'S) ANTIBODY (06/05/2018 10:47 AM CDT) [facility] SS-B LA Antibody 3.1 0.0 - 19.9 Units 06/06/2018 10:39 AM CDT [facility] Comment: KIRAN Antibody Numeric Result Interpretation: <20.0 Units: Negative 20.0 - 39.0 Units: Weakly Positive >39.0 Units: Positive Blood BLOOD SPECIMEN / Unknown Lab Venipuncture / Unknown 06/05/2018 10:47 AM CDT 06/05/2018 11:00 AM CDT Lisset Hernandez MD LAB - CHEMISTR Y ORDERABLES Performing Organization Address [facility] Co de Phone Number [address] [phone] * SS-A (SJOGREN'S) ANTIBODY (06/05/2018 10:47 AM CDT) SS-A (Ro) Antibody 4.1 0.0 - 19.9 Units 06/06/2018 10:39 AM CDT [facility] Comment: KIRAN Antibody Numeric Result Interpretation: <20.0 Units: Negative 20.0 - 39.0 Units: Weakly Positive >39.0 Units: Positive Blood BLOOD SPECIMEN / Unknown Lab Venipuncture / Unknown 06/05/2018 10:47 AM CDT 06/05/2018 11:00 AM CDT Lisset Hernandez MD LAB - CHEMISTR Y ORDERABLES Performing Organization Address [facility] Co de Phone Number [address] [phone] * SCLERODERMA 70 (SCL) ANTIBODY (06/05/2018 10:47 AM CDT) SCL-70 Antibody 17.4 0.0 - 19.9 Units 06/06/2018 10:39 AM CDT [facility] Comment: KIRAN Antibody Numeric Result Interpretation: <20.0 Units: Negative 20.0 - 39.0 Units: Weakly Positive >39.0 Units: Positive Blood BLOOD SPECIMEN / Unknown Lab Venipuncture / Unknown 06/05/2018 10:47 AM CDT 06/05/2018 11:00 AM CDT Lisset Hernandez MD LAB - CHEMISTR Y ORDERABLES Performing Organization Address [facility]/ZIP Co de Phone Number [address] [phone] * DNA ANTIBODY DOUBLE STRANDED (06/05/2018 10:47 AM CDT) dsDNA Antibody 10 0 - 29 IU/mL 06/06/2018 10:39 AM CDT [facility] Comment: dsDNA Antibody Numeric Result Interpretation: 0 - 29 IU/mL: Negative 30 - 75 IU/mL: Borderline >75 IU/mL: Positive Blood BLOOD SPECIMEN / Unknown Lab Venipuncture / Unknown 06/05/2018 10:47 AM CDT 06/05/2018 11:01 AM CDT Lisset Hernandez MD LAB - HEMATOLO GY ORDERABLES Performing Organization Address [facility] Co de Phone Number [address] [phone] * ERYTHROCYTE SEDIMENTATION RATE (06/05/2018 10:47 AM CDT) Pathologist [facility] Erythrocyte Sedimentation Rate Westergren 6 0 - 20 MM/HR 06/05/2018 11:15 AM CDT [facility] Blood BLOOD SPECIMEN / Unknown Lab Venipuncture / Unknown 06/05/2018 10:47 AM CDT 06/05/2018 11:00 AM CDT Lisset Hernandez MD LAB - HEMATOLO GY ORDERABLES Performing Organization Address City/[facility]/ZIP Co de Phone Number [address] [phone] * CBC WITH DIFFERENTIAL (06/05/2018 10:47 AM CDT) WBC 8.0 3.5 - 10.5 10 3/uL 06/05/2018 11:08 AM CDT [facility] RBC 4.33 3.90 - 5.00 10 6/uL 06/05/2018 11:[address] [facility] Hemoglobin 13.4 12.0 - 15.5 g/dL 06/05/2018 11:[address] [facility] Hematocrit 39.7 35.0 - 45.0 % 06/05/2018 11:[address] [facility] MCV 91.7 81.0 - 97.0 fL 06/05/2018 11:[address] [facility] MCH 30.9 28.0 - 34.0 pg 06/05/2018 11:[address] [facility] MCHC 33.8 32.0 - 36.0 g/dL 06/05/2018 11:[address] [facility] Platelet Count 249 150 - 400 10 3/uL 06/05/2018 11:[address] [facility] RDW-SD 43.6 36.0 - 50.0 fL 06/05/2018 11:[address] [facility] RDW-CV 12.8 11.2 - 14.8 % 06/05/2018 11:[address] [facility] MPV 10.2 9.3 - 12.8 fL 06/05/2018 11:[address] [facility] nRBC Absolute 0.00 0 10 3/uL 06/05/2018 11:[address] [facility] nRBC Auto 0.0 0 /100 WBC 06/05/2018 11:[address] [facility] Neutrophils % 68.0 35.0 - 70.0 % 06/05/2018 11:[address] [facility] Lymphocytes % 21.6 19.7 - 55.1 % 06/05/2018 11:[address] [facility] Monocytes % 7.7 3.0 - 15.0 % 06/05/2018 11:[address] [facility] Eosinophils % 1.6 0.0 - 6.0 % 06/05/2018 11:[address] [facility] Basophil % 0.7 0.0 - 1.5 % 06/05/2018 11:[address] [facility] Neutrophils Absolute 5.5 1.6 - 7.0 10 3/uL 06/05/2018 11:[address] [facility] Lymphocyte Absolute 1.7 0.8 - 2.9 10 3/uL 06/05/2018 11:08 AM CDT [facility] Monocytes Absolute 0.62 0.14 - 0.66 10 3/uL 06/05/2018 11:08 AM CDT [facility] Eosinophils Absolute 0.13 0.00 - 0.45 10 3/uL 06/05/2018 11:08 AM CDT [facility] Basophils Absolute 0.06 0.00 - 0.06 10 3/uL 06/05/2018 11:08 AM CDT [facility] Immature Granulocytes % 0.4 0.0 - 1.0 % 06/05/2018 11:08 AM CDT [facility] Blood BLOOD SPECIMEN / Unknown Lab Venipuncture / Unknown 06/05/2018 10:47 AM CDT 06/05/2018 11:00 AM CDT Lisset Hernandez MD LAB - HEMATOLO GY ORDERABLES Performing Organization Address City/[facility]/ZIP Co de Phone Number [address] [phone] * (ABNORMAL) COMPLEMENT C4 (06/05/2018 10:47 AM CDT) Complement C4 11(L) 15 - 57 mg/dL 06/05/2018 12:09 PM T [facility] Blood BLOOD SPECIMEN / Unknown Lab Venipuncture / Unknown 06/05/2018 10:47 AM CDT 06/05/2018 11:01 AM CDT Lisset Hernandez MD LAB - SEROLOGY ORDERABLES [address] [phone] * (ABNORMAL) COMPREHENSIVE METABOLIC PANEL (06/05/2018 10:47 AM CDT) BUN 11 7 - 26 mg/dL 06/05/2018 12:06 PM CDT [facility] Creatinine 0.7 0.6 - 1.2 mg/dL 06/05/2018 12:06 PM T [facility] Sodium 136 136 - 145 mmol/L 06/05/2018 12:[address] [facility] Potassium 4.2 3.5 - 4.5 mmol/L 06/05/2018 12:[address] [facility] Chloride 104 98 - 107 mmol/L 06/05/2018 12:[address] [facility] CO2 24 22 - 29 mmol/L 06/05/2018 12:[address] [facility] Glucose 87 70 - 115 mg/dL 06/05/2018 12:[address] [facility] Calcium 9.0 8.4 - 10.2 mg/dL 06/05/2018 12:[address] [facility] Protein Total 7.2 6.0 - 8.3 g/dL 06/05/2018 12:[address] [facility] Albumin 3.6 3.4 - 5.0 g/dL 06/05/2018 12:[address] [facility] Bilirubin Total 0.5 0.2 - 1.2 mg/dL 06/05/2018 12:[address] [facility] Alkaline Phosphatase 52 40 - 150 Units/L 06/05/2018 12:[address] [facility] ALT 19 0 - 55 Units/L 06/05/2018 12:[address] [facility] AST 16 5 - 34 Units/L 06/05/2018 12:[address] [facility] Anion Gap 12 8 - 18 06/05/2018 12:[address] [facility] BUN/Creatinine Ratio 16 7 - 23 06/05/2018 12:[address] [facility] Osmolality Calculated 281 270 - 300 mOsm/kg 06/05/2018 12:[address] [facility] Albumin/Globulin Ratio 1.0(L) 1.1 - 2.3 06/05/2018 12:[address] [facility] eGFR >60 >60 mL/min/1.7 3 m2 06/05/2018 12:[address] [facility] Blood BLOOD SPECIMEN / Unknown Lab Venipuncture / Unknown 06/05/2018 10:47 AM CDT 06/05/2018 11:01 AM CDT Lisset Hernandez MD LAB - CHEMISTR Y ORDERABLES [address] [phone] * HEPATITIS B SURFACE ANTIGEN W RFLX CONFIRMATION (06/05/2018 10:47 AM CDT) Hepatitis B Virus Surface Antigen Non-reacti ve Non-reacti ve 06/05/2018 12:28 PM CDT [facility] Blood BLOOD SPECIMEN / Unknown Lab Venipuncture / Unknown 06/05/2018 10:47 AM CDT 06/05/2018 11:00 AM CDT Lisset Hernandez MD LAB - CHEMISTR Y ORDERABLES Performing Organization Address [facility]/ZIP Co de Phone Number [address] [phone] * CK BLOOD (06/05/2018 10:47 AM CDT) CK Total 61 30 - 200 Units/L 06/05/2018 11:58 AM CDT [facility] Blood BLOOD SPECIMEN / Unknown Lab Venipuncture / Unknown 06/05/2018 10:47 AM CDT 06/05/2018 11:00 AM CDT Lisset Hernandez MD LAB - CHEMISTR Y ORDERABLES Performing Organization Address [facility] Co de Phone Number [address] [phone] * TSH (06/05/2018 10:47 AM CDT) TSH 4.000 0.350 - 4.940 uIU/mL 06/05/2018 12:15 PM CDT [facility] Blood BLOOD SPECIMEN / Unknown Lab Venipuncture / Unknown 06/05/2018 10:47 AM CDT 06/05/2018 11:00 AM CDT Lisset Hernandez MD LAB - CHEMISTR Y ORDERABLES [address] [phone] * T4 FREE (06/05/2018 10:47 AM CDT) T4 Free 0.8 0.7 - 1.5 ng/dL 06/05/2018 12:15 PM CDT [facility] Blood BLOOD SPECIMEN / Unknown Lab Venipuncture / Unknown 06/05/2018 10:47 AM CDT 06/05/2018 11:00 AM CDT Lisset Hernandez MD LAB - CHEMISTR Y ORDERABLES [address] [phone] * HEPATITIS C ANTIBODY (06/05/2018 10:47 AM CDT) Pathologist [facility] Hepatitis C Antibody Non-react fouzia Non-reac tive 06/05/2018 12:15 PM CDT [facility] Comment: Hepatitis C Antibody screen indicates no serologic evidence of past or current infection with Hepatitis C Virus. Patients with unexplained liver disease who are immunocompromised or suspected of having acute Hepatitis C infection may benefit from Nucleic Acid Test (NICK) for Hepatitis C Viral RNA to confirm Hepatitis C status. Blood BLOOD SPECIMEN / Unknown Lab Venipuncture / Unknown 06/05/2018 10:47 AM CDT 06/05/2018 11:01 AM CDT Lisset Hernandez MD LAB - CHEMISTR Y ORDERABLES [address] [phone] * COMPLEMENT C3 (06/05/2018 10:47 AM CDT) Pathologist [facility] Complement C3 116 82 - 193 mg/dL 06/05/2018 12:09 PM CDT [facility] Blood BLOOD SPECIMEN / Unknown Lab Venipuncture / Unknown 06/05/2018 10:47 AM CDT 06/05/2018 11:01 AM CDT Lisset Hernandez MD LAB - CHEMISTR Y ORDERABLES [address] [phone] Care Teams Jawbone Puller Relationship Specialty Start Date End Date Jonathan Barr, LODGING FACILITIES MANAGER-MOOSE HUNTER [facility] [place] [id number] PCP - General 05/20/18
--- OUTSIDE RECORDS SUMMARY | 2024-04-25 09:49 | XMS_ITS | Clinical Summary ---
Author Organization [facility] Kaleb Petit Address [address] [place] [address] Care Team Providers Care Music Agent Name Role Phone MomoJonathan OVERNIGHT BABYSITTER Primary Care Provider Allergies No known active allergies Medications IBUPROFEN ORAL Take by mouth. Active ALBUTEROL SULFATE INHALATION Take by inhalation . 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 Family History Relation Name Status Comments Brother 1 Alive Brother 2 Alive Brother 3 Alive Brother 4 Alive Father Alive Mother Sister 1 Alive Sister 2 Alive Sister 3 Alive Social History Tobacco Use Types Packs/Day Years Used Date Smoking Tobacco: Never Assessed Alcohol Use Standard Drinks/Week Comments Never 0 (1 standard drink = 0.6 oz pur e alcohol) Comments Unknown Sex and Gender Information Value Date Recorded Sex Assigned at Not on file Legal Sex Female 11:42 AM WARP DYEING VAT TENDER Gender Identity Not on file Sexual Orientation Not on file Last Filed Vital Signs Vital Sign Reading Time Taken Comments Blood Pressure 124/74 02/03/2021 10:27 AM WARP DYEING VAT TENDER Pulse 82 02/03/2021 10:27 AM WARP DYEING VAT TENDER Temperature 36.9 C (98.4 F) 02/03/2021 10:27 AM WARP DYEING VAT TENDER Respiratory Rate - - Oxygen Saturation 97% 02/03/2021 10:27 AM WARP DYEING VAT TENDER Inhaled Oxygen Concentration - - Weight 85.3 kg (188 lb) 02/03/2021 10:27 AM WARP DYEING VAT TENDER Height 165.1 cm (5' 5 ) 02/03/2021 10:27 AM WARP DYEING VAT TENDER Body Mass Index 31.28 02/03/2021 10:27 AM WARP DYEING VAT TENDER Plan of Treatment Health Maintenance Due Date Last Done Comments PNEUMOCOCCAL VACCINE 0-64 YE ARS (1 of 2 - PCV) 1975 HEPATITIS B VACCINES (1 of 3 - 19+ 3-dose series) 1988 CERVICAL CANCER SCREENING 1999 BREAST CANCER SCREENING 2009 COLORECTAL SCREENING 2014 Colorectal Cancer Screening 2014 FIT-DNA Q 3 years 2014 FIT/FOBT Q 1 year 2014 Flex Sig/CT Colonography Q 5 years 2014 ZOSTER VACCINE (1 of 2) 2019 INFLUENZA VACCINE (#1) 2023 1, 12/30/2019, 02/03/2019, Additional history exists DTAP/TDAP/TD VACCINES (2 - T d or Tdap) 12/27/2024 12/27/[address] [place] [address] MEDICAID Care Teams Music Agent Relationship Specialty Start Date End Date Jonathan Barr NP [address] [place] [phone] PCP - General NURSE PRACTITIONER 02/03/21
--- OUTSIDE RECORDS SUMMARY | 2024-04-25 09:49 | XMS_ITS | Referral Summary ---
Author Organization [facility] Address [address] [facility] [place] [address] Care Team Providers Care Patient Care Technician Name Role Phone Jonathan Barr SECURITY AUDITOR-METERMAN Primary Care Pro vider Source Comments [facility],non-owned Affiliates and Associated Physician Practices is amultiple site organization consisting of ambulatory clinics and hospital sitesin [place], [place], [place] and [place]. This disclosure is being madepursuant to the Care Everywhere program and may not contain all information available regarding this patient. Last updated 17.[facility] Allergies No known active allergies Medications * Be aware that medications may not be up to date on this document. Alwaysverify current medications with the patient. Medication Sig Dispensed Refills Start Date End Date Status ibuprofen (MOTRIN) 800 MG tablet 02/26/2018 Active albuterol HFA (PROVENTIL; VENTOLIN; PROAIR) 108 (90 Base) MCG/ACT inhaler Inhale 2 puffs by mouth every 6 hours as needed Active mometasone-formoter ol (DULERA) 100-5 MCG/ACT inhaler Inhale 2 puffs by mouth 2 times daily Active ergocalciferol (DRISDOL) 1.25 MG (19900 UT) capsule Take 50,000 Units by mouth every 7 days Active fluticasone propionate (FLONASE) 50 MCG/ACT nasal spray [place] 2 sprays into each nostril once daily Active loratadine (CLARITIN) 10 MG tablet Take 10 mg by mouth once daily Active levonorgestrel (MIRENA, 52 MG,) 20 MCG/24HR IUD by Intrauterine route as directed Active Active Problems Problem Noted Date Diagnosed [...] Mass Index 31.1 06/19/2021 9:15 AM CDT Plan of Treatment Not on file Procedures Procedure Name Priority Date/Time Associated Diagnosis Comments COMPREHENSIVE METABOLIC PANEL Routine 06/05/2018 10:47 AM CDT Polyarthralgia Positive ROBSON (antinuclear antibody) Myalgia Other fatigue HEPATITIS C ANTIBODY Routine 06/05/2018 10:47 AM CDT Polyarthralgia Positive ROBSON (antinuclear antibody) Myalgia Other fatigue from Last 3 Months or Most Recently Relevant to Health Maintenance Results * (ABNORMAL) COMPREHENSIVE METABOLIC PANEL (06/05/2018 10:47 AM CDT) BUN 11 7 - 26 mg/dL 06/05/2018 12:06 PM [facility] Creatinine 0.7 0.6 - 1.2 mg/dL 06/05/2018 12:06 PM [facility] Sodium 136 136 - 145 mmol/L 06/05/2018 12:06 PM [facility] Potassium 4.2 3.5 - 4.5 mmol/L 06/05/2018 12:06 PM [facility] Chloride 104 98 - 107 mmol/L 06/05/2018 12:06 PM [facility] CO2 24 22 - 29 mmol/L 06/05/2018 12:06 PM [facility] Glucose 87 70 - 115 mg/dL 06/05/2018 12:06 PM [facility] Calcium 9.0 8.4 - 10.2 mg/dL 06/05/2018 12:06 PM [facility] Protein Total 7.2 6.0 - 8.3 g/dL 06/05/2018 12:06 PM [facility] Albumin 3.6 3.4 - 5.0 g/dL 06/05/2018 12:06 PM [facility] Bilirubin Total 0.5 0.2 - 1.2 mg/dL 06/05/2018 12:06 PM [facility] Alkaline Phosphatase 52 40 - 150 Units/L 06/05/2018 12:06 PM [facility] ALT 19 0 - 55 Units/L 06/05/2018 12:06 PM [facility] AST 16 5 - 34 Units/L 06/05/2018 12:06 PM [facility] Anion Gap 12 8 - 18 06/05/2018 12:06 PM [facility] BUN/Creatinine Ratio 16 7 - 23 06/05/2018 12:06 PM [facility] Osmolality Calculated 281 270 - 300 mOsm/kg 06/05/2018 12:06 PM [facility] Albumin/Globulin Ratio 1.0(L) 1.1 - 2.3 06/05/2018 12:06 PM [facility] eGFR >60 >60 mL/min/1.7 3 m2 06/05/2018 12:06 PM [facility] Blood BLOOD SPECIMEN / Unknown Lab Venipuncture / Unknown 06/05/2018 10:47 AM CDT 06/05/2018 11:01 AM CDT Lisset Hernandez MD LAB - CHEMISTR Y ORDERABLES [facility] [address] [place], [place] [id number] [place] [address] * HEPATITIS C ANTIBODY (06/05/2018 10:47 AM CDT) Hepatitis C Antibody Non-react fouzia Non-reac tive 06/05/2018 12:15 PM CDT [facility] Comment: Hepatitis C Antibody screen indicates no [...] Hernandez MD LAB - CHEMISTR Y ORDERABLES [address] [phone] from Last 3 Months or Most Recently Relevant to Health Maintenance Care Teams Patient Care Technician Relationship Specialty Start Date End Date Jonathan Barr APRN-KRZYSZTOF [address] [phone] PCP - General 05/20/18
--- OUTSIDE RECORDS SUMMARY | 2024-04-25 09:49 | XMS_ITS | Clinical Summary ---
Author Organization [facility] Address [address] [facility] [place] [address] Care Team Providers Care Photographic Developer And Printer Name Role Phone Jonathan Barr MICROSOFT APPLICATION DEVELOPER-STRATEGIC ACCOUNT EXECUTIVE Primary Care Pro vider Source Comments [facility],non-owned Affiliates and Associated Physician Practices is amultiple site organization consisting of ambulatory clinics and hospital sitesin [place], [place] and [place]. This disclosure is being madepursuant to the Care Everywhere program and may not contain all information available regarding this patient. Last updated 17.[facility] Allergies No known active allergies Medications * [...] times daily Active ergocalciferol (DRISDOL) 1.25 MG (97132 UT) capsule Take 50,000 Units by mouth every 7 days Active fluticasone propionate (FLONASE) 50 MCG/ACT nasal spray [place] 2 sprays into each nostril once daily Active loratadine (CLARITIN) 10 MG tablet Take 10 mg by mouth once daily Active levonorgestrel (MIRENA, 52 MG,) 20 MCG/24HR IUD by Intrauterine route as directed Active Active Problems Problem Noted Date Diagnosed Date Polyarthralgia 06/05/2018 Positive ROBSON (antinuclear antibody) 06/05/2018 Myalgia 06/05/2018 Other fatigue 06/05/2018 Family History Medical History Relation Name Comments Hypertension Father Hypertension Mother Renal Disease Mother Thyroid Disease Mother Arthritis - Osteo Sister Hypertension Sister Relation Name Status Comments Father Mother Sister Social History Tobacco Use Types Packs/Day Years [...] 06/19/2021 9:15 AM CDT Plan of Treatment Health Maintenance Due Date Last Done Comments COLOGUARD (AGES 45-75) - COLON CA SCREENING 1969 COLON MONITORING 1969 COLONOSCOPY - COLON CA SCREENING 1969 CT COLONOGRAPHY - COLON CA SCREENING 1969 Colorectal Cancer Screening 1969 FIT - COLON CA SCREENING 1969 FLEX SIG - COLON CA SCREENING 1969 LIPID TESTING 1969 PAP SMEAR 1969 HIV SCREENING 1984 DTAP/TDAP/TD VACCINES (1 - Tdap) 1988 HEPATITIS B VACCINE (1 of 3 - 19+ 3-dose series) 1988 PNEUMOCOCCAL VACCINE 50+ (1 of 1 - PCV) 2019 ZOSTER VACCINE (1 of 2) 2019 SCREENING FOR DIABETES 06/19/2021 06/05/2018 MAMMOGRAM 03/31/2023 03/31/2021 COVID-19 VACCINE ( season) 2023 INFLUENZA VACCINE (#1) 2023 1, 12/30/2019, 02/03/2019, Additional history exists DEPRESSION SCREENING 03/04/2024 HEPATITIS C SCREENING Completed 06/05/2018 HIB VACCINE Aged Out No longer eligi ble based on patient's age to complete this topic HPV VACCINE Aged Out No longer eligi ble based on patient's age to complete this topic MENINGOCOCCAL (Group B) VACCINE Aged Out No longer eligible based on patient's age to complete this topic MENINGOCOCCAL VACCINE Aged Out No karissa castro eligible based on patient's age to complete this topic PNEUMOCOCCAL VACCINE Aged Out No long er eligible based on patient's age to complete [...] 7 - 26 mg/dL 06/05/2018 12:06 PM [facility] Creatinine 0.7 0.6 - 1.2 mg/dL 06/05/2018 12:06 PM [facility] Sodium 136 136 - 145 mmol/L 06/05/2018 12:06 PM [facility] Potassium 4.2 3.5 - 4.5 mmol/L 06/05/2018 12:06 PM [facility] Chloride 104 98 - 107 mmol/L 06/05/2018 12:06 PM [facility] CO2 24 22 - 29 mmol/L 06/05/2018 12:06 PM [facility] Glucose 87 70 - 115 mg/dL 06/05/2018 12:06 PM [facility] Calcium 9.0 8.4 - 10.2 mg/dL 06/05/2018 12:06 PM [facility] Protein Total 7.2 6.0 - 8.3 g/dL 06/05/2018 12:06 PM [facility] Albumin 3.6 3.4 - 5.0 g/dL 06/05/2018 12:06 PM [facility] Bilirubin Total 0.5 0.2 - 1.2 mg/dL 06/05/2018 12:06 PM [facility] Alkaline Phosphatase 52 40 - 150 Units/L 06/05/2018 12:06 PM [facility] ALT 19 0 - 55 Units/L 06/05/2018 12:06 PM [facility] AST 16 5 - 34 Units/L 06/05/2018 12:06 PM [facility] Anion Gap 12 8 - 18 06/05/2018 12:06 PM [facility] BUN/Creatinine Ratio 16 7 - 23 06/05/2018 12:06 PM [facility] Osmolality Calculated 281 270 - 300 mOsm/kg 06/05/2018 12:06 PM [facility] Albumin/Globulin Ratio 1.0(L) 1.1 - 2.3 06/05/2018 12:06 PM [facility] eGFR >60 >60 mL/min/1.7 3 m2 06/05/2018 12:06 PM [facility] Blood BLOOD SPECIMEN / Unknown Lab Venipuncture / Unknown 06/05/2018 10:47 AM CDT 06/05/2018 11:01 AM T Lisset Hernandez MD LAB - CHEMISTR Y ORDERABLES [facility] [address] [phone] * HEPATITIS C ANTIBODY (06/05/2018 10:47 AM T) Hepatitis C Antibody Non-react fouzia Non-reac tive 06/05/2018 12:15 PM [facility] Comment: Hepatitis C Antibody screen indicates [...] - CHEMISTR Y ORDERABLES Performing Organization Address City/State/[facility] Co de Phone Number [facility] [address] [place] [address] from Last 3 Months or Most Recently Relevant to Health Maintenance Care Teams Photographic Developer And Printer Relationship Specialty Start Date End Date Jonathan Barr, MICROSOFT APPLICATION DEVELOPER-STRATEGIC ACCOUNT EXECUTIVE [address] [place] [address] PCP - General 05/20/18
--- OUTSIDE RECORDS SUMMARY | 2024-04-25 09:49 | XMS_ITS | Clinical Summary ---
Author Organization [facility] Address [address] [place] [address] Care Team Providers Care Facility Worker Name Role Phone Unavailable Primary Care Provider Unavailabl e Social History Tobacco Use Types Packs/Day Years Used Date Smoking Tobacco: Never Assessed Comments Unknown Sex and Gender Information Value Date Recorded Sex Assigned at Not on file Legal Sex Female 8:41 PM CDT Gender Identity Not on file Sexual Orientation Not on file Plan of Treatment Health Maintenance Due Date Last Done Comments Hepatitis C Virus (HCV) Screening 1969 Hepatitis B Immunization (1 of 3 - 19+ 3-dose series) 1988 Pap Smear 1990 Cervical Cancer Screening (CCS) 1999 HPV/Cotest 1999 Colonoscopy 2014 Colorectal Cancer Screening 2014 Cologuard 2019 Immunochemical Fecal Occult Blood 2019 Mammogram 2019 Pneumococcal Immunization (50+ years) (1 of 1 - PCV) 2019 Zoster Immunization (1 of 2) 2019 Influenza Immunization (#1) 11/03/202312/03, 02/03/2019, 02/11/2017, Additional history exists SARS-COV-2 Immunization ( season) 2023 02/04/2021, 05/21/2020, 04/30/2020 Respiratory Syncytial Virus (RSV) Immunization (Adult) (1 - 1-dose 75+ series) 2044 DTaP/Tdap/Td Immunization Discontinued 12/27/2014 TdaP Immunization Completed 12/27/2014 Meningococcal Immunization (ACWY) Aged Out No longer eligible based on patient's age to complete this topic Pneumococcal Immunization Combined Aged Out No longer eligible based on patient's age to complete this topic Rotavirus Immunization Aged Out No lo nger eligible based on patient's age to complete this topic Insurance [employer] on file
== END 2024-04-25 09:45 | disposition home or self-care (01) ==
PROVIDERS: PCP Registered Nurse; Visit Provider Registered Nurse
DX: E03.9 Hypothyroidism, unspecified (principal)
CPT/HCPCS: 76536

== ENCOUNTER 2024-06-26 10:02 | Outpatient (CLI) | payer OTHER, SELFPAY ==
--- OUTSIDE RECORDS SUMMARY | 2024-06-26 10:18 | XMS_ITS | Clinical Summary ---
Author Organization [facility] Address [address] [facility] [place] [address] Care Team Providers Care State Director Name Role Phone Jonathan Barr CUSTOMER RELATIONS CONSULTANT-WHOLESALE BUYER Primary Care Pro vider Source Comments [facility],non-owned Affiliates and Associated Physician Practices is amultiple site organization consisting of ambulatory clinics and hospital sitesin [place], [place], [place] and [place]. This disclosure is being madepursuant to the Care Everywhere program and may not contain all information available regarding this patient. Last updated 17.[facility] [employer] Allergies No known active allergies Medications * Be aware that medications may not be up to date on this document. Alwaysverify current medications with the patient. 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 file Not on file Not on file Last Filed Vital Signs [...] 06/19/2021 06/05/2018 MAMMOGRAM 03/31/2023 03/31/2021 COVID-19 VACCINE (1 - season) 2023 DEPRESSION SCREENING 03/04/2024 INFLUENZA VACCINE (Season Ended) 2024 11/25/2020, 12/30/2019, 02/03/2019, Additional history exists HEPATITIS C SCREENING Completed 06/05/2018 HIB VACCINE Aged Out No longer eligi ble based on patient's age to complete this topic HPV VACCINE Aged Out No longer eligi ble based on patient's age to complete this topic MENINGOCOCCAL (Group B) VACCINE SHARED DECISION-MAKING Aged Out No longer eligible based on patient's age to complete this topic MENINGOCOCCAL GROUPS A/C/Y/W VACCINE Aged Out No longer eligible based [...] 7 - 26 mg/dL 06/05/2018 12:06 PM [facility] Creatinine 0.7 0.6 - 1.2 mg/dL 06/05/2018 12:06 PM [facility] Sodium 136 136 - 145 mmol/L 06/05/2018 12:06 PM [facility] Potassium 4.2 3.5 - 4.5 mmol/L 06/05/2018 12:06 PM [facility] Chloride 104 98 - 107 mmol/L 06/05/2018 12:06 PM [facility] CO2 24 22 - 29 mmol/L 06/05/2018 12:06 PM [facility] Glucose 87 70 - 115 mg/dL 06/05/2018 12:06 PM [facility] Calcium 9.0 8.4 - 10.2 mg/dL 06/05/2018 12:06 PM [facility] Protein Total 7.2 6.0 - 8.3 g/dL 06/05/2018 12:06 PM [facility] Albumin 3.6 3.4 - 5.0 g/dL 06/05/2018 12:06 PM [facility] Bilirubin Total 0.5 0.2 - 1.2 mg/dL 06/05/2018 12:06 PM [facility] Alkaline Phosphatase 52 40 - 150 Units/L 06/05/2018 12:06 PM [facility] ALT 19 0 - 55 Units/L 06/05/2018 12:06 PM [facility] AST 16 5 - 34 Units/L 06/05/2018 12:06 PM [facility] Anion Gap 12 8 - 18 06/05/2018 12:06 PM [facility] BUN/Creatinine Ratio 16 7 - 23 06/05/2018 12:06 PM [facility] Osmolality Calculated 281 270 - 300 mOsm/kg 06/05/2018 12:06 PM [facility] Albumin/Globulin Ratio 1.0(L) 1.1 - 2.3 06/05/2018 12:06 PM [facility] eGFR >60 >60 mL/min/1.7 3 m2 06/05/2018 12:06 PM [facility] Blood BLOOD SPECIMEN / Unknown Lab Venipuncture / Unknown 06/05/2018 10:47 AM CDT 06/05/2018 11:01 AM CDT us Lisset Hernandez MD LAB - CHEMISTRY ORDERA BLES Final Result [address] [phone] * HEPATITIS C ANTIBODY (06/05/2018 10:47 AM CDT) Hepatitis C Antibody Non-react fouzia Non-reac tive 06/05/2018 12:15 PM CDT [facility] Comment: Hepatitis C Antibody screen indicates [...] 10:47 AM CDT 06/05/2018 11:01 AM CDT us Lisset Hernandez MD LAB - CHEMISTRY BEATA ARIAS Final Result [facility] [address] [phone] from Last 3 Months or Most Recently Relevant to Health Maintenance Insurance [facility] Care Teams State Director Relationship Specialty Start Date End Date Jonathan Barr APRN-KRZYSZTOF [facility] [address] PCP - General 05/20/18
--- OUTSIDE RECORDS SUMMARY | 2024-06-26 10:19 | XMS_ITS | Clinical Summary ---
Author Organization [facility] Address [address] [place] [address] Care Team Providers Care Executive Chef Name Role Phone Jonathan Barr GUEST ROOM INSPECTOR Primary Care Provider Allergies No known active [...] on file Legal Sex Female 11:42 AM SPOOLING MACHINE OPERATOR Gender Identity Not on file Sexual Orientation Not on file Last Filed Vital Signs Vital Sign Reading Time Taken Comments Blood Pressure 124/74 02/03/2021 10:27 AM SPOOLING MACHINE OPERATOR Pulse 82 02/03/2021 10:27 AM SPOOLING MACHINE OPERATOR Temperature 36.9 C (98.4 F) 02/03/2021 10:27 AM SPOOLING MACHINE OPERATOR Respiratory Rate - - Oxygen Saturation 97% 02/03/2021 10:27 AM SPOOLING MACHINE OPERATOR Inhaled Oxygen Concentration - - Weight 85.3 kg (188 lb) 02/03/2021 10:27 AM SPOOLING MACHINE OPERATOR Height 165.1 cm (5' 5 ) 02/03/2021 10:27 AM SPOOLING MACHINE OPERATOR Body Mass Index 31.28 02/03/2021 10:27 AM SPOOLING MACHINE OPERATOR Plan of Treatment Health Maintenance Due Date Last Done Comments HEPATITIS B VACCINES (1 of 3 - 19+ 3-dose series) 1988 HPV/Cotest (21-29) 1990 CERVICAL CANCER SCREENING 1999 HPV/Cotest (30-65) 1999 PAP SMEAR 1999 COLORECTAL SCREENING 2014 Colorectal Cancer Screening 2014 FIT-DNA Q 3 years 2014 FIT/FOBT Q 1 year 2014 Flex Sig/CT Colonography Q 5 years 2014 ZOSTER VACCINE (1 of 2) 2019 BREAST CANCER SCREENING 08/26/2021 08/26/2020 INFLUENZA VACCINE (#1) 2023 , 12/30/2019, 02/03/2019, Additional history exists DTAP/TDAP/TD VACCINES (2 - T d or Tdap) 12/27/2024 12/27/2014 Insurance [facility] MEDICAID Care Teams Executive Chef Relationship Specialty Start Date End Date Jonathan Barr NP [address] [place] [id number] PCP - General NURSE PRACTITIONER 02/03/21
--- OUTSIDE RECORDS SUMMARY | 2024-06-26 10:19 | XMS_ITS | Clinical Summary ---
Author Organization [facility] Address [address] [place] [address] Care Team Providers Care Application Packaging Consultant Name Role Phone Unavailable Primary Care Provider [...]
--- OUTSIDE RECORDS SUMMARY | 2024-06-26 10:19 | XMS_ITS | Clinical Summary ---
Author Organization [facility] Address [address] [place] [address] Care Team Providers Care Motor Patrol Operator Name Role Phone Jonathan Khan CNP Primary Care Provider [phone] Encounters Date Type Department Care Team Description 05/15/2024 1:36 PM CDT - 05/15/2024 11:59 PM CDT Hospital Encounter [facility] [address] [place] [address] Jonathan Khan CNP Discharge Disposition: Home or Self Care (Routine Discharge) 05/15/2024 Travel from Last 3 Months Social History Tobacco Use Types Packs/Day Years Used Date Smoking Tobacco: Never Assessed Comments No Sex and Gender Information Value Date Recorded Sex Assigned at Female 05/15/2024 1:35 PM CDT Legal Sex Female 5:20 PM CDT Gender Identity Female 03/30/2021 12:26 PM TRANSMISSION DESIGN ENGINEER Sexual Orientation Straight 03/30/2021 12 :26 PM TRANSMISSION DESIGN ENGINEER Plan of Treatment Health Maintenance Due Date Last Done Comments Cervical Cancer Screening Pap Smear (Age 30 to 64) Every 3 Years 1969 Colorectal Cancer Screening Colonoscopy (10 Years) 1969 Annual Physical 1972 Hepatitis B Vaccines (1 of 3 - 19+ 3-dose series) 1988 Cervical Cancer Screening Pap with HPV Testing (Age 30 to 64) Every 5 Years 1999 Cervical Cancer Screening with HPV 1999 Zoster Vaccines (1 of 2) 2019 Pneumococcal Vaccine: 50+ Years (2 of 2 - PPSV23) 07/26/2023 07/25/2022 COVID-19 Vaccine ( - season) 2023 DTaP, Tdap and Td Vaccines (2 - Td or Tdap) 12/27/2024 12/27/2014 Mammogram Screening 05/15/2026 05/15/2024, 01/02/2023, 03/31/2021, Additional history exists Hepatitis C Completed 06/05/2018 Meningococcal B Vaccine Aged Out No l [...] MG SCREENING W EMMA ELIE DIGI Routine 05/15/2024 2:02 PM CDT Encounter for screening mammogram for malignant neoplasm of breast from Last 3 Months Results * MG SCREENING W EMMA ELIE DIGI (05/15/2024 2:02 PM CDT) Anatomical Region Laterality Modality Breast Bilateral Mammography 05/15/2024 2:31 PM CDT Impressions 05/15/2024 2:34 PM CDT IMPRESSION: No suspicious mammographic findings. Recommendation: 1. Routine Screening, Bilateral Assessment: ACR BI-RADS 2 - BENIGN FINDING(S) Ordered By: JONATHAN KHAN Interpreted By: Valdez Ortez, 05/15/2024 2:31 PM Narrative 05/15/2024 2:34 PM CDT [facility] [address] [place] [address] Examination: Screening bilateral mammogram Exam Date/Time: 05/15/2024 1:43 PM Clinical history: No current complaints. Comparison: 01/02/2023 Technique: Digital screening mammography of both breasts was performed. Breast tomosynthesis acquisitions were obtained and reviewed. This study was read with the assistance of a computer-aided detection system. Tissue density: The breasts are heterogeneously dense, which may obscure small masses. Findings: No suspicious masses, malignant appearing calcifications, skin thickening or other abnormalities are present. No significant change from the prior exam. us Jonathan Khan CNP MAMMO Final Resul t from Last 3 Months Insurance [employer] Care Teams Motor Patrol Operator Relationship Specialty Start Date End Date Jonathan Khan CNP [address] [place] [address] PCP - General 09/21/16
[2024-06-26 10:47] LABS: Hematocrit 40.8 % (37.0-47.0); Hemoglobin 13.5 g/dL (12.0-15.0); Mean Corpuscular HGB Conc 33.1 g/dl (32-36); Mean Corpuscular Hemoglobin 30.8 pg (26-34); Mean Corpuscular Volume 92.9 fl (80-100); Mean Platelet Volume 9.8 fl (7.4-10.4); Platelet Count Result 269 k/mm3 (150-375); Red Blood Count 4.39 M/mm3 (4.2-5.4); Red Cell Distribution Width 12.6 % (11.5-14.5); White Blood Count 6.6 K/mm3 (4.5-10.0)
[2024-06-26 10:50] LABS: Alanine Aminotransferase 26 U/L (6-35); Albumin Level 4.4 g/dL (3.5-5.1); Alkaline Phosphatase 62 U/L (38-126); Anion Gap 9 mmol/L (4-12); Aspartate Amino Transferase 23 U/L (14-36); Bilirubin,Total 0.7 mg/dL (0.2-1.3); Blood Urea Nitrogen 13 mg/dL (7-17); Calcium 8.9 mg/dL (8.4-10.2); Carbon Dioxide 26 mmol/L (22-30); Chloride 105 mmol/L (98-107); Estimated Glomerular Filt Rate > 60; Glucose 91 mg/dL (65-110); Potassium 3.9 mmol/L (3.4-5.0); Sodium 140 mmol/L (137-145)
[2024-06-26 10:55] LABS: INR 0.9
[2024-06-30 11:34] LABS: LKM 1 Antibody <=20.0 U (<=20.0)
== END 2024-06-26 10:03 | disposition home or self-care (01) ==
LOC: ANHLAB 10:02
PROVIDERS: PCP Registered Nurse; Visit Provider Nurse Practitioner
DX: K76.0 Fatty (change of) liver, not elsewhere classified (principal)
CPT/HCPCS: 36415; 80053; 85027; 85610; 86376

== ENCOUNTER 2024-10-02 16:13 | Outpatient (CLI) | payer OTHER, SELFPAY ==
--- NOTE | ~2024-10-02 | US_ITS ---
EXAMINATION: US venous doppler [facility] DATE: 10/02/2024 17:18 INDICATION: Leg pain TECHNIQUE: Grayscale ultrasound images without and with compression and Doppler ultrasound images of the bilateral lower extremity veins were obtained. COMPARISON: None. FINDINGS: The visualized portions of right common femoral vein, profunda (deep) femoral vein, femoral vein, pop liteal vein, peroneal veins, posterior tibial veins, and greater saphenous vein outflow are patent. The visualized portions of left common femoral vein, profunda femoral vein, femoral vein, popliteal v ein, peroneal veins, posterior tibial veins, and greater saphenous vein outflow are patent. Within the area of clinical concern (the left anterior medial knee) is a single superficial vein with out thrombosis or significant additional abnormality. IMPRESSION: 1. No deep venous thrombosis. Reviewed, dictated and finalized at location A.
--- OUTSIDE RECORDS SUMMARY | 2024-10-02 16:15 | XMS_ITS | Clinical Summary ---
Author Organization [facility] Address [address] [place] [address] Care Team Providers Care Personal Lines Sales Rep Name Role Phone Unavailable Primary Care Provider [...] Cervical Cancer Screening (CCS) 1999 HPV/Cotest 1999 Cologuard 2014 Colonoscopy 2014 Colorectal Cancer Screening 2014 Immunochemical Fecal Occult Blood 2014 Pneumococcal Immunization (50+ years) (1 of 1 - PCV) 2019 Zoster Immunization (1 of 2) 2019 SARS-COV-2 Immunization ( - season) 2023 02/04/2021, 05/21/2020, 04/30/2020 Influenza Immunization (#1) 11/02/202412/03, 02/03/2019, 02/11/2017, Additional history exists Respiratory Syncytial Virus (RSV) Immunization (Adult) (1 - 1-dose 75+ series) 2044 DTaP/Tdap/Td Immunization Discontinued 12/27/2014 TdaP Immunization Completed 12/27/2014 Human Papillomavirus (HPV) Immunization Aged Out No longer eligible based on patient's age to complete this topic Meningococcal Immunization (ACWY) Aged Out No longer eligible based on patient's age to complete this topic Rotavirus Immunization Aged Out No lo nger eligible based on patient's age to complete this topic Insurance [employer] on file
--- OUTSIDE RECORDS SUMMARY | 2024-10-02 16:15 | XMS_ITS | Clinical Summary ---
Author Organization [facility] Address [address] [place] [address] Care Team Providers Care Supervisor Photostat Name Role Phone Jonathan Barr CHIEF YEOMAN Primary Care Provider Allergies No known active [...] on file Legal Sex Female 11:42 AM MACHINE CUTTER Gender Identity Not on file Sexual Orientation Not on file Last Filed Vital Signs Vital Sign Reading Time Taken Comments Blood Pressure 124/74 02/03/2021 10:27 AM MACHINE CUTTER Pulse 82 02/03/2021 10:27 AM MACHINE CUTTER Temperature 36.9 C (98.4 F) 02/03/2021 10:27 AM MACHINE CUTTER Respiratory Rate - - Oxygen Saturation 97% 02/03/2021 10:27 AM MACHINE CUTTER Inhaled Oxygen Concentration - - Weight 85.3 kg (188 lb) 02/03/2021 10:27 AM MACHINE CUTTER Height 165.1 cm (5' 5) 02/03/2021 10:27 AM MACHINE CUTTER Body Mass Index 31.28 02/03/2021 10:27 AM MACHINE CUTTER Plan of Treatment Health Maintenance Due Date [...] CANCER SCREENING 08/26/2021 08/26/2020 INFLUENZA VACCINE (#1) 2024 , 12/30/2019, 02/03/2019, Additional history exists DTAP/TDAP/TD VACCINES (2 - T d or Tdap) 12/27/2024 12/27/2014 Insurance [facility] MEDICAID Care Teams Supervisor Photostat Relationship Specialty Start Date End Date Jonathan Barr NP [address] [place] [phone] PCP - General NURSE PRACTITIONER 02/03/21
--- OUTSIDE RECORDS SUMMARY | 2024-10-02 16:15 | XMS_ITS | Clinical Summary ---
Author Organization [facility] Address [address] [place] [address] Care Team Providers Care Tube Machine Operator Helper Name Role Phone Jonathan Barr VEHICLE AND EQUIPMENT CLEANER-MICROFILM DUPLICATING UNIT SUPERVISOR Primary Care Pro vider Source Comments [facility],non-owned Affiliates and Associated Physician Practices is amultiple site organization consisting of ambulatory clinics and hospital sitesin [place], [place], [place] and [place]. This disclosure is being madepursuant to the Care Everywhere program and may not contain all information available regarding this patient. Last updated 17.[facility] [employer] Allergies No known active allergies Medications * [...] times daily Active ergocalciferol (DRISDOL) 1.25 MG (40132 UT) capsule Take 50,000 Units by mouth every 7 days Active fluticasone propionate (FLONASE) 50 MCG/ACT nasal spray [place] 2 sprays into each nostril once daily [...] 9:15 AM CDT Height 166.4 cm (5' 5.5) 06/19/2021 9:15 AM CDT Body Mass Index [...] COLON CA SCREENING 1969 LIPID TESTING 1969 HIV SCREENING 1984 DTAP/TDAP/TD VACCINES (1 - Tdap) 1988 HEPATITIS B VACCINE (1 of 3 - 19+ 3-dose series) 1988 PAP SMEAR 1990 PNEUMOCOCCAL VACCINE 50+ (1 of 1 - PCV) 2019 ZOSTER VACCINE (1 of 2) 2019 SCREENING FOR DIABETES 06/19/2021 06/05/2018 MAMMOGRAM 03/31/2023 03/31/2021 COVID-19 VACCINE (1 - season) 2023 DEPRESSION SCREENING 03/04/2024 INFLUENZA VACCINE (#1) 2024 1, 12/30/2019, 02/03/2019, Additional history exists HEPATITIS C [...] 26 mg/dL 06/05/2018 12:06 PM [facility] Creatinine 0.7 0.6 - 1.2 mg/dL 06/05/2018 12:06 PM [facility] Sodium 136 136 - 145 mmol/L 06/05/2018 12:06 PM [facility] Potassium 4.2 3.5 - 4.5 mmol/L 06/05/2018 12:06 PM [facility] Chloride 104 98 - 107 mmol/L 06/05/2018 12:06 PM [facility] CO2 24 22 - 29 mmol/L 06/05/2018 12:06 PM [facility] Glucose 87 70 - 115 mg/dL 06/05/2018 12:06 PM [facility] Calcium 9.0 8.4 - 10.2 mg/dL 06/05/2018 12:06 PM [facility] Protein Total 7.2 6.0 - 8.3 g/dL 06/05/2018 12:06 PM [facility] Albumin 3.6 3.4 - 5.0 g/dL 06/05/2018 12:06 PM [facility] Bilirubin Total 0.5 0.2 - 1.2 mg/dL 06/05/2018 12:06 PM [facility] Alkaline Phosphatase 52 40 - 150 Units/L 06/05/2018 12:06 PM [facility] ALT 19 0 - 55 Units/L 06/05/2018 12:06 PM [facility] AST 16 5 - 34 Units/L 06/05/2018 12:06 PM [facility] Anion Gap 12 8 - 18 06/05/2018 12:06 PM [facility] BUN/Creatinine Ratio 16 7 - 23 06/05/2018 12:06 PM [facility] Osmolality Calculated 281 270 - 300 mOsm/kg 06/05/2018 12:06 PM [facility] Albumin/Globulin Ratio 1.0(L) 1.1 - 2.3 06/05/2018 12:06 PM [facility] eGFR >60 >60 mL/min/1.7 3 m2 06/05/2018 12:06 PM [facility] Blood BLOOD SPECIMEN / Unknown Lab Venipuncture / Unknown 06/05/2018 10:47 AM CDT 06/05/2018 11:01 AM CDT us Lisset Hernandez MD LAB - CHEMISTRY ORDERA BLES Final Result [address] [phone] * HEPATITIS C ANTIBODY (06/05/2018 10:47 AM CDT) Hepatitis C Antibody Non-react fouzia Non-reac tive 06/05/2018 12:15 PM CDT [facility] Comment: Hepatitis C Antibody screen indicates no [...] LAB - CHEMISTRY BEATA ARIAS Final Result [facility] [address] [phone] from Last 3 Months or Most Recently Relevant to Health Maintenance Insurance [facility] Care Teams Tube Machine Operator Helper Relationship Specialty Start Date End Date Jonathan Barr APRN-KRZYSZTOF [facility] [id number] PCP - General 05/20/18
--- OUTSIDE RECORDS SUMMARY | 2024-10-02 16:15 | XMS_ITS | Clinical Summary ---
Author Organization [facility] Address [address] [place] [id number] Care Team Providers Care Tank Setter Helper Name Role Phone MomoJailyndarrius Headley CNP Primary Care Provider [phone] Social History Tobacco Use Types Packs/Day Years Used Date Smoking Tobacco: Never Assessed Comments No Sex and Gender Information Value Date Recorded Sex Assigned at Female 05/15/2024 1:35 PM CDT Legal Sex Female 5:20 PM CDT Gender Identity Female 03/30/2021 12:26 PM BIOLOGICAL SCIENCES INSTRUCTOR Sexual Orientation Straight 03/30/2021 12 :26 PM BIOLOGICAL SCIENCES INSTRUCTOR Plan of Treatment Health Maintenance Due Date [...] - PPSV23) 07/26/2023 07/25/2022 COVID-19 Vaccine ( season) 2023 DTaP, Tdap and Td Vaccines [...] 2:31 PM Narrative 05/15/2024 2:34 PM CDT [facility] [address] [place] [address] Examination: Screening bilateral mammogram Exam Date/Time: 05/15/2024 [...] from the prior exam. us Jonathan Khan HEAVY MOBILE EQUIPMENT REPAIRER MAMMO Final Resul t from Last 3 Months or Most Recently Relevant to Health Maintenance Insurance Care Teams Tank Setter Helper Relationship Specialty Start Date End Date Jonathan Khan CNP PCP - General 09/21/16
== END 2024-10-02 16:14 | disposition home or self-care (01) ==
LOC: ANHIMG 16:14
PROVIDERS: PCP Registered Nurse; Visit Provider Registered Nurse
DX: I83.93 Asymptomatic varicose veins of bilateral lower extremities (principal)
CPT/HCPCS: 93970